=== PATIENT | female | born 1955 | race Two or more races ===

== ENCOUNTER 2020-03-14 15:30 | Emergency (ER) | payer OTHER, SELFPAY ==
--- NOTE | 2020-03-14 | ECG_ITS ---
Test Reason : NAUSEA
--- NOTE | 2020-03-14 | CT_ITS ---
EXAMINATION: CT ABDOMEN AND PELVIS WITHOUT CONTRAST CLINICAL INFORMATION: Epigastric pain. Left lower quadrant pain. COMPARISON: CT scan abdomen pelvis 04/23/2017 TECHNIQUE: Multidetector volumetric imaging was performed from the superior aspect of the liver through the pubic symphysis. Sagittal and coronal reformatted images were obtained on the technologist's workstation. This CT examination was performed using dose optimization techniques as appropriate, variously including the following: *Automated exposure control *Adjustment of mA and/or kV according to patient size (this includes techniques or standardized protocols for targeted exams where dose is matched to indication/reason for exam; i.e. extremities or head) *Use of iterative reconstruction technique DLP: 783 mGy-cm FINDINGS: LUNG BASES: The visualized lung bases are unremarkable. LIVER, GALLBLADDER, AND BILIARY TREE: The liver is normal in size, shape, and attenuation. No focal hepatic lesion or biliary ductal dilatation is present. Status post cholecystectomy PANCREAS: Unremarkable. SPLEEN: Unremarkable. ADRENAL GLANDS: Unremarkable. KIDNEYS AND URETERS: The kidneys are normal in size, shape, and attenuation. No hydronephrosis, hydroureter, or calculi seen. No perinephric stranding. BLADDER: Unremarkable. GASTROINTESTINAL TRACT: No acute abnormality. There are diverticula of the sigmoid and descending colon. There is no diverticulitis. There is no bowel wall thickening /edema. There is no bowel obstruction. There is a moderate volume of stool in the colon. The appendix is normal . The small bowel loops are unremarkable. The stomach is normal. There is no hiatal hernia. ABDOMINAL WALL: No significant hernia is appreciated. LYMPH NODES: Normal. VASCULAR: Scattered vascular wall calcifications of aorta and iliac arteries. There is no aneurysm. PELVIC VISCERA: Unremarkable. OSSEOUS STRUCTURES: Unremarkable. IMPRESSION: No acute abnormality CT scan abdomen and pelvis. There is mild diverticulosis of the colon but no acute changes of the bowel.
[2020-03-14 16:14] VITALS: BP 155/67; PULSE 86; RESP 18; TEMP 36.8; O2SAT 99; BMI 56.9
[2020-03-14 16:57] VITALS: BP 150/68; PULSE 78; RESP 18; TEMP 37.3
--- NOTE | 2020-03-14 17:13 | ED_ITS ---
HPI - Nausea/Vomiting/Diarrhea General Chief complaint: Nausea/Vomiting/Diarrhea <Marquita Serra NP - Last Filed: 03/14/20 22:37> Stated complaint: vomiting,dirrhea <Marquita Serra NP - Last Filed: 03/14/20 22:37> Time Seen by Provider: 03/14/20 17:13 <Marquita Serra NP - Last Filed: 03/14/20 22:37> Source: patient <Marquita Serra NP - Last Filed: 03/14/20 22:37> Mode of arrival: ambulatory <OMID Leary Last Filed: 03/14/20 22:37> Limitations: no limitations <OMID Leary Last Filed: 03/14/20 22:37> History of Present Illness HPI Narrative: Patient presents with 3 days of poor p.o. intake, 2 days of nausea, vomiting, and diarrhea And 1 day of epigastric and right lower quadrant pain. she has a history of diverticulosis, diabetes, hypertension, fibromyalgia and depression. she does report intermittent palpitations but denies chest pain or pressure, shortness of breath, abdominal distention, dysuria, hematuria, hematochezia, melena, fevers and chills. <Marquita Serra NP - Last Filed: 03/14/20 22:37> MD elicited complaint: nausea, vomiting, diarrhea and abdominal pain <OMID Leary Last Filed: 03/14/20 22:37> Onset (ago): day(s) (3) <Marquita Serra NP - Last Filed: 03/14/20 22:37> Description of vomiting: bilious <Marquita Serra NP - Last Filed: 03/14/20 22:37> Description of diarrhea: watery <Marquita Serra NP - Last Filed: 03/14/20 22:37> Associated nausea: Yes <Marquita Serra NP - Last Filed: 03/14/20 22:37> Associated abdominal pain: Yes <OMID Leary Last Filed: 03/14/20 22:37> Location of pain: epigastric, LUQ and LLQ <Marquita Serra NP - Last Filed: 03/14/20 22:37> Radiation: diffuse <Marquita Serra [employer]ODUCTION TECHNICIAN - Last Filed: 03/14/20 22:37> Pain consistency: constant <Marquita Serra NP - Last Filed: 03/14/20 22:37> Severity: moderate <Marquita Serra NP - Last Filed: 03/14/20 22:37> Quality: cramping and aching <Marquita Serra [employer] PRODUCTION TECHNICIAN - Last Filed: 03/14/20 22:37> Exacerbating factors: eating, vomiting and movement <Marquita Serra [employer] PRODUCTION TECHNICIAN - Last Filed: 03/14/20 22:37> Relieving factors: rest <Marquita Serra NP - Last Filed: 03/14/20 22:37> Associated symptoms: denies other symptoms <Marquita Serra NP - Last Filed: 03/14/20 22:37> Treatment prior to arrival: none <Marquita Serra NP - Last Filed: 03/14/20 22:37> Related Data Home medications: Previous Rx's Medication Instructions Recorded ondansetron HCl [Zofran] 4 mg PO Q8H #14 tab 03/14/20 <Marquita Serra NP - Last Filed: 03/14/20 22:37> Allergies/Adverse reactions: Allergies Allergy/AdvReac Type Severity Reaction Status Date / Time amitriptyline [AMITRIPTYLINE] Allergy Unknown ANXIOUS, Verified 03/14/20 16:21 SWELLING aspirin [ASPIRIN] Allergy Unknown DROOLING, Verified 03/14/20 16:21 EXCESSIVE SPITTING <Marquita Serra NP - Last Filed: 03/14/20 22:37> Review of Systems Review of Systems: Yes all other systems are reviewed and are negative <Marquita Serra NP - Last Filed: 03/14/20 22:37> Constitutional: Constitutional: Reports poor appetite <Marquita Serra NP - Last Filed: 03/14/20 22:37> Eyes: Eyes: Reports no additional eye complaints <Marquita Serra NP - Last Filed: 03/14/20 22:37> ENT: Reports system reviewed and no additional complaints, except as documented <Marquita Serra NP - Last Filed: 03/14/20 22:37> Cardiovascular: Cardiovascular: Reports no additional cardiovascular complaints and Reports Epigastric Pain <Marquita Serra [employer]ODUCTION TECHNICIAN - Last Filed: 03/14/20 22:37> Respiratory: Respiratory: Reports no additional respiratory complaints <Marquita Serra [employer] PRODUCTION TECHNICIAN - Last Filed: 03/14/20 22:37> Gastrointestinal: Gastrointestinal: Reports abdominal pain, Reports GI cramping, Reports diarrhea, Reports loose stools, Reports nausea and Reports vomiting <Marquita Serra [employer] PRODUCTION TECHNICIAN - Last Filed: 03/14/20 22:37> Genitourinary: Genitourinary: Reports no additional female genitourinary complaints <Marquita Serra [employer] PRODUCTION TECHNICIAN - Last Filed: 03/14/20 22:37> Musculoskeletal: Musculoskeletal: Reports no additional musculoskeletal complaints <Marquita Serra [employer] PRODUCTION TECHNICIAN - Last Filed: 03/14/20 22:37> Integumentary/Breasts: Skin/Breast: Reports system reviewed and no additional complaints, except as docu <Marquita Serra [employer] PRODUCTION TECHNICIAN - Last Filed: 03/14/20 22:37> Neurologic: Reports system reviewed and no additional complaints, except as documented and Reports Abnormal speech present <Marquita Serra [employer] PRODUCTION TECHNICIAN - Last Filed: 03/14/20 22:37> Psychiatric: Psychiatric: Reports no additional psychiatric complaints <Marquita Serra [employer] PRODUCTION TECHNICIAN - Last Filed: 03/14/20 22:37> Endocrine: Endocrine: Reports no additional endocrine complaints <Marquita Serra [employer] PRODUCTION TECHNICIAN - Last Filed: 03/14/20 22:37> Hematologic/Lymphatic: Hematologic/Lymphatic: Reports no additional hematologic/lymphatic complaints <Marquita Serra [employer] PRODUCTION TECHNICIAN - Last Filed: 03/14/20 22:37> [facility] Past Medical History Attestation statement: The following information was validated with the patient. <Marquita Serra NP - Last Filed: 03/14/20 22:37> Medical History: Medical History (Updated 03/15/20 @ 00:00 by Donta Anaya) Back ache Depression Diabetes Gastritis HTN (hypertension) Osteoarthritis <Marquita Serra [employer]ODUCTION TECHNICIAN - Last Filed: 03/14/20 22:37> Surgical History: Surgical History (Updated 03/14/20 @ 16:19 by Briana Torres) Tubal ligation status <Marquita Serra NP - Last Filed: 03/14/20 22:37> Social History Social History: Social History Alcohol intake: never Smoking Status: Never smoker Use of substances other than those prescribed or required for medical reasons: No Advance Directives: No Advance Directives Information Provided: No <Marquita Serra NP - Last Filed: 03/14/20 22:37> Physical Exam Vital Signs and I&O and Narrative: Vital Signs and I&O: Vital Signs Temp 97.9 F 03/14/20 20:17 Pulse 75 03/14/20 20:17 Resp 16 03/14/20 20:17 BP 160/77 H 03/14/20 20:17 Pulse Ox 98 03/14/20 20:17 Intake & Output 03/14/20 03/14/20 03/15/20 06:59 18:59 06:59 Intake Total 1000 / 1000 Balance 1000 / 1000 Weight 180 kg Intake: Intake, IV Amoun t 1000 / 1000 0.9 % Sodium C hloride 1,000 ml 1000 / 1000 @ 999 mls/hr I VCONT .Q1H1M JOSEMANUEL Rx#:[id number] Body Mass Index 56.9 <Marquita Serra [employer] PRODUCTION TECHNICIAN - Last Filed: 03/14/20 22:37> Vital Signs and I&O: Vital Signs Temp 97.9 F 03/14/20 20:17 Pulse 75 03/14/20 20:17 Resp 16 03/14/20 20:17 BP 160/77 H 03/14/20 20:17 Pulse Ox 98 03/14/20 20:17 Intake & Output 03/14/20 03/14/20 03/15/20 06:59 18:59 06:59 Intake Total 1000 / 1000 Balance 1000 / 1000 Weight 180 kg Intake: Intake, IV Amoun t 1000 / 1000 0.9 % Sodium C hloride 1,000 ml 1000 / 1000 @ 999 mls/hr I VCONT .Q1H1M [facility] Rx#:[id number] Body Mass Index 56.9 <Max Rivera DO - Last Filed: 03/15/20 01:15> Const: General: cooperative, healthy appearing, comfortable, no acute distress, well developed, alert, awake and Physically active <Marquita Serra NP - Last Filed: 03/14/20 22:37> Nutritional Appearance: obese centrally obese <Marquita Serra [employer]ODUCTION TECHNICIAN - Last Filed: 03/14/20 22:37> Orientation/consciousness: patient oriented x3 <Marquita Serra [employer] PRODUCTION TECHNICIAN - Last Filed: 03/14/20 22:37> Limitations: no limitations <Marquita Serra [employer] PRODUCTION TECHNICIAN - Last Filed: 03/14/20 22:37> HENMT: Head: Yes normal to inspection <Marquita Serra [employer] PRODUCTION TECHNICIAN - Last Filed: 03/14/20 22:37> Ears: hearing grossly normal bilaterally <Marquita Serra [employer] PRODUCTION TECHNICIAN - Last Filed: 03/14/20 22:37> General nose exam: Normal external nose present <Marquita Serra [employer] PRODUCTION TECHNICIAN - Last Filed: 03/14/20 22:37> Face and sinus: Yes normal facial exam <Marquita Serra [employer] PRODUCTION TECHNICIAN - Last Filed: 03/14/20 22:37> Mouth: Normal oral and palatal mucosa present <Marquita Serra [employer] PRODUCTION TECHNICIAN - Last Filed: 03/14/20 22:37> Eyes: General: appearance normal, both eyes and all related structures <Marquita Serra [employer] PRODUCTION TECHNICIAN - Last Filed: 03/14/20 22:37> Pupils: Equal, round and reactive pupils present <Marquita Serra [employer] PRODUCTION TECHNICIAN - Last Filed: 03/14/20 22:37> EOM: EOMs intact bilaterally <Marquita Serra [employer] PRODUCTION TECHNICIAN - Last Filed: 03/14/20 22:37> Neck: Neck: Yes normal visual inspection, Yes full ROM, Yes no lymphadenopathy and Yes no meningeal signs <Marquita Serra [employer] PRODUCTION TECHNICIAN - Last Filed: 03/14/20 22:37> Chest: Chest palpation & inspection: normal inspection of the chest <Marquita Serra [employer] PRODUCTION TECHNICIAN - Last Filed: 03/14/20 22:37> Resp: Effort & Inspection: normal respiratory effort and able to speak in complete sentences <Marquita Serra [employer] PRODUCTION TECHNICIAN - Last Filed: 03/14/20 22:37> Auscultation: clear to auscultation bilaterally <Marquita Serra [employer] PRODUCTION TECHNICIAN - Last Filed: 03/14/20 22:37> Cardio: Rate: regular rate <Marquita Serra [employer] PRODUCTION TECHNICIAN - Last Filed: 03/14/20 22:37> Rhythm: regular rhythm <Marquita Serra [employer]EL PRODUCTION TECHNICIAN - Last Filed: 03/14/20 22:37> GI: Inspection: Yes normal to inspection <Marquita Serra [employer] PRODUCTION TECHNICIAN - Last Filed: 03/14/20 22:37> Auscultation: normal bowel sounds <Marquita Serra [employer] PRODUCTION TECHNICIAN - Last Filed: 03/14/20 22:37> : General: Yes no CVA tenderness <Candjed Serra, BI[employer]EL PRODUCTION TECHNICIAN - Last Filed: 03/14/20 22:37> Back/Spine/Pelvis: Back: no CVA tenderness <Candjed Ponce, BI[employer]EL PRODUCTION TECHNICIAN - Last Filed: 03/14/20 22:37> Thoracic/Lumbar Spine: thoracic and lumbar spine normal to inspection <Marquita Serra [employer] PRODUCTION TECHNICIAN - Last Filed: 03/14/20 22:37> Skin: General skin exam: no rashes or lesions noted <Marquita Serra [employer] PRODUCTION TECHNICIAN - Last Filed: 03/14/20 22:37> Neuro: General: patient oriented x3, gait normal ( Ambulates with cane) and no meningeal signs <Marquita Serra [employer] PRODUCTION TECHNICIAN - Last Filed: 03/14/20 22:37> Cranial nerves: Yes CN's II-XII intact bilaterally, Yes Facial sensation intact/muscles of mastication intact, Yes Intact sense of smell present and Yes Equal, round and reactive pupils present <Marquita Serra [employer] PRODUCTION TECHNICIAN - Last Filed: 03/14/20 22:37> Cognition (Neuro): normal cognition <Marquita Serra [employer]EL PRODUCTION TECHNICIAN - Last Filed: 03/14/20 22:37> Speech: Abnormal speech present <Candjed Serra [employer]EL PRODUCTION TECHNICIAN - Last Filed: 03/14/20 22:37> Motor exam (neuro): 5/5 motor strength present throughout <Marquita Serra [employer] PRODUCTION TECHNICIAN - Last Filed: 03/14/20 22:37> Extrem: General: Yes normal to inspection <Marquita Serra [employer]EL PRODUCTION TECHNICIAN - Last Filed : 03/14/20 22:37> Psych: Appearance: grossly normal <Marquita Serra [employer] PRODUCTION TECHNICIAN - Last Filed: 03/14/20 22:37> Mental Status: mental status grossly normal <Marquita Serra NP - Last Filed: 03/14/20 22:37> Speech and movement: Normal speech and movement present <Marquita Serra NP - Last Filed: 03/14/20 22:37> Course Course Hospital Course: 64-year-old female with past medical history of depression, hypertension, diabetes type 2 insulin dependent, fibromyalgia, diverticulosis and polyps with last colonoscopy being 3 years ago presents with nausea, vomiting, diarrhea for several days accompanied with epigastric and left lower quadrant abdominal pain. Patient is tender to palpation to the epigastric and left lower quadrant areas, plan is to rule out for ACS, AAA, acute abdomen. <Marquita Serra NP - Last Filed: 03/14/20 22:37> Reevaluation(s) Reevaluation #1: Chest x-ray is negative for acute findings, CBC is within normal limits. Glucose 161. <Marquita Serra NP - Last Filed: 03/14/20 22:37> Reevaluation #2: CT scan negative, lab values indicate hyperkalemia at 5.5. We will give Kayexalate. <Marquita Serra NP - Last Filed: 03/14/20 22:37> Time: 19:05 <Marquita Serra NP - Last Filed: 03/14/20 22:37> Reevaluation #3: patient is doing well, states to feel much better with fluid resuscitation and antiemetics. Plan of care is to discharge home with follow-up with primary care provider. We will give a prescription for Zofran to help with nausea. Patient does understand that she must continue to take her insulin as directed per her insulin sliding scale. [employer] utilized for all correspondence. [employer] translate utilized for discharge instructions. Patient verbalized understanding of and agrees to plan of care discharge home. <Marquita Serra NP - Last Filed: 03/14/20 22:37> MDM - Nausea/Vomiting/Diarrhea Differential Diagnosis Differential diagnosis: Likely gastroenteritis and dehydration <Marquita Serra NP - Last Filed: 03/14/20 22:37> Medical Records Attestation: I reviewed the patient's medical records. <Marquita Serra NP - Last Filed: 03/14/20 22:37> Lab Data Attestation: I reviewed the patient's lab results. <Marquita Serra NP - Last Filed: 03/14/20 22:37> Result diagrams: : 03/14/20 17:35 03/14/20 17:35 <Marquita Serra NP - Last Filed: 03/14/20 22:37> Labs: Lab Results 03/14/20 03/14/20 03/14/20 Range/Units 17:35 17:35 17:35 WBC 8.5 (4.8-10.8) X10*3/uL RBC 4.42 (4.20-5.50) X10*6/uL Hgb 13.5 (12.0-16.0) g/dl Hct 42.2 (37-47) % MCV 95.5 (80-98) fL MCH 30.5 (27.0-33.0) pg MCHC 32.0 (31.0-35.0) g/dl RDW 11.9 (11.0-16.0) % Plt Count 294 (160-400) X10*3/uL MPV 10.3 (9.4-12.3) fL Immature Gran % (Auto) 0.2 (0.0-0.4) % Neut % (Auto) 62.4 (45-73) % Lymph % (Auto) 26.9 (20-40) % [place] % (Auto) 8.7 (2-11) % Eos % (Auto) 1.4 (0-4) % Baso % (Auto) 0.4 (0-2) % Neut # (Auto) 5.3 (2.0-8.3) X10*3/uL Lymph # (Auto) 2.3 (1.2-4.9) X10*3/uL [place] # (Auto) 0.7 (0.1-1.2) X10*3/uL Eos # (Auto) 0.1 (0.0-0.4) X10*3/uL Baso # (Auto) 0.0 (0.0-0.2) X10*3/uL Abs Immat Gran (auto) 0.02 (0.00-0.03) X10*3/uL Absolute Nucleated RBC 0.000 (0.0-0.012) X10*3/uL Nucleated RBC % (auto) 0.0 (0.0-0.2) /100WBC PT 13.3 H (10.8-13.0) SEC INR 1.1 (0.9-1.1) Sodium 140 (135-145) mmol/L Potassium 5.5 H (3.3-5.1) mmol/l Chloride 105 (96-108) mmol/L Carbon Dioxide 25 (22-29) mmol/L Anion Gap 16 (12-20) BUN 14 (9-16) mg/dL Creatinine 0.78 (0.5-1.4) mg/dL Estim Creat Clear Calc 126.7 Estimated GFR > 60 Random Glucose 161 H (60-115) mg/dL Calcium 8.9 (8.4-10.2) mg/dL Magnesium (1.6-2.6) mg/dL Total Bilirubin 0.2 (0.0-1.0) mg/dL Direct Bilirubin < 0.2 (0.0-0.5) mg/dL AST 33 H (5-31) U/L ALT 26 (0-31) U/L Alkaline Phosphatase 86 (39-117) U/L Troponin I High Sens (<3.5-17.0) ng/L Total Protein 7.6 (6.5-8.0) g/dL Albumin 4.2 (3.5-5.0) g/dL Lipase 55 (8-78) U/L 03/14/20 03/14/20 Range/Units 17:36 17:36 WBC (4.8-10.8) X10*3/uL RBC (4.20-5.50) X10*6/uL Hgb (12.0-16.0) g/dl Hct (37-47) % MCV (80-98) fL MCH (27.0-33.0) pg MCHC (31.0-35.0) g/dl RDW (11.0-16.0) % Plt Count (160-400) X10*3/uL MPV (9.4-12.3) fL Immature Gran % (Auto) (0.0-0.4) % Neut % (Auto) (45-73) % Lymph % (Auto) (20-40) % [place] % (Auto) (2-11) % Eos % (Auto) (0-4) % Baso % (Auto) (0-2) % Neut # (Auto) (2.0-8.3) X10*3/uL Lymph # (Auto) (1.2-4.9) X10*3/uL [place] # (Auto) (0.1-1.2) X10*3/uL Eos # (Auto) (0.0-0.4) X10*3/uL Baso # (Auto) (0.0-0.2) X10*3/uL Abs Immat Gran (auto) (0.00-0.03) X10*3/uL Absolute Nucleated RBC (0.0-0.012) X10*3/uL Nucleated RBC % (auto) (0.0-0.2) /100WBC PT (10.8-13.0) SEC INR (0.9-1.1) Sodium (135-145) mmol/L Potassium (3.3-5.1) mmol/l Chloride (96-108) mmol/L Carbon Dioxide (22-29) mmol/L Anion Gap (12-20) BUN (9-16) mg/dL Creatinine (0.5-1.4) mg/dL Estim Creat Clear Calc Estimated GFR Random Glucose (60-115) mg/dL Calcium (8.4-10.2) mg/dL Magnesium 2.3 (1.6-2.6) mg/dL Total Bilirubin (0.0-1.0) mg/dL Direct Bilirubin (0.0-0.5) mg/dL AST (5-31) U/L ALT (0-31) U/L Alkaline Phosphatase (39-117) U/L Troponin I High Sens < 3.5 (<3.5-17.0) ng/L Total Protein (6.5-8.0) g/dL Albumin (3.5-5.0) g/dL Lipase (8-78) U/L <Marquita Serra NP - Last Filed: 03/14/20 22:37> Lab Results 03/14/20 03/14/20 03/14/20 Range/Units 17:35 17:35 17:35 WBC 8.5 (4.8-10.8) X10*3/uL RBC 4.42 (4.20-5.50) X10*6/uL Hgb 13.5 (12.0-16.0) g/dl Hct 42.2 (37-47) % MCV 95.5 (80-98) fL MCH 30.5 (27.0-33.0) pg MCHC 32.0 (31.0-35.0) g/dl RDW 11.9 (11.0-16.0) % Plt Count 294 (160-400) X10*3/uL MPV 10.3 (9.4-12.3) fL Immature Gran % (Auto) 0.2 (0.0-0.4) % Neut % (Auto) 62.4 (45-73) % Lymph % (Auto) 26.9 (20-40) % [place] % (Auto) 8.7 (2-11) % Eos % (Auto) 1.4 (0-4) % Baso % (Auto) 0.4 (0-2) % Neut # (Auto) 5.3 (2.0-8.3) X10*3/uL Lymph # (Auto) 2.3 (1.2-4.9) X10*3/uL [place] # (Auto) 0.7 (0.1-1.2) X10*3/uL Eos # (Auto) 0.1 (0.0-0.4) X10*3/uL Baso # (Auto) 0.0 (0.0-0.2) X10*3/uL Abs Immat Gran (auto) 0.02 (0.00-0.03) X10*3/uL Absolute Nucleated RBC 0.000 (0.0-0.012) X10*3/uL Nucleated RBC % (auto) 0.0 (0.0-0.2) /100WBC PT 13.3 H (10.8-13.0) SEC INR 1.1 (0.9-1.1) Sodium 140 (135-145) mmol/L Potassium 5.5 H (3.3-5.1) mmol/l Chloride 105 (96-108) mmol/L Carbon Dioxide 25 (22-29) mmol/L Anion Gap 16 (12-20) BUN 14 (9-16) mg/dL Creatinine 0.78 (0.5-1.4) mg/dL Estim Creat Clear Calc 126.7 Estimated GFR > 60 Random Glucose 161 H (60-115) mg/dL Calcium 8.9 (8.4-10.2) mg/dL Magnesium (1.6-2.6) mg/dL Total Bilirubin 0.2 (0.0-1.0) mg/dL Direct Bilirubin < 0.2 (0.0-0.5) mg/dL AST 33 H (5-31) U/L ALT 26 (0-31) U/L Alkaline Phosphatase 86 (39-117) U/L Troponin I High Sens (<3.5-17.0) ng/L Total Protein 7.6 (6.5-8.0) g/dL Albumin 4.2 (3.5-5.0) g/dL Lipase 55 (8-78) U/L 03/14/20 03/14/20 Range/Units 17:36 17:36 WBC (4.8-10.8) X10*3/uL RBC (4.20-5.50) X10*6/uL Hgb (12.0-16.0) g/dl Hct (37-47) % MCV (80-98) fL MCH (27.0-33.0) pg MCHC (31.0-35.0) g/dl RDW (11.0-16.0) % Plt Count (160-400) X10*3/uL MPV (9.4-12.3) fL Immature Gran % (Auto) (0.0-0.4) % Neut % (Auto) (45-73) % Lymph % (Auto) (20-40) % [place] % (Auto) (2-11) % Eos % (Auto) (0-4) % Baso % (Auto) (0-2) % Neut # (Auto) (2.0-8.3) X10*3/uL Lymph # (Auto) (1.2-4.9) X10*3/uL [place] # (Auto) (0.1-1.2) X10*3/uL Eos # (Auto) (0.0-0.4) X10*3/uL Baso # (Auto) (0.0-0.2) X10*3/uL Abs Immat Gran (auto) (0.00-0.03) X10*3/uL Absolute Nucleated RBC (0.0-0.012) X10*3/uL Nucleated RBC % (auto) (0.0-0.2) /100WBC PT (10.8-13.0) SEC INR (0.9-1.1) Sodium (135-145) mmol/L Potassium (3.3-5.1) mmol/l Chloride (96-108) mmol/L Carbon Dioxide (22-29) mmol/L Anion Gap (12-20) BUN (9-16) mg/dL Creatinine (0.5-1.4) mg/dL Estim Creat Clear Calc Estimated GFR Random Glucose (60-115) mg/dL Calcium (8.4-10.2) mg/dL Magnesium 2.3 (1.6-2.6) mg/dL Total Bilirubin (0.0-1.0) mg/dL Direct Bilirubin (0.0-0.5) mg/dL AST (5-31) U/L ALT (0-31) U/L Alkaline Phosphatase (39-117) U/L Troponin I High Sens < 3.5 (<3.5-17.0) ng/L Total Protein (6.5-8.0) g/dL Albumin (3.5-5.0) g/dL Lipase (8-78) U/L <Max Rivera DO - Last Filed: 03/15/20 01:15> Imaging Data CT scan - abdomen: Attestation: I personally reviewed and interpreted this imaging study as follows: <Marquita Serra NP - Last Filed: 03/14/20 22:37> Radiologist's impression: FINDINGS: LUNG BASES: The visualized lung bases are unremarkable. LIVER, GALLBLADDER, AND BILIARY TREE: The liver is normal in size, shape, and attenuation. No focal hepatic lesion or biliary ductal dilatation is present. Status post cholecystectomy PANCREAS: Unremarkable. SPLEEN: Unremarkable. ADRENAL GLANDS: Unremarkable. KIDNEYS AND URETERS: The kidneys are normal in size, shape, and attenuation. No hydronephrosis, hydroureter, or calculi seen. No perinephric stranding. BLADDER: Unremarkable. GASTROINTESTINAL TRACT: No acute abnormality. There are diverticula of the sigmoid and descending colon. There is no diverticulitis. There is no bowel wall thickening /edema. There is no bowel obstruction. There is a moderate volume of stool in the colon. The appendix is normal . The small bowel loops are unremarkable. The stomach is normal. There is no hiatal hernia. ABDOMINAL WALL: No significant hernia is appreciated. LYMPH NODES: Normal. VASCULAR: Scattered vascular wall calcifications of aorta and iliac arteries. There is no aneurysm. PELVIC VISCERA: Unremarkable. OSSEOUS STRUCTURES: Unremarkable. IMPRESSION: No acute abnormality CT scan abdomen and pelvis. There is mild diverticulosis of the colon but no acute changes of the bowel. <Marquita Serra NP - Last Filed: 03/14/20 22:37> Chest x-ray: Attestation: I personally reviewed and interpreted this imaging study as follows: <Marquita Serra NP - Last Filed: 03/14/20 22:37> Radiologist's impression: FINDINGS: No significant abnormality is noted involving the heart, lungs, mediastinum, bony thorax or soft tissues. IMPRESSION: Unremarkable examination. <Marquita Serra NP - Last Filed: 03/14/20 22:37> ECG Data Attestation: I personally reviewed and interpreted this ECG as follows: <Marquita Serra NP - Last Filed: 03/14/20 22:37> ECG interpretation date: 03/14/20 <Marquita Serra NP - Last Filed: 03/14/20 22:37> ECG interpretation time: 18:42 <Marquita Serra NP - Last Filed: 03/14/20 22:37> Prior ECG tracings: available for review <Marquita Serra NP - Last Filed: 03/14/20 22:37> Interpretation: normal sinus rhythm, 65 beats per minute, AR interval 158, QTC 414, QTC 430, no indication of ST elevation or depression. No indication of any ischemia. Normal EKG <Marquita Serra NP - Last Filed: 03/14/20 22:37> Discharge Plan Discharge Clinical Impression: Gastroenteritis, Acute hyperkalemia <OMID Leary Last Filed: 03/14/20 22:37> Patient Disposition: Home, Self-Care <OMID Leary Last Filed: 03/14/20 22:37> Instructions: Dehydration (ED), Gastroenteritis (ED), Hyperkalemia (ED) <Marquita Serra NP - Last Filed: 03/14/20 22:37> Additional Instructions: please follow-up with primary care physician in 3-5 days. Return to the emergency department for any new, concerning, worsening symptoms. <Marquita Serra NP - Last Filed: 03/14/20 22:37> Prescriptions: New ondansetron HCl [Zofran] 4 mg tablet 4 mg PO Q8H Qty: 14 RF: 0 <Marquita Serra NP - Last Filed: 03/14/20 22:37> Interventions: ED Discharge Assessment Last Done: 03/14/20 20:37 <Marquita Serra NP - Last Filed: 03/14/20 22:37> Discharge Date/Time: 03/14/20 20:38 <Marquita Serra NP - Last Filed: 03/14/20 22:37>
--- NOTE | 2020-03-14 17:20 | XR_ITS ---
EXAMINATION: XR CHEST CLINICAL INFORMATION: Epigastric pain COMPARISON: 11/29/2019 TECHNIQUE: Frontal view of the chest was obtained. FINDINGS: No significant abnormality is noted involving the heart, lungs, mediastinum, bony thorax or soft tissues. IMPRESSION: Unremarkable examination.
[2020-03-14 17:52] LABS: MANUAL DIFF FLAG NO
[2020-03-14 17:55] LABS: Basophils Percent Auto 0.4 % (0-2); Eosinophils Absolute Auto 0.1 X10*3/uL (0.0-0.4); Eosinophils Percent Auto 1.4 % (0-4); Hematocrit 42.2 % (37-47); Hemoglobin 13.5 g/dl (12.0-16.0); Imm Gran Abs Auto 0.02 X10*3/uL (0.00-0.03); Imm Gran Pct Auto 0.2 % (0.0-0.4); Lymphocytes Absolute Auto 2.3 X10*3/uL (1.2-4.9); Lymphocytes Percent Auto 26.9 % (20-40); Mean Corpuscular Hemoglobin 30.5 pg (27.0-33.0); Mean Corpuscular Volume 95.5 fL (80-98); Mean Platelet Volume 10.3 fL (9.4-12.3); Monocytes Absolute Auto 0.7 X10*3/uL (0.1-1.2); Monocytes Percent Auto 8.7 % (2-11); Neutrophils Absolute Auto 5.3 X10*3/uL (2.0-8.3); Neutrophils Percent Auto 62.4 % (45-73); Platelet Count 294 X10*3/uL (160-400); Red Blood Count 4.42 X10*6/uL (4.20-5.50); Red Cell Distribution Width 11.9 % (11.0-16.0); White Blood Count 8.5 X10*3/uL (4.8-10.8)
[2020-03-14 17:58] LABS: INTERNATIONAL NORM RATIO 1.1 (0.9-1.1); Prothrombin Time 13.3 SEC (10.8-13.0)
[2020-03-14 18:17] LABS: Magnesium 2.3 mg/dL (1.6-2.6)
[2020-03-14] MEDS: ondansetron HCL 4 MG/2 ML VIAL IVPUSH (18:21)
[2020-03-14] MEDS: 0.9 % Sodium Chloride 1,000 ML 999 ML IVCONT (18:21)
[2020-03-14 18:23] VITALS: BP 126/66; PULSE 66; RESP 16; TEMP 37.1
[2020-03-14 18:28] VITALS: PULSE 65
[2020-03-14 18:52] LABS: Alanine Aminotransferase 26 U/L (0-31); Albumin Level 4.2 g/dL (3.5-5.0); Alkaline Phosphatase 86 U/L (39-117); Anion Gap 16 (12-20); Aspartate Amino Transferase 33 U/L (5-31); Bilirubin Direct < 0.2 mg/dL (0.0-0.5); Bilirubin Total 0.2 mg/dL (0.0-1.0); Blood Urea Nitrogen 14 mg/dL (9-16); Calcium 8.9 mg/dL (8.4-10.2); Carbon Dioxide 25 mmol/L (22-29); Chloride 105 mmol/L (96-108); Creatinine Clr Calc Pharmacy 126.7; Estimated Glomerular Filt Rate > 60; Glucose Random 161 mg/dL (60-115); Lipase 55 U/L (8-78); Potassium 5.5 mmol/l (3.3-5.1); Sodium 140 mmol/L (135-145); Total Protein 7.6 g/dL (6.5-8.0)
[2020-03-14 20:17] VITALS: BP 160/77; PULSE 75; RESP 16; TEMP 36.6; O2SAT 98
[2020-03-14] MEDS: Sodium Polystyrene Sulfon/Sorb 15 GM/60 ML ORAL.SUSP 30 GM PO (20:33)
[2020-03-14 21:36] LABS: Troponin-I High Sensitivity < 3.5 ng/L (<3.5-17.0)
== END 2020-03-14 20:38 | disposition home or self-care (01) ==
PROVIDERS: Nurse Practitioner Family; Emergency Provider Emergency Medicine; PCP Family Medicine
DX: K52.9 Noninfective gastroenteritis and colitis, unspecified (principal); E87.5 Hyperkalemia; E11.9 Type 2 diabetes mellitus without complications; I10 Essential (primary) hypertension; Z79.4 Long term (current) use of insulin
CPT/HCPCS: 36415; 71045; 74176; 80048; 80076; 83690; 83735; 84484; 85025; 85610; 93005; 93010; 96361; 96374; 99284; J2405

== ENCOUNTER 2020-03-19 09:09 | Outpatient (REF) | payer OTHER, SELFPAY ==
--- NOTE | 2020-03-19 | EMG_ITS ---
Right tibial and peroneal motor studies were performed. Right superficial peroneal and sensory study were performed, and limb muscles were tested with a needle. 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 MD HI Sumner/LEENA / [id number]
== END 2020-03-19 09:10 | disposition home or self-care (01) ==
LOC: HO.NEURO 09:09
PROVIDERS: PCP Family Medicine; Visit Provider Family Medicine
DX: M79.604 Pain in right leg (principal); M79.605 Pain in left leg
CPT/HCPCS: 95860; 95885; 95908

== ENCOUNTER → 2020-04-21 11:45 | Outpatient (BNVA) | payer OTHER, SELFPAY | PROVIDERS: PCP Family Medicine; Referring Provider Family Medicine; Visit Provider Nurse Practitioner Gerontology | DX: E11.40 Type 2 diabetes mellitus with diabetic neuropathy, unspecified (principal); Z79.84 Long term (current) use of oral hypoglycemic drugs; I10 Essential (primary) hypertension; E78.5 Hyperlipidemia, unspecified | CPT/HCPCS: 99212 ==

== ENCOUNTER 2020-06-19 02:58 | Emergency (ER) | payer OTHER, SELFPAY ==
[2020-06-19 03:03] VITALS: BP 145/97; BP 182/68; PULSE 95; RESP 18; TEMP 37.5; O2SAT 100; O2SAT 99; BMI 31.8
--- NOTE | 2020-06-19 03:05 | ED.CHESTPAIN ---
HPI - Chest Pain General Chief Complaint: Chest Pain Stated Complaint: Chest pain Time Seen by Provider: 06/19/20 03:05 Source: patient, EMS and interpreter translator Mode of arrival: EMS Limitations: no limitations History of Present Illness HPI narrative: 64 yo female with HTN, DM, HPL was at home sleeping at 1am developed L sided chest pain into her L arm with n/v, the pain is worse with movement of her L arm, she recently fell but did not injure her chest, she denies prior cardiac catheterization MD complaint: chest pain Onset (ago): hour(s) (1am today) Timing of current episode: constant Prior episodes: Yes Onset: during rest Pain location: left chest Pain radiation: left arm Severity: moderate Quality: aching Relieving factors: nothing Exacerbating factors: palpation and movement Context: trauma/injury (states she did fall recently but denies injuring chest pain) Associated symptoms: nausea and vomiting Treatment prior to arrival: aspirin Related Data Home Medications Medication Instructions Recorded Confirmed alcohol swabs 0 pad TOPICAL 04/21/20 04/21/20 aspirin 81 mg tablet,delayed 81 mg PO DAILY 04/21/20 04/21/20 release atorvastatin 80 mg tablet 80 mg PO BEDTIME 04/21/20 04/21/20 blood sugar diagnostic #10 ea 04/21/20 04/21/20 blood-glucose meter #1 ea 04/21/20 04/21/20 calcium carbonate 200 mg calcium 200 mg PO BID 04/21/20 04/21/20 (500 mg) chewable tablet docusate sodium 100 mg capsule 100 mg PO BID PRN 04/21/20 04/21/20 lancets 33 gauge #100 ea 04/21/20 04/21/20 omeprazole 20 mg capsule,delayed 20 mg PO BID 04/21/20 04/21/20 release Previous Rx's Medication Instructions Recorded ondansetron HCl [Zofran] 4 mg PO Q8H #14 tab 03/14/20 dulaglutide 1.5 mg/0.5 mL 1.5 mg SUBCUT QWEEK 28 Days #2 ml 03/22/20 subcutaneous pen injector empagliflozin 10 mg tablet 10 mg PO DAILY 30 Days #30 tab 03/23/20 metformin 850 mg tablet 850 mg PO BID #60 tab 04/21/20 gabapentin 300 mg capsule See Rx Instructions PO TID #120 cap 06/15/20 cyclobenzaprine 10 mg PO TID PRN #14 tab 06/19/20 Allergies Allergy/AdvReac Type Severity Reaction Status Date / Time amitriptyline [AMITRIPTYLINE] Allergy Unknown ANXIOUS, Verified 04/21/20 15:19 SWELLING aspirin [ASPIRIN] Allergy Unknown DROOLING, Verified 04/21/20 15:19 EXCESSIVE SPITTING Review of Systems Review of Systems: Constitutional : No Weight loss, No Fever, No Chills ENT/Mouth : No sore throat, No Rhinorrhea Eyes: No Eye Pain, No Swelling Cardiovascular : pos Chest Pain, pos SOB, no Dyspnea on Exertion, No Orthopnea, No Edema, No Palpitations Respiratory : No Cough, No Sputum Gastrointestinal : pos Nausea, pos Vomiting, No Diarrhea, No abdominal Pain, No Hematochezia, No Melena Genitourinary : No Dysuria, No Urinary Frequency Musculoskeletal : No joint pain, No Myalgias, No Joint Swelling Skin : No Skin Lesions, No rash Neuro : No Weakness, No Numbness, No Dizziness, No Headache Psych : No Anxiety/Panic, No Depression Heme/Lymph: No Bruising, No Lymphadenopathy Endocrine : No Polyuria, No Polydipsia All other systems reviewed and are negative PMFSH Past Medical History Attestation statement: The following information was validated with the patient. Medical History Back ache Depression Diabetes Essential hypertension Fibromyalgia Gastric ulcer Gastritis HTN (hypertension) Hyperlipidemia LDL goal <100 Neuropathy Osteoarthritis Retinopathy Snoring Type 2 diabetes mellitus with diabetic neuropathy, unspecified Type 2 diabetes mellitus with hyperglycemia, without long-term current use of insulin Surgical History Hx of cholecystectomy Hx of tubal ligation Family History Family History (Updated 04/21/20 @ 15:21 by KENDRA Poole) Father FH: prostate cancer Mother Heart disease CVD (cardiovascular disease) Son Diabetes Social History Social History Household Members: Family Alcohol intake: never Smoking Status: Never smoker Use of substances other than those prescribed or required for medical reasons: No Advance Directives: No Physical Exam Vital Signs: Vital Signs: Last Vital Signs Temp 99.5 F 06/19/20 03:03 Pulse 79 01/08/21 04:00 Resp 16 06/19/20 04:00 BP 140/52 H 06/19/20 04:00 Pulse Ox 96 06/19/20 04:00 Body Mass Index 31.8 Appearance: Alert. Oriented X3. No acute distress. Eyes: Pupils equal, round and reactive to light. ENT: Pharynx normal. Neck: Normal inspection. Neck supple. CVS: Normal heart rate and rhythm. Pulses normal. Chest: ttp along L pectoralis muscle, pain with movement of L arm Respiratory: No respiratory distress. Breath sounds normal. Abdomen: Soft and non-tender. Skin: Skin warm and dry. Normal skin color. Normal skin turgor. Extremities: No lower extremity edema. No calf ttp Neuro: Oriented X 3. No motor deficit. No sensory deficit. Course Course Course Narrative: patient with repeat negative troponin nonischemic EKG, feels better, stable for DC at this time MDM - Chest Pain Lab Data Result diagrams: 06/19/20 03:59 06/19/20 04:00 Labs: Lab Results 06/19/20 06/19/20 06/19/20 Range/Units 03:59 03:59 04:00 WBC 8.7 (4.8-10.8) X10*3/uL RBC 4.34 (4.20-5.50) X10*6/uL Hgb 13.5 (12.0-16.0) g/dl Hct 40.9 (37-47) % MCV 94.2 (80-98) fL MCH 31.1 (27.0-33.0) pg MCHC 33.0 (31.0-35.0) g/dl RDW 12.6 (11.0-16.0) % Plt Count 262 (160-400) X10*3/uL MPV 10.6 (9.4-12.3) fL Immature Gran % (Auto) 0.3 (0.0-0.4) % Neut % (Auto) 63.1 (45-73) % Lymph % (Auto) 26.5 (20-40) % [place] % (Auto) 8.4 (2-11) % Eos % (Auto) 1.4 (0-4) % Baso % (Auto) 0.3 (0-2) % Lymph # (Auto) 2.3 (1.2-4.9) X10*3/uL [place] # (Auto) 0.7 (0.1-1.2) X10*3/uL Eos # (Auto) 0.1 (0.0-0.4) X10*3/uL Baso # (Auto) 0.0 (0.0-0.2) X10*3/uL Abs Immat Gran (auto) 0.03 (0.00-0.03) X10*3/uL Absolute Neuts (auto) 5.5 (2.0-8.3) X10*3/uL Absolute Nucleated RBC 0.000 (0.0-0.012) X10*3/uL Nucleated RBC % (auto) 0.0 (0.0-0.2) /100WBC PT 13.1 H (10.8-13.0) SEC INR 1.1 (0.9-1.1) APTT 32.8 (24.1-38.0) SEC D-Dimer < 200 NG/ML Sodium 138 (135-145) mmol/L Potassium 4.2 D (3.3-5.1) mmol/l Chloride 103 (96-108) mmol/L Carbon Dioxide 20 L (22-29) mmol/L Anion Gap 19 (12-20) BUN 15 (9-16) mg/dL Creatinine 0.75 (0.5-1.4) mg/dL Estim Creat Clear Calc 74.6 Estimated GFR > 60 Random Glucose 156 H (60-115) mg/dL Calcium 8.9 (8.4-10.2) mg/dL Magnesium 2.0 (1.6-2.6) mg/dL Total Bilirubin 0.5 (0.0-1.0) mg/dL Direct Bilirubin 0.2 (0.0-0.5) mg/dL AST 21 (5-31) U/L ALT 19 (0-31) U/L Alkaline Phosphatase 86 (39-117) U/L Troponin I High Sens (<3.5-17.0) ng/L Total Protein 7.1 (6.5-8.0) g/dL Albumin 4.1 (3.5-5.0) g/dL Lipase (8-78) U/L 06/19/20 06/19/20 06/19/20 Range/Units 04:00 04:00 05:47 WBC (4.8-10.8) X10*3/uL RBC (4.20-5.50) X10*6/uL Hgb (12.0-16.0) g/dl Hct (37-47) % MCV (80-98) fL MCH (27.0-33.0) pg MCHC (31.0-35.0) g/dl RDW (11.0-16.0) % Plt Count (160-400) X10*3/uL MPV (9.4-12.3) fL Immature Gran % (Auto) (0.0-0.4) % Neut % (Auto) (45-73) % Lymph % (Auto) (20-40) % [place] % (Auto) (2-11) % Eos % (Auto) (0-4) % Baso % (Auto) (0-2) % Lymph # (Auto) (1.2-4.9) X10*3/uL [place] # (Auto) (0.1-1.2) X10*3/uL Eos # (Auto) (0.0-0.4) X10*3/uL Baso # (Auto) (0.0-0.2) X10*3/uL Abs Immat Gran (auto) (0.00-0.03) X10*3/uL Absolute Neuts (auto) (2.0-8.3) X10*3/uL Absolute Nucleated RBC (0.0-0.012) X10*3/uL Nucleated RBC % (auto) (0.0-0.2) /100WBC PT (10.8-13.0) SEC INR (0.9-1.1) APTT (24.1-38.0) SEC D-Dimer NG/ML Sodium (135-145) mmol/L Potassium (3.3-5.1) mmol/l Chloride (96-108) mmol/L Carbon Dioxide (22-29) mmol/L Anion Gap (12-20) BUN (9-16) mg/dL Creatinine (0.5-1.4) mg/dL Estim Creat Clear Calc Estimated GFR Random Glucose (60-115) mg/dL Calcium (8.4-10.2) mg/dL Magnesium (1.6-2.6) mg/dL Total Bilirubin (0.0-1.0) mg/dL Direct Bilirubin (0.0-0.5) mg/dL AST (5-31) U/L ALT (0-31) U/L Alkaline Phosphatase (39-117) U/L Troponin I High Sens < 3.5 < 3.5 (<3.5-17.0) ng/L Total Protein (6.5-8.0) g/dL Albumin (3.5-5.0) g/dL Lipase 44 (8-78) U/L ECG Data ECG #1: Attestation: I personally reviewed and interpreted this ECG as follows: ECG interpretation date: 06/19/20 ECG interpretation time: 03:11 Interpretation: Rate: 87 Rhythm: NSR [place]: left Normal P waves. Normal SAMUEL. Normal QRS complex. ST T wave : normal , no KIRSTIN qTC: normal prior studies: no acute ischemia The study has been interpreted contemporaneously by me. . Discharge Plan Discharge Clinical Impression: Atypical chest pain Patient Disposition: Home, Self-Care Instructions: Chest Pain (ED) Additional Instructions: return to ED for any worsening symptoms or concerns Prescriptions: New cyclobenzaprine 10 mg tablet 10 mg PO TID PRN (Reason: muscle spasm) Qty: 14 RF: 0 No Action Trulicity 1.5 mg/0.5 mL pen injector 1.5 mg subcut QWEEK 28 Days Qty: 2 RF: 3 Jardiance 10 mg tablet 10 mg PO DAILY 30 Days Qty: 30 RF: 3 gabapentin 300 mg capsule See Rx Instructions PO TID Qty: 120 RF: 3 ondansetron HCl [Zofran] 4 mg tablet 4 mg PO Q8H Qty: 14 RF: 0 atorvastatin 80 mg tablet 80 mg PO BEDTIME RF: 0 omeprazole 20 mg capsule,delayed release(DR/EC) 20 mg PO BID RF: 0 alcohol swabs Pads, Medicated 0 pad topical RF: 0 calcium carbonate 200 mg calcium (500 mg) tablet,chewable 200 mg PO BID RF: 0 docusate sodium 100 mg capsule 100 mg PO BID PRNRF: 0 (DME) FreeStyle Lite Strips Strip See Rx Instructions ea Not Applicable TID Qty: 10 RF: 0 (DME) lancets 33 gauge misc See Rx Instructions ea .ROUTE .MEDSUPPLY Qty: 100 RF: 0 (DME) blood-glucose meter Kit See Rx Instructions ea Not Applicable TID Qty: 1 RF: 0 aspirin 81 mg tablet,delayed release (DR/EC) 81 mg PO DAILY RF: 0 metformin 850 mg tablet 850 mg PO BID Qty: 60 RF: 3 Referrals: Physician,Unknown [Primary Care Provider] - 2 days (if not better) Print Language: Uzbek
--- NOTE | 2020-06-19 03:09 | ECG_ITS ---
Test Reason : CHEST PAIN Blood Pressure : / mmHG Vent. Rate : 087 BPM Atrial Rate : 087 BPM P-R Int : 148 ms QRS Dur : 082 ms QT Int : 368 ms P-R-T Axes : 041 -27 032 degrees QTc Int : 442 ms Normal sinus rhythm Normal ECG When compared with ECG of 14-MAR-2020 18:42, No significant change was found Referred By: Pat Vallejo Electronically Signed By:Theo Barlow
--- NOTE | 2020-06-19 03:10 | XR_ITS ---
EXAMINATION: XR CHEST CLINICAL INFORMATION: Chest pain COMPARISON: 03/14/2020 TECHNIQUE: Frontal view of the chest was obtained. FINDINGS: Cardiac leads overlie the chest. The lungs are well expanded. There is no focal consolidation, edema, or effusion. No pneumothorax. The cardiomediastinal silhouette is within normal limits. No acute osseous abnormality. XR/XR chest 1V IMPRESSION: Clear lungs.
[2020-06-19] MEDS: HYDROcodone Bit/Acetam 5/325 TABLET 1 TAB PO (03:30)
[2020-06-19 04:00] VITALS: BP 140/52; PULSE 79; RESP 16; O2SAT 96
[2020-06-19 04:08] LABS: Basophils Percent Auto 0.3 % (0-2); Eosinophils Absolute Auto 0.1 X10*3/uL (0.0-0.4); Eosinophils Percent Auto 1.4 % (0-4); Hematocrit 40.9 % (37-47); Hemoglobin 13.5 g/dl (12.0-16.0); Imm Gran Abs Auto 0.03 X10*3/uL (0.00-0.03); Imm Gran Pct Auto 0.3 % (0.0-0.4); Lymphocytes Absolute Auto 2.3 X10*3/uL (1.2-4.9); Lymphocytes Percent Auto 26.5 % (20-40); MANUAL DIFF FLAG NO; Mean Corpuscular Hemoglobin 31.1 pg (27.0-33.0); Mean Corpuscular Volume 94.2 fL (80-98); Mean Platelet Volume 10.6 fL (9.4-12.3); Monocytes Absolute Auto 0.7 X10*3/uL (0.1-1.2); Monocytes Percent Auto 8.4 % (2-11); Neutrophils Absolute Auto 5.5 X10*3/uL (2.0-8.3); Neutrophils Percent Auto 63.1 % (45-73); Platelet Count 262 X10*3/uL (160-400); Red Blood Count 4.34 X10*6/uL (4.20-5.50); Red Cell Distribution Width 12.6 % (11.0-16.0); White Blood Count 8.7 X10*3/uL (4.8-10.8)
[2020-06-19 04:24] LABS: INTERNATIONAL NORM RATIO 1.1 (0.9-1.1); Prothrombin Time 13.1 SEC (10.8-13.0)
[2020-06-19 04:27] LABS: Partial Thromboplastin Time 32.8 SEC (24.1-38.0)
[2020-06-19 04:32] LABS: D Dimer < 200 NG/ML
[2020-06-19 04:36] LABS: Lipase 44 U/L (8-78)
[2020-06-19 04:40] LABS: Alanine Aminotransferase 19 U/L (0-31); Albumin Level 4.1 g/dL (3.5-5.0); Alkaline Phosphatase 86 U/L (39-117); Anion Gap 19 (12-20); Aspartate Amino Transferase 21 U/L (5-31); Bilirubin Direct 0.2 mg/dL (0.0-0.5); Bilirubin Total 0.5 mg/dL (0.0-1.0); Blood Urea Nitrogen 15 mg/dL (9-16); Calcium 8.9 mg/dL (8.4-10.2); Carbon Dioxide 20 mmol/L (22-29); Chloride 103 mmol/L (96-108); Creatinine Clr Calc Pharmacy 74.6; Estimated Glomerular Filt Rate > 60; Glucose Random 156 mg/dL (60-115); Potassium 4.2 mmol/l (3.3-5.1); Sodium 138 mmol/L (135-145); Total Protein 7.1 g/dL (6.5-8.0)
[2020-06-19 04:42] LABS: Troponin-I High Sensitivity < 3.5 ng/L (<3.5-17.0)
[2020-06-19 06:27] LABS: Troponin-I High Sensitivity < 3.5 ng/L (<3.5-17.0)
[2020-06-19 06:27] LABS: Influenza A PCR NEGATIVE (Negative); Influenza B PCR NEGATIVE (Negative); Resp Syncy Virus RNA Qual PCR NEGATIVE (Negative); SARS COV2 PCR INHOUSE NEGATIVE (Negative)
[2020-06-19 07:32] VITALS: BP 140/67; PULSE 69; RESP 14; O2SAT 100
== END 2020-06-19 10:16 | disposition home or self-care (01) ==
PROVIDERS: Emergency Medicine; Emergency Provider Emergency Medicine
DX: R07.89 Other chest pain (principal); M79.602 Pain in left arm; Z20.828 Contact with and (suspected) exposure to other viral communicable diseases; Z79.899 Other long term (current) drug therapy
CPT/HCPCS: 0241U; 36415; 71045; 80048; 80076; 83690; 83735; 84484; 85025; 85379; 85610; 85730; 93005; 99283; 99284

== ENCOUNTER → 2020-07-22 13:53 | Outpatient (BNVA) | payer OTHER, SELFPAY | PROVIDERS: Visit Provider Nurse Practitioner Gerontology | DX: Z76.89 Persons encountering health services in other specified circumstances (principal) | CPT/HCPCS: Q3014 ==

== ENCOUNTER 2020-08-24 09:06 | Outpatient (REF) | payer OTHER, SELFPAY ==
[2020-08-24 10:09] LABS: Estimated Average Glucose 235 mg/dL; Hemoglobin A1c % 9.8 %
[2020-08-24 10:16] LABS: Cholesterol 184 mg/dL; HDL Cholesterol 59 mg/dL; LDL Cholesterol Calculated 103 mg/dl; Triglycerides 111 mg/dL
[2020-08-24 10:51] LABS: Creatinine Urine 146.19 mg/dL; Microalbum/Creatinine Ratio Ur 10.2 ug/mg cr
[2020-08-26 12:11] LABS: LDL Cholesterol Direct 105 mg/dL (<100)
== END 2020-08-24 09:07 | disposition home or self-care (01) ==
LOC: HO.LAB 09:06
PROVIDERS: PCP Family Medicine; Visit Provider Nurse Practitioner Gerontology
DX: E11.65 Type 2 diabetes mellitus with hyperglycemia (principal)
CPT/HCPCS: 36415; 80061; 82043; 83036; 83721

== ENCOUNTER → 2020-10-22 09:27 | Outpatient (BNVA) | payer OTHER, SELFPAY | PROVIDERS: PCP Family Medicine; Visit Provider Nurse Practitioner Gerontology | CPT/HCPCS: Q3014 ==

== ENCOUNTER 2020-10-30 15:38 | Outpatient (REF) | payer OTHER, SELFPAY ==
--- NOTE | ~2020-10-30 | MM_ITS ---
EXAMINATION: MM SCREENING DIGITAL BREAST TOMOSYNTHESIS, BILATERAL CLINICAL INFORMATION: Screening. Asymptomatic. The lifetime risk of breast cancer based on the Tyrer-Cuzick Model is 6.5%. COMPARISON: Mammography: August 21, 2019 and studies dating back to December 02, 2013 TECHNIQUE: Digital breast tomosynthesis is performed in both the craniocaudal and mediolateral oblique views along with computer-aided detection (CAD). Synthesized 2D images are generated from the tomosynthesis. FINDINGS: The breasts are almost entirely fatty (ACR BI-RADS breast composition Category a). There are no significant masses, abnormal calcifications, or other abnormalities. MM/MM tomosynthesis screening BI IMPRESSION: There are no significant changes from prior study. ASSESSMENT: BI-RADS 1: Negative RECOMMENDATION: Routine annual mammography screening. This patient's information was entered into a reminder system with a target due date for their next mammogram.
== END 2020-10-30 15:39 | disposition home or self-care (01) ==
LOC: HO.MAMMO 15:38
PROVIDERS: Visit Provider Family Medicine
DX: Z12.31 Encounter for screening mammogram for malignant neoplasm of breast (principal)
CPT/HCPCS: 77063; 77067

== ENCOUNTER → 2020-12-25 10:35 | Outpatient (BNVA) | payer OTHER, SELFPAY | PROVIDERS: PCP Family Medicine; Visit Provider Nurse Practitioner Gerontology | DX: E11.40 Type 2 diabetes mellitus with diabetic neuropathy, unspecified (principal); E78.5 Hyperlipidemia, unspecified; E66.09 Other obesity due to excess calories; I10 Essential (primary) hypertension; Z68.33 Body mass index [BMI] 33.0-33.9, adult | CPT/HCPCS: 82947; Q3014 ==

== ENCOUNTER → 2021-02-08 09:26 | Outpatient (BNVA) | payer OTHER, SELFPAY | PROVIDERS: PCP Family Medicine; Visit Provider Internal Medicine | DX: M48.061 Spinal stenosis, lumbar region without neurogenic claudication (principal) | CPT/HCPCS: 99202 ==

== ENCOUNTER 2021-02-18 08:06 | Outpatient (REF) | payer OTHER, SELFPAY ==
--- NOTE | ~2021-02-18 | US_ITS ---
EXAMINATION: US ABDOMEN COMPLETE CLINICAL INFORMATION: Weight loss. Epigastric pain. COMPARISON: CT abdomen and pelvis 03/14/2020. Ultrasound abdomen complete 10/13/2016. Renal ultrasound 05/08/2013. TECHNIQUE: Real-time imaging of the abdominal viscera. Technically limited study secondary to bowel gas and body habitus. FINDINGS: PANCREAS: Normal. ABDOMINAL AORTA: The proximal, mid, and distal segments are normal in caliber. INFERIOR VENA CAVA: Visualized portions are normal. LIVER: The liver is normal in size. The liver contour is normal. There is diffuse increased liver parenchymal echogenicity, consistent with hepatic steatosis. No focal hepatic lesion. There is no intrahepatic biliary duct dilatation seen. GALLBLADDER: Surgically absent. COMMON BILE DUCT: Normal in caliber measuring 0.6 cm in diameter. RIGHT KIDNEY: Normal. No hydronephrosis. No renal calculi or focal parenchymal lesions. The kidney measures 12.2 cm in maximum dimension. LEFT KIDNEY: Simple left upper pole renal cyst measuring up to 1.6 cm. Findings are not clinically significant and no dedicated follow up imaging is recommended. No hydronephrosis or renal calculi. The kidney measures 10.6 cm in maximum dimension. SPLEEN: Normal. The spleen measures 8.8 cm in maximum dimension. FREE FLUID: None. US/US abdomen complete IMPRESSION: Hepatic steatosis. No hepatic parenchymal lesion or biliary ductal dilatation. Status post cholecystectomy. Otherwise unremarkable examination.
== END 2021-02-18 08:07 | disposition home or self-care (01) ==
LOC: HO.US 08:06
PROVIDERS: PCP Family Medicine; Visit Provider Family Medicine
DX: R63.4 Abnormal weight loss (principal); R10.13 Epigastric pain; R11.0 Nausea
CPT/HCPCS: 76700

== ENCOUNTER → 2021-03-09 16:06 | Outpatient (BNVA) | payer OTHER, SELFPAY | PROVIDERS: PCP Family Medicine; Referring Provider Family Medicine; Visit Provider Nurse Practitioner Family | DX: K21.9 Gastro-esophageal reflux disease without esophagitis (principal); K59.04 Chronic idiopathic constipation | CPT/HCPCS: 99202 ==

== ENCOUNTER 2021-04-16 20:51 | Emergency (ER) | payer OTHER, SELFPAY ==
--- NOTE | ~2021-04-16 | CT_ITS ---
EXAMINATION: CT ABDOMEN AND PELVIS WITH CONTRAST CLINICAL INFORMATION: Left lower quadrant pain with tenderness for 3 days. COMPARISON: CT abdomen/pelvis dated from 03/14/2020. TECHNIQUE: Multidetector volumetric images were obtained from the superior aspect of the liver through the pubic symphysis following administration 85 mL of Omnipaque 350 intravenous contrast. Sagittal and coronal reformatted images were obtained on the technologist's workstation. Oral contrast: No This CT examination was performed using dose optimization techniques as appropriate, variously including the following: *Automated exposure control *Adjustment of mA and/or kV according to patient size (this includes techniques or standardized protocols for targeted exams where dose is matched to indication/reason for exam; i.e. extremities or head) *Use of iterative reconstruction technique DLP: 754 mGy-cm FINDINGS: LUNG BASES: Mild subsegmental atelectasis. No focal consolidation or pleural effusion. LIVER, GALLBLADDER, AND BILIARY TREE: The attenuation of the liver parenchyma is decreased when compared to the attenuation of the spleen suggesting hepatic steatosis. Otherwise, the liver is normal in size and shape without focal abnormalities. The patient is status post cholecystectomy with expected mild prominence of the CBD. There is no intrahepatic biliary ductal dilatation. PANCREAS: No focal abnormalities. Main pancreatic duct is nondilated. No peripancreatic free fluid or fat stranding. SPLEEN: Unremarkable. ADRENAL GLANDS: Unremarkable. KIDNEYS AND URETERS: The kidneys are normal in size, shape, and attenuation. Small cyst in the upper pole of the left kidney. No hydronephrosis, hydroureter, or calculi seen. No perinephric stranding. BLADDER: Unremarkable. GASTROINTESTINAL TRACT: Small hiatal hernia. A prominent posterior esophageal lymph node measuring 5 mm on image 8 of series 3 is unchanged. The stomach and the small bowel are nondilated. There is however fecalization within the distal small bowel suggesting slow transit. There is large amount of stool throughout the colon indicating constipation. Normal appendix. No pericolonic inflammatory changes. No bowel obstruction. ABDOMINAL WALL: No significant hernia is appreciated. LYMPH NODES: No lymphadenopathy by size criteria. VASCULAR: Scattered atherosclerotic disease. The abdominal aorta is of normal diameter. PELVIC VISCERA: No adnexal lesions. OSSEOUS STRUCTURES: No acute or aggressive osseous abnormalities. Multilevel spondylosis. CT/CT abdomen pelvis w con IMPRESSION: Prominent amount of stool throughout the colon with fecalization of the distal small bowel suggesting slow transit and constipation. No active inflammatory bowel changes. No bowel obstruction. Small hiatal hernia with a stable prominent posterior esophageal lymph node, likely reactive in the setting of esophagitis or reflux. If indicated, further evaluation with endoscopy could be helpful. Hepatic steatosis.
--- NOTE | ~2021-04-16 | XR_ITS ---
EXAMINATION: XR CHEST CLINICAL INFORMATION: Chest pain. COMPARISON: chest x-ray June 2020 TECHNIQUE: Frontal portable view of the chest was obtained. 10:00 PM FINDINGS: No significant abnormality is noted involving the heart, lungs, mediastinum, bony thorax or soft tissues. XR/XR chest 1V IMPRESSION: Unremarkable examination.
--- NOTE | ~2021-04-16 | CT_ITS ---
EXAMINATION: CT HEAD WITHOUT CONTRAST CLINICAL INFORMATION: Syncope COMPARISON: CT head February 03, 2014 TECHNIQUE: Contiguous axial imaging was performed from the skull base to vertex without intravenous administration of contrast. Coronal and sagittal reformatted images are performed at CT scanner This CT examination was performed using dose optimization techniques as appropriate, variously including the following: *Automated exposure control *Adjustment of mA and/or kV according to patient size (this includes techniques or standardized protocols for targeted exams where dose is matched to indication/reason for exam; i.e. extremities or head) *Use of iterative reconstruction technique DLP: 661 mGy-cm FINDINGS: There is no evidence of acute intracranial hemorrhage or territorial infarction. No abnormal mass effect or midline shift is seen. Bishop to white matter differentiation is well preserved. No extra-axial fluid collections are identified. The ventricles are normal in size. There is no abnormal attenuation within the brain parenchyma. The osseous structures and soft tissues are normal. The mastoid air cells and visualized portions of the paranasal sinuses are well aerated. CT/CT head/brain wo con IMPRESSION: No acute intracranial pathology.
[2021-04-16 21:04] VITALS: BP 140/100; BP 150/67; PULSE 100; PULSE 90; RESP 20; TEMP 36.8; O2SAT 99; BMI 31.5
[2021-04-16 21:13] LABS: Glucose, Whole Blood 281 mg/dL (60-115)
--- NOTE | 2021-04-16 21:15 | ECG_ITS ---
Test Reason : SYNCOPE Blood Pressure : / mmHG Vent. Rate : 082 BPM Atrial Rate : 082 BPM P-R Int : 142 ms QRS Dur : 088 ms QT Int : 406 ms P-R-T Axes : 060 -59 141 degrees QTc Int : 474 ms Normal sinus rhythm RSR' or QR pattern in V1 suggests right ventricular conduction delay Left anterior fascicular block Nonspecific T wave abnormality Lateral leads Abnormal ECG When compared with ECG of 19-JUN-2020 03:01, Nonspecific T wave abnormality now evident in Lateral leads Referred By: Jameel Allred Electronically Signed By:ANDRZEJ CASTILLO MD
--- NOTE | 2021-04-16 21:32 | ED_ITS ---
HPI - General Adult General Chief complaint: Syncope Stated complaint: unresponsive Time Seen by Provider: 04/16/21 21:05 Source: patient Mode of arrival: EMS Limitations: language barrier (Japanese speaking only, wiring mechanic used) History of Present Illness HPI narrative: 65-year-old female who is brought to the emergency department by ambulance for evaluation of a syncopal episode. The patient's son suddenly and was found at home. The son's was yesterday the patient has been under lot of stress secondary to the sudden in the preparations. The patient states that she was sitting in a chair in her living room and then woke up on the floor. She does not recount any details of passing out. She does not report any injury from passing out. She states that over the past 3 days she has been having left lower quadrant abdominal pain. She describes it as an intermittent sharp stabbing pain which is 6/10 at its worst. She states she has had similar pain in the past and she gets it every several weeks however today's pain is worse. She denied any change in her bowel movements; denied diarrhea, dark tarry stools, bloody stools, constipation. She states that last week she was vomiting daily but this resolved, she states she has a history of gastritis and esophagitis and she believes this was the cause of her vomiting. She states she has been eating and drinking well. She denied fever, chills, chest pain, shortness of breath, dyspnea on exertion. Related Data Home Medications Medication Instructions Recorded Confirmed alcohol swabs 0 pad TOPICAL 04/21/20 02/08/21 aspirin 81 mg tablet,delayed 81 mg PO DAILY 04/21/20 02/08/21 release atorvastatin 80 mg tablet 80 mg PO BEDTIME 04/21/20 02/08/21 blood sugar diagnostic #10 ea 04/21/20 02/08/21 blood-glucose meter #1 ea 04/21/20 02/08/21 calcium carbonate 200 mg calcium 200 mg PO BID 04/21/20 02/08/21 (500 mg) chewable tablet docusate sodium 100 mg capsule 100 mg PO BID PRN 04/21/20 02/08/21 lancets 33 gauge #100 ea 04/21/20 02/08/21 acetaminophen 650 mg 650 mg PO tab 12/25/20 02/08/21 tablet,extended release albuterol sulfate 90 mcg/actuation 2 puff PO Q4-6H PRN 12/25/20 02/08/21 aerosol inhaler baclofen 20 mg tablet 20 mg PO TID PRN 12/25/20 02/08/21 cyanocobalamin (vitamin B-12) 1,000 mcg PO QAM 12/25/20 02/08/21 1,000 mcg tablet ergocalciferol (vitamin D2) 1,250 1,250 mcg PO QWEEK 12/25/20 02/08/21 mcg (50,000 unit) capsule fluticasone propionate 110 1 puff PO BID 12/25/20 02/08/21 mcg/actuation HFA aerosol inhaler gabapentin 400 mg capsule 400 mg PO TID 12/25/20 02/08/21 lisinopril 2.5 mg tablet 2.5 mg PO DAILY 12/25/20 02/08/21 loratadine 10 mg tablet 10 mg PO QAM 12/25/20 02/08/21 oxybutynin chloride 5 mg 5 mg PO QAM 12/25/20 02/08/21 tablet,extended release 24 hr polyethylene glycol 3350 17 17 g PO DAILY 12/25/20 02/08/21 gram/dose oral powder sertraline 100 mg tablet 150 mg PO QAM 12/25/20 02/08/21 tramadol 50 mg tablet 50 mg PO BID PRN 12/25/20 02/08/21 Previous Rx's Medication Instructions Recorded dulaglutide 3 mg/0.5 mL 3 mg (0.5 mL) SUBCUT QWEEK 28 Days 12/25/20 subcutaneous pen injector #6 ml (Trulicity) pen needle, diabetic 32 gauge x #100 ea 12/25/20 (BD Ultra-Fine Zaida Pen Needle) empagliflozin 25 mg tablet 25 mg PO QAM #30 tab 01/18/21 (Jardiance) methylcellulose (laxative) 500 mg 500 mg PO DAILY #30 tab 03/09/21 tablet (Citrucel) pantoprazole 40 mg tablet,delayed 40 mg PO BID #60 tab 03/09/21 release sennosides 8.6 mg tablet (Natural 8.6 mg PO BEDTIME #30 tab 03/09/21 Senna Laxative) insulin degludec 200 unit/mL (3 12 unit (0.06 mL) SUBCUT DAILY #9 03/23/21 mL) subcutaneous pen (Tresiba ml FlexTouch U-200 insulin) metformin 850 mg tablet 850 mg PO BID #60 tab 04/12/21 ezetimibe 10 mg tablet 10 mg PO DAILY #90 tab 04/16/21 Allergies Allergy/AdvReac Type Severity Reaction Status Date / Time amitriptyline [AMITRIPTYLINE] Allergy Unknown ANXIOUS, Verified 04/16/21 21:14 SWELLING aspirin [ASPIRIN] Allergy Unknown DROOLING, Verified 04/16/21 21:14 EXCESSIVE SPITTING Penicillins Allergy Swelling Verified 04/16/21 21:14 Review of Systems Review of Systems: Yes all other systems are reviewed and are negative [facility] Past Medical History [facility] Narrative: Social history: The patient denies tobacco, alcohol and drug use. Medical History Back ache Depression Diabetes Essential hypertension Fibromyalgia Gastric ulcer Gastritis HTN (hypertension) Hyperlipidemia LDL goal <100 Neuropathy Obesity due to excess calories Osteoarthritis Osteoporosis Retinopathy Snoring Spinal stenosis of lumbar region Type 2 diabetes mellitus with diabetic neuropathy, unspecified Type 2 diabetes mellitus with hyperglycemia, without long-term current use of insulin Surgical History Hx of cholecystectomy Hx of tubal ligation Family History Family History Father FH: prostate cancer Mother CVD (cardiovascular disease) Heart disease Son Diabetes Social History Social History Household Members: Family Alcohol intake: never Patient Tobacco Use Status: Former Tobacco user Advance Directives: No Advance Directives Information Provided: Yes Physical Exam Vital Signs: Vital Signs: Last Vital Signs Temp 98.3 F 04/16/21 21:04 Pulse 91 04/16/21 22:57 Resp 16 04/16/21 22:57 BP 148/77 H 04/16/21 22:57 Pulse Ox 99 04/16/21 22:57 Body Mass Index 31.5 Const: Other: Very pleasant and cooperative elderly female patient, she does not appear to be in distress, she answers all questions appropriately. HENMT: Head: Yes normal to inspection, Yes normocephalic and Yes atraumatic Ears: external ears normal General nose exam: Normal external nose present Face and sinus: Yes normal facial exam Mouth: Normal oral and palatal mucosa present Throat: Yes posterior oropharynx normal Eyes: General: appearance normal, both eyes and all related structures Pupils: Equal, round and reactive pupils present Neck: Neck: Yes normal visual inspection, Yes no lymphadenopathy, Yes trachea midline and Yes supple Chest: Chest palpation & inspection: normal inspection of the chest and normal palpation of entire chest wall Resp: Effort & Inspection: normal respiratory effort and able to speak in complete sentences Auscultation: clear to auscultation bilaterally Cardio: Rate: regular rate Rhythm: regular rhythm Heart sounds: S1 normal heart sound present, S2 normal heart sound present and no murmurs GI: Inspection: Yes normal to inspection Palpation (GI): Soft to palpation, Tenderness to palpation present (GI) in the LLQ (Moderate) and no guarding A uscultation: normal bowel sounds : General: Yes no CVA tenderness Back/Spine/Pelvis: Back: no CVA tenderness Skin: General skin exam: no rashes or lesions noted Neuro: Cranial nerves: Yes CN's II-XII intact bilaterally and Yes Equal, round and reactive pupils present Cognition (Neuro): normal cognition Motor exam (neuro): 5/5 motor strength present throughout Extrem: General: Yes normal to inspection Psych: Appearance: grossly normal Speech and movement: Normal speech and movement present Affect: normal affect Attitude: cooperative Thought process: Normal thought process present Thought content: Normal thought content present Course Course Course Narrative: 65-year-old female who presents emergency department for evaluation of syncopal episode that occurred at home. Patient states that she was sitting in a with the room chair and then woke up on the floor, she has no memory of what happened prior to passing out. The patient has been under increased stress secondary to the recent her son and secondary to the preparations and the which was yesterday. The patient has been experiencing left lower quadrant abdominal pain x3 days and she states she has had similar pain in the past and she gets it every 2-3 weeks. Last week she states that she was vomiting daily but this resolved and she believes this was secondary to gastritis/esophagitis. At the time of evaluation her only complaint was her left lower quadrant pain. Vital signs revealed an elevated blood pressure of 150/67 otherwise were normal. Examination did reveal left lower quadrant tenderness. I ordered a workup to include CBC, CMP, troponin, lipase, urinalysis, EKG, CT scan of the head, CT scan of the abdomen pelvis with IV contrast. Patient's pain was treated with Toradol 15 mg IV and she was given normal saline IV x1 L. 0053: The patient's CT scan of the head revealed no acute abnormality, CT scan of the abdomen pelvis was normal as well. Chest x-ray was unremarkable. The patient's laboratory evaluation revealed an elevated high sensitivity troponin at 136, repeat 3 hour high sensitive troponin was lower at 130 suggested the patient has not had acute myocardial injury. Initial lactate was elevated at 2.2, which was treated with normal saline x1 L and after 3 hours repeat lactate was 1.1. Comprehensive metabolic panel revealed an elevated glucose of 292. Alcohol levels below detectable limits. My impression is the patient's syncopal episode was most likely vasovagal related to the stress that she is under. At this time the patient is feeling significantly better with no complaints. The patient will be discharged home in the care of her daughter. The patient was given verbal and printed instructions advised to return to emergency department if her symptoms get worse or she develops any new symptoms that are concerning to her. Medical Decision Making Lab Data Result diagrams: 04/16/21 21:36 04/16/21 21:36 Labs: Lab Results 04/16/21 04/16/21 04/16/21 Range/Units 21:05 21:36 21:36 WBC 6.9 (4.8-10.8) X10*3/uL RBC 4.11 L (4.20-5.50) X10*6/uL Hgb 12.7 (12.0-16.0) g/dl Hct 39.3 (37.0-47.0) % MCV 95.6 (80.0-98.0) fL MCH 30.9 (27.0-33.0) pg MCHC 32.3 (31.0-35.0) g/dl RDW 12.5 (11.0-16.0) % Plt Count 282 (160-400) X10*3/uL MPV 10.2 (9.4-12.3) fL Immature Gran % (Auto) 0.1 (0.0-0.4) % Neut % (Auto) 49.2 (45-73) % Lymph % (Auto) 37.5 (20-40) % Gibson % (Auto) 9.7 (2-11) % Eos % (Auto) 2.9 (0-4) % Baso % (Auto) 0.6 (0-2) % Lymph # (Auto) 2.6 (1.2-4.9) X10*3/uL Gibson # (Auto) 0.7 (0.1-1.2) X10*3/uL Eos # (Auto) 0.2 (0.0-0.4) X10*3/uL Baso # (Auto) 0.0 (0.0-0.2) X10*3/uL Abs Immat Gran (auto) 0.01 (0.00-0.03) X10*3/uL Absolute Neuts (auto) 3.4 (2.0-8.3) x10*3/uL Absolute Nucleated RBC 0.000 (0.0-0.012) X10*3/uL Nucleated RBC % (auto) 0.0 (0.0-0.2) /100WBC Sodium 140 (135-145) mmol/L Potassium 4.4 (3.3-5.1) mmol/L Chloride 105 (96-108) mmol/L Carbon Dioxide 24 (22-29) mmol/L Anion Gap 15 (12-20) BUN 14 (9-16) mg/dL Creatinine 1.21 (0.5-1.4) mg/dL Estim Creat Clear Calc 45.4 Estimated GFR 44 POC Glucose 281 H (60-115) mg/dL Random Glucose 292 H (60-115) mg/dL Lactic Acid (0.5-2.0) mmol/L Lactic Acid Fup @ 2Hr (0.5-2.0) mmol/L Calcium 9.0 (8.4-10.2) mg/dL Total Bilirubin 0.2 (0.0-1.0) mg/dL AST 25 (5-31) U/L ALT 19 (0-31) U/L Alkaline Phosphatase 120 H D (39-117) U/L Troponin I High Sens (<3.5-17.0) ng/L Total Protein 7.3 (6.5-8.0) g/dL Albumin 4.3 (3.5-5.0) g/dL Lipase 84 H (8-78) U/L Urine Color Urine Appearance Urine pH (5.0-8.0) Ur Specific [place] (1.005-1.025) Urine Protein (NEG-TRACE) MG/DL Urine Glucose (UA) (NEG) MG/DL Urine Ketones (NEG) MG/DL Urine Blood (NEG) Urine Nitrite (NEG) Ur Leukocyte Esterase (NEG) Urine RBC (0) /HPF Urine WBC (0-4) /HPF Ur Squamous Epith Cells /LPF Urine Bacteria /LPF Ethyl Alcohol mg/dL 04/16/21 04/16/21 04/16/21 Range/Units 21:36 21:36 21:36 WBC (4.8-10.8) X10*3/uL RBC (4.20-5.50) X10*6/uL Hgb (12.0-16.0) g/dl Hct (37.0-47.0) % MCV (80.0-98.0) fL MCH (27.0-33.0) pg MCHC (31.0-35.0) g/dl RDW (11.0-16.0) % Plt Count (160-400) X10*3/uL MPV (9.4-12.3) fL Immature Gran % (Auto) (0.0-0.4) % Neut % (Auto) (45-73) % Lymph % (Auto) (20-40) % Gibson % (Auto) (2-11) % Eos % (Auto) (0-4) % Baso % (Auto) (0-2) % Lymph # (Auto) (1.2-4.9) X10*3/uL Gibson # (Auto) (0.1-1.2) X10*3/uL Eos # (Auto) (0.0-0.4) X10*3/uL Baso # (Auto) (0.0-0.2) X10*3/uL Abs Immat Gran (auto) (0.00-0.03) X10*3/uL Absolute Neuts (auto) (2.0-8.3) x10*3/uL Absolute Nucleated RBC (0.0-0.012) X10*3/uL Nucleated RBC % (auto) (0.0-0.2) /100WBC Sodium (135-145) mmol/L Potassium (3.3-5.1) mmol/L Chloride (96-108) mmol/L Carbon Dioxide (22-29) mmol/L Anion Gap (12-20) BUN (9-16) mg/dL Creatinine (0.5-1.4) mg/dL Estim Creat Clear Calc Estimated GFR POC Glucose (60-115) mg/dL Random Glucose (60-115) mg/dL Lactic Acid 2.2 H* (0.5-2.0) mmol/L Lactic Acid Fup @ 2Hr (0.5-2.0) mmol/L Calcium (8.4-10.2) mg/dL Total Bilirubin (0.0-1.0) mg/dL AST (5-31) U/L ALT (0-31) U/L Alkaline Phosphatase (39-117) U/L Troponin I High Sens 136.9 H* (<3.5-17.0) ng/L Total Protein (6.5-8.0) g/dL Albumin (3.5-5.0) g/dL Lipase (8-78) U/L Urine Color Urine Appearance Urine pH (5.0-8.0) Ur Specific [place] (1.005-1.025) Urine Protein (NEG-TRACE) MG/DL Urine Glucose (UA) (NEG) MG/DL Urine Ketones (NEG) MG/DL Urine Blood (NEG) Urine Nitrite (NEG) Ur Leukocyte Esterase (NEG) Urine RBC (0) /HPF Urine WBC (0-4) /HPF Ur Squamous Epith Cells /LPF Urine Bacteria /LPF Ethyl Alcohol < 10 mg/dL 04/16/21 04/16/21 04/16/21 Range/Units 23:13 23:59 23:59 WBC (4.8-10.8) X10*3/uL RBC (4.20-5.50) X10*6/uL Hgb (12.0-16.0) g/dl Hct (37.0-47.0) % MCV (80.0-98.0) fL MCH (27.0-33.0) pg MCHC (31.0-35.0) g/dl RDW (11.0-16.0) % Plt Count (160-400) X10*3/uL MPV (9.4-12.3) fL Immature Gran % (Auto) (0.0-0.4) % Neut % (Auto) (45-73) % Lymph % (Auto) (20-40) % Gibson % (Auto) (2-11) % Eos % (Auto) (0-4) % Baso % (Auto) (0-2) % Lymph # (Auto) (1.2-4.9) X10*3/uL Gibson # (Auto) (0.1-1.2) X10*3/uL Eos # (Auto) (0.0-0.4) X10*3/uL Baso # (Auto) (0.0-0.2) X10*3/uL Abs Immat Gran (auto) (0.00-0.03) X10*3/uL Absolute Neuts (auto) (2.0-8.3) x10*3/uL Absolute Nucleated RBC (0.0-0.012) X10*3/uL Nucleated RBC % (auto) (0.0-0.2) /100WBC Sodium (135-145) mmol/L Potassium (3.3-5.1) mmol/L Chloride (96-108) mmol/L Carbon Dioxide (22-29) mmol/L Anion Gap (12-20) BUN (9-16) mg/dL Creatinine (0.5-1.4) mg/dL Estim Creat Clear Calc Estimated GFR POC Glucose (60-115) mg/dL Random Glucose (60-115) mg/dL Lactic Acid (0.5-2.0) mmol/L Lactic Acid Fup @ 2Hr 1.7 (0.5-2.0) mmol/L Calcium (8.4-10.2) mg/dL Total Bilirubin (0.0-1.0) mg/dL AST (5-31) U/L ALT (0-31) U/L Alkaline Phosphatase (39-117) U/L Troponin I High Sens 130.3 H* (<3.5-17.0) ng/L Total Protein (6.5-8.0) g/dL Albumin (3.5-5.0) g/dL Lipase (8-78) U/L Urine Color YELLOW Urine Appearance CLEAR Urine pH 6.0 (5.0-8.0) Ur Specific [place] 1.015 (1.005-1.025) Urine Protein NEG (NEG-TRACE) MG/DL Urine Glucose (UA) >=1000 H (NEG) MG/DL Urine Ketones NEG (NEG) MG/DL Urine Blood TRACE (NEG) Urine Nitrite NEG (NEG) Ur Leukocyte Esterase NEG (NEG) Urine RBC 1-4 (0) /HPF Urine WBC 1-4 (0-4) /HPF Ur Squamous Epith Cells 1+ /LPF Urine Bacteria 2+ /LPF Ethyl Alcohol mg/dL ECG Data Attestation: I personally reviewed and interpreted this ECG as follows: Interpretation: Normal sinus rhythm the rate of 82, normal VA interval, QRS duration and QTC interval, inverted T-wave in lead 1 and aVL, no ST segment elevation, no ST segment depression, no PACs or PVCs. Discharge Plan Discharge Clinical Impression: Syncope Qualifiers: Syncope type: vasovagal syncope Qualified Code(s): R55 - Syncope and collapse Abdominal pain Qualifiers: Abdominal location: left lower quadrant Qualified Code(s): R10.32 - Left lower quadrant pain Patient Disposition: Home, Self-Care Instructions: Syncope (ED), Abdominal Pain (ED) Additional Instructions: Your laboratory evaluation was unremarkable as discussed. Your CT scan of your head and abdomen were unremarkable as well. Chest x-ray was normal. At this time, I believe that you passed out secondary to the stress that your under. You should go home and rest, make sure that you you eat and drink fluid throughout the day tomorrow. Follow-up with your doctor in 2 days. Please return to the emergency department if your symptoms get worse or if you develop any symptoms that are concerning to you. Prescriptions: No Action Jardiance 25 mg tablet 25 mg PO QAM Qty: 30 RF: 3 Tresiba FlexTouch U-200 200 unit/mL (3 mL) insulin pen 12 unit subcut DAILY Qty: 9 RF: 0 metformin 850 mg tablet 850 mg PO BID Qty: 60 RF: 4 ezetimibe 10 mg tablet 10 mg PO DAILY Qty: 90 RF: 1 atorvastatin 80 mg tablet 80 mg PO BEDTIME RF: 0 alcohol swabs Pads, Medicated 0 pad topical RF: 0 calcium carbonate 200 mg calcium (500 mg) tablet,chewable 200 mg PO BID RF: 0 docusate sodium 100 mg capsule 100 mg PO BID PRNRF: 0 (DME) FreeStyle Lite Strips Strip See Rx Instructions ea Not Applicable TID Qty: 10 RF: 0 (DME) lancets 33 gauge misc See Rx Instructions ea .ROUTE .MEDSUPPLY Qty: 100 RF: 0 (DME) blood-glucose meter Kit See Rx Instructions ea Not Applicable TID Qty: 1 RF: 0 aspirin 81 mg tablet,delayed release (DR/EC) 81 mg PO DAILY RF: 0 gabapentin 400 mg capsule 400 mg PO TID RF: 0 oxybutynin chloride 5 mg tablet extended release 24hr 5 mg PO QAM RF: 0 baclofen 20 mg tablet 20 mg PO TID PRN (Reason: muscle spasm) RF: 0 ergocalciferol (vitamin D2) 1,250 mcg (50,000 unit) capsule 1,250 mcg PO QWEEK RF: 0 polyethylene glycol 3350 17 gram/dose powder 17 g PO DAILY RF: 0 loratadine 10 mg tablet 10 mg PO QAM RF: 0 lisinopril 2.5 mg tablet 2.5 mg PO DAILY RF: 0 cyanocobalamin (vitamin B-12) 1,000 mcg tablet 1,000 mcg PO QAM RF: 0 sertraline 100 mg tablet 150 mg PO QAM RF: 0 albuterol sulfate 90 mcg/actuation HFA aerosol inhaler 2 puff PO Q4-6H PRNRF: 0 acetaminophen 650 mg tablet extended release 650 mg PO RF: 0 Flovent HFA 110 mcg/actuation HFA aerosol inhaler 1 puff PO BID RF: 0 tramadol 50 mg tablet 50 mg PO BID PRNRF: 0 (DME) pen needle, diabetic [BD Ultra-Fine Zaida Pen Needle] 32 gauge x 5/32 needle See Rx Instructions .ROUTE .MEDSUPPLY Qty: 100 RF: 3 Trulicity 3 mg/0.5 mL pen injector 3 mg subcut QWEEK 28 Days Qty: 6 RF: 3 pantoprazole 40 mg tablet,delayed release (DR/EC) 40 mg PO BID Qty: 60 RF: 4 sennosides [Natural Senna Laxative] 8.6 mg tablet 8.6 mg PO BEDTIME Qty: 30 RF: 2 Citrucel 500 mg tablet 500 mg PO DAILY Qty: 30 RF: 2 Print Language: Japanese
[2021-04-16 21:42] LABS: MANUAL DIFF FLAG NO
[2021-04-16] MEDS: 0.9 % Sodium Chloride 1,000 ML 999 ML IV (21:42)
--- NOTE | 2021-04-16 21:42 | PC.NURSE ---
IV established, labs obtained. IVF infusing per MAR. information technology assistant at bedside for EKG. Family contact, Trudy [phone] to be contacted regarding updates and plan of care.
[2021-04-16] MEDS: Ketorolac Tromethamine 15 MG/ML VIAL IVPUSH (21:43)
[2021-04-16 21:46] LABS: Basophils Percent Auto 0.6 % (0-2); Eosinophils Absolute Auto 0.2 X10*3/uL (0.0-0.4); Eosinophils Percent Auto 2.9 % (0-4); Hematocrit 39.3 % (37.0-47.0); Hemoglobin 12.7 g/dl (12.0-16.0); Imm Gran Abs Auto 0.01 X10*3/uL (0.00-0.03); Imm Gran Pct Auto 0.1 % (0.0-0.4); Lymphocytes Absolute Auto 2.6 X10*3/uL (1.2-4.9); Lymphocytes Percent Auto 37.5 % (20-40); Mean Corpuscular HGB Conc 32.3 g/dl (31.0-35.0); Mean Corpuscular Hemoglobin 30.9 pg (27.0-33.0); Mean Corpuscular Volume 95.6 fL (80.0-98.0); Mean Platelet Volume 10.2 fL (9.4-12.3); Monocytes Absolute Auto 0.7 X10*3/uL (0.1-1.2); Monocytes Percent Auto 9.7 % (2-11); Neutrophils Absolute Auto 3.4 x10*3/uL (2.0-8.3); Neutrophils Percent Auto 49.2 % (45-73); Platelet Count 282 X10*3/uL (160-400); Red Blood Count 4.11 X10*6/uL (4.20-5.50); Red Cell Distribution Width 12.5 % (11.0-16.0); White Blood Count 6.9 X10*3/uL (4.8-10.8)
[2021-04-16 22:00] LABS: Ethanol < 10 mg/dL
--- NOTE | 2021-04-16 22:00 | PC.NURSE ---
CXR at bedside.
[2021-04-16 22:44] LABS: Alanine Aminotransferase 19 U/L (0-31); Albumin Level 4.3 g/dL (3.5-5.0); Alkaline Phosphatase 120 U/L (39-117); Anion Gap 15 (12-20); Aspartate Amino Transferase 25 U/L (5-31); Bilirubin Total 0.2 mg/dL (0.0-1.0); Blood Urea Nitrogen 14 mg/dL (9-16); Carbon Dioxide 24 mmol/L (22-29); Chloride 105 mmol/L (96-108); Creatinine Clr Calc Pharmacy 45.4; Estimated Glomerular Filt Rate 44; Glucose Random 292 mg/dL (60-115); Lipase 84 U/L (8-78); Potassium 4.4 mmol/L (3.3-5.1); Sodium 140 mmol/L (135-145); Total Protein 7.3 g/dL (6.5-8.0)
[2021-04-16 22:46] LABS: Lactic Acid 2.2 mmol/L (0.5-2.0); Troponin-I High Sensitivity 136.9 ng/L (<3.5-17.0)
[2021-04-16 22:57] VITALS: BP 148/77; PULSE 91; RESP 16; O2SAT 99
[2021-04-16 23:20] LABS: Appearance Urine CLEAR; Color Urine YELLOW; Glucose Urine UA >=1000 MG/DL (NEG); Leukocyte Esterase Urine NEG (NEG); Nitrite Urine NEG (NEG); Specific Gravity - Urine 1.015 (1.005-1.025); UACC Culture Trigger NO; Urine Blood TRACE (NEG); Urine Ketones NEG (NEG); Urine Protein NEG (NEG-TRACE)
--- NOTE | 2021-04-16 23:26 | PC.NURSE ---
PT transferred to CT scan.
[2021-04-16 23:29] LABS: Bacteria Urine 2+ /LPF; Squamous Epithelial Cell Urine 1+ /LPF
[2021-04-16] MEDS: iohexoL 350 MG/ML 100 ML INFUS..BTL 85 ML IV (23:36)
[2021-04-16 23:40] LABS: Reflex Lactate? Lactic Acid Added
--- NOTE | 2021-04-17 00:02 | PC.NURSE ---
Repeat labs obtained and sent.
[2021-04-17 00:17] LABS: ~Lactic Acid-LAB USE ONLY 1.7 mmol/L (0.5-2.0)
[2021-04-17 00:35] LABS: Troponin-I High Sensitivity 130.3 ng/L (<3.5-17.0)
--- NOTE | 2021-04-17 00:49 | PC.NURSE ---
MD at bedside discussing results and plan of care.
[2021-04-17 00:51] VITALS: BP 125/57; PULSE 75; RESP 18; O2SAT 97
== END 2021-04-17 01:20 | disposition home or self-care (01) ==
PROVIDERS: Emergency Provider Emergency Medicine Emergency Medical Services; PCP Family Medicine
DX: R55 Syncope and collapse (principal); R10.32 Left lower quadrant pain; Z72.89 Other problems related to lifestyle; Z63.4 Disappearance and death of family member; E11.9 Type 2 diabetes mellitus without complications; I10 Essential (primary) hypertension; E78.5 Hyperlipidemia, unspecified; E66.09 Other obesity due to excess calories; Z79.4 Long term (current) use of insulin; Z79.02 Long term (current) use of antithrombotics/antiplatelets; Z79.82 Long term (current) use of aspirin; Z79.899 Other long term (current) drug therapy
CPT/HCPCS: 36415; 70450; 71045; 74177; 80053; 81001; 82077; 82947; 83605; 83690; 84484; 85025; 93005; 96361; 96374; 99285; J1885; Q9967

== ENCOUNTER 2021-04-20 13:45 | Outpatient (REF) | payer OTHER, SELFPAY ==
[2021-04-20 16:09] LABS: TSH reflex Free T4 0.83 uIU/mL (0.32-4.0)
[2021-05-03 11:56] LABS: Vitamin D 25-OH, D2 17 ng/mL; Vitamin D 25-OH, D3 <4 ng/mL; Vitamin D 25-OH, Total 17 ng/mL (30-100)
== END 2021-04-20 13:46 | disposition home or self-care (01) ==
LOC: HO.LAB 13:45
PROVIDERS: PCP Family Medicine; Referring Provider Family Medicine; Visit Provider Nurse Practitioner Family
DX: K21.9 Gastro-esophageal reflux disease without esophagitis (principal); R14.0 Abdominal distension (gaseous); K59.01 Slow transit constipation; E55.9 Vitamin D deficiency, unspecified
CPT/HCPCS: 36415; 82306; 84443; 99212

== ENCOUNTER 2021-04-22 09:16 | Outpatient (REF) | payer OTHER, SELFPAY | END 2021-04-22 09:17 | disposition home or self-care (01) | LOC: HO.LNP 09:16 | PROVIDERS: Visit Provider Nurse Practitioner Family | DX: K21.9 Gastro-esophageal reflux disease without esophagitis (principal) | CPT/HCPCS: 87338 ==

== ENCOUNTER → 2021-05-03 10:31 | Outpatient (BNVA) | payer OTHER, SELFPAY | PROVIDERS: PCP Family Medicine; Visit Provider Nurse Practitioner Gerontology | DX: E11.40 Type 2 diabetes mellitus with diabetic neuropathy, unspecified (principal); E78.5 Hyperlipidemia, unspecified; E66.09 Other obesity due to excess calories; I10 Essential (primary) hypertension; Z68.33 Body mass index [BMI] 33.0-33.9, adult | CPT/HCPCS: 82947; 83036; 99212 ==

== ENCOUNTER → 2021-06-21 10:35 | Outpatient (BNVA) | payer OTHER, SELFPAY | PROVIDERS: PCP Family Medicine; Referring Provider Family Medicine; Visit Provider Nurse Practitioner Family | DX: K21.9 Gastro-esophageal reflux disease without esophagitis (principal); K59.04 Chronic idiopathic constipation | CPT/HCPCS: 99212 ==

== ENCOUNTER 2021-07-22 08:22 | Outpatient (REF) | payer OTHER, SELFPAY ==
[2021-07-22 09:43] LABS: Alanine Aminotransferase 16 U/L (0-31); Albumin Level 4.4 g/dL (3.5-5.0); Alkaline Phosphatase 82 U/L (39-117); Anion Gap 11 (12-20); Aspartate Amino Transferase 17 U/L (5-31); Bilirubin Total 0.4 mg/dL (0.0-1.0); Blood Urea Nitrogen 15 mg/dL (9-16); Calcium 9.9 mg/dL (8.4-10.2); Carbon Dioxide 30 mmol/L (22-29); Chloride 104 mmol/L (96-108); Cholesterol 170 mg/dL; Estimated Glomerular Filt Rate > 60; Glucose Fasting 142 mg/dL (60-99); HDL Cholesterol 56 mg/dL; LDL Cholesterol Calculated 99 mg/dl; Potassium 5.2 mmol/L (3.3-5.1); Sodium 140 mmol/L (135-145); Total Protein 7.5 g/dL (6.5-8.0); Triglycerides 77 mg/dL
[2021-07-22 10:04] LABS: Vitamin D 25-OH Total 17.5 ng/mL (>30)
[2021-07-22 10:13] LABS: Vitamin B12 395 pg/mL (200-900)
[2021-07-22 11:27] LABS: Creatinine Urine 64.82 mg/dL; Microalbum/Creatinine Ratio Ur 9.2 ug/mg cr
== END 2021-07-22 08:23 | disposition home or self-care (01) ==
LOC: HO.LAB 08:22
PROVIDERS: PCP Family Medicine; Visit Provider Nurse Practitioner Gerontology
DX: E11.65 Type 2 diabetes mellitus with hyperglycemia (principal); E55.9 Vitamin D deficiency, unspecified
CPT/HCPCS: 36415; 80053; 80061; 82043; 82306; 82607

== ENCOUNTER 2021-07-29 08:03 | Outpatient (REF) | payer OTHER, SELFPAY ==
--- NOTE | ~2021-07-29 | CT_ITS ---
EXAMINATION: CT CHEST, ABDOMEN AND PELVIS WITH CONTRAST CLINICAL INFORMATION: Abnormal weight loss. COMPARISON: CT abdomen and pelvis 04/16/2021. TECHNIQUE: Multidetector volumetric imaging was performed from the thoracic inlet through the pubic symphysis following administration of 85 mL of Omnipaque-350. Sagittal and coronal reformatted images were obtained on the technologist's workstation. This CT examination was performed using dose optimization techniques as appropriate, variously including the following: *Automated exposure control *Adjustment of mA and/or kV according to patient size (this includes techniques or standardized protocols for targeted exams where dose is matched to indication/reason for exam; i.e. extremities or head) *Use of iterative reconstruction technique DLP: 900 mGy-cm FINDINGS: CHEST: Lungs: The lungs are clear without focal opacity or nodule. Mediastinum: The mediastinum is normal. The central vascular structures are unremarkable. No hilar or mediastinal lymphadenopathy. Pericardium/Pleura: No significant effusion. No pleural mass or thickening. Chest Wall/Axilla: Unremarkable. ABDOMEN/PELVIS: Peritoneal Space: No significant free air or free fluid identified. Liver, Gallbladder, Biliary Tree: The liver is normal in size and shape but demonstrates decreased attenuation suggesting hepatic steatosis. No focal hepatic lesion or biliary ductal dilatation is present. Status post cholecystectomy. Pancreas: Unremarkable. Spleen: Unremarkable. Adrenal Glands: Unremarkable. Kidneys and Ureters: The kidneys are normal in size, shape, and attenuation. A Bosniak class I benign 1.2 cm cyst arises from the upper pole of the left kidney. No other renal masses are seen. No hydronephrosis, hydroureter, or calculi seen. No perinephric stranding. Bladder: Unremarkable. Gastrointestinal Tract: The small and large bowel are unremarkable aside from diverticular changes without diverticulitis. The appendix is unremarkable. Abdominal Wall: No significant hernia is appreciated. Lymph Nodes: No retroperitoneal lymphadenopathy. Vascular: Mild calcific plaque present in the aorta without aneurysm. The celiac SMA and HAO are all widely patent. The IVC appears unremarkable. Pelvic Viscera: An anteverted uterus is present. An abnormal adnexal mass is not seen. Osseus Structures: Minimal degenerative changes are noted in the spine. No bony destructive lesions are seen. CT/CT abdomen pelvis w con IMPRESSION: An occult etiology for the patient's weight loss has not been found. Incidental note made of hepatic steatosis, cholecystectomy, benign left renal cyst which needs no further follow-up or imaging, colonic diverticulosis without diverticulitis and other findings described above.
[2021-07-29 09:42] LABS: Anion Gap 14 (12-20); Blood Urea Nitrogen 17 mg/dL (9-16); Calcium 9.8 mg/dL (8.4-10.2); Carbon Dioxide 29 mmol/L (22-29); Chloride 103 mmol/L (96-108); Estimated Glomerular Filt Rate > 60; Glucose Random 138 mg/dL (60-115); Potassium 4.8 mmol/L (3.3-5.1); Sodium 141 mmol/L (135-145)
[2021-07-29] MEDS: iohexoL 350 MG/ML 100 ML INFUS..BTL 85 ML IV (11:35)
[2021-07-29] MEDS: Barium Sulfate Oral (Mocha) 450 ML ORAL.SUSP 900 ML PO (11:46)
== END 2021-07-29 08:04 | disposition home or self-care (01) ==
LOC: HO.CT 08:03
PROVIDERS: Absent Provider Nurse Practitioner Gerontology; PCP Family Medicine; Visit Provider Family Medicine
DX: E11.65 Type 2 diabetes mellitus with hyperglycemia (principal); R63.4 Abnormal weight loss
CPT/HCPCS: 36415; 71260; 74177; 80048; Q9967

== ENCOUNTER → 2021-08-18 11:33 | Outpatient (BNVA) | payer OTHER, SELFPAY | PROVIDERS: PCP Family Medicine; Visit Provider Nurse Practitioner Gerontology | DX: E11.40 Type 2 diabetes mellitus with diabetic neuropathy, unspecified (principal); E11.22 Type 2 diabetes mellitus with diabetic chronic kidney disease; I12.9 Hypertensive chronic kidney disease with stage 1 through stage 4 chronic kidney disease, or unspecified chronic kidney disease; N18.30 Chronic kidney disease, stage 3 unspecified; E78.5 Hyperlipidemia, unspecified; E66.09 Other obesity due to excess calories; Z68.33 Body mass index [BMI] 33.0-33.9, adult; Z79.4 Long term (current) use of insulin | CPT/HCPCS: 82947; 83036; Q3014 ==

== ENCOUNTER 2021-09-21 09:56 | Outpatient (REF) | payer OTHER, SELFPAY ==
[2021-09-26 13:40] LABS: Vitamin D 25-OH, D2 15 ng/mL; Vitamin D 25-OH, D3 6 ng/mL; Vitamin D 25-OH, Total 21 ng/mL (30-100)
== END 2021-09-21 09:57 | disposition home or self-care (01) ==
LOC: HO.LAB 09:56
PROVIDERS: PCP Family Medicine; Referring Provider Family Medicine; Visit Provider Nurse Practitioner Family
DX: E55.9 Vitamin D deficiency, unspecified (principal); K21.9 Gastro-esophageal reflux disease without esophagitis; K59.00 Constipation, unspecified
CPT/HCPCS: 36415; 82306; Q3014

== ENCOUNTER → 2021-09-28 08:05 | Outpatient (REF) | payer OTHER, SELFPAY ==
--- NOTE | ~2021-09-28 | NM_ITS ---
EXAMINATION: RADIONUCLIDE SOLID FOOD GASTRIC EMPTYING 4-HOUR STUDY CLINICAL INFORMATION: Epigastric pain, nausea, abnormal weight loss. COMPARISON: No previous gastric emptying study is available for comparison. TECHNIQUE: A standard meal consisting of 4 oz of Egg Beaters brand equivalent tagged with 970 microcuries Tc-99m Sulfur Colloid, 8 oz water and 2 slices of toast with jelly was administered orally to the patient. Images were obtained using a dual head gamma camera in the anterior and posterior projections over of the stomach immediately post ingestion and at hourly intervals up to 4 hours post ingestion. The anterior and posterior counts at each time interval were averaged using the geometric mean and expressed as percentage of the immediate post ingestion counts. FINDINGS: There is good visualization of activity in the stomach immediately post ingestion. As a study progresses some small bowel activity is visualized which progressively increases, but at the end of the study there is marked abnormal retention of activity in the stomach. Retention in the stomach at each time interval was: 1 hour 79% (normal 37%-90%) 2 hours 70% (normal 30%-60%) 3 hours 58% 4 hours 53% (normal 0%-10%) NM/NM gastric emptying study IMPRESSION: Abnormal study. There is marked abnormal retention of solid food in the stomach at 4 hours.
== END ==
LOC: HO.NUCMED 08:05
PROVIDERS: PCP Family Medicine; Visit Provider Family Medicine
DX: E11.3293 Type 2 diabetes mellitus with mild nonproliferative diabetic retinopathy without macular edema, bilateral (principal); R63.4 Abnormal weight loss
CPT/HCPCS: 78264; A9541

== ENCOUNTER 2021-10-29 23:53 | Emergency (ER) | payer OTHER, SELFPAY ==
--- NOTE | ~2021-10-29 | XR_ITS ---
EXAMINATION: XR CHEST CLINICAL INFORMATION: Chest tightness COMPARISON: Numerous priors, most recently 04/16/[address] 07/29/2021 TECHNIQUE: Frontal view of the chest was obtained. FINDINGS: The lungs are well expanded. There is no focal consolidation, edema, or effusion. No pneumothorax. The cardiomediastinal silhouette is within normal limits. No acute osseous abnormality. Area of sclerosis in the proximal left humerus could represent bone infarct or an chondroma, unchanged. XR/XR chest 1V IMPRESSION: No acute pulmonary finding.
--- NOTE | 2021-10-29 23:58 | ECG_ITS ---
Test Reason : BODY PAIN Blood Pressure : / mmHG Vent. Rate : 092 BPM Atrial Rate : 092 BPM P-R Int : 140 ms QRS Dur : 076 ms QT Int : 346 ms P-R-T Axes : 074 -11 027 degrees QTc Int : 427 ms Normal sinus rhythm Possible Inferior infarct (cited on or before 30-OCT-2021) Abnormal ECG When compared with ECG of 16-APR-2021 21:50, QRS axis Shifted right Nonspecific T wave abnormality no longer evident in Lateral leads Referred By: Generic ED Physician Electronically Signed By:SOREN QUEEN
[2021-10-30 00:09] VITALS: BP 184/84; PULSE 92; RESP 20; TEMP 36.6; O2SAT 98; BMI 32.4
[2021-10-30 00:23] LABS: Basophils Percent Auto 0.4 % (0-2); Eosinophils Absolute Auto 0.2 X10*3/uL (0.0-0.4); Eosinophils Percent Auto 1.6 % (0-4); Hematocrit 40.6 % (37.0-47.0); Hemoglobin 13.5 g/dl (12.0-16.0); Imm Gran Abs Auto 0.03 X10*3/uL (0.00-0.03); Imm Gran Pct Auto 0.3 % (0.0-0.4); Lymphocytes Absolute Auto 2.8 X10*3/uL (1.2-4.9); Lymphocytes Percent Auto 25.9 % (20-40); MANUAL DIFF FLAG NO; Mean Corpuscular HGB Conc 33.3 g/dl (31.0-35.0); Mean Corpuscular Hemoglobin 31.1 pg (27.0-33.0); Mean Corpuscular Volume 93.5 fL (80.0-98.0); Neutrophils Absolute Auto 6.8 x10*3/uL (2.0-8.3); Neutrophils Percent Auto 62.8 % (45-73); Platelet Count 281 X10*3/uL (160-400); Red Blood Count 4.34 X10*6/uL (4.20-5.50); Red Cell Distribution Width 11.8 % (11.0-16.0); White Blood Count 10.9 X10*3/uL (4.8-10.8)
[2021-10-30 00:37] LABS: Anion Gap 16 (12-20); Blood Urea Nitrogen 9 mg/dL (9-16); Calcium 9.9 mg/dL (8.4-10.2); Carbon Dioxide 24 mmol/L (22-29); Chloride 101 mmol/L (96-108); Creatinine Clr Calc Pharmacy 75.2; Estimated Glomerular Filt Rate > 60; Glucose Random 211 mg/dL (60-115); Potassium 4.6 mmol/L (3.3-5.1); Sodium 136 mmol/L (135-145)
[2021-10-30 00:43] LABS: COVID-19 Test Negative (Negative); IDNOW Serial# 16C4AD1C; Influenza A Negative (Negative); Influenza B2 Negative (Negative)
--- NOTE | 2021-10-30 00:43 | ED_ITS ---
HPI - General Adult General Chief complaint: General Medical Stated complaint: SOB, body pains, High BP, tight chest pain Time Seen by Provider: 10/30/21 00:31 Source: patient and family Mode of arrival: ambulatory Limitations: no limitations History of Present Illness HPI narrative: Patient comes emergency room complaining of diffuse body aches. Patient states that her whole body has been hurting for 1 week. Patient denies shortness of breath. Patient states that her back hurts, both upper and lower extremities bilaterally. Patient denies fever chills, no URI or UTI symptoms. Patient has been taking tramadol but is not working. Related Data Home Medications Medication Instructions Recorded Confirmed alcohol swabs 0 pad TOPICAL 04/21/20 05/03/21 aspirin 81 mg tablet,delayed 81 mg PO DAILY 04/21/20 05/03/21 release atorvastatin 80 mg tablet 80 mg PO BEDTIME 04/21/20 08/18/21 calcium carbonate 200 mg calcium 200 mg PO BID 04/21/20 05/03/21 (500 mg) chewable tablet docusate sodium 100 mg capsule 100 mg PO BID PRN 04/21/20 05/03/21 lancets 33 gauge #100 ea 04/21/20 05/03/21 acetaminophen 650 mg 650 mg PO tab 12/25/20 05/03/21 tablet,extended release albuterol sulfate 90 mcg/actuation 2 puff PO Q4-6H PRN 12/25/20 05/03/21 aerosol inhaler baclofen 20 mg tablet 20 mg PO TID PRN 12/25/20 05/03/21 cyanocobalamin (vitamin B-12) 1,000 mcg PO QAM 12/25/20 08/18/21 1,000 mcg tablet fluticasone propionate 110 1 puff PO BID 12/25/20 05/03/21 mcg/actuation HFA aerosol inhaler gabapentin 400 mg capsule 400 mg PO TID 12/25/20 08/18/21 lisinopril 2.5 mg tablet 2.5 mg PO DAILY 12/25/20 08/18/21 loratadine 10 mg tablet 10 mg PO QAM 12/25/20 05/03/21 oxybutynin chloride 5 mg 5 mg PO QAM 12/25/20 05/03/21 tablet,extended release 24 hr sertraline 100 mg tablet 150 mg PO QAM 12/25/20 05/03/21 tramadol 50 mg tablet 50 mg PO BID PRN 12/25/20 05/03/21 blood sugar diagnostic (FreeStyle 05/03/21 Lite Strips) blood-glucose meter (FreeStyle 05/03/21 Lite Meter) Previous Rx's Medication Instructions Recorded dulaglutide 4.5 mg/0.5 mL 4.5 mg (0.5 mL) SUBCUT QWEEK #2 ml 05/03/21 subcutaneous pen injector (Trulicity) methylcellulose (laxative) 500 mg 500 mg PO DAILY #90 tab 06/21/21 tablet (Citrucel) sennosides 8.6 mg tablet (Natural 17.2 mg PO BEDTIME #90 tab 06/30/21 Senna Laxative) insulin degludec 200 unit/mL (3 14 unit (0.07 mL) SUBCUT DAILY #3 08/18/21 mL) subcutaneous pen (Tresiba ml FlexTouch U-200 insulin) metformin 850 mg tablet 850 mg PO BID #180 tab 08/30/21 omeprazole 40 mg capsule,delayed 40 mg PO DAILY #90 cap 09/21/21 release sucralfate 1 gram tablet 1 g PO QIDACHS #90 tab 09/21/21 empagliflozin 25 mg tablet 25 mg PO QAM #30 tab 09/29/21 (Jardiance) ezetimibe 10 mg tablet 10 mg PO DAILY #90 tab 09/30/21 pen needle, diabetic 32 gauge x #100 ea 10/28/21 5/32 (BD Ultra-Fine Zaida Pen Needle) oxycodone 5 mg tablet 5 mg PO BID PRN #6 tab 10/30/21 Allergies Allergy/AdvReac Type Severity Reaction Status Date / Time amitriptyline [AMITRIPTYLINE] Allergy Unknown ANXIOUS, Verified 10/30/21 00:06 SWELLING aspirin [ASPIRIN] Allergy Unknown DROOLING, Verified 10/30/21 00:06 EXCESSIVE SPITTING Penicillins Allergy Swelling Verified 10/30/21 00:06 Review of Systems Review of Systems: Constitutional : No Weight loss, No Fever, No Chills, No Night Sweats, No Fatigue, No Malaise ENT/Mouth : No Hearing loss, No Ear Pain, No Nasal Congestion, No Sinus Pain, No Hoarseness, No sore throat, No Rhinorrhea, No Swallowing Difficulty Eyes: No Eye Pain, No Swelling, No Redness, No Foreign Body, No Discharge, No Vision Changes Cardiovascular : No Chest Pain, No SOB, No Dyspnea on Exertion, No Orthopnea, No Edema, No Palpitations Respiratory : No Cough, No Sputum, No Wheezing, No Smoke Exposure, No Dyspnea Gastrointestinal : No Nausea, No Vomiting, No Diarrhea, No Constipation, No abdominal Pain, No Hematochezia, No Melena Genitourinary : no irregular bleeding, No Dysuria, No Urinary Frequency, No Hematuria, No Urinary Incontinence, No Urgency, No Flank Pain, No Urinary Flow Changes, No Hesitancy Musculoskeletal : Complaining of diffuse body pain, muscle pain, joint pain Skin : No Skin Lesions, No rash Neuro : No Weakness, No Numbness, No Paresthesias, No Loss of Consciousness, No Dizziness, No Headache Psych : No Anxiety/Panic, No Depression, No SI/HI/AH/VH, No Social Issues, Heme/Lymph: No Bruising, No Bleeding,No Lymphadenopathy Endocrine : No Polyuria, No Polydipsia, No Temperature Intolerance PMFSH Past Medical History Medical History Back ache Depression Diabetes Essential hypertension Fibromyalgia Gastric ulcer Gastritis HTN (hypertension) Hyperlipidemia LDL goal <100 Neuropathy Obesity due to excess calories Osteoarthritis Osteoporosis Retinopathy Snoring Spinal stenosis of lumbar region Type 2 diabetes mellitus with diabetic neuropathy, unspecified Type 2 diabetes mellitus with hyperglycemia, without long-term current use of insulin Surgical History History of esophagogastroduodenoscopy (EGD) Hx of cholecystectomy Hx of colonoscopy Hx of tubal ligation Family History Family History Father FH: prostate cancer Mother CVD (cardiovascular disease) Heart disease Son Diabetes Social History Social History Household Members: Family Alcohol intake: never Patient Tobacco Use Status: Former Tobacco user Advance Directives: No Advance Directives Information Provided: Yes Physical Exam ED Vital Signs: Vital Signs - 24 hr 10/30/21 00:09 Temperature 97.8 F Pulse Rate 92 Respiratory Rate 20 Blood Pressure 184/84 H Pulse Oximetry 98 BMI result Body Mass Index 32.4 Const Other: Appearance: Alert. Oriented X3. No acute distress. Eyes: Pupils equal, round and reactive to light. ENT: Pharynx normal. Neck: Normal inspection. Neck supple. No lymph nodes noted. No crepitus CVS: Normal heart rate and rhythm. Pulses normal. Normal S1 and S2 Respiratory: No respiratory distress. Breath sounds normal. No Wheezing. No rales Abdomen: Soft and nontender. No rigidity. No distention. Skin: Skin warm and dry. Normal skin color. Normal skin turgor. Extremities: No lower extremity edema. No Lacerations. No Rash. Patient has diffuse pain to palpation. Anywhere I touch the patient with minimal pressure, patient stated that she had a lot of pain Neuro: Oriented X 3. No motor deficit. No sensory deficit. Moving all ex tremities. No slurred speech. CN 2 through 12 grossly intact Psych: calm, cooperative, normal affect Course Course Course Narrative: Patient does not use tramadol daily, opiate withdrawal not suspected. Patient given 1 dose of p.o. oxycodone. Patient does have history of fibromyalgia. Patient states that her primary care physician evaluated her a few days ago, it was recommended that she start physical therapy. all Of patient's labs pending I discussed the labs imaging with the patient, no acute findings. Patient given 1 dose of p.o. oxycodone. We will give her a small prescription for the next 2 days. Patient is to follow up with the primary care physician and the pain clinic , patient has previously seen Dr. Noble Medical Decision Making Lab Data Result diagrams: 10/30/21 00:16 10/30/21 00:16 Labs: Lab Results 10/30/21 10/30/21 10/30/21 Range/Units 00:16 00:16 00:16 WBC 10.9 H (4.8-10.8) X10*3/uL RBC 4.34 (4.20-5.50) X10*6/uL Hgb 13.5 (12.0-16.0) g/dl Hct 40.6 (37.0-47.0) % MCV 93.5 (80.0-98.0) fL MCH 31.1 (27.0-33.0) pg MCHC 33.3 (31.0-35.0) g/dl RDW 11.8 (11.0-16.0) % Plt Count 281 (160-400) X10*3/uL MPV 10.0 (9.4-12.3) fL Immature Gran % (Auto) 0.3 (0.0-0.4) % Neut % (Auto) 62.8 (45-73) % Lymph % (Auto) 25.9 (20-40) % [place] % (Auto) 9.0 (2-11) % Eos % (Auto) 1.6 (0-4) % Baso % (Auto) 0.4 (0-2) % Lymph # (Auto) 2.8 (1.2-4.9) X10*3/uL [place] # (Auto) 1.0 (0.1-1.2) X10*3/uL Eos # (Auto) 0.2 (0.0-0.4) X10*3/uL Baso # (Auto) 0.0 (0.0-0.2) X10*3/uL Abs Immat Gran (auto) 0.03 (0.00-0.03) X10*3/uL Absolute Neuts (auto) 6.8 (2.0-8.3) x10*3/uL Absolute Nucleated RBC 0.000 (0.0-0.012) X10*3/uL Nucleated RBC % (auto) 0.0 (0.0-0.2) /100WBC Sodium 136 (135-145) mmol/L Potassium 4.6 (3.3-5.1) mmol/L Chloride 101 (96-108) mmol/L Carbon Dioxide 24 (22-29) mmol/L Anion Gap 16 (12-20) BUN 9 (9-16) mg/dL Creatinine 0.73 (0.5-1.4) mg/dL Estim Creat Clear Calc 75.2 Estimated GFR > 60 Random Glucose 211 H (60-115) mg/dL Calcium 9.9 (8.4-10.2) mg/dL Troponin I High Sens < 3.5 (<3.5-17.0) ng/L COVID-19 (FRANK) (Negative) COVID-19 Clin Com Influenza Type A (CHRISTO) (Negative) Influenza Type B (CHRISTO) (Negative) Influenza A & B Note 10/30/21 10/30/21 Range/Units 00:16 00:16 WBC (4.8-10.8) X10*3/uL RBC (4.20-5.50) X10*6/uL Hgb (12.0-16.0) g/dl Hct (37.0-47.0) % MCV (80.0-98.0) fL MCH (27.0-33.0) pg MCHC (31.0-35.0) g/dl RDW (11.0-16.0) % Plt Count (160-400) X10*3/uL MPV (9.4-12.3) fL Immature Gran % (Auto) (0.0-0.4) % Neut % (Auto) (45-73) % Lymph % (Auto) (20-40) % [place] % (Auto) (2-11) % Eos % (Auto) (0-4) % Baso % (Auto) (0-2) % Lymph # (Auto) (1.2-4.9) X10*3/uL [place] # (Auto) (0.1-1.2) X10*3/uL Eos # (Auto) (0.0-0.4) X10*3/uL Baso # (Auto) (0.0-0.2) X10*3/uL Abs Immat Gran (auto) (0.00-0.03) X10*3/uL Absolute Neuts (auto) (2.0-8.3) x10*3/uL Absolute Nucleated RBC (0.0-0.012) X10*3/uL Nucleated RBC % (auto) (0.0-0.2) /100WBC Sodium (135-145) mmol/L Potassium (3.3-5.1) mmol/L Chloride (96-108) mmol/L Carbon Dioxide (22-29) mmol/L Anion Gap (12-20) BUN (9-16) mg/dL Creatinine (0.5-1.4) mg/dL Estim Creat Clear Calc Estimated GFR Random Glucose (60-115) mg/dL Calcium (8.4-10.2) mg/dL Troponin I High Sens (<3.5-17.0) ng/L COVID-19 (FRANK) Negative (Negative) COVID-19 Clin Com See Note Influenza Type A (CHRISTO) Negative (Negative) Influenza Type B (CHRISTO) Negative (Negative) Influenza A & B Note See Note Discharge Plan Discharge Clinical Impression: Diffuse pain Patient Disposition: Home, Self-Care Instructions: Trigger Point Pain (ED), Musculoskeletal Pain (ED) Additional Instructions: Please follow-up with your primary care physician tomorrow. If you have any worsening or new symptoms, please return to the emergency room or call 911 Prescriptions: New oxycodone 5 mg tablet 5 mg PO BID PRN (Reason: pain) Qty: 6 0RF No Action sennosides [Natural Senna Laxative] 8.6 mg tablet 17.2 mg PO BEDTIME Qty: 90 3RF metformin 850 mg tablet 850 mg PO BID Qty: 180 1RF Jardiance 25 mg tablet 25 mg PO QAM Qty: 30 4RF ezetimibe 10 mg tablet 10 mg PO DAILY Qty: 90 1RF (DME) pen needle, diabetic [BD Ultra-Fine Zaida Pen Needle] 32 gauge x /32 ne edle See Rx Instructions .ROUTE .MEDSUPPLY Qty: 100 3RF Rx Instructions: As directed once daily atorvastatin 80 mg tablet 80 mg PO BEDTIME 0RF alcohol swabs Pads, Medicated 0 pad topical 0RF calcium carbonate 200 mg calcium (500 mg) tablet,chewable 200 mg PO BID 0RF docusate sodium 100 mg capsule 100 mg PO BID PRN0RF (DME) lancets 33 gauge misc See Rx Instructions ea .ROUTE .MEDSUPPLY Qty: 100 0RF Rx Instructions: As directed aspirin 81 mg tablet,delayed release (DR/EC) 81 mg PO DAILY 0RF gabapentin 400 mg capsule 400 mg PO TID 0RF oxybutynin chloride 5 mg tablet extended release 24hr 5 mg PO QAM 0RF baclofen 20 mg tablet 20 mg PO TID PRN (Reason: muscle spasm) 0RF loratadine 10 mg tablet 10 mg PO QAM 0RF lisinopril 2.5 mg tablet 2.5 mg PO DAILY 0RF cyanocobalamin (vitamin B-12) 1,000 mcg tablet 1,000 mcg PO QAM 0RF sertraline 100 mg tablet 150 mg PO QAM 0RF albuterol sulfate 90 mcg/actuation HFA aerosol inhaler 2 puff PO Q4-6H PRN0RF acetaminophen 650 mg tablet extended release 650 mg PO 0RF Flovent HFA 110 mcg/actuation HFA aerosol inhaler 1 puff PO BID 0RF tramadol 50 mg tablet 50 mg PO BID PRN0RF (DME) FreeStyle Lite Strips Strip See Rx Instructions .ROUTE 0RF Rx Instructions: As directed three times a day (DME) blood-glucose meter [FreeStyle Lite Meter] Kit See Rx Instructions .ROUTE 0RF Rx Instructions: As directed three times a day Trulicity 4.5 mg/0.5 mL pen injector 4.5 mg subcut QWEEK Qty: 2 6RF Citrucel 500 mg tablet 500 mg PO DAILY Qty: 90 2RF Rx Instructions: take it with full glass of water Tresiba FlexTouch U-200 200 unit/mL (3 mL) insulin pen 14 unit subcut DAILY Qty: 3 3RF omeprazole 40 mg capsule,delayed release(DR/EC) 40 mg PO DAILY Qty: 90 3RF sucralfate 1 gram tablet 1 g PO QIDACHS Qty: 90 1RF
[2021-10-30 00:44] LABS: Troponin-I High Sensitivity < 3.5 ng/L (<3.5-17.0)
[2021-10-30] MEDS: oxyCODONE HCl Immed Release 5 MG TABLET PO (00:51)
[2021-10-30 01:17] VITALS: BP 154/71; PULSE 87; RESP 14; O2SAT 97
== END 2021-10-30 01:18 | disposition home or self-care (01) ==
PROVIDERS: Emergency Provider Emergency Medicine
DX: M79.10 Myalgia, unspecified site (principal); E11.9 Type 2 diabetes mellitus without complications; I10 Essential (primary) hypertension; E78.5 Hyperlipidemia, unspecified; Z20.822 Contact with and (suspected) exposure to COVID-19; Z79.02 Long term (current) use of antithrombotics/antiplatelets; Z79.82 Long term (current) use of aspirin; Z79.899 Other long term (current) drug therapy
CPT/HCPCS: 36415; 71045; 80048; 84484; 85025; 87502; 87635; 93005; 99283; 99284

== ENCOUNTER 2021-11-24 08:31 | Outpatient (REF) | payer OTHER, SELFPAY ==
--- NOTE | ~2021-11-24 | CT_ITS ---
EXAMINATION: CT HEAD WITHOUT CONTRAST CLINICAL INFORMATION: Left arm pain and weakness COMPARISON: Previous head CT most recent April 2021 TECHNIQUE: Contiguous axial imaging was performed from the skull base to vertex without intravenous administration of contrast. This CT examination was performed using dose optimization techniques as appropriate, variously including the following: *Automated exposure control *Adjustment of mA and/or kV according to patient size (this includes techniques or standardized protocols for targeted exams where dose is matched to indication/reason for exam; i.e. extremities or head) *Use of iterative reconstruction technique DLP: 704 mGy-cm FINDINGS: There is no evidence of acute intracranial hemorrhage or territorial infarction. No abnormal mass effect or midline shift is seen. Bishop to white matter differentiation is well preserved. No extra-axial fluid collections are identified. The ventricles are normal in size. There is no abnormal attenuation within the brain parenchyma. The osseous structures and soft tissues are normal. The mastoid air cells and visualized portions of the paranasal sinuses are well aerated. CT/CT head/brain wo con IMPRESSION: Unremarkable exam.
== END 2021-11-24 08:32 | disposition home or self-care (01) ==
LOC: HO.CT 08:31
PROVIDERS: Visit Provider Internal Medicine
DX: M25.552 Pain in left hip (principal); M79.602 Pain in left arm; R53.1 Weakness
CPT/HCPCS: 70450

== ENCOUNTER 2021-11-26 15:06 | Outpatient (REF) | payer OTHER, SELFPAY ==
--- NOTE | ~2021-11-26 | MR_ITS ---
EXAMINATION: MR LUMBAR SPINE WITHOUT CONTRAST CLINICAL INFORMATION: Low back pain. Worsening bilateral lower extremity weakness. COMPARISON: Lumbar spine radiographs 10/13/2016. TECHNIQUE: MRI of the lumbar spine was obtained using routine sequences without contrast. FINDINGS: Alignment is normal. Vertebral heights are preserved. There are type I degenerative endplate changes at L1-L2. Type II degenerative endplate changes at L2-L3. There is slight loss of intervertebral disc height and T2 signal intensity at multiple levels related to disc degeneration. The tip of the conus medullaris is located at T12. No mass effect on the conus. Visualized distal cord signal intensity is normal. At L1-L2 there is a slightly bulging disc. No canal stenosis. No mass effect on the traversing or foraminal nerve roots. At L2-L3 there is a slightly bulging disc. No canal stenosis. No mass effect on the traversing or foraminal nerve roots. At L3-L4 there is a slightly bulging disc. Bilateral facet degenerative change. No canal stenosis. No mass effect on the traversing or foraminal nerve roots. At L4-L5 there is a shallow central protrusion superimposed upon a bulging disc. No canal stenosis. There is subtle abutment and possible compression of the left traversing L5 nerve roots. No foraminal nerve root compression. At L5-S1 there is a slightly bulging disc. No canal stenosis. No mass effect on the traversing or foraminal nerve roots. Limited visualization of the retroperitoneal anatomy reveals no abnormal L5. Psoas and paraspinal muscle groups are symmetric. MR/MR lumbar spine wo con IMPRESSION: There is a bulging disc at L4-L5 that causes subtle abutment and possible compression of the left traversing L5 nerve roots. Otherwise no substantial mass effect on the traversing or foraminal nerve roots elsewhere within the lumbar spine. No canal stenosis.
== END 2021-11-26 15:07 | disposition home or self-care (01) ==
LOC: HO.MRI 15:06
PROVIDERS: Visit Provider Nurse Practitioner Primary Care
DX: M54.41 Lumbago with sciatica, right side (principal); R29.898 Other symptoms and signs involving the musculoskeletal system
CPT/HCPCS: 72148

== ENCOUNTER 2022-02-28 13:03 | Outpatient (REF) | payer OTHER, SELFPAY ==
--- NOTE | ~2022-02-28 | US_ITS ---
EXAMINATION: US EXTRACRANIAL CAROTID DUPLEX, BILATERAL CLINICAL INFORMATION: Personal history of other disease of the circulatory system. Diabetes. Hypertension. COMPARISON: None TECHNIQUE: Real-time ultrasound and Doppler techniques (integrating B-mode 2-D vascular images, Doppler spectral analysis and color-flow Doppler imaging) were utilized to interrogate the extracranial carotid arteries, the vertebral arteries and proximal subclavian arteries bilaterally. The degree of stenosis is determined by criteria similar to NASCET. FINDINGS: Right Side: 1. There is no atherosclerotic plaque seen in the bifurcation/proximal ICA region. 2. The common carotid artery PSV proximally is 116 cm/s and distally 83 cm/s. 3. The proximal internal carotid artery velocities are 70 cm/s systolic and 18 cm/s diastolic. 4. The proximal external carotid artery PSV is 78 cm/s. 5. The vertebral artery shows antegrade flow. 6. The subclavian artery waveforms are normal. Left Side: 1. There is no atherosclerotic plaque seen in the bifurcation/proximal ICA region. 2. The common carotid artery PSV proximally is 114 cm/s and distally 86 cm/s. 3. The proximal internal carotid artery velocities are 92 cm/s systolic and 16 cm/s diastolic. 4. The proximal external carotid artery PSV is 71 cm/s. 5. The vertebral artery shows antegrade flow. 6. The subclavian artery waveforms are normal. US/US carotid duplex BI IMPRESSION: 1. RIGHT: Normal right internal carotid artery without atherosclerotic plaque or hemodynamically significant stenosis. 2. LEFT: Normal left internal carotid artery without atherosclerotic plaque or hemodynamically significant stenosis.
== END 2022-02-28 13:04 | disposition home or self-care (01) ==
LOC: HO.US 13:03
PROVIDERS: Visit Provider Family Medicine
DX: Z86.79 Personal history of other diseases of the circulatory system (principal)
CPT/HCPCS: 93880

== ENCOUNTER 2022-03-22 09:39 | Emergency (ER) | payer OTHER, SELFPAY ==
--- NOTE | ~2022-03-22 | CT_ITS ---
EXAMINATION: CT ABDOMEN AND PELVIS WITHOUT CONTRAST CLINICAL INFORMATION: Diffuse abdominal pain, worse left flank. COMPARISON: CT scans dating between July 29, 2021 and March 30, 2009. TECHNIQUE: Multidetector volumetric imaging was performed from the superior aspect of the liver through the pubic symphysis. Sagittal and coronal reformatted images were obtained on the technologist's workstation. This CT examination was performed using dose optimization techniques as appropriate, variously including the following: *Automated exposure control *Adjustment of mA and/or kV according to patient size (this includes techniques or standardized protocols for targeted exams where dose is matched to indication/reason for exam; i.e. extremities or head) *Use of iterative reconstruction technique DLP: 682 mGy-cm FINDINGS: LUNG BASES: The lung bases appear clear, with no evidence of inflammation or nodules. LIVER, GALLBLADDER, AND BILIARY TREE: Suspect mild fatty infiltration. Liver appears unremarkable in size and shape. No focal hepatic lesion or biliary ductal dilatation is appreciated. Status post cholecystectomy. PANCREAS: Unremarkable SPLEEN: Unremarkable ADRENAL GLANDS: Unremarkable KIDNEYS AND URETERS: No significant radiographic change in approximately 1.3 cm benign left upper pole simple renal cyst for which no further dedicated imaging is indicated. The kidneys otherwise appear unremarkable in size, shape, and attenuation. No hydronephrosis, hydroureter, or calculi seen. BLADDER: Unremarkable GASTROINTESTINAL TRACT: Question small hiatus hernia, unchanged. Few, scattered colonic diverticula without evidence of diverticulitis. Normal-appearing distal ileum. No evidence of appendicitis. ABDOMINAL WALL: No significant hernia is appreciated. LYMPH NODES: No evidence of adenopathy by size criteria. VASCULAR: Unremarkable PELVIC VISCERA: Unremarkable OSSEOUS STRUCTURES: Unremarkable CT/CT abdomen pelvis wo IV con IMPRESSION: No acute finding.
[2022-03-22 09:49] VITALS: BP 137/83; PULSE 102; RESP 20; TEMP 36.8; O2SAT 95; BMI 30.9
[2022-03-22 14:24] LABS: Hematocrit 44.6 % (37.0-47.0); Hemoglobin 14.8 g/dl (12.0-16.0); Mean Corpuscular HGB Conc 33.2 g/dl (31.0-35.0); Mean Corpuscular Hemoglobin 30.2 pg (27.0-33.0); Platelet Count 480 X10*3/uL (160-400); Red Cell Distribution Width 11.8 % (11.0-16.0); White Blood Count 12.1 X10*3/uL (4.8-10.8)
[2022-03-22 14:42] LABS: Troponin-I High Sensitivity < 3.5 ng/L (<3.5-17.0)
[2022-03-22 14:44] LABS: Alanine Aminotransferase 30 U/L (0-31); Albumin Level 4.5 g/dL (3.5-5.0); Alkaline Phosphatase 88 U/L (39-117); Aspartate Amino Transferase 27 U/L (5-31); Bilirubin Direct 0.3 mg/dL (0.0-0.5); Bilirubin Total 0.4 mg/dL (0.0-1.0); Blood Urea Nitrogen 18 mg/dL (9-16); Creatinine Clr Calc Pharmacy 63.9; Estimated Glomerular Filt Rate > 60; Glucose Random 103 mg/dL (60-115); Lipase 65 U/L (8-78); Total Protein 7.9 g/dL (6.5-8.0)
[2022-03-22 14:56] LABS: Anion Gap 23 (12-20); Carbon Dioxide 25 mmol/L (22-29); Chloride 98 mmol/L (96-108); Sodium 141 mmol/L (135-145)
--- NOTE | 2022-03-22 15:02 | ECG_ITS ---
Test Reason : SEPSIS Blood Pressure : / mmHG Vent. Rate : 089 BPM Atrial Rate : 089 BPM P-R Int : 146 ms QRS Dur : 080 ms QT Int : 378 ms P-R-T Axes : 043 -27 045 degrees QTc Int : 459 ms Normal sinus rhythm RSR' or QR pattern in V1 suggests right ventricular conduction delay Left anterior fascicular block Abnormal ECG When compared with ECG of 30-OCT-2021 00:05, Left anterior fascicular block is new Referred By: Jany Kaiser Electronically Signed By:ANDRZEJ CASTILLO MD
--- NOTE | 2022-03-22 15:06 | ED.NAVMDI ---
HPI - Nausea/Vomiting/Diarrhea General Chief complaint: Nausea/Vomiting/Diarrhea Stated complaint: vomiting/abd pain/fatigue Time Seen by Provider: 03/22/22 14:39 Source: patient and EMS Mode of arrival: EMS Limitations: no limitations History of Present Illness HPI Narrative: Patient comes to the emergency room complaining vomiting since this morning and diffuse abdominal pain but worse in the left flank. Patient states that she has not had any diarrhea, no fever chills. Patient complained of hematuria approximately 2 weeks ago and then self-resolved. Patient denies dysuria or hematuria at this time. Related Data Home Medications Medication Instructions Recorded Confirmed alcohol swabs 0 pad topical 04/21/20 05/03/21 aspirin 81 mg tablet,delayed 81 mg PO DAILY 04/21/20 05/03/21 release atorvastatin 80 mg tablet 80 mg PO BEDTIME 04/21/20 08/18/21 calcium carbonate 200 mg calcium 200 mg PO BID 04/21/20 05/03/21 (500 mg) chewable tablet docusate sodium 100 mg capsule 100 mg PO BID PRN 04/21/20 05/03/21 lancets 33 gauge #100 ea 04/21/20 05/03/21 acetaminophen 650 mg 650 mg PO 12/25/20 05/03/21 tablet,extended release albuterol sulfate 90 mcg/actuation 2 puff PO Q4-6H PRN 12/25/20 05/03/21 aerosol inhaler baclofen 20 mg tablet 20 mg PO TID PRN muscle spasm 12/25/20 05/03/21 cyanocobalamin (vitamin B-12) 1,000 mcg PO QAM 12/25/20 08/18/21 1,000 mcg tablet fluticasone propionate 110 1 puff PO BID 12/25/20 05/03/21 mcg/actuation HFA aerosol inhaler gabapentin 400 mg capsule 400 mg PO TID 12/25/20 08/18/21 lisinopril 2.5 mg tablet 2.5 mg PO DAILY 12/25/20 08/18/21 loratadine 10 mg tablet 10 mg PO QAM 12/25/20 05/03/21 oxybutynin chloride 5 mg 5 mg PO QAM 12/25/20 05/03/21 tablet,extended release 24 hr sertraline 100 mg tablet 150 mg PO QAM 12/25/20 05/03/21 tramadol 50 mg tablet 50 mg PO BID PRN 12/25/20 05/03/21 blood sugar diagnostic (FreeStyle 05/03/21 Lite Strips) blood-glucose meter (FreeStyle 05/03/21 Lite Meter kit) Previous Rx's Medication Instructions Recorded methylcellulose (laxative) 500 mg 500 mg PO DAILY #90 tabs 06/21/21 tablet (Citrucel) insulin degludec 200 unit/mL (3 14 unit (0.07 mL) subcut DAILY #3 08/18/21 mL) subcutaneous pen (Tresiba mL FlexTouch U-200 insulin) omeprazole 40 mg capsule,delayed 40 mg PO DAILY #90 caps 09/21/21 release pen needle, diabetic 32 gauge x #100 ea 10/28/21 (BD Ultra-Fine Zaida Pen Needle) oxycodone 5 mg tablet 5 mg PO BID PRN pain #6 tabs 10/30/21 dulaglutide 4.5 mg/0.5 mL 4.5 mg (0.5 mL) subcut QWEEK #2 mL 11/16/21 subcutaneous pen injector (Trulicity) sucralfate 1 gram tablet 1 g PO QIDACHS #90 tabs 01/07/22 empagliflozin 25 mg tablet 25 mg PO QAM #30 tabs 02/10/22 (Jardiance) metformin 850 mg tablet 850 mg PO BID #180 tabs 02/10/22 sennosides 8.6 mg tablet (senna) 17.2 mg PO BEDTIME #60 tabs 02/15/22 ezetimibe 10 mg tablet 10 mg PO DAILY #90 tabs 03/14/22 ondansetron HCl 4 mg tablet 4 mg PO Q6H PRN nausea and 03/22/22 vomiting #14 tabs Allergies Allergy/AdvReac Type Severity Reaction Status Date / Time amitriptyline [AMITRIPTYLINE] Allergy Unknown ANXIOUS, Verified 10/30/21 00:06 SWELLING aspirin [ASPIRIN] Allergy Unknown DROOLING, Verified 10/30/21 00:06 EXCESSIVE SPITTING Penicillins Allergy Swelling Verified 10/30/21 00:06 Review of Systems Review of Systems: Constitutional : No Weight loss, No Fever, No Chills, No Night Sweats, No Fatigue, No Malaise ENT/Mouth : No Hearing loss, No Ear Pain, No Nasal Congestion, No Sinus Pain, No Hoarseness, No sore throat, No Rhinorrhea, No Swallowing Difficulty Eyes: No Eye Pain, No Swelling, No Redness, No Foreign Body, No Discharge, No Vision Changes Cardiovascular : No Chest Pain, No SOB, No Dyspnea on Exertion, No Orthopnea, No Edema, No Palpitations Respiratory : No Cough, No Sputum, No Wheezing, No Smoke Exposure, No Dyspnea Gastrointestinal : Complaining of nausea and vomiting, No Diarrhea, No Constipation, complaining of diffuse abdominal pain, No Hematochezia, No Melena Genitourinary : no irregular bleeding, No Dysuria, No Urinary Frequency, complaining of hematuria 2 weeks ago, no longer present. No Urinary Incontinence, No Urgency, No Flank Pain, No Urinary Flow Changes, No Hesitancy Musculoskeletal : No joint pain, No Myalgias, No Joint Swelling Skin : No Skin Lesions, No rash Neuro : No Weakness, No Numbness, No Paresthesias, No Loss of Consciousness, No Dizziness, No Headache Psych : No Anxiety/Panic, No Depression, No SI/HI/AH/VH, No Social Issues, Heme/Lymph: No Bruising, No Bleeding,No Lymphadenopathy Endocrine : No Polyuria, No Polydipsia, No Temperature Intolerance PMFSH Past Medical History Medical History Back ache Depression Diabetes Essential hypertension Fibromyalgia Gastric ulcer Gastritis HTN (hypertension) Hyperlipidemia LDL goal <100 Neuropathy Obesity due to excess calories Osteoarthritis Osteoporosis Retinopathy Snoring Spinal stenosis of lumbar region Type 2 diabetes mellitus with diabetic neuropathy, unspecified Type 2 diabetes mellitus with hyperglycemia, without long-term current use of insulin Surgical History History of esophagogastroduodenoscopy (EGD) Hx of cholecystectomy Hx of colonoscopy Hx of tubal ligation Family History Family History Father FH: prostate cancer Mother CVD (cardiovascular disease) Heart disease Son Diabetes Social History Social History Household Members: Family Alcohol intake: never Patient Tobacco Use Status: Former Tobacco user Advance Directives: No Advance Directives Information Provided: Yes Physical Exam Vital Signs: Vital Signs: Last Vital Signs Temp 98.3 F 03/22/22 09:49 Pulse 102 H 03/22/22 09:49 Resp 20 03/22/22 09:49 BP 137/83 03/22/22 09:49 Pulse Ox 95 03/22/22 09:49 O2 Del Method 03/22/22 09:49 BMI result Body Mass Index 30.9 Const: Other: Appearance: Alert. Oriented X3. No acute distress. Eyes: Pupils equal, round and reactive to light. ENT: Pharynx normal. Neck: Normal inspection. Neck supple. No lymph nodes noted. No crepitus CVS: Normal heart rate and rhythm. Pulses normal. Normal S1 and S2 Respiratory: No respiratory distress. Breath sounds normal. No Wheezing. No rales Abdomen: Soft, no rigidity, no distention, no rebound or guarding. Pain to palpation in the left upper and lower quadrant and left flank. Skin: Skin warm and dry. Normal skin color. Normal skin turgor. Extremities: No lower extremity edema. No Lacerations. No Rash Neuro: Oriented X 3. No motor deficit. No sensory deficit. Moving all extremities. No slurred speech. CN 2 through 12 grossly intact Psych: calm, cooperative, normal affect Course Course Course Narrative: Of patient's labs and imaging are pending. At this time, patient seems comfortable, only express pain on deep palpation in her abdomen Overall patient is feeling better, patient has not had any episodes of vomiting or diarrhea, patient's abdomen feels nondistended, patient is nontender at this time. Patient's potassium is slightly elevated, 5.6. No EKG changes, patient was given p.o. Lokelma. MDM - Nausea/Vomiting/Diarrhea Lab Data Result diagrams: 03/22/22 15:25 03/22/22 15:25 Labs: Lab Results 03/22/22 03/22/22 03/22/22 Range/Units 14:12 14:12 14:12 WBC 12.1 H (4.8-10.8) X10*3/uL RBC 4.90 (4.20-5.50) X10*6/uL Hgb 14.8 (12.0-16.0) g/dl Hct 44.6 (37.0-47.0) % MCV 91.0 (80.0-98.0) fL MCH 30.2 (27.0-33.0) pg MCHC 33.2 (31.0-35.0) g/dl RDW 11.8 (11.0-16.0) % Plt Count 480 H D (160-400) X10*3/uL MPV 9.0 L (9.4-12.3) fL Immature Gran % (Auto) (0.0-0.4) % Neut % (Auto) (45-73) % Lymph % (Auto) (20-40) % [place] % (Auto) (2-11) % Eos % (Auto) (0-4) % Baso % (Auto) (0-2) % Lymph # (Auto) (1.2-4.9) X10*3/uL [place] # (Auto) (0.1-1.2) X10*3/uL Eos # (Auto) (0.0-0.4) X10*3/uL Baso # (Auto) (0.0-0.2) X10*3/uL Abs Immat Gran (auto) (0.00-0.03) X10*3/uL Absolute Neuts (auto) (2.0-8.3) x10*3/uL Absolute Nucleated RBC 0.000 (0.0-0.012) X10*3/uL Nucleated RBC % (auto) 0.0 (0.0-0.2) /100WBC Sodium 141 (135-145) mmol/L Potassium 5.0 (3.3-5.1) mmol/L Chloride 98 (96-108) mmol/L Carbon Dioxide 25 (22-29) mmol/L Anion Gap 23 H (12-20) BUN 18 H D (9-16) mg/dL Creatinine 0.84 (0.5-1.4) mg/dL Estim Creat Clear Calc 63.9 Estimated GFR > 60 Random Glucose 103 (60-115) mg/dL Lactic Acid (0.5-2.0) mmol/L Calcium 10.0 (8.4-10.2) mg/dL Total Bilirubin 0.4 (0.0-1.0) mg/dL Direct Bilirubin 0.3 (0.0-0.5) mg/dL AST 27 D (5-31) U/L ALT 30 (0-31) U/L Alkaline Phosphatase 88 (39-117) U/L Troponin I High Sens < 3.5 (<3.5-17.0) ng/L Total Protein 7.9 (6.5-8.0) g/dL Albumin 4.5 (3.5-5.0) g/dL Lipase 65 (8-78) U/L Urine Color Urine Appearance Urine pH (5.0-9.0) Ur Specific [place] (1.005-1.025) Urine Protein (Neg-Trace) mg/dL Urine Glucose (UA) (Negative) mg/dL Urine Ketones (Negative) mg/dL Urine Blood (Negative) Urine Nitrite (Negative) Ur Leukocyte Esterase (Negative) Urine RBC (0-2) /HPF Urine WBC (0-5) /HPF Ur Squamous Epith Cells (0-2) /HPF Urine Bacteria (None Seen) Hyaline Casts (0-2) /LPF COVID-19 (FRANK) (Negative) COVID-19 Clin Com 03/22/22 03/22/22 03/22/22 Range/Units 15:25 15:25 15:25 WBC 12.0 H (4.8-10.8) X10*3/uL RBC 4.77 (4.20-5.50) X10*6/uL Hgb 14.6 (12.0-16.0) g/dl Hct 43.2 (37.0-47.0) % MCV 90.6 (80.0-98.0) fL MCH 30.6 (27.0-33.0) pg MCHC 33.8 (31.0-35.0) g/dl RDW 11.9 (11.0-16.0) % Plt Count 493 H (160-400) X10*3/uL MPV 9.0 L (9.4-12.3) fL Immature Gran % (Auto) 0.6 H (0.0-0.4) % Neut % (Auto) 73.3 H (45-73) % Lymph % (Auto) 19.0 L (20-40) % [place] % (Auto) 6.1 (2-11) % Eos % (Auto) 0.4 (0-4) % Baso % (Auto) 0.6 (0-2) % Lymph # (Auto) 2.3 (1.2-4.9) X10*3/uL [place] # (Auto) 0.7 (0.1-1.2) X10*3/uL Eos # (Auto) 0.1 (0.0-0.4) X10*3/uL Baso # (Auto) 0.1 (0.0-0.2) X10*3/uL Abs Immat Gran (auto) 0.07 H (0.00-0.03) X10*3/uL Absolute Neuts (auto) 8.8 H (2.0-8.3) x10*3/uL Absolute Nucleated RBC 0.000 (0.0-0.012) X10*3/uL Nucleated RBC % (auto) 0.0 (0.0-0.2) /100WBC Sodium 140 (135-145) mmol/L Potassium 5.6 H (3.3-5.1) mmol/L Chloride 98 (96-108) mmol/L Carbon Dioxide 27 (22-29) mmol/L Anion Gap 21 H (12-20) BUN 19 H (9-16) mg/dL Creatinine 0.86 (0.5-1.4) mg/dL Estim Creat Clear Calc 62.4 Estimated GFR > 60 Random Glucose 98 (60-115) mg/dL Lactic Acid 1.1 (0.5-2.0) mmol/L Calcium 9.8 (8.4-10.2) mg/dL Total Bilirubin 0.4 (0.0-1.0) mg/dL Direct Bilirubin 0.2 (0.0-0.5) mg/dL AST 27 (5-31) U/L ALT 29 (0-31) U/L Alkaline Phosphatase 86 (39-117) U/L Troponin I High Sens (<3.5-17.0) ng/L Total Protein 7.7 (6.5-8.0) g/dL Albumin 4.5 (3.5-5.0) g/dL Lipase 61 (8-78) U/L Urine Color Urine Appearance Urine pH (5.0-9.0) Ur Specific [place] (1.005-1.025) Urine Protein (Neg-Trace) mg/dL Urine Glucose (UA) (Negative) mg/dL Urine Ketones (Negative) mg/dL Urine Blood (Negative) Urine Nitrite (Negative) Ur Leukocyte Esterase (Negative) Urine RBC (0-2) /HPF Urine WBC (0-5) /HPF Ur Squamous Epith Cells (0-2) /HPF Urine Bacteria (None Seen) Hyaline Casts (0-2) /LPF COVID-19 (FRANK) (Negative) COVID-19 Clin Com 03/22/22 03/22/22 Range/Units 15:25 17:44 WBC (4.8-10.8) X10*3/uL RBC (4.20-5.50) X10*6/uL Hgb (12.0-16.0) g/dl Hct (37.0-47.0) % MCV (80.0-98.0) fL MCH (27.0-33.0) pg MCHC (31.0-35.0) g/dl RDW (11.0-16.0) % Plt Count (160-400) X10*3/uL MPV (9.4-12.3) fL Immature Gran % (Auto) (0.0-0.4) % Neut % (Auto) (45-73) % Lymph % (Auto) (20-40) % [place] % (Auto) (2-11) % Eos % (Auto) (0-4) % Baso % (Auto) (0-2) % Lymph # (Auto) (1.2-4.9) X10*3/uL [place] # (Auto) (0.1-1.2) X10*3/uL Eos # (Auto) (0.0-0.4) X10*3/uL Baso # (Auto) (0.0-0.2) X10*3/uL Abs Immat Gran (auto) (0.00-0.03) X10*3/uL Absolute Neuts (auto) (2.0-8.3) x10*3/uL Absolute Nucleated RBC (0.0-0.012) X10*3/uL Nucleated RBC % (auto) (0.0-0.2) /100WBC Sodium (135-145) mmol/L Potassium (3.3-5.1) mmol/L Chloride (96-108) mmol/L Carbon Dioxide (22-29) mmol/L Anion Gap (12-20) BUN (9-16) mg/dL Creatinine (0.5-1.4) mg/dL Estim Creat Clear Calc Estimated GFR Random Glucose (60-115) mg/dL Lactic Acid (0.5-2.0) mmol/L Calcium (8.4-10.2) mg/dL Total Bilirubin (0.0-1.0) mg/dL Direct Bilirubin (0.0-0.5) mg/dL AST (5-31) U/L ALT (0-31) U/L Alkaline Phosphatase (39-117) U/L Troponin I High Sens (<3.5-17.0) ng/L Total Protein (6.5-8.0) g/dL Albumin (3.5-5.0) g/dL Lipase (8-78) U/L Urine Color Yellow Urine Appearance Clear Urine pH 5.5 (5.0-9.0) Ur Specific [place] >= 1.030 H (1.005-1.025) Urine Protein Negative (Neg-Trace) mg/dL Urine Glucose (UA) >=1000 H (Negative) mg/dL Urine Ketones >=160 (Negative) mg/dL Urine Blood Negative (Negative) Urine Nitrite Negative (Negative) Ur Leukocyte Esterase Negative (Negative) Urine RBC 0-2 (0-2) /HPF Urine WBC 0-5 (0-5) /HPF Ur Squamous Epith Cells 0-2 (0-2) /HPF Urine Bacteria None Seen (None Seen) Hyaline Casts 0-2 (0-2) /LPF COVID-19 (FRANK) Negative (Negative) COVID-19 Clin Com See Note Discharge Plan Discharge Clinical Impression: Nausea & vomiting, Abdominal pain, Acute hyperkalemia Patient Disposition: Home, Self-Care Instructions: Acute Nausea and Vomiting (ED), Abdominal Pain (ED) Additional Instructions: Your potassium was slightly elevated. Your given medication here in the emergency room. Please follow-up with her primary care physician for follow-up labs. Please eat frequent smaller meals while your regain your appetite back. Please follow-up with your primary care physician tomorrow. If you have any worsening or new symptoms, please return to the emergency room or call 911 Prescriptions: New ondansetron HCl 4 mg tablet 4 mg PO Q6H PRN (Reason: nausea and vomiting) Qty: 14 0RF No Action (DME) pen needle, diabetic [BD Ultra-Fine Zaida Pen Needle] 32 gauge x 5/32 needle See Rx Instructions .ROUTE .MEDSUPPLY Qty: 100 3RF Rx Instructions: As directed once daily Trulicity 4.5 mg/0.5 mL pen injector 4.5 mg subcut QWEEK Qty: 2 6RF sucralfate 1 gram tablet 1 g PO QIDACHS Qty: 90 1RF Jardiance 25 mg tablet 25 mg PO QAM Qty: 30 4RF metformin 850 mg tablet 850 mg PO BID Qty: 180 1RF sennosides [senna] 8.6 mg tablet 17.2 mg PO BEDTIME Qty: 60 2RF ezetimibe 10 mg tablet 10 mg PO DAILY Qty: 90 1RF oxycodone 5 mg tablet 5 mg PO BID PRN (Reason: pain) Qty: 6 0RF atorvastatin 80 mg tablet 80 mg PO BEDTIME alcohol swabs Pads, Medicated 0 pad topical calcium carbonate 200 mg calcium (500 mg) tablet,chewable 200 mg PO BID docusate sodium 100 mg capsule 100 mg PO BID PRN (DME) lancets 33 gauge misc See Rx Instructions .ROUTE .MEDSUPPLY Qty: 100 Rx Instructions: As directed aspirin 81 mg tablet,delayed release (DR/EC) 81 mg PO DAILY gabapentin 400 mg capsule 400 mg PO TID oxybutynin chloride 5 mg tablet extended release 24hr 5 mg PO QAM baclofen 20 mg tablet 20 mg PO TID PRN (Reason: muscle spasm) loratadine 10 mg tablet 10 mg PO QAM lisinopril 2.5 mg tablet 2.5 mg PO DAILY cyanocobalamin (vitamin B-12) 1,000 mcg tablet 1,000 mcg PO QAM sertraline 100 mg tablet 150 mg PO QAM albuterol sulfate 90 mcg/actuation HFA aerosol inhaler 2 puff PO Q4-6H PRN acetaminophen 650 mg tablet extended release 650 mg PO Flovent HFA 110 mcg/actuation HFA aerosol inhaler 1 puff PO BID tramadol 50 mg tablet 50 mg PO BID PRN (DME) FreeStyle Lite Strips Strip See Rx Instructions .ROUTE Rx Instructions: As directed three times a day (DME) blood-glucose meter [FreeStyle Lite Meter] Kit See Rx Instructions .ROUTE Rx Instructions: As directed three times a day Citrucel 500 mg tablet 500 mg PO DAILY Qty: 90 2RF Rx Instructions: take it with full glass of water Tresiba FlexTouch U-200 200 unit/mL (3 mL) insulin pen 14 unit subcut DAILY Qty: 3 3RF omeprazole 40 mg capsule,delayed release(DR/EC) 40 mg PO DAILY Qty: 90 3RF
[2022-03-22 15:33] LABS: MANUAL DIFF FLAG NO
[2022-03-22 15:34] LABS: Basophils Absolute Auto 0.1 X10*3/uL (0.0-0.2); Basophils Percent Auto 0.6 % (0-2); Eosinophils Absolute Auto 0.1 X10*3/uL (0.0-0.4); Eosinophils Percent Auto 0.4 % (0-4); Hematocrit 43.2 % (37.0-47.0); Hemoglobin 14.6 g/dl (12.0-16.0); Imm Gran Abs Auto 0.07 X10*3/uL (0.00-0.03); Imm Gran Pct Auto 0.6 % (0.0-0.4); Lymphocytes Absolute Auto 2.3 X10*3/uL (1.2-4.9); Mean Corpuscular HGB Conc 33.8 g/dl (31.0-35.0); Mean Corpuscular Hemoglobin 30.6 pg (27.0-33.0); Mean Corpuscular Volume 90.6 fL (80.0-98.0); Monocytes Absolute Auto 0.7 X10*3/uL (0.1-1.2); Monocytes Percent Auto 6.1 % (2-11); Neutrophils Absolute Auto 8.8 x10*3/uL (2.0-8.3); Neutrophils Percent Auto 73.3 % (45-73); Platelet Count 493 X10*3/uL (160-400); Red Blood Count 4.77 X10*6/uL (4.20-5.50); Red Cell Distribution Width 11.9 % (11.0-16.0)
[2022-03-22 15:47] LABS: Lactic Acid 1.1 mmol/L (0.5-2.0)
[2022-03-22 15:54] LABS: Alanine Aminotransferase 29 U/L (0-31); Albumin Level 4.5 g/dL (3.5-5.0); Alkaline Phosphatase 86 U/L (39-117); Anion Gap 21 (12-20); Aspartate Amino Transferase 27 U/L (5-31); Bilirubin Direct 0.2 mg/dL (0.0-0.5); Bilirubin Total 0.4 mg/dL (0.0-1.0); Blood Urea Nitrogen 19 mg/dL (9-16); COVID-19 Test Negative (Negative); Calcium 9.8 mg/dL (8.4-10.2); Carbon Dioxide 27 mmol/L (22-29); Chloride 98 mmol/L (96-108); Creatinine Clr Calc Pharmacy 62.4; Estimated Glomerular Filt Rate > 60; Glucose Random 98 mg/dL (60-115); IDNOW Serial# 16C4AD1C; Lipase 61 U/L (8-78); Potassium 5.6 mmol/L (3.3-5.1); Sodium 140 mmol/L (135-145); Total Protein 7.7 g/dL (6.5-8.0)
[2022-03-22] MEDS: 0.9 % Sodium Chloride 1,000 ML 999 ML IVCONT (15:54)
[2022-03-22 17:56] LABS: Appearance Urine Clear; Color Urine Yellow; Glucose Urine UA >=1000 mg/dL (Negative); Leukocyte Esterase Urine Negative (Negative); Nitrite Urine Negative (Negative); PH 5.5 (5.0-9.0); Specific Gravity - Urine >= 1.030 (1.005-1.025); UMIC TRIGGER UACC YES; Urine Blood Negative (Negative); Urine Ketones >=160 mg/dL (Negative); Urine Protein Negative (Neg-Trace)
[2022-03-22 18:37] LABS: Bacteria Urine None Seen (None Seen); Hyaline Casts Urine 0-2 /LPF (0-2); RBC Urine 0-2 /HPF (0-2); Squamous Epithelial Cell Urine 0-2 /HPF (0-2); WBC Urine 0-5 /HPF (0-5)
[2022-03-22] MEDS: Sodium Zirconium Cyclosilicate 10 GM POWD.PACK PO (19:37)
[2022-03-22] MEDS: Ondansetron ODT 4 MG TAB.RAPDIS TRANSLINGU (19:38)
== END 2022-03-22 20:04 | disposition home or self-care (01) ==
PROVIDERS: Emergency Provider Emergency Medicine; PCP Family Medicine
DX: R11.2 Nausea with vomiting, unspecified (principal); R10.9 Unspecified abdominal pain; E87.5 Hyperkalemia; Z20.822 Contact with and (suspected) exposure to COVID-19; Z79.899 Other long term (current) drug therapy
CPT/HCPCS: 36415; 74176; 80048; 80076; 81001; 83605; 83690; 84484; 85025; 85027; 87040; 87635; 93005; 96360; 99284

== ENCOUNTER → 2022-03-25 08:58 | Outpatient (BNVA) | payer OTHER, SELFPAY | PROVIDERS: PCP Family Medicine; Visit Provider Nurse Practitioner Family | DX: K21.9 Gastro-esophageal reflux disease without esophagitis (principal); R10.13 Epigastric pain; K59.00 Constipation, unspecified; K58.9 Irritable bowel syndrome, unspecified | CPT/HCPCS: 99212 ==

== ENCOUNTER 2022-03-31 12:00 | Outpatient (REF) | payer OTHER, SELFPAY ==
--- NOTE | ~2022-03-31 | MM_ITS ---
EXAMINATION: MM DIAGNOSTIC DIGITAL BREAST TOMOSYNTHESIS, BILATERAL US BREAST TARGETED LIMITED, RIGHT CLINICAL INFORMATION: Patient feels right breast lump. The lifetime risk of breast cancer based on the Tyrer-Cuzick Model is 5.2%. COMPARISON: Mammography: 10/30/2020 and studies dating back to 05/19/2015. TECHNIQUE: Digital breast tomosynthesis is performed in both the craniocaudal and mediolateral oblique views along with computer-aided detection (CAD). Synthesized 2D images are generated from the tomosynthesis. FINDINGS: The breasts are almost entirely fatty (ACR BI-RADS breast composition Category a). There are no significant masses, abnormal calcifications, or other abnormalities. Targeted right breast ultrasound did not demonstrate any abnormal cystic or solid mass. No region of abnormal distal sound shadowing. No edematous change within the parenchyma. Results are discussed with the patient at time of visit. MM/MM tomosynthesis diagnostic BI IMPRESSION: There are no significant changes from prior study. No mammographic or ultrasound abnormality appreciated in region of patient's complaint. ASSESSMENT: BI-RADS 1: Negative RECOMMENDATION: Routine annual mammography screening due in 12 months. Clinical followup for palpable abnormality. This patient's information was entered into a reminder system with a target due date for their next mammogram.
== END 2022-03-31 12:01 | disposition home or self-care (01) ==
LOC: HO.MAMMO 12:00
PROVIDERS: PCP Family Medicine; Visit Provider Family Medicine
DX: N63.10 Unspecified lump in the right breast, unspecified quadrant (principal)
CPT/HCPCS: 76642; 77062; 77066

== ENCOUNTER → 2022-05-09 09:45 | Outpatient (BNVA) | payer OTHER, SELFPAY | PROVIDERS: PCP Family Medicine; Visit Provider Nurse Practitioner Family | DX: Z12.11 Encounter for screening for malignant neoplasm of colon (principal); R10.13 Epigastric pain; K21.9 Gastro-esophageal reflux disease without esophagitis; K58.1 Irritable bowel syndrome with constipation | CPT/HCPCS: 99212 ==

== ENCOUNTER 2022-05-23 12:29 | Outpatient (REF) | payer OTHER, SELFPAY ==
[2022-05-30 12:58] LABS: Pancreatic Elastase-1 424 mcg/g
== END 2022-05-23 12:30 | disposition home or self-care (01) ==
LOC: HO.LNP 12:29
PROVIDERS: Visit Provider Nurse Practitioner Family
DX: R10.9 Unspecified abdominal pain (principal)
CPT/HCPCS: 82656

== ENCOUNTER 2022-09-08 09:53 | Outpatient (REF) | payer OTHER, SELFPAY ==
--- NOTE | ~2022-09-08 | MM_ITS ---
EXAMINATION: BONE DENSITOMETRY CLINICAL INDICATION: Osteopenia. COMPARISON: Previous BD dated 12/02/2013 and baseline BD dated 08/05/2010. TECHNIQUE: Using a [employer] DXA System (software version: 13.1) manufactured by [employer], dual-energy x-ray absorptiometry was performed of the lumbar spine and left hip. The images are of good technical quality. Summary results are attached. FINDINGS: AP SPINE L1-L4: Current: BMD 0.982 g/cm2, Z-score -0.6, T-score -1.6, osteopenia, 10.1% decrease from previous, 6.7% decrease from baseline (<5% change is not significant). Prior: BMD 1.092 g/cm2. Baseline: BMD 1.052 g/cm2. LEFT FEMUR, NECK: Current: BMD 0.746 g/cm2, Z-score -0.8, T-score -2.1, osteopenia. Prior: BMD 0.796 g/cm2. Baseline: BMD 0.801 g/cm2. LEFT FEMUR, TOTAL: Current: BMD 0.815 g/cm2, Z-score -0.5, T-score -1.5, osteopenia, 6.4% decrease from previous, 6.9% decrease from baseline (<5% change is not significant). Prior: BMD 0.871 g/cm2. Baseline: BMD 0.875 g/cm2. IDENTIFIED RISK FACTORS: Parental hip fracture. Secondary osteoporosis (type 1 diabetes). Menopause. HISTORY OF FRACTURE: None listed. MEDICATIONS: Calcium supplement or multivitamin. Vitamin D. MM/XR DEXA axial skeleton IMPRESSION: 1. DIAGNOSIS: Osteopenia based on the lowest T-score value of -2.1 in the femoral neck applying World Health Organization criteria. 2. 10-YEAR FRACTURE RISK PREDICTION, FRAX: Major osteoporotic fracture (clinical spine, forearm, hip or shoulder) 11.0%. Hip fracture 2.3%. 3. Treatment Recommendations: NOF guidelines recommend consideration for treatment in postmenopausal women and men age 50 and older presenting with the following: -A hip or vertebral (clinical or morphometric) fracture. -T-score less than or equal to -2.5 at the femoral neck or spine after appropriate evaluation to exclude secondary causes. -Low bone mass at the hip or spine and a 10-year fracture probability by FRAX of greater than or equal to 3% for hip fracture or greater than or equal to 20% for major osteoporotic fracture based on the [place] adapted WHO algorithm. 4. Other Recommendations: All treatment decisions require clinical judgment and consideration of individual patient factors, including patient preferences, comorbidities, previous drug use, risk factors not captured in the FRAX model (e.g. frailty, falls, vitamin D deficiency, increased bone turnover, interval significant decline in bone density) and possible under or overestimation of fracture risk by FRAX. Additional medical evaluation for secondary cause of low bone mineral density may be appropriate. FUTURE SCAN RECOMMENDATION: People with diagnosed cases of osteoporosis or at high risk for fracture should have regular bone mineral density tests. For patients eligible for Medicare, routine testing is allowed once every 2 years. The testing frequency can be increased to one year for patients who have rapidly progressing disease, those who are receiving or discontinuing medical therapy to restore bone mass, or have additional risk factors.
== END 2022-09-08 09:54 | disposition home or self-care (01) ==
LOC: HO.MAMMO 09:53
PROVIDERS: PCP Family Medicine; Visit Provider Family Medicine
DX: Z13.820 Encounter for screening for osteoporosis (principal); Z78.0 Asymptomatic menopausal state; M85.80 Other specified disorders of bone density and structure, unspecified site
CPT/HCPCS: 77080

== ENCOUNTER 2022-09-11 21:47 | Emergency (ER) | payer OTHER, SELFPAY ==
--- NOTE | 2022-09-11 21:50 | ECG_ITS ---
Test Reason : CHEST PAIN Blood Pressure : / mmHG Vent. Rate : 083 BPM Atrial Rate : 083 BPM P-R Int : 142 ms QRS Dur : 080 ms QT Int : 356 ms P-R-T Axes : 058 -21 042 degrees QTc Int : 418 ms Normal sinus rhythm Normal ECG When compared with ECG of 22-MAR-2022 16:47, No significant change was found Referred By: Generic ED Physician Electronically Signed By:Theo Barlow
[2022-09-11 22:10] LABS: Basophils Percent Auto 0.5 % (0-2); Eosinophils Absolute Auto 0.3 X10*3/uL (0.0-0.4); Eosinophils Percent Auto 3.9 % (0-4); Hematocrit 38.8 % (37.0-47.0); Hemoglobin 12.5 g/dl (12.0-16.0); Imm Gran Abs Auto 0.01 X10*3/uL (0.00-0.03); Imm Gran Pct Auto 0.1 % (0.0-0.4); Lymphocytes Absolute Auto 3.3 X10*3/uL (1.2-4.9); Lymphocytes Percent Auto 41.8 % (20-40); MANUAL DIFF FLAG NO; Mean Corpuscular HGB Conc 32.2 g/dl (31.0-35.0); Mean Corpuscular Hemoglobin 30.7 pg (27.0-33.0); Mean Corpuscular Volume 95.3 fL (80.0-98.0); Mean Platelet Volume 10.1 fL (9.4-12.3); Monocytes Absolute Auto 0.7 X10*3/uL (0.1-1.2); Neutrophils Absolute Auto 3.6 x10*3/uL (2.0-8.3); Neutrophils Percent Auto 44.7 % (45-73); Platelet Count 245 X10*3/uL (160-400); Red Blood Count 4.07 X10*6/uL (4.20-5.50)
[2022-09-11 22:22] VITALS: BP 162/69; PULSE 71; RESP 18; TEMP 36.6; O2SAT 98; BMI 30.1
[2022-09-11 22:27] LABS: Anion Gap 13 (12-20); Blood Urea Nitrogen 14 mg/dL (9-16); Calcium 9.6 mg/dL (8.4-10.2); Carbon Dioxide 28 mmol/L (22-29); Chloride 105 mmol/L (96-108); Creatinine Clr Calc Pharmacy 73.5; Estimated Glomerular Filt Rate > 60; Glucose Random 202 mg/dL (60-115); Potassium 5.4 mmol/L (3.3-5.1); Sodium 141 mmol/L (135-145)
[2022-09-11 22:37] LABS: Troponin-I High Sensitivity < 3.5 ng/L (<3.5-17.0)
[2022-09-11 22:47] LABS: Lipase 87 U/L (8-78)
[2022-09-12 00:24] VITALS: BP 163/72; PULSE 116; RESP 18; TEMP 36.7; O2SAT 100
--- NOTE | 2022-09-12 00:51 | ED_ITS ---
HPI - Chest Pain General Chief Complaint: Abdominal Pain Stated Complaint: chest pain, high blood pressure Time Seen by Provider: 09/12/22 00:36 Source: patient Mode of arrival: ambulatory Limitations: language barrier History of Present Illness HPI narrative: Patient history of diabetes no history of hypertension, HLD, CKD 3, fibromyalgia, type 2 diabetes with no known coronary artery disease comes here for elevated blood pressure of 187 at home with sharp chest pain on the left side and radiated to the left lasting for few minutes no shortness of breath no diaphoresis no nausea no vomiting repeat blood pressure in the ER was 158/60 with pulse rate of 71. Patient also complained of epigastric pain and dizziness Related Data Home Medications Medication Instructions Recorded Confirmed alcohol swabs 0 pad topical 04/21/20 05/03/21 aspirin 81 mg tablet,delayed 81 mg PO DAILY 04/21/20 08/15/22 release atorvastatin 80 mg tablet 80 mg PO BEDTIME 04/21/20 08/15/22 calcium carbonate 200 mg calcium 200 mg PO BID 04/21/20 08/15/22 (500 mg) chewable tablet docusate sodium 100 mg capsule 100 mg PO BID PRN Constipation 04/21/20 08/15/22 lancets 33 gauge #100 ea 04/21/20 05/03/21 acetaminophen 650 mg 650 mg PO Q4H PRN Pain 12/25/20 08/15/22 tablet,extended release albuterol sulfate 90 mcg/actuation 2 puff PO Q4-6H PRN Shortness Of 12/25/20 08/15/22 aerosol inhaler Breath baclofen 20 mg tablet 20 mg PO TID PRN muscle spasm 12/25/20 08/15/22 cyanocobalamin (vitamin B-12) 1,000 mcg PO QAM 12/25/20 08/15/22 1,000 mcg tablet fluticasone propionate 110 1 puff PO BID 12/25/20 08/15/22 mcg/actuation HFA aerosol inhaler gabapentin 400 mg capsule 400 mg PO TID 12/25/20 08/15/22 lisinopril 2.5 mg tablet 2.5 mg PO DAILY 12/25/20 08/15/22 loratadine 10 mg tablet 10 mg PO QAM 12/25/20 08/15/22 oxybutynin chloride 5 mg 5 mg PO QAM 12/25/20 08/15/22 tablet,extended release 24 hr sertraline 100 mg tablet 150 mg PO QAM 12/25/20 08/15/22 tramadol 50 mg tablet 50 mg PO BID PRN Pain 12/25/20 08/15/22 blood sugar diagnostic (FreeStyle 05/03/21 Lite Strips) blood-glucose meter (FreeStyle 05/03/21 Lite Meter kit) diclofenac sodium 1 % topical gel 2 g topical BID PRN pain 05/09/22 08/15/22 ergocalciferol (vitamin D2) 1,250 1,250 mcg PO QWEEK 05/09/22 08/15/22 mcg (50,000 unit) capsule (Vitamin D2) fluticasone propionate 50 2 spray intranasal DAILY 05/09/22 08/15/22 mcg/actuation nasal spray,suspension trazodone 50 mg tablet 50 mg PO BEDTIME 05/09/22 08/15/22 Previous Rx's Medication Instructions Recorded insulin degludec 200 unit/mL (3 14 unit (0.07 mL) subcut DAILY #3 08/18/21 mL) subcutaneous pen (Tresiba mL FlexTouch U-200 insulin) pen needle, diabetic 32 gauge x #100 ea 10/28/21 (BD Ultra-Fine Zaida Pen Needle) oxycodone 5 mg tablet 5 mg PO BID PRN pain #6 tabs 10/30/21 dulaglutide 4.5 mg/0.5 mL 4.5 mg (0.5 mL) subcut QWEEK #2 mL 11/16/21 subcutaneous pen injector (Trulicity) empagliflozin 25 mg tablet 25 mg PO QAM #30 tabs 02/10/22 (Jardiance) metformin 850 mg tablet 850 mg PO BID #180 tabs 02/10/22 ezetimibe 10 mg tablet 10 mg PO DAILY #90 tabs 03/14/22 methylcellulose (laxative) 500 mg 500 mg PO DAILY #90 tabs 03/25/22 tablet (Citrucel) ondansetron HCl 4 mg tablet 4 mg PO Q6H PRN nausea and 03/25/22 vomiting #14 tabs pantoprazole 40 mg tablet,delayed 40 mg PO DAILY #90 tabs 03/25/22 release sennosides 8.6 mg tablet (senna) 17.2 mg PO BEDTIME #60 tabs 03/25/22 bisacodyl 5 mg tablet,delayed 10 mg PO ONCE 1 day #2 tabs 05/09/22 release (Dulcolax (bisacodyl)) metoclopramide HCl 5 mg tablet 5 mg PO QIDACHS #120 tabs 05/09/22 (Reglan) polyethylene glycol 3350 17 238 g PO ONCE #238 grams 05/09/22 gram/dose oral powder (Miralax) sucralfate 1 gram tablet 1 g PO BEDTIME #90 tabs 05/09/22 Allergies Allergy/AdvReac Type Severity Reaction Status Date / Time amitriptyline [AMITRIPTYLINE] Allergy Unknown ANXIOUS, Verified 09/11/22 22:26 SWELLING aspirin [ASPIRIN] Allergy Unknown DROOLING, Verified 09/11/22 22:26 EXCESSIVE SPITTING Penicillins Allergy Swelling Verified 09/11/22 22:26 Review of Systems Review of Systems: Yes all other systems are reviewed and are negative PMFSH Past Medical History Medical History Back ache Depression Diabetes Essential hypertension Fibromyalgia Gastric ulcer Gastritis Gastroparesis HTN (hypertension) Hyperlipidemia LDL goal <100 Neuropathy Obesity due to excess calories Osteoarthritis Osteoporosis Retinopathy Snoring Spinal stenosis of lumbar region Type 2 diabetes mellitus with diabetic neuropathy, unspecified Type 2 diabetes mellitus with hyperglycemia, without long-term current use of in sulin Surgical History History of esophagogastroduodenoscopy (EGD) Hx of cholecystectomy Hx of colonoscopy Hx of tubal ligation Family History Family History Father FH: prostate cancer Mother CVD (cardiovascular disease) Heart disease Son Diabetes Social History Social History Household Members: Family Alcohol intake: never Patient Tobacco Use Status: Former Tobacco user Advance Directives: No Advance Directives Information Provided: No Physical Exam Vital Signs: Vital Signs: Last Vital Signs Temp 97.9 F 09/12/22 02:52 Pulse 67 09/12/22 02:52 Resp 12 09/12/22 02:52 BP 121/58 L 09/12/22 02:52 Pulse Ox 99 09/12/22 02:52 O2 Del Method Room Air 09/12/22 02:52 BMI result Body Mass Index 30.1 Appearance: Alert. Oriented X3. No acute distress. Eyes: No pallor or icterus ENT: Pharynx normal. Oral Mucosa moist Neck: Normal inspection. Neck supple. CVS: Normal heart rate and rhythm. Pulses normal. Respiratory: No respiratory distress. Equal air entry bilateral, no wheezing/r ales/rhonchi Abdomen: Soft and nontender. Bowel sounds are present, no mass palpable, no CVA tenderness Skin: Skin warm and dry. Normal skin color. Normal skin turgor. Extremities: No lower extremity edema. No calf tenderness Neuro: Oriented X 3. No motor deficit. No sensory deficit.No cerebellar signs , cranial nerves II-XII intact Medications Administered Discontinued Medications Generic Name Dose Route Start Last Admin Trade Name Freq PRN Reason Stop Dose Admin Oxycodone HCl 5 mg 09/12/22 00:58 09/12/22 01:26 Oxycodone Hcl Immed Release 5 Mg Tablet PO 09/12/22 00:59 5 mg ONCE ONE Administration Medical Decision Making Medical Decision Making [facility] Narrative: Patient has stable labs stable blood pressure discharge patient home advised take tramadol for pain and follow with PCP patient atypical chest pain 2 sets of cardiac enzymes negative Lab Data [facility] Lab Attestation statement: I reviewed the patient's lab results. 09/11/22 22:03 09/11/22 22:03 Labs: Lab Results 09/11/22 09/11/22 09/11/22 Range/Units 22:03 22:03 22:03 WBC 8.0 (4.8-10.8) X10*3/uL RBC 4.07 L (4.20-5.50) X10*6/uL Hgb 12.5 (12.0-16.0) g/dl Hct 38.8 (37.0-47.0) % MCV 95.3 (80.0-98.0) fL MCH 30.7 (27.0-33.0) pg MCHC 32.2 (31.0-35.0) g/dl RDW 12.0 (11.0-16.0) % Plt Count 245 D (160-400) X10*3/uL MPV 10.1 (9.4-12.3) fL Immature Gran % (Auto) 0.1 (0.0-0.4) % Neut % (Auto) 44.7 L (45-73) % Lymph % (Auto) 41.8 H (20-40) % [place] % (Auto) 9.0 (2-11) % Eos % (Auto) 3.9 (0-4) % Baso % (Auto) 0.5 (0-2) % Lymph # (Auto) 3.3 (1.2-4.9) X10*3/uL [place] # (Auto) 0.7 (0.1-1.2) X10*3/uL Eos # (Auto) 0.3 (0.0-0.4) X10*3/uL Baso # (Auto) 0.0 (0.0-0.2) X10*3/uL Abs Immat Gran (auto) 0.01 (0.00-0.03) X10*3/uL Absolute Neuts (auto) 3.6 (2.0-8.3) x10*3/uL Absolute Nucleated RBC 0.000 (0.0-0.012) X10*3/uL Nucleated RBC % (auto) 0.0 (0.0-0.2) /100WBC Sodium 141 (135-145) mmol/L Potassium 5.4 H (3.3-5.1) mmol/L Chloride 105 (96-108) mmol/L Carbon Dioxide 28 (22-29) mmol/L Anion Gap 13 (12-20) BUN 14 (9-16) mg/dL Creatinine 0.71 (0.5-1.4) mg/dL Estim Creat Clear Calc 73.5 Estimated GFR > 60 Random Glucose 202 H (60-115) mg/dL Calcium 9.6 (8.4-10.2) mg/dL Troponin I High Sens < 3.5 (<3.5-17.0) ng/L Lipase 87 H (8-78) U/L 09/12/22 Range/Units 01:21 WBC (4.8-10.8) X10*3/uL RBC (4.20-5.50) X10*6/uL Hgb (12.0-16.0) g/dl Hct (37.0-47.0) % MCV (80.0-98.0) fL MCH (27.0-33.0) pg MCHC (31.0-35.0) g/dl RDW (11.0-16.0) % Plt Count (160-400) X10*3/uL MPV (9.4-12.3) fL Immature Gran % (Auto) (0.0-0.4) % Neut % (Auto) (45-73) % Lymph % (Auto) (20-40) % [place] % (Auto) (2-11) % Eos % (Auto) (0-4) % Baso % (Auto) (0-2) % Lymph # (Auto) (1.2-4.9) X10*3/uL [place] # (Auto) (0.1-1.2) X10*3/uL Eos # (Auto) (0.0-0.4) X10*3/uL Baso # (Auto) (0.0-0.2) X10*3/uL Abs Immat Gran (auto) (0.00-0.03) X10*3/uL Absolute Neuts (auto) (2.0-8.3) x10*3/uL Absolute Nucleated RBC (0.0-0.012) X10*3/uL Nucleated RBC % (auto) (0.0-0.2) /100WBC Sodium (135-145) mmol/L Potassium (3.3-5.1) mmol/L Chloride (96-108) mmol/L Carbon Dioxide (22-29) mmol/L Anion Gap (12-20) BUN (9-16) mg/dL Creatinine (0.5-1.4) mg/dL Estim Creat Clear Calc Estimated GFR Random Glucose (60-115) mg/dL Calcium (8.4-10.2) mg/dL Troponin I High Sens 3.7 (<3.5-17.0) ng/L Lipase (8-78) U/L Independent Interpretation I performed an independent interpretation of an: EKG Interpretation: Normal sinus rhythm heart rate 83 beats per minute normal intervals normal axis no acute ST T wave changes impression normal EKG Discharge Plan Discharge Clinical Impression: Essential hypertension, Chest pain Patient Disposition: Home, Self-Care Instructions: Chest Pain (ED), Hypertension (ED) Additional Instructions: Take Tylenol for pain as needed Continue to take your lisinopril for blood pressure Follow-up with PCP for further management Avoid bananas/citrus fluid as your potassium is slightly elevated Conrad Tylenol para el dolor seg?n sea necesario Contin?e tomando quinteros lisinopril para la presi?n arterial Seguimiento con PCP para manejo posterior Evite los pl?tanos/l?quidos c?tricos ya que quinteros potasio est? ligeramente elevado Prescriptions: No Action (DME) pen needle, diabetic [BD Ultra-Fine Zaida Pen Needle] 32 gauge x needle See Rx Instructions .ROUTE .MEDSUPPLY Qty: 100 3RF Rx Instructions: As directed once daily Trulicity 4.5 mg/0.5 mL pen injector 4.5 mg subcut QWEEK Qty: 2 6RF Jardiance 25 mg tablet 25 mg PO QAM Qty: 30 4RF metformin 850 mg tablet 850 mg PO BID Qty: 180 1RF ezetimibe 10 mg tablet 10 mg PO DAILY Qty: 90 1RF Citrucel 500 mg tablet 500 mg PO DAILY Qty: 90 2RF Rx Instructions: take it with full glass of water oxycodone 5 mg tablet 5 mg PO BID PRN (Reason: pain) Qty: 6 0RF atorvastatin 80 mg tablet 80 mg PO BEDTIME alcohol swabs Pads, Medicated 0 pad topical calcium carbonate 200 mg calcium (500 mg) tablet,chewable 200 mg PO BID docusate sodium 100 mg capsule 100 mg PO BID PRN (Reason: Constipation) (DME) lancets 33 gauge misc See Rx Instructions .ROUTE .MEDSUPPLY Qty: 100 Rx Instructions: As directed aspirin 81 mg tablet,delayed release (DR/EC) 81 mg PO DAILY gabapentin 400 mg capsule 400 mg PO TID oxybutynin chloride 5 mg tablet extended release 24hr 5 mg PO QAM baclofen 20 mg tablet 20 mg PO TID PRN (Reason: muscle spasm) loratadine 10 mg tablet 10 mg PO QAM lisinopril 2.5 mg tablet 2.5 mg PO DAILY cyanocobalamin (vitamin B-12) 1,000 mcg tablet 1,000 mcg PO QAM sertraline 100 mg tablet 150 mg PO QAM albuterol sulfate 90 mcg/actuation HFA aerosol inhaler 2 puff PO Q4-6H PRN (Reason: Shortness Of Breath) acetaminophen 650 mg tablet extended release 650 mg PO Q4H PRN (Reason: Pain) Flovent HFA 110 mcg/actuation HFA aerosol inhaler 1 puff PO BID tramadol 50 mg tablet 50 mg PO BID PRN (Reason: Pain) (DME) FreeStyle Lite Strips Strip See Rx Instructions .ROUTE Rx Instructions: As directed three times a day (DME) blood-glucose meter [FreeStyle Lite Meter] Kit See Rx Instructions .ROUTE Rx Instructions: As directed three times a day pantoprazole 40 mg tablet,delayed release (DR/EC) 40 mg PO DAILY Qty: 90 2RF Rx Instructions: take one tablet half an hour before breakfast ondansetron HCl 4 mg tablet 4 mg PO Q6H PRN (Reason: nausea and vomiting) Qty: 14 0RF sennosides [senna] 8.6 mg tablet 17.2 mg PO BEDTIME Qty: 60 2RF Tresiba FlexTouch U-200 200 unit/mL (3 mL) insulin pen 14 unit subcut DAILY Qty: 3 3RF diclofenac sodium 1 % gel 2 g topical BID PRN (Reason: pain) fluticasone propionate 50 mcg/actuation spray,suspension 2 spray intranasal DAILY trazodone 50 mg tablet 50 mg PO BEDTIME ergocalciferol (vitamin D2) [Vitamin D2] 1,250 mcg (50,000 unit) capsule 1,250 mcg PO QWEEK metoclopramide HCl [Reglan] 5 mg tablet 5 mg PO QIDACHS Qty: 120 0RF Rx Instructions: rajiv un comprimido 30 minutos antes de las comidas bisacodyl [Dulcolax (bisacodyl)] 5 mg tablet,delayed release (DR/EC) 10 mg PO ONCE 1 Days Qty: 2 0RF Rx Instructions: take 2 tabs at noon the day before your colonoscopy polyethylene glycol 3350 [Miralax] 17 gram/dose powder 238 g PO ONCE Qty: 238 0RF Rx Instructions: As directed by gastroenterology department at [facility] sucralfate 1 gram tablet 1 g PO BEDTIME Qty: 90 1RF Interventions: ED Discharge Assessment Last Done: 09/12/22 03:01 Discharge Date/Time: 09/12/22 03:02 Print Language: Occitan
[2022-09-12] MEDS: oxyCODONE HCl Immed Release 5 MG TABLET PO (01:26)
[2022-09-12 01:48] LABS: Troponin-I High Sensitivity 3.7 ng/L (<3.5-17.0)
[2022-09-12 02:52] VITALS: BP 121/58; PULSE 67; RESP 12; TEMP 36.6; O2SAT 99
--- NOTE | 2022-09-12 03:00 | PC.NURSE ---
Pt aox3 resting at the bedside in no apparent distress. Discharge instructions reviewed with pt. Pt verbalizes understanding.
== END 2022-09-12 03:02 | disposition home or self-care (01) ==
PROVIDERS: Emergency Provider Internal Medicine; PCP Family Medicine
DX: R07.89 Other chest pain (principal); I10 Essential (primary) hypertension; E11.9 Type 2 diabetes mellitus without complications; R42 Dizziness and giddiness; Z79.899 Other long term (current) drug therapy
CPT/HCPCS: 36415; 80048; 83690; 84484; 85025; 93005; 99284

== ENCOUNTER 2023-03-29 00:36 | Emergency (ER) | payer OTHER, SELFPAY ==
--- NOTE | 2023-03-29 | ECG_ITS ---
Test Reason : CHEST PAIN Blood Pressure : / mmHG Vent. Rate : 064 BPM Atrial Rate : 064 BPM P-R Int : 136 ms QRS Dur : 080 ms QT Int : 410 ms P-R-T Axes : 050 -21 034 degrees QTc Int : 422 ms Normal sinus rhythm Normal ECG When compared with ECG of 11-SEP-2022 21:54, No significant change was found Referred By: Generic ED Physician Electronically Signed By:ANDRZEJ CASTILLO MD
--- NOTE | ~2023-03-29 | XR_ITS ---
EXAMINATION: XR CHEST CLINICAL INFORMATION: Pain COMPARISON: 10/30/2021 TECHNIQUE: Frontal view of the chest was obtained. FINDINGS: Lung volumes are symmetric. No focal consolidation is seen. No evidence of pneumothorax, pleural effusion, or pulmonary edema. The cardiomediastinal contour is unremarkable. Heterogeneous calcification in the proximal left humerus is suggestive of an enchondroma versus old bone infarct. XR/XR chest 1V IMPRESSION: No acute cardiopulmonary findings.
[2023-03-29 00:38] VITALS: BP 180/62; PULSE 61; RESP 18; TEMP 36.4; O2SAT 99; BMI 33.1
[2023-03-29 01:08] LABS: MANUAL DIFF FLAG NO
[2023-03-29 01:09] LABS: Basophils Percent Auto 0.4 % (0-2); Eosinophils Absolute Auto 0.2 X10*3/uL (0.0-0.4); Eosinophils Percent Auto 2.7 % (0-4); Hematocrit 38.9 % (37.0-47.0); Hemoglobin 13.1 g/dl (12.0-16.0); Imm Gran Abs Auto 0.02 X10*3/uL (0.00-0.03); Imm Gran Pct Auto 0.3 % (0.0-0.4); Lymphocytes Absolute Auto 3.4 X10*3/uL (1.2-4.9); Lymphocytes Percent Auto 43.4 % (20-40); Mean Corpuscular HGB Conc 33.7 g/dl (31.0-35.0); Mean Corpuscular Volume 92.2 fL (80.0-98.0); Mean Platelet Volume 10.4 fL (9.4-12.3); Monocytes Absolute Auto 0.6 X10*3/uL (0.1-1.2); Monocytes Percent Auto 8.2 % (2-11); Neutrophils Absolute Auto 3.5 x10*3/uL (2.0-8.3); Platelet Count 264 X10*3/uL (160-400); Red Blood Count 4.22 X10*6/uL (4.20-5.50); Red Cell Distribution Width 11.8 % (11.0-16.0); White Blood Count 7.8 X10*3/uL (4.8-10.8)
[2023-03-29 01:32] LABS: Troponin-I High Sensitivity < 2.7 ng/L (<3.5-17.0)
[2023-03-29 01:34] LABS: Alanine Aminotransferase 17 U/L (0-31); Albumin Level 4.1 g/dL (3.5-5.0); Alkaline Phosphatase 127 U/L (39-117); Anion Gap 15 (12-20); Aspartate Amino Transferase 15 U/L (5-31); Bilirubin Total 0.3 mg/dL (0.0-1.0); Blood Urea Nitrogen 17 mg/dL (9-16); Calcium 9.6 mg/dL (8.4-10.2); Carbon Dioxide 27 mmol/L (22-29); Chloride 99 mmol/L (96-108); Creatinine Clr Calc Pharmacy 58.2; Estimated Glomerular Filt Rate 59; Glucose Random 381 mg/dL (60-115); Lipase 56 U/L (8-78); Potassium 5.1 mmol/L (3.3-5.1); Sodium 136 mmol/L (135-145); Total Protein 7.5 g/dL (6.5-8.0)
--- NOTE | 2023-03-29 03:19 | ED.CHESTPAIN ---
HPI - Chest Pain General Chief Complaint: Chest Pain Stated Complaint: Chest Pain, nausea Time Seen by Provider: 03/29/23 02:47 Source: patient, family and head and neck surgeon Mode of arrival: ambulatory Limitations: no limitations History of Present Illness HPI narrative: 67 yo female with PMH of HTN, HLD, DM here with c/o waking up with L sided chest pain that raidated from upper L chest to epigastric area that was aching and she had dyspnea and nausea this lasted 15 minutes. Just traveled from [place] 2 weeks ago. No cough or fevers. MD complaint: chest pain Onset (ago): hour(s) (12am) Timing of current episode: now resolved Prior episodes: No Onset: during rest Pain location: left chest Pain radiation: abdomen and other Severity: moderate Quality: dull Relieving factors: nothing Exacerbating factors: nothing Context: recent travel Associated symptoms: nausea and dyspnea Treatment prior to arrival: none Related Data Home Medications Medication Instructions Recorded Confirmed alcohol swabs 0 pad topical 04/21/20 05/03/21 aspirin 81 mg tablet,delayed 81 mg PO DAILY 04/21/20 08/15/22 release atorvastatin 80 mg tablet 80 mg PO BEDTIME 04/21/20 08/15/22 calcium carbonate 200 mg calcium 200 mg PO BID 04/21/20 08/15/22 (500 mg) chewable tablet docusate sodium 100 mg capsule 100 mg PO BID PRN Constipation 04/21/20 08/15/22 lancets 33 gauge #100 ea 04/21/20 05/03/21 acetaminophen 650 mg 650 mg PO Q4H PRN Pain 12/25/20 08/15/22 tablet,extended release albuterol sulfate 90 mcg/actuation 2 puff PO Q4-6H PRN Shortness Of 12/25/20 08/15/22 aerosol inhaler Breath baclofen 20 mg tablet 20 mg PO TID PRN muscle spasm 12/25/20 08/15/22 cyanocobalamin (vitamin B-12) 1,000 mcg PO QAM 12/25/20 08/15/22 1,000 mcg tablet fluticasone propionate 110 1 puff PO BID 12/25/20 08/15/22 mcg/actuation HFA aerosol inhaler gabapentin 400 mg capsule 400 mg PO TID 12/25/20 08/15/22 lisinopril 2.5 mg tablet 2.5 mg PO DAILY 12/25/20 08/15/22 loratadine 10 mg tablet 10 mg PO QAM 12/25/20 08/15/22 oxybutynin chloride 5 mg 5 mg PO QAM 12/25/20 08/15/22 tablet,extended release 24 hr sertraline 100 mg tablet 150 mg PO QAM 12/25/20 08/15/22 tramadol 50 mg tablet 50 mg PO BID PRN Pain 12/25/20 08/15/22 blood sugar diagnostic (FreeStyle 05/03/21 Lite Strips) blood-glucose meter (FreeStyle 05/03/21 Lite Meter kit) diclofenac sodium 1 % topical gel 2 g topical BID PRN pain 05/09/22 08/15/22 ergocalciferol (vitamin D2) 1,250 1,250 mcg PO QWEEK 05/09/22 08/15/22 mcg (50,000 unit) capsule (Vitamin D2) fluticasone propionate 50 2 spray intranasal DAILY 05/09/22 08/15/22 mcg/actuation nasal spray,suspension trazodone 50 mg tablet 50 mg PO BEDTIME 05/09/22 08/15/22 Previous Rx's Medication Instructions Recorded insulin degludec 200 unit/mL (3 14 unit (0.07 mL) subcut DAILY #3 08/18/21 mL) subcutaneous pen (Tresiba mL FlexTouch U-200 insulin) pen needle, diabetic 32 gauge x #100 ea 10/28/21 (BD Ultra-Fine Zaida Pen Needle) oxycodone 5 mg tablet 5 mg PO BID PRN pain #6 tabs 10/30/21 dulaglutide 4.5 mg/0.5 mL 4.5 mg (0.5 mL) subcut QWEEK #2 mL 11/16/21 subcutaneous pen injector (Trulicity) empagliflozin 25 mg tablet 25 mg PO QAM #30 tabs 02/10/22 (Jardiance) metformin 850 mg tablet 850 mg PO BID #180 tabs 02/10/22 ezetimibe 10 mg tablet 10 mg PO DAILY #90 tabs 03/14/22 ondansetron HCl 4 mg tablet 4 mg PO Q6H PRN nausea and 03/25/22 vomiting #14 tabs metoclopramide HCl 5 mg tablet 5 mg PO QIDACHS #120 tabs 05/09/22 (Reglan) polyethylene glycol 3350 17 238 g PO ONCE #238 grams 05/09/22 gram/dose oral powder (Miralax) bisacodyl 5 mg tablet,delayed 10 mg (2 x 5 mg) PO ONCE 1 day #2 10/28/22 release (Dulcolax (bisacodyl)) tabs methylcellulose (laxative) 500 mg 500 mg PO DAILY #90 tabs 01/04/23 tablet (Citrucel) pantoprazole 40 mg tablet,delayed 40 mg PO DAILY #90 tabs 01/04/23 release sucralfate 1 gram tablet 1 g PO BEDTIME #90 tabs 01/04/23 sennosides 8.6 mg tablet (senna) 17.2 mg (2 x 8.6 mg) PO BEDTIME 03/24/23 #60 tabs Allergies Allergy/AdvReac Type Severity Reaction Status Date / Time amitriptyline [AMITRIPTYLINE] Allergy Unknown ANXIOUS, Verified 09/11/22 22:26 SWELLING aspirin [ASPIRIN] Allergy Unknown DROOLING, Verified 09/11/22 22:26 EXCESSIVE SPITTING Penicillins Allergy Swelling Verified 09/11/22 22:26 Review of Systems Review of Systems: Constitutional : No Weight loss, No Fever, No Chills ENT/Mouth : No sore throat, No Rhinorrhea Eyes: No Eye Pain, No Swelling Cardiovascular : pos Chest Pain, pos SOB, no Dyspnea on Exertion, No Orthopnea, No Edema, No Palpitations Respiratory : No Cough, No Sputum Gastrointestinal : pos Nausea, No Vomiting, No Diarrhea, No abdominal Pain, No Hematochezia, No Melena Genitourinary : No Dysuria, No Urinary Frequency Musculoskeletal : No joint pain, No Myalgias, No Joint Swelling Skin : No Skin Lesions, No rash Neuro : No Weakness, No Numbness, No Dizziness, No Headache Psych : No Anxiety/Panic, No Depression Heme/Lymph: No Bruising, No Lymphadenopathy Endocrine : No Polyuria, No Polydipsia All other systems reviewed and are negative [facility] Past Medical History Attestation statement: The following information was validated with the patient. Source: old records reviewed Medical History Back ache Depression Diabetes Essential hypertension Fibromyalgia Gastric ulcer Gastritis Gastroparesis HTN (hypertension) Hyperlipidemia LDL goal <100 Neuropathy Obesity due to excess calories Osteoarthritis Osteoporosis Retinopathy Snoring Spinal stenosis of lumbar region Type 2 diabetes mellitus with diabetic neuropathy, unspecified Type 2 diabetes mellitus with hyperglycemia, without long-term current use of insulin Surgical History History of esophagogastroduodenoscopy (EGD) Hx of colonoscopy Hx of cholecystectomy Hx of tubal ligation Family History Family History Father FH: prostate cancer Mother CVD (cardiovascular disease) Heart disease Son Diabetes Social History Social History Household Members: Family Alcohol intake: never Patient Tobacco Use Status: Former Tobacco user Advance Directives: No Advance Directives Information Provided: No Physical Exam Vital Signs: Vital Signs: Last Vital Signs Temp 98.1 F 03/29/23 03:56 Pulse 60 03/29/23 03:56 Resp 21 H 03/29/23 03:56 BP 150/53 H 03/29/23 03:56 Pulse Ox 97 03/29/23 03:56 O2 Del Method Room Air 03/29/23 03:56 BMI result Body Mass Index 33.1 Appearance: Alert. Oriented X3. No acute distress. Eyes: Pupils equal, round and reactive to light. ENT: Pharynx normal. Neck: Normal inspection. Neck supple. CVS: Normal heart rate and rhythm. Pulses normal. Respiratory: No respiratory distress. Breath sounds normal. Abdomen: Soft and nontender. Skin: Skin warm and dry. Normal skin color. Normal skin turgor. Extremities: No lower extremity edema. No calf ttp Neuro: Oriented X 3. No motor deficit. No sensory deficit. Medical Decision Making Medical Decision Making MDM Narrative: 67 yo female with PMH of HTN, HLD, DM here with 15 min of L upper chest pain to epigastric area with dyspnea and nausea while at rest at this time no pain will need basic labs, troponin x 2, ddimer given travel, her abdomen is benign - distal pulses intact doubt dissection. She is not toxic at this time and has no pain and symptoms have resolved. Differential Diagnosis Differential Diagnoses: The differential diagnosis associated with the presentation includes VTE, atypical ACS, gas Admission/Observation Consideration of admission/observation: Escalation of care including admission/observation considered ddimer, trop flat x 2, nonischemic EKG, symptoms resolved stable for DC - atypical story Lab Data MDM Lab Attestation statement: I reviewed the patient's lab results. 03/29/23 01:01 03/29/23 01:01 Labs: Lab Results 03/29/23 03/29/23 03/29/23 Range/Units 01:01 03:51 05:05 WBC 7.8 (4.8-10.8) X10*3/uL RBC 4.22 (4.20-5.50) X10*6/uL Hgb 13.1 (12.0-16.0) g/dl Hct 38.9 (37.0-47.0) % MCV 92.2 (80.0-98.0) fL MCH 31.0 (27.0-33.0) pg MCHC 33.7 (31.0-35.0) g/dl RDW 11.8 (11.0-16.0) % Plt Count 264 (160-400) X10*3/uL MPV 10.4 (9.4-12.3) fL Immature Gran % (Auto) 0.3 (0.0-0.4) % Neut % (Auto) 45.0 (45-73) % Lymph % (Auto) 43.4 H (20-40) % [place] % (Auto) 8.2 (2-11) % Eos % (Auto) 2.7 (0-4) % Baso % (Auto) 0.4 (0-2) % Lymph # (Auto) 3.4 (1.2-4.9) X10*3/uL [place] # (Auto) 0.6 (0.1-1.2) X10*3/uL Eos # (Auto) 0.2 (0.0-0.4) X10*3/uL Baso # (Auto) 0.0 (0.0-0.2) X10*3/uL Abs Immat Gran (auto) 0.02 (0.00-0.03) X10*3/uL Absolute Neuts (auto) 3.5 (2.0-8.3) x10*3/uL Absolute Nucleated RBC 0.000 (0.0-0.012) X10*3/uL Nucleated RBC % (auto) 0.0 (0.0-0.2) /100WBC D-Dimer High Sensitivty < 150 NG/ML Sodium 136 (135-145) mmol/L Potassium 5.1 (3.3-5.1) mmol/L Chloride 99 (96-108) mmol/L Carbon Dioxide 27 (22-29) mmol/L Anion Gap 15 (12-20) BUN 17 H (9-16) mg/dL Creatinine 0.94 (0.5-1.4) mg/dL Estim Creat Clear Calc 58.2 Estimated GFR 59 Random Glucose 381 H* (60-115) mg/dL Calcium 9.6 (8.4-10.2) mg/dL Total Bilirubin 0.3 (0.0-1.0) mg/dL AST 15 (5-31) U/L ALT 17 (0-31) U/L Alkaline Phosphatase 127 H (39-117) U/L Troponin I High Sens < 2.7 < 2.7 (<3.5-17.0) ng/L Total Protein 7.5 (6.5-8.0) g/dL Albumin 4.1 (3.5-5.0) g/dL Lipase 56 (8-78) U/L Independent Interpretation I performed an independent interpretation of an: EKG and Plain X-Ray (normal ) Interpretation: Rate: 64 Rhythm: NSR [place]: left Normal P waves. Normal SAMUEL. Normal QRS complex. ST T wave : normal no KIRSTIN qTC: normal prior studies: no acute ischemia The study has been interpreted contemporaneously by me. . Radiology Impression Discussion of test interpretation with radiology: I have reviewed the radiologist's reading. Independent Historian Clinical information obtained from an independent historian. History obtained from or confirmed by: Other External Record Review External record reviewed: Inpatient record Discharge Plan Discharge Clinical Impression: Chest pain Qualifiers: Chest pain type: unspecified Qualified Code(s): R07.9 - Chest pain, unspecified Patient Disposition: Home, Self-Care Instructions: Chest Pain (ED) Additional Instructions: return for worsening pain, faintning, difficulty breathing or any other concerns. electrocardiogram, chest xray, blood tests for heart and blood clot test were negative Regrese si el richard empeora, se desmaya, tiene dificultad para respirar o cualquier otro problema. El electrocardiograma, la radiograf?a de t?rax, los an?lisis de lizet para el coraz?n y la prueba de co?gulo de lizet fueron negativos. Prescriptions: No Action (DME) pen needle, diabetic [BD Ultra-Fine Zaida Pen Needle] 32 gauge x 5/32 needle See Rx Instructions .ROUTE .MEDSUPPLY Qty: 100 3RF Rx Instructions: As directed once daily Trulicity 4.5 mg/0.5 mL pen injector 4.5 mg subcut QWEEK Qty: 2 6RF Jardiance 25 mg tablet 25 mg PO QAM Qty: 30 4RF metformin 850 mg tablet 850 mg PO BID Qty: 180 1RF ezetimibe 10 mg tablet 10 mg PO DAILY Qty: 90 1RF bisacodyl [Dulcolax (bisacodyl)] 5 mg tablet,delayed release (DR/EC) 10 mg PO ONCE 1 Days Qty: 2 0RF Rx Instructions: take 2 tabs at noon the day before your colonoscopy pantoprazole 40 mg tablet,delayed release (DR/EC) 40 mg PO DAILY Qty: 90 2RF Rx Instructions: take one tablet half an hour before breakfast sucralfate 1 gram tablet 1 g PO BEDTIME Qty: 90 3RF Citrucel 500 mg tablet 500 mg PO DAILY Qty: 90 2RF Rx Instructions: take it with full glass of water sennosides [senna] 8.6 mg tablet 17.2 mg PO BEDTIME Qty: 60 2RF oxycodone 5 mg tablet 5 mg PO BID PRN (Reason: pain) Qty: 6 0RF atorvastatin 80 mg tablet 80 mg PO BEDTIME alcohol swabs Pads, Medicated 0 pad topical calcium carbonate 200 mg calcium (500 mg) tablet,chewable 200 mg PO BID docusate sodium 100 mg capsule 100 mg PO BID PRN (Reason: Constipation) (DME) lancets 33 gauge misc See Rx Instructions .ROUTE .MEDSUPPLY Qty: 100 Rx Instructions: As directed aspirin 81 mg tablet,delayed release (DR/EC) 81 mg PO DAILY gabapentin 400 mg capsule 400 mg PO TID oxybutynin chloride 5 mg tablet extended release 24hr 5 mg PO QAM baclofen 20 mg tablet 20 mg PO TID PRN (Reason: muscle spasm) loratadine 10 mg tablet 10 mg PO QAM lisinopril 2.5 mg tablet 2.5 mg PO DAILY cyanocobalamin (vitamin B-12) 1,000 mcg tablet 1,000 mcg PO QAM sertraline 100 mg tablet 150 mg PO QAM albuterol sulfate 90 mcg/actuation HFA aerosol inhaler 2 puff PO Q4-6H PRN (Reason: Shortness Of Breath) acetaminophen 650 mg tablet extended release 650 mg PO Q4H PRN (Reason: Pain) Flovent HFA 110 mcg/actuation HFA aerosol inhaler 1 puff PO BID tramadol 50 mg tablet 50 mg PO BID PRN (Reason: Pain) (DME) FreeStyle Lite Strips Strip See Rx Instructions .ROUTE Rx Instructions: As directed three times a day (DME) blood-glucose meter [FreeStyle Lite Meter] Kit See Rx Instructions .ROUTE Rx Instructions: As directed three times a day ondansetron HCl 4 mg tablet 4 mg PO Q6H PRN (Reason: nausea and vomiting) Qty: 14 0RF Tresiba FlexTouch U-200 200 unit/mL (3 mL) insulin pen 14 unit subcut DAILY Qty: 3 3RF diclofenac sodium 1 % gel 2 g topical BID PRN (Reason: pain) fluticasone propionate 50 mcg/actuation spray,suspension 2 spray intranasal DAILY trazodone 50 mg tablet 50 mg PO BEDTIME ergocalciferol (vitamin D2) [Vitamin D2] 1,250 mcg (50,000 unit) capsule 1,250 mcg PO QWEEK metoclopramide HCl [Reglan] 5 mg tablet 5 mg PO QIDACHS Qty: 120 0RF Rx Instructions: rajiv un comprimido 30 minutos antes de las comidas polyethylene glycol 3350 [Miralax] 17 gram/dose powder 238 g PO ONCE Qty: 238 0RF Rx Instructions: As directed by gastroenterology department at [facility] Print Language: Montenegrin
[2023-03-29 03:56] VITALS: BP 150/53; PULSE 60; RESP 21; TEMP 36.7; O2SAT 97
[2023-03-29 04:09] LABS: D Dimer High Sensitivity < 150 NG/ML
[2023-03-29 05:29] LABS: Troponin-I High Sensitivity < 2.7 ng/L (<3.5-17.0)
[2023-03-29 06:01] VITALS: BP 142/57; PULSE 59; RESP 13; TEMP 36.7; O2SAT 99
--- NOTE | 2023-03-29 06:03 | PC.NURSE ---
pt utilized wheelchair at discharge. iv removed at discharge. crack off person utilized at discharge. pt calm and cooperative. pt provided with discharge packet. pt verbalized understanding of discharge plan
== END 2023-03-29 06:05 | disposition home or self-care (01) ==
PROVIDERS: Emergency Provider Emergency Medicine; PCP Family Medicine
DX: R07.89 Other chest pain (principal); R11.2 Nausea with vomiting, unspecified; R06.02 Shortness of breath; Z79.899 Other long term (current) drug therapy; Z87.891 Personal history of nicotine dependence
CPT/HCPCS: 36415; 71045; 80053; 83690; 84484; 85025; 85379; 93005; 99283; 99285

== ENCOUNTER 2023-05-12 13:16 | Outpatient (REF) | payer OTHER, SELFPAY ==
[2023-05-12 16:10] LABS: MANUAL DIFF FLAG NO
[2023-05-12 16:15] LABS: Basophils Absolute Auto 0.1 X10*3/uL (0.0-0.2); Basophils Percent Auto 0.6 % (0-2); Eosinophils Absolute Auto 0.1 X10*3/uL (0.0-0.4); Eosinophils Percent Auto 1.2 % (0-4); Hematocrit 42.3 % (37.0-47.0); Hemoglobin 13.6 g/dl (12.0-16.0); Imm Gran Abs Auto 0.02 X10*3/uL (0.00-0.03); Imm Gran Pct Auto 0.2 % (0.0-0.4); Lymphocytes Absolute Auto 2.7 X10*3/uL (1.2-4.9); Lymphocytes Percent Auto 32.5 % (20-40); Mean Corpuscular HGB Conc 32.2 g/dl (31.0-35.0); Mean Corpuscular Hemoglobin 30.4 pg (27.0-33.0); Mean Corpuscular Volume 94.4 fL (80.0-98.0); Mean Platelet Volume 11.1 fL (9.4-12.3); Monocytes Absolute Auto 0.7 X10*3/uL (0.1-1.2); Monocytes Percent Auto 8.1 % (2-11); Neutrophils Absolute Auto 4.7 x10*3/uL (2.0-8.3); Neutrophils Percent Auto 57.4 % (45-73); Platelet Count 315 X10*3/uL (160-400); Red Blood Count 4.48 X10*6/uL (4.20-5.50); Red Cell Distribution Width 12.2 % (11.0-16.0); White Blood Count 8.3 X10*3/uL (4.8-10.8)
[2023-05-12 16:31] LABS: Estimated Average Glucose 220 mg/dL; Hemoglobin A1c % 9.3 % (<6.0)
[2023-05-12 16:34] LABS: Alanine Aminotransferase 15 U/L (0-31); Albumin Level 4.7 g/dL (3.5-5.0); Alkaline Phosphatase 97 U/L (39-117); Anion Gap 13 (12-20); Aspartate Amino Transferase 22 U/L (5-31); Bilirubin Direct 0.2 mg/dL (0.0-0.5); Bilirubin Total 0.3 mg/dL (0.0-1.0); Blood Urea Nitrogen 16 mg/dL (9-16); Calcium 10.2 mg/dL (8.4-10.2); Carbon Dioxide 29 mmol/L (22-29); Chloride 103 mmol/L (96-108); Estimated Glomerular Filt Rate > 60; Glucose Random 159 mg/dL (60-115); Potassium 4.6 mmol/L (3.3-5.1); Sodium 140 mmol/L (135-145); Total Protein 8.5 g/dL (6.5-8.0)
[2023-05-12 16:50] LABS: Free T4 (Free Thyroxine) 1.08 ng/dL (0.71-1.85); Vitamin D 25-OH Total 17.6 ng/mL (>30)
== END 2023-05-12 13:17 | disposition home or self-care (01) ==
LOC: HO.HHCL 13:16
PROVIDERS: Visit Provider Family Medicine
DX: E11.3293 Type 2 diabetes mellitus with mild nonproliferative diabetic retinopathy without macular edema, bilateral (principal); Z79.4 Long term (current) use of insulin; M85.80 Other specified disorders of bone density and structure, unspecified site; E53.8 Deficiency of other specified B group vitamins; M79.7 Fibromyalgia; M15.9 Polyosteoarthritis, unspecified
CPT/HCPCS: 36415; 80048; 80076; 82306; 83036; 84439; 84443; 85025

== ENCOUNTER 2023-07-27 12:31 | Outpatient (REF) | payer OTHER, SELFPAY | END 2023-07-27 12:32 | disposition home or self-care (01) | LOC: HO.MAMMO 12:31 | PROVIDERS: PCP Family Medicine; Visit Provider Family Medicine | DX: Z12.31 Encounter for screening mammogram for malignant neoplasm of breast (principal) | CPT/HCPCS: 77063; 77067 ==

== ENCOUNTER → 2023-07-27 12:45 | Outpatient (BNV) | payer OTHER, SELFPAY | PROVIDERS: PCP Family Medicine; Visit Provider Radiology Diagnostic Radiology | DX: Z12.31 Encounter for screening mammogram for malignant neoplasm of breast (principal) | CPT/HCPCS: 77063; 77067 ==

== ENCOUNTER 2023-09-29 08:13 | Outpatient (AMB) | payer OTHER, SELFPAY ==
--- NOTE | 2023-09-29 08:20 | MHC.OFFVIS ---
Vital Signs 09/29/23 08:26 Height 5 ft 3 in Weight 165 lb BMI 29.2 BP 147/63 H Blood Pressure Location Lt brachial Position Sitting Pulse 82 Intake Visit Reasons: Pre colonoscopy/EGD Intake Note: Patient follow up for Colonoscopy/EGD screening Patient cc: Abdominal pain/bloating, swallowing problems on and off, acid reflex with some burning sensation and between diarrhea and constipation. Analog Ic Design Engineer Required: No Analog Ic Design Engineer Name: [facility] Interpeter Accompanied by: Self / Same As Patient Allergies amitriptyline [AMITRIPTYLINE] Allergy (Unknown, Verified 09/29/23 08:19) ANXIOUS, SWELLING aspirin [ASPIRIN] Allergy (Unknown, Verified 09/29/23 08:19) DROOLING, EXCESSIVE SPITTING Penicillins Allergy (Verified 09/29/23 08:19) Swelling HPI HPI Pre colonoscopy/EGD: Details: LAST VISIT: 05/09/2024 Postprandial epigastric pain Postprandial epigastric discomfort. Will start patient on Reglan low-dose. Discussed with her and her daughter to call for tremors. Patient was told to stop the medication if that occurs. GERD (gastroesophageal reflux disease) Continue avoiding dietary triggers late night snacking. Staying upright for minimum 3 hours after meals discussed with patient. Continue current PPI dose. Continue sucralfate at bedtime. Patient will be sent for upper endoscopy to rule out esophagitis, gastritis, duodenitis, gastric or peptic ulcers. IBS (irritable bowel syndrome) Postprandial abdominal bloating. Most likely this is related to patient is gastroparesis. Symptoms not relieved even when her bowel movements got better. As mentioned above metoclopramide started Screen for colon cancer Patient will be sent for colonoscopy. Denies any issues with anesthesia in the past. No history of sleep apnea. Patient is on low-dose aspirin, however aspirin is listed as her allergy. Patient denies any history of infectious diseases in the past or present. Patient states that she is feeling well and does not have any respiratory or cardiac symptoms. Patient denies melena, hematochezia, unintentional weight loss or ribbon like stools. Patient denies any dyspepsia, dysphagia or odynophagia. Discussed with patient and and her daughter the importance of good bowel prep and clear liquid diet day before the procedure. Went over the instructions with them. Both patient and her daughter verbalized understanding of instructions and are agreeable to plan of care. They were given the opportunity to ask questions and all questions answered. I will see patient in 2 months to re-evaluate effectiveness of Reglan. Patient was instructed to also eat smaller meals and more often. Plan Medications New metoclopramide HCl (Reglan) rajiv un comprimido 30 minutos antes de las comidas 5 mg PO QIDACHS 120 tabs 0RF K31.84 bisacodyl (Dulcolax (bisacodyl)) take 2 tabs at noon the day before your colonoscopy 10 mg (2 x 5 mg) PO ONCE 1 day 2 tabs 0RF Z12.11 polyethylene glycol 3350 (Miralax) As directed by gastroenterology department at [facility] 238 grams PO ONCE 238 grams 0RF Z12.11 Changed From sucralfate 1 g PO QIDACHS 90 tabs 1RF K21.9 To sucralfate 1 g PO BEDTIME 90 tabs 1RF K21.9 TODAY'S VISIT Patient is here today to discuss going for colonoscopy. Patient was last seen in April of 2022, was supposed to go for colonoscopy and never scheduled one. Patient is accompanied by her daughter. Patient reports occasional dyspepsia with dysphagia without odynophagia. Patient reports that she is taking pantoprazole daily. Denies eating late at night. Patient is not taking Reglan anymore. Denies postprandial abdominal pain or fullness. Occasional cramping in the lower abdomen. Patient denies any melena, hematochezia, unintentional weight loss or ribbon like stools. Patient had colonoscopy in January of 2017 showed 2 hyperplastic polyps and 1 tubular adenoma. Patient denies any issues with anesthesia in the past. No history of sleep apnea. Taking low-dose aspirin [facility] Medical History Back ache Depression Diabetes Essential hypertension Fibromyalgia Gastric ulcer Gastritis Gastroparesis HTN (hypertension) Hyperlipidemia LDL goal <100 Neuropathy Obesity due to excess calories Osteoarthritis Osteoporosis Retinopathy Snoring Spinal stenosis of lumbar region Type 2 diabetes mellitus with diabetic neuropathy, unspecified Type 2 diabetes mellitus with hyperglycemia, without long-term current use of insulin Surgical History History of esophagogastroduodenoscopy (EGD) Hx of colonoscopy Hx of cholecystectomy Hx of tubal ligation Family History Father FH: prostate cancer Mother CVD (cardiovascular disease) Heart disease Son Diabetes Social History Household Members: Family Alcohol intake: never Patient Tobacco Use Status: Former Tobacco user Review of Systems Const Denies weight gain and Denies weight loss ENT Reports no additional complaints, Reports dysphagia and Denies odynophagia Card Reports no additional complaints Resp Reports no additional complaints GI Denies abdominal pain, Denies belching, Denies melena, Reports bloating, Reports constipation, Reports dysphagia, Denies excessive flatus, Reports dyspepsia, Reports heartburn, Denies diarrhea, Reports loose stools, Denies nausea, Denies odynophagia and Denies vomiting Reports no additional complaints Musc Reports no additional complaints Neuro Reports no additional complaints Psych Reports no additional complaints Endo Reports no additional complaints Physical Exam Vital Signs: Last Vital Signs Pulse 82 09/29/23 08:26 BP 147/63 H 09/29/23 08:26 BMI result Body Mass Index 29.2 Const General: healthy appearing, no acute distress and well developed Nutritional Appearance: well nourished Orientation/consciousness: patient oriented x3 Resp Effort & Inspection: normal respiratory effort, able to speak in complete sentences, no tracheal deviation and symmetric chest movement Auscultation: clear to auscultation bilaterally Cardio Rate: regular rate GI Inspection: Yes normal to inspection and No distended Palpation (GI): Soft to palpation, not firm, nontender and No hepatosplenomegaly present Auscultation: normal bowel sounds General: Yes no CVA tenderness Back/Spine/Pelvis Back: no CVA tenderness Skin General skin exam: elasticity normal, turgor normal and dry skin Neuro General: patient oriented x3 Psych Appearance: grossly normal Mental Status: mental status grossly normal Assessment & Plan Assessment & Plan (1) Postprandial epigastric pain: Code(s): R10.13 - Epigastric pain (2) GERD (gastroesophageal reflux disease): Code(s): K21.9 - Gastro-esophageal reflux disease without esophagitis Qualifiers: Esophagitis presence: esophagitis presence not specified Qualified Code(s): K21.9 - Gastro-esophageal reflux disease without esophagitis (3) IBS (irritable bowel syndrome): Code(s): K58.9 - Irritable bowel syndrome without diarrhea Qualifiers: Irritable bowel syndrome type: with both diarrhea and constipation Qualified Code(s): K58.2 - Mixed irritable bowel syndrome (4) Screen for colon cancer: Code(s): Z12.11 - Encounter for screening for malignant neoplasm of colon (5) Dysphagia: Code(s): R13.10 - Dysphagia, unspecified Qualifiers: Dysphagia type: pharyngoesophageal phase Qualified Code(s): R13.14 - Dysphagia, pharyngoesophageal phase Plan Patient can continue taking pantoprazole daily. Will be sent for upper endoscopy to rule out gastritis, esophagitis, Garcias's, duodenitis, Schatzki ring, achalasia, eosinophilic esophagitis. Patient will be sent for colonoscopy, last colonoscopy in 2017 with 1 tubular adenoma. Patient denies any melena, hematochezia, unintentional weight loss or ribbon like stools. What to expect before during and after procedure discussed with patient and her daughter. Discussed the importance of good bowel prep as well as clear liquid diet day before procedure. Patient is on Trulicity will need to hold that before going for seizure. On low dose aspirin. Both patient and her daughter are agreeable to plan of care and verbalizes understanding of instructions. They were given the opportunity to ask questions and all questions answered. Thank you for allowing me to participate in her care Medications: New bisacodyl (Dulcolax (bisacodyl)) take 4 tabs at noon the day before your colonoscopy 20 mg (4 x 5 mg) PO ONCE 1 day 4 tabs 0RF Z12.11 - Encounter for screening for malignant neoplasm of colon Refilled polyethylene glycol 3350 (Miralax) As directed by gastroenterology department at [facility] 238 grams PO ONCE 238 grams 0RF Z12.11 - Encounter for screening for malignant neoplasm of colon Discontinued metoclopramide HCl (Reglan) rajiv un comprimido 30 minutos antes de las comidas Discontinued Reason: Patient no longer taking 5 mg PO QIDACHS 120 tabs 0RF K31.84 - Gastroparesis bisacodyl (Dulcolax (bisacodyl)) take 2 tabs at noon the day before your colonoscopy Discontinued Reason: Doctor's Order 10 mg (2 x 5 mg) PO ONCE 1 day 2 tabs 0RF Z12.11 - Encounter for screening for malignant neoplasm of colon
[2023-09-29 08:26] VITALS: BP 147/63; PULSE 82; BMI 29.2
== END 2023-09-29 09:49 | disposition home or self-care (01) ==
PROVIDERS: PCP Family Medicine; Visit Provider Nurse Practitioner Family
DX: R10.13 Epigastric pain (principal); K21.9 Gastro-esophageal reflux disease without esophagitis; K58.2 Mixed irritable bowel syndrome; Z12.11 Encounter for screening for malignant neoplasm of colon; R13.14 Dysphagia, pharyngoesophageal phase
CPT/HCPCS: 99214

== ENCOUNTER → 2023-09-29 08:13 | Outpatient (BNVA) | payer OTHER, SELFPAY | PROVIDERS: PCP Family Medicine; Visit Provider Nurse Practitioner Family | DX: Z12.11 Encounter for screening for malignant neoplasm of colon (principal); K21.9 Gastro-esophageal reflux disease without esophagitis; K58.9 Irritable bowel syndrome, unspecified; K58.2 Mixed irritable bowel syndrome; R13.10 Dysphagia, unspecified; R10.13 Epigastric pain | CPT/HCPCS: 99212 ==

== ENCOUNTER 2023-10-13 08:49 | Outpatient (REF) | payer OTHER, SELFPAY ==
[2023-10-13 12:30] LABS: Creatinine Urine 120.87 mg/dL; Microalbum/Creatinine Ratio Ur 8.2 ug/mg cr (<30)
[2023-10-13 12:41] LABS: Vitamin B12 229 pg/mL (200-900)
== END 2023-10-13 08:50 | disposition home or self-care (01) ==
LOC: HO.HHCL 08:49
PROVIDERS: Visit Provider Family Medicine
DX: E11.69 Type 2 diabetes mellitus with other specified complication (principal)
CPT/HCPCS: 36415; 82043; 82570; 82607

== ENCOUNTER 2023-12-18 01:10 | Emergency (ER) | payer OTHER, SELFPAY ==
--- NOTE | 2023-12-18 01:12 | ECG_ITS ---
Test Reason : CP Blood Pressure : / mmHG Vent. Rate : 067 BPM Atrial Rate : 067 BPM P-R Int : 142 ms QRS Dur : 076 ms QT Int : 390 ms P-R-T Axes : 055 -12 038 degrees QTc Int : 412 ms Normal sinus rhythm Normal ECG When compared with ECG of 29-MAR-2023 00:49, No significant change was found Referred By: Acacia Sunshine Electronically Signed By:Theo Barlow
[2023-12-18 01:23] VITALS: BP 190/70; PULSE 69; RESP 18; TEMP 36.8; O2SAT 98; BMI 27.5
--- NOTE | 2023-12-18 01:29 | ED.GENADULT ---
HPI - General Adult General Chief complaint: Chest Pain Stated complaint: chest pain Time Seen by Provider: 12/18/23 01:29 History of Present Illness ED Provider: Donald AGUILAR narrative: The patient is a 68-year-old woman who comes to the emergency room for evaluation of chest discomfort and dizziness that she experienced in bed tonight. Her daughter drove her to the emergency room for evaluation. Apparently the patient has a stepson who lives in [place] has been missing for the last week. This has been very upsetting to the family and the patient. The patient has been sleeping poorly for the last few nights because of concern about the stepson. No fever, sweats, chills. No cough or sputum. She has had some nausea but no vomiting. No shortness a breath. Related Data Home Medications ?Medication ?Instructions ?Recorded ?Confirmed alcohol swabs 0 pad topical 04/21/20 05/03/21 aspirin 81 mg tablet,delayed 81 mg PO DAILY 04/21/20 08/15/22 release atorvastatin 80 mg tablet 80 mg PO BEDTIME 04/21/20 08/15/22 calcium carbonate 200 mg PO BID 04/21/20 08/15/22 docusate sodium 100 mg capsule 100 mg PO BID PRN Constipation 04/21/20 08/15/22 lancets 33 gauge #100 ea 04/21/20 05/03/21 acetaminophen 650 mg 650 mg PO Q4H PRN Pain 12/25/20 08/15/22 tablet,extended release albuterol sulfate 90 mcg/actuation 2 puff PO Q4-6H PRN Shortness Of 12/25/20 08/15/22 aerosol inhaler Breath baclofen 20 mg tablet 20 mg PO TID PRN muscle spasm 12/25/20 08/15/22 cyanocobalamin (vitamin B-12) 1,000 mcg PO QAM 12/25/20 08/15/22 1,000 mcg tablet fluticasone propionate 110 1 puff PO BID 12/25/20 08/15/22 mcg/actuation HFA aerosol inhaler gabapentin 400 mg capsule 400 mg PO TID 12/25/20 08/15/22 lisinopril 2.5 mg tablet 2.5 mg PO DAILY 12/25/20 08/15/22 loratadine 10 mg tablet 10 mg PO QAM 12/25/20 08/15/22 oxybutynin chloride 5 mg 5 mg PO QAM 12/25/20 08/15/22 tablet,extended release 24 hr sertraline 100 mg tablet 150 mg PO QAM 12/25/20 08/15/22 tramadol 50 mg tablet 50 mg PO BID PRN Pain 12/25/20 08/15/22 blood sugar diagnostic (FreeStyle 05/03/21 Lite Strips) blood-glucose meter (FreeStyle 05/03/21 Lite Meter kit) diclofenac sodium 1 % topical gel 2 g topical BID PRN pain 05/09/22 08/15/22 ergocalciferol (vitamin D2) 1,250 1,250 mcg PO QWEEK 05/09/22 08/15/22 mcg (50,000 unit) capsule (Vitamin D2) fluticasone propionate 50 2 spray intranasal DAILY 05/09/22 08/15/22 mcg/actuation nasal spray,suspension trazodone 50 mg tablet 50 mg PO BEDTIME 05/09/22 08/15/22 Previous Rx's ?Medication ?Instructions ?Recorded insulin degludec 200 unit/mL (3 14 unit (0.07 mL) subcut DAILY #3 08/18/21 mL) subcutaneous pen (Tresiba mL FlexTouch U-200 insulin) pen needle, diabetic 32 gauge x #100 ea 10/28/21 (BD Ultra-Fine Zaida Pen Needle) oxycodone 5 mg tablet 5 mg PO BID PRN pain #6 tabs 10/30/21 dulaglutide 4.5 mg/0.5 mL 4.5 mg (0.5 mL) subcut QWEEK #2 mL 11/16/21 subcutaneous pen injector (Trulicity) empagliflozin 25 mg tablet 25 mg PO QAM #30 tabs 02/10/22 (Jardiance) metformin 850 mg tablet 850 mg PO BID #180 tabs 02/10/22 ezetimibe 10 mg tablet 10 mg PO DAILY #90 tabs 03/14/22 ondansetron HCl 4 mg tablet 4 mg PO Q6H PRN nausea and 03/25/22 vomiting #14 tabs methylcellulose (laxative) 500 mg 500 mg PO DAILY #90 tabs 01/04/23 tablet (Citrucel) sucralfate 1 gram tablet 1 g PO BEDTIME #90 tabs 01/04/23 pantoprazole 40 mg tablet,delayed 40 mg PO DAILY #90 tabs 09/19/23 release bisacodyl 5 mg tablet,delayed 20 mg (4 x 5 mg) PO ONCE 1 day #4 09/29/23 release (Dulcolax (bisacodyl)) tabs polyethylene glycol 3350 17 238 g PO ONCE #238 grams 09/29/23 gram/dose oral powder (Miralax) sennosides 8.6 mg tablet (senna) 17.2 mg (2 x 8.6 mg) PO BEDTIME 30 12/04/23 days #60 tabs Allergies Allergy/AdvReac Type Severity Reaction Status Date / Time amitriptyline [AMITRIPTYLINE] Allergy Unknown ANXIOUS, Verified 12/18/23 01:29 SWELLING aspirin [ASPIRIN] Allergy Unknown DROOLING, Verified 12/18/23 01:29 EXCESSIVE SPITTING Penicillins Allergy Swelling Verified 12/18/23 01:29 Review of Systems Review of Systems: Yes all other systems are reviewed and are negative [facility] Past Medical History Medical History Back ache Depression Diabetes Essential hypertension Fibromyalgia Gastric ulcer Gastritis Gastroparesis HTN (hypertension) Hyperlipidemia LDL goal <100 Neuropathy Obesity due to excess calories Osteoarthritis Osteoporosis Retinopathy Snoring Spinal stenosis of lumbar region Type 2 diabetes mellitus with diabetic neuropathy, unspecified Type 2 diabetes mellitus with hyperglycemia, without long-term current use of insulin Surgical History History of esophagogastroduodenoscopy (EGD) Hx of colonoscopy Hx of cholecystectomy Hx of tubal ligation Family History Family History Father FH: prostate cancer Mother CVD (cardiovascular disease) Heart disease Son Diabetes Social History Social History Household Members: Family Alcohol intake: never Patient Tobacco Use Status: Former Tobacco user Smoked in Last 30 Days: No Use of substances other than those prescribed or required for medical reasons: No Advance Directives: No Advance Directives Information Provided: No Do you have a plan to hurt others: No Plan Physical Exam ED Vital Signs: Vital Signs - 24 hr 12/18/23 01:23 12/18/23 02:12 12/18/23 03:37 Temperature 98.2 F 98.0 F Pulse Rate 69 77 65 Respiratory Rate 18 17 18 Blood Pressure 190/70 H 160/65 H 151/60 H Pulse Oximetry 98 98 98 Oxygen Delivery Method Room Air Room Air Room Air 12/18/23 03:38 Temperature 98.0 F Pulse Rate 65 Respiratory Rate 18 Blood Pressure 151/60 H Pulse Oximetry 98 Oxygen Delivery Method Room Air BMI result Body Mass Index 27.5 Const Other: The patient is a somewhat chronically ill-appearing older woman with a quiet demeanor. She does not seem in acute distress. HENMT Other: Face is symmetrical. Mucous membranes moist. Eyes Other: Pupils are round equal, conjunctivae are clear, extraocular movements intact, no nystagmus. Neck Neck: Yes no JVD Resp Effort & Inspection: normal respiratory effort Auscultation: clear to auscultation bilaterally Cardio Rate: regular rate Rhythm: regular rhythm Heart sounds: S1 normal heart sound present and S2 normal heart sound present GI Other: Abdomen is soft and nontender Skin Other: Skin is dry and unremarkable Neuro Other: The patient is awake and alert. She seems appropriately oriented. There are intact, pupils are normal, face is symmetrical, speech is clear, she moves her extremities symmetrically. No obvious focal deficits. Extrem Other: No peripheral edema. No calf swelling or tenderness. Medications Administered Discontinued Medications Generic Name Dose Route Start Last Admin Trade Name Freq PRN Reason Stop Dose Admin Meclizine HCl 25 mg 12/18/23 02:22 12/18/23 02:28 Meclizine Hcl 25 Mg Tablet PO 12/18/23 02:23 25 mg ONCE ONE Administration Medical Decision Making Medical Decision Making [facility] Narrative: The patient is a 68-year-old female who comes to the emergency room complaining of chest pain and dizziness. Her complaints are in the context of significant family stress. Apparently a relative of hers in [place] has been missing for a week. The patient has been sleeping poorly for the past several days. She has a normal EKG. Her clinical exam has been benign. Her troponin is undetectable. Her symptoms resolved spontaneously. There was no associated shortness of breath. I do not have a very high suspicion for either an acute coronary syndrome or a stroke. I think she may be discharged to follow up with the regular doctor. I suspect that her symptoms are a manifestation of stress. Lab Data 12/18/23 02:47 12/18/23 02:47 Labs: Lab Results 12/18/23 Range/Units 02:47 WBC 7.1 (4.8-10.8) X10*3/uL RBC 3.80 L (4.20-5.50) X10*6/uL Hgb 12.0 (12.0-16.0) g/dl Hct 35.5 L (37.0-47.0) % MCV 93.4 (80.0-98.0) fL MCH 31.6 (27.0-33.0) pg MCHC 33.8 (31.0-35.0) g/dl RDW 12.1 (11.0-16.0) % Plt Count 255 (160-400) X10*3/uL MPV 10.1 (9.4-12.3) fL Immature Gran % (Auto) 0.3 (0.0-0.4) % Neut % (Auto) 56.1 (45-73) % Lymph % (Auto) 27.9 (20-40) % [place] % (Auto) 12.4 H (2-11) % Eos % (Auto) 2.7 (0-4) % Baso % (Auto) 0.6 (0-2) % Lymph # (Auto) 2.0 (1.2-4.9) X10*3/uL [place] # (Auto) 0.9 (0.1-1.2) X10*3/uL Eos # (Auto) 0.2 (0.0-0.4) X10*3/uL Baso # (Auto) 0.0 (0.0-0.2) X10*3/uL Abs Immat Gran (auto) 0.02 (0.00-0.03) X10*3/uL Absolute Neuts (auto) 4.0 (2.0-8.3) x10*3/uL Absolute Nucleated RBC 0.000 (0.0-0.012) X10*3/uL Nucleated RBC % (auto) 0.0 (0.0-0.2) /100WBC Sodium 137 (135-145) mmol/L Potassium 4.3 (3.3-5.1) mmol/L Chloride 103 (96-108) mmol/L Carbon Dioxide 26 (22-29) mmol/L Anion Gap 12 (12-20) BUN 20 H (9-16) mg/dL Creatinine 0.94 (0.5-1.4) mg/dL Estim Creat Clear Calc 52.4 Estimated GFR 59 Random Glucose 376 H* (60-115) mg/dL Calcium 9.6 (8.4-10.2) mg/dL Total Bilirubin 0.2 (0.0-1.0) mg/dL Direct Bilirubin < 0.2 (0.0-0.5) mg/dL AST 14 (5-31) U/L ALT 16 (0-31) U/L Alkaline Phosphatase 134 H (39-117) U/L Troponin I High Sens < 2.7 (<3.5-17.0) ng/L C-Reactive Protein 0.42 (< or = 0.50) mg/dL B-Natriuretic Peptide 22 (<100) pg/mL Total Protein 7.3 (6.5-8.0) g/dL Albumin 4.1 (3.5-5.0) g/dL Independent Interpretation I performed an independent interpretation of an: EKG Interpretation: EKG at 01:13 shows normal sinus rhythm at 67 beats per minute. It is a normal EKG. Discharge Plan Discharge Clinical Impression: Chest pain, Dizziness Patient Disposition: Home, Self-Care Additional Instructions: Please continue your regular medications. Please plan on following up soon with your regular doctor. If you feel significantly worse please return to the emergency room for further evaluation.. Prescriptions: No Action (DME) pen needle, diabetic [BD Ultra-Fine Zaida Pen Needle] 32 gauge x 5/32 needle See Rx Instructions .ROUTE .MEDSUPPLY Qty: 100 3RF Rx Instructions: As directed once daily Trulicity 4.5 mg/0.5 mL pen injector 4.5 mg subcut QWEEK Qty: 2 6RF Jardiance 25 mg tablet 25 mg PO QAM Qty: 30 4RF metformin 850 mg tablet 850 mg PO BID Qty: 180 1RF ezetimibe 10 mg tablet 10 mg PO DAILY Qty: 90 1RF sucralfate 1 gram tablet 1 g PO BEDTIME Qty: 90 3RF Citrucel 500 mg tablet 500 mg PO DAILY Qty: 90 2RF Rx Instructions: take it with full glass of water pantoprazole 40 mg tablet,delayed release (DR/EC) 40 mg PO DAILY Qty: 90 2RF Rx Instructions: take one tablet half an hour before breakfast sennosides [senna] 8.6 mg tablet 17.2 mg PO BEDTIME 30 Days Qty: 60 2RF oxycodone 5 mg tablet 5 mg PO BID PRN (Reason: pain) Qty: 6 0RF atorvastatin 80 mg tablet 80 mg PO BEDTIME alcohol swabs Pads, Medicated 0 pad topical calcium carbonate 200 mg calcium (500 mg) tablet,chewable 200 mg PO BID docusate sodium 100 mg capsule 100 mg PO BID PRN (Reason: Constipation) (DME) lancets 33 gauge misc See Rx Instructions .ROUTE .MEDSUPPLY Qty: 100 Rx Instructions: As directed aspirin 81 mg tablet,delayed release (DR/EC) 81 mg PO DAILY gabapentin 400 mg capsule 400 mg PO TID oxybutynin chloride 5 mg tablet extended release 24hr 5 mg PO QAM baclofen 20 mg tablet 20 mg PO TID PRN (Reason: muscle spasm) loratadine 10 mg tablet 10 mg PO QAM lisinopril 2.5 mg tablet 2.5 mg PO DAILY cyanocobalamin (vitamin B-12) 1,000 mcg tablet 1,000 mcg PO QAM sertraline 100 mg tablet 150 mg PO QAM albuterol sulfate 90 mcg/actuation HFA aerosol inhaler 2 puff PO Q4-6H PRN (Reason: Shortness Of Breath) acetaminophen 650 mg tablet extended release 650 mg PO Q4H PRN (Reason: Pain) Flovent HFA 110 mcg/actuation HFA aerosol inhaler 1 puff PO BID tramadol 50 mg tablet 50 mg PO BID PRN (Reason: Pain) (DME) FreeStyle Lite Strips Strip See Rx Instructions .ROUTE Rx Instructions: As directed three times a day (DME) blood-glucose meter [FreeStyle Lite Meter] Kit See Rx Instructions .ROUTE Rx Instructions: As directed three times a day ondansetron HCl 4 mg tablet 4 mg PO Q6H PRN (Reason: nausea and vomiting) Qty: 14 0RF Tresiba FlexTouch U-200 200 unit/mL (3 mL) insulin pen 14 unit subcut DAILY Qty: 3 3RF diclofenac sodium 1 % gel 2 g topical BID PRN (Reason: pain) fluticasone propionate 50 mcg/actuation spray,suspension 2 spray intranasal DAILY trazodone 50 mg tablet 50 mg PO BEDTIME ergocalciferol (vitamin D2) [Vitamin D2] 1,250 mcg (50,000 unit) capsule 1,250 mcg PO QWEEK polyethylene glycol 3350 [Miralax] 17 gram/dose powder 238 g PO ONCE Qty: 238 0RF Rx Instructions: As directed by gastroenterology department at [facility] bisacodyl [Dulcolax (bisacodyl)] 5 mg tablet,delayed release (DR/EC) 20 mg PO ONCE 1 Days Qty: 4 0RF Rx Instructions: take 4 tabs at noon the day before your colonoscopy Referrals: Glenna Jett DO [Primary Care Provider] - (Episode of chest pain and dizziness, family stressors) Interventions: ED Discharge Assessment Last Done: 12/18/23 03:38 Discharge Date/Time: 12/18/23 03:39 Print Language: Japanese
[2023-12-18 02:12] VITALS: BP 160/65; PULSE 77; RESP 17; O2SAT 98
[2023-12-18] MEDS: Meclizine HCl 25 MG TABLET PO (02:28)
--- NOTE | 2023-12-18 02:33 | PC.NURSE ---
pt ambulating well with walker to bathroom with daughter
[2023-12-18 02:52] LABS: MANUAL DIFF FLAG NO
[2023-12-18 02:53] LABS: Basophils Percent Auto 0.6 % (0-2); Eosinophils Absolute Auto 0.2 X10*3/uL (0.0-0.4); Eosinophils Percent Auto 2.7 % (0-4); Hematocrit 35.5 % (37.0-47.0); Imm Gran Abs Auto 0.02 X10*3/uL (0.00-0.03); Imm Gran Pct Auto 0.3 % (0.0-0.4); Lymphocytes Percent Auto 27.9 % (20-40); Mean Corpuscular HGB Conc 33.8 g/dl (31.0-35.0); Mean Corpuscular Hemoglobin 31.6 pg (27.0-33.0); Mean Corpuscular Volume 93.4 fL (80.0-98.0); Mean Platelet Volume 10.1 fL (9.4-12.3); Monocytes Absolute Auto 0.9 X10*3/uL (0.1-1.2); Monocytes Percent Auto 12.4 % (2-11); Neutrophils Percent Auto 56.1 % (45-73); Platelet Count 255 X10*3/uL (160-400); Red Cell Distribution Width 12.1 % (11.0-16.0); White Blood Count 7.1 X10*3/uL (4.8-10.8)
[2023-12-18 03:11] LABS: Alanine Aminotransferase 16 U/L (0-31); Albumin Level 4.1 g/dL (3.5-5.0); Alkaline Phosphatase 134 U/L (39-117); Anion Gap 12 (12-20); Aspartate Amino Transferase 14 U/L (5-31); B Type Natriuretic Peptide 22 pg/mL (<100); Bilirubin Direct < 0.2 mg/dL (0.0-0.5); Bilirubin Total 0.2 mg/dL (0.0-1.0); Blood Urea Nitrogen 20 mg/dL (9-16); C Reactive Protein 0.42 mg/dL (< or = 0.50); Calcium 9.6 mg/dL (8.4-10.2); Carbon Dioxide 26 mmol/L (22-29); Chloride 103 mmol/L (96-108); Creatinine Clr Calc Pharmacy 52.4; Estimated Glomerular Filt Rate 59; Glucose Random 376 mg/dL (60-115); Potassium 4.3 mmol/L (3.3-5.1); Sodium 137 mmol/L (135-145); Total Protein 7.3 g/dL (6.5-8.0)
[2023-12-18 03:15] LABS: Troponin-I High Sensitivity < 2.7 ng/L (<3.5-17.0)
[2023-12-18 03:37] VITALS: BP 151/60; PULSE 65; RESP 18; TEMP 36.7; O2SAT 98
[2023-12-18 03:38] VITALS: BP 151/60; PULSE 65; RESP 18; TEMP 36.7; O2SAT 98
== END 2023-12-18 03:39 | disposition home or self-care (01) ==
PROVIDERS: Emergency Provider Emergency Medicine; PCP Family Medicine
DX: R07.89 Other chest pain (principal); R42 Dizziness and giddiness; R06.02 Shortness of breath; Z79.899 Other long term (current) drug therapy; Z87.891 Personal history of nicotine dependence
CPT/HCPCS: 36415; 80048; 80076; 83880; 84484; 85025; 86140; 93005; 99283; 99285

== ENCOUNTER → 2023-12-18 01:12 | Outpatient (BNV) | payer OTHER, SELFPAY | PROVIDERS: Emergency Provider Emergency Medicine; PCP Family Medicine; Visit Provider Internal Medicine Cardiovascular Disease | DX: R07.9 Chest pain, unspecified (principal) | CPT/HCPCS: 93010 ==

== ENCOUNTER 2023-12-23 14:21 | Emergency (ER) | payer OTHER, SELFPAY ==
--- NOTE | ~2023-12-23 | CT_ITS ---
EXAMINATION: CT ABDOMEN AND PELVIS WITH CONTRAST CLINICAL INFORMATION: Epigastric/left upper quadrant pain, nausea/vomiting COMPARISON: CT abdomen pelvis 03/22/2022 and previous. TECHNIQUE: Multidetector volumetric images were obtained from the superior aspect of the liver through the pubic symphysis following administration 85 mL of Omnipaque 350 intravenous contrast. Sagittal and coronal reformatted images were obtained on the technologist's workstation. Oral contrast: No This CT examination was performed using dose optimization techniques as appropriate, variously including the following: *Automated exposure control *Adjustment of mA and/or kV according to patient size (this includes techniques or standardized protocols for targeted exams where dose is matched to indication/reason for exam; i.e. extremities or head) *Use of iterative reconstruction technique DLP: 778 mGy-cm FINDINGS: Motion artifact moderately limits assessment of the upper and mid abdomen LUNG BASES: Coronary artery calcifications present. Visualized lung bases otherwise unremarkable. LIVER AND BILIARY TREE: Mildly prominent central intrahepatic bile ducts without overt dilation. Otherwise unremarkable. GALLBLADDER: Status post cholecystectomy. PANCREAS: Unremarkable. SPLEEN: Unremarkable. ADRENAL GLANDS: Unremarkable. KIDNEYS AND URETERS: Scattered left renal simple cysts and follow. GASTROINTESTINAL TRACT: Small esophageal hiatal hernia. Moderate sigmoid predominant colonic diverticulosis without evidence of acute diverticulitis. Normal appendix VASCULAR: Mild to moderate aortoiliac calcific atherosclerosis. LYMPH NODES: No lymphadenopathy. PERITONEUM: No ascites. BLADDER: Urinary bladder partially decompressed, otherwise unremarkable. PELVIC VISCERA: Unremarkable. ABDOMINAL AND PELVIC WALL: Unremarkable. OSSEOUS STRUCTURES: Unremarkable. CT/CT abdomen pelvis w IV con IMPRESSION: Motion artifact moderately limits assessment of the upper and mid abdomen. 1. Within these limitations, no acute abnormality of the abdomen or pelvis, or findings to explain epigastric abdominal pain. 2. Small esophageal hiatal hernia. 3. Moderate sigmoid predominant colonic diverticulosis without evidence of acute diverticulitis.
[2023-12-23 14:24] VITALS: BP 150/100; PULSE 105; O2SAT 96
[2023-12-23 14:26] VITALS: BMI 26.6
[2023-12-23 14:47] VITALS: BP 154/82; PULSE 92; RESP 18; TEMP 37; O2SAT 97
--- NOTE | 2023-12-23 14:48 | MHC.EDTECH ---
pt vital sgns checked, pt resting quietly with family member, call grimaldo within reach.
--- NOTE | 2023-12-23 15:19 | ECG_ITS ---
Test Reason : abdominal pain Blood Pressure : / mmHG Vent. Rate : 091 BPM Atrial Rate : 091 BPM P-R Int : 162 ms QRS Dur : 074 ms QT Int : 356 ms P-R-T Axes : 058 -31 032 degrees QTc Int : 437 ms Sinus rhythm with Premature supraventricular complexes Left axis deviation Possible Inferior infarct , age undetermined Abnormal ECG When compared with ECG of 18-DEC-2023 01:13, Premature supraventricular complexes are now Present Referred By: Summer Jennings Electronically Signed By:Theo Barlow
--- NOTE | 2023-12-23 17:17 | ED.ABDPAIN ---
HPI - Abdominal Pain General Chief Complaint: Abdominal Pain Stated Complaint: UPPER ABD PAIN PER EMS Time Seen by Provider: 12/23/23 16:00 Source: patient, EMS, RN notes reviewed and old records reviewed Mode of arrival: EMS History of Present Illness ED Provider: Genevieve Ceballos PA-C HPI narrative: 68-year-old female with a past medical history of gastroparesis, gastric ulcer, fibromyalgia, diabetes, depression, HTN, presenting to the ED via EMS complaining of epigastric/LUQ abdominal pain, nausea, and vomiting since this morning. Reports decreased p.o. intake. Denies hematemesis, diarrhea, constipation, dysuria/hematuria, chest pain/shortness of breath. Of note patient was evaluated in our ED last week for chest pain, workup unremarkable at that time. Related Data Home Medications ?Medication ?Instructions ?Recorded ?Confirmed alcohol swabs 0 pad topical 04/21/20 05/03/21 aspirin 81 mg tablet,delayed 81 mg PO DAILY 04/21/20 08/15/22 release atorvastatin 80 mg tablet 80 mg PO BEDTIME 04/21/20 08/15/22 calcium carbonate 200 mg PO BID 04/21/20 08/15/22 docusate sodium 100 mg capsule 100 mg PO BID PRN Constipation 04/21/20 08/15/22 lancets 33 gauge #100 ea 04/21/20 05/03/21 acetaminophen 650 mg 650 mg PO Q4H PRN Pain 12/25/20 08/15/22 tablet,extended release albuterol sulfate 90 mcg/actuation 2 puff PO Q4-6H PRN Shortness Of 12/25/20 08/15/22 aerosol inhaler Breath baclofen 20 mg tablet 20 mg PO TID PRN muscle spasm 12/25/20 08/15/22 cyanocobalamin (vitamin B-12) 1,000 mcg PO QAM 12/25/20 08/15/22 1,000 mcg tablet fluticasone propionate 110 1 puff PO BID 12/25/20 08/15/22 mcg/actuation HFA aerosol inhaler gabapentin 400 mg capsule 400 mg PO TID 12/25/20 08/15/22 lisinopril 2.5 mg tablet 2.5 mg PO DAILY 12/25/20 08/15/22 loratadine 10 mg tablet 10 mg PO QAM 12/25/20 08/15/22 oxybutynin chloride 5 mg 5 mg PO QAM 12/25/20 08/15/22 tablet,extended release 24 hr sertraline 100 mg tablet 150 mg PO QAM 12/25/20 08/15/22 tramadol 50 mg tablet 50 mg PO BID PRN Pain 12/25/20 08/15/22 blood sugar diagnostic (FreeStyle 05/03/21 Lite Strips) blood-glucose meter (FreeStyle 05/03/21 Lite Meter kit) diclofenac sodium 1 % topical gel 2 g topical BID PRN pain 05/09/22 08/15/22 ergocalciferol (vitamin D2) 1,250 1,250 mcg PO QWEEK 05/09/22 08/15/22 mcg (50,000 unit) capsule (Vitamin D2) fluticasone propionate 50 2 spray intranasal DAILY 05/09/22 08/15/22 mcg/actuation nasal spray,suspension trazodone 50 mg tablet 50 mg PO BEDTIME 05/09/22 08/15/22 Previous Rx's ?Medication ?Instructions ?Recorded insulin degludec 200 unit/mL (3 14 unit (0.07 mL) subcut DAILY #3 08/18/21 mL) subcutaneous pen (Tresiba mL FlexTouch U-200 insulin) pen needle, diabetic 32 gauge x #100 ea 10/28/21 (BD Ultra-Fine Zaida Pen Needle) oxycodone 5 mg tablet 5 mg PO BID PRN pain #6 tabs 10/30/21 dulaglutide 4.5 mg/0.5 mL 4.5 mg (0.5 mL) subcut QWEEK #2 mL 11/16/21 subcutaneous pen injector (Trulicity) empagliflozin 25 mg tablet 25 mg PO QAM #30 tabs 02/10/22 (Jardiance) metformin 850 mg tablet 850 mg PO BID #180 tabs 02/10/22 ezetimibe 10 mg tablet 10 mg PO DAILY #90 tabs 03/14/22 ondansetron HCl 4 mg tablet 4 mg PO Q6H PRN nausea and 03/25/22 vomiting #14 tabs methylcellulose (laxative) 500 mg 500 mg PO DAILY #90 tabs 01/04/23 tablet (Citrucel) sucralfate 1 gram tablet 1 g PO BEDTIME #90 tabs 01/04/23 pantoprazole 40 mg tablet,delayed 40 mg PO DAILY #90 tabs 09/19/23 release bisacodyl 5 mg tablet,delayed 20 mg (4 x 5 mg) PO ONCE 1 day #4 09/29/23 release (Dulcolax (bisacodyl)) tabs polyethylene glycol 3350 17 238 g PO ONCE #238 grams 09/29/23 gram/dose oral powder (Miralax) sennosides 8.6 mg tablet (senna) 17.2 mg (2 x 8.6 mg) PO BEDTIME 30 12/04/23 days #60 tabs aluminum-mag hydroxide-simethicone 5 ml PO 5XD PRN dyspepsia #30 mL 12/23/23 200 mg-200 mg-20 mg/5 mL oral susp (Maalox Advanced) Allergies Allergy/AdvReac Type Severity Reaction Status Date / Time amitriptyline [AMITRIPTYLINE] Allergy Unknown ANXIOUS, Verified 12/23/23 14:28 SWELLING aspirin [ASPIRIN] Allergy Unknown DROOLING, Verified 12/23/23 14:28 EXCESSIVE SPITTING Penicillins Allergy Swelling Verified 12/23/23 14:28 Review of Systems Review of Systems Constitutional: No Fever, No Chills ENT/Mouth: No Ear Pain, No Nasal Congestion, No sore throat, No Rhinorrhea Cardiovascular: No Chest Pain, No SOB Respiratory: No Cough, No Sputum, No Wheezing Gastrointestinal: +Nausea, + Vomiting, No Diarrhea, No Constipation, +Abdominal pain Genitourinary: No Dysuria, No Urinary Frequency, No Hematuria, No Urinary Incontinence/retention, No Flank Pain Musculoskeletal: No joint pain, No Myalgias, No Joint Swelling Skin: No Skin Lesions, No rash Neuro: No Weakness Yes all other systems are reviewed and are negative Constitutional: Reports as per [facility] Past Medical History Attestation statement: The following information was validated with the patient. Source: old records reviewed Medical History Gastroparesis Spinal stenosis of lumbar region Obesity due to excess calories Osteoporosis Retinopathy Gastric ulcer Snoring Neuropathy Fibromyalgia Type 2 diabetes mellitus with hyperglycemia, without long-term current use of insulin Essential hypertension Hyperlipidemia LDL goal <100 Type 2 diabetes mellitus with diabetic neuropathy, unspecified Osteoarthritis Depression Diabetes Back ache Gastritis HTN (hypertension) Surgical History History of esophagogastroduodenoscopy (EGD) Hx of colonoscopy Hx of cholecystectomy Hx of tubal ligation Family History Family History Father FH: prostate cancer Mother CVD (cardiovascular disease) Heart disease Son Diabetes Social History Social History Household Members: Family Alcohol intake: former Patient Tobacco Use Status: Former Tobacco user Smoked in Last 30 Days: No Use of substances other than those prescribed or required for medical reasons: No Advance Directives: No Advance Directives Information Provided: No Physical Exam ED Vital Signs: Vital Signs - 24 hr 12/23/23 14:47 12/23/23 17:56 12/23/23 19:33 Temperature 98.6 F 98.1 F 97.6 F Pulse Rate 92 95 83 Respiratory Rate 18 18 16 Blood Pressure 154/82 H 179/96 H 141/72 H Pulse Oximetry 97 98 95 Oxygen Delivery Method Room Air Room Air Room Air 12/23/23 21:02 Temperature 97.6 F Pulse Rate 83 Respiratory Rate 16 Blood Pressure 141/72 H Pulse Oximetry 95 Oxygen Delivery Method Room Air BMI result Body Mass Index 26.6 Const General: cooperative, healthy appearing and no acute distress Orientation/consciousness: patient oriented x3 Limitations: no limitations HENMT Head: Yes normal to inspection and Yes atraumatic Ears: hearing grossly normal bilaterally General nose exam: Normal external nose present Face and sinus: Yes normal facial exam Eyes General: appearance normal, both eyes and all related structures EOM: EOMs intact bilaterally Neck Neck: Yes normal visual inspection and Yes no meningeal signs Resp Effort & Inspection: normal respiratory effort and no respiratory distress Auscultation: clear to auscultation bilaterally Cardio Rate: regular rate Heart sounds: S1 normal heart sound present and S2 normal heart sound present GI Inspection: Yes normal to inspection Palpation (GI): Soft to palpation, Tenderness to palpation present (GI) in the epigastrum and in the LUQ; with no rebound tenderness, no guarding and not rigid General: Yes no CVA tenderness Back/Spine/Pelvis Back: no CVA tenderness Skin Rashes: no rashes Wounds: no wounds Neuro General: patient oriented x3, tone normal and no meningeal signs Cranial nerves: Yes CN's II-XII intact bilaterally Gait exam (Neuro): Normal gait present Extrem General: Yes normal to inspection Course Course Course Narrative: -no leukocytosis. Labs otherwise reassuring. UA negative. CT abdomen pelvis w IV con IMPRESSION: Motion artifact moderately limits assessment of the upper and mid abdomen. 1. Within these limitations, no acute abnormality of the abdomen or pelvis, or findings to explain epigastric abdominal pain. 2. Small esophageal hiatal hernia. 3. Moderate sigmoid predominant colonic diverticulosis without evidence of acute diverticulitis. > 1954--on re-evaluation patient reports symptomatic improvement, is tolerating p.o. without difficulty or pain. Feel safe/comfortable for discharge home at this time. Follows with GI, [facility], recommended close follow-up Results discussed with patient including worrisome signs and symptoms and strict return precautions, and when to return to the emergency department. They verbalized understanding and feel safe for discharge at this time. Medical Decision Making Medical Decision Making [facility] Narrative: 68-year-old female with a past medical history of gastroparesis, gastric ulcer, fibromyalgia, diabetes, depression, HTN, presenting to the ED via EMS complaining of epigastric/LUQ abdominal pain, nausea, and vomiting since this morning. On exam vital signs stable, NAD, nontoxic appearing, abdomen soft with epigastric/RUQ tenderness, no rebound or guarding, no CVAT. Concern for PUD vs gastritis vs pancreatitis vs atypical ACS. Cholecystitis/cholelithiasis on differential however lower. Unlikely appendicitis/diverticulitis. Rule out metabolic abnormalities. Low suspicion for severe sepsis at this time. Plan: EKG, labs, UA, CT AP, IVF, pain control Please refer to course for remaining clinical decision making, interpretation of labs/imaging results, and discussions with consultants and/or family members. Differential Diagnosis Differential Diagnoses: The differential diagnosis associated with the presentation includes As above Admission/Observation Consideration of admission/observation: Escalation of care including admission/observation considered Lab Data [facility] Lab Attestation statement: I reviewed the patient's lab results. 12/23/23 17:23 12/23/23 17:24 Labs: Lab Results 12/23/23 12/23/23 12/23/23 Range/Units 17:09 17:23 17:24 WBC 8.5 (4.8-10.8) X10*3/uL RBC 4.29 (4.20-5.50) X10*6/uL Hgb 13.3 (12.0-16.0) g/dl Hct 39.9 (37.0-47.0) % MCV 93.0 (80.0-98.0) fL MCH 31.0 (27.0-33.0) pg MCHC 33.3 (31.0-35.0) g/dl RDW 11.9 (11.0-16.0) % Plt Count 322 D (160-400) X10*3/uL MPV 9.9 (9.4-12.3) fL Immature Gran % (Auto) 0.2 (0.0-0.4) % Neut % (Auto) 64.8 (45-73) % Lymph % (Auto) 26.2 (20-40) % [place] % (Auto) 7.2 (2-11) % Eos % (Auto) 1.2 (0-4) % Baso % (Auto) 0.4 (0-2) % Lymph # (Auto) 2.2 (1.2-4.9) X10*3/uL [place] # (Auto) 0.6 (0.1-1.2) X10*3/uL Eos # (Auto) 0.1 (0.0-0.4) X10*3/uL Baso # (Auto) 0.0 (0.0-0.2) X10*3/uL Abs Immat Gran (auto) 0.02 (0.00-0.03) X10*3/uL Absolute Neuts (auto) 5.5 (2.0-8.3) x10*3/uL Absolute Nucleated RBC 0.000 (0.0-0.012) X10*3/uL Nucleated RBC % (auto) 0.0 (0.0-0.2) /100WBC Sodium 141 (135-145) mmol/L Potassium 4.4 (3.3-5.1) mmol/L Chloride 104 (96-108) mmol/L Carbon Dioxide 28 (22-29) mmol/L Anion Gap 13 (12-20) BUN 13 (9-16) mg/dL Creatinine 0.82 (0.5-1.4) mg/dL Estim Creat Clear Calc 63.7 Estimated GFR > 60 Random Glucose 127 H (60-115) mg/dL Calcium 9.6 (8.4-10.2) mg/dL Magnesium 2.0 (1.6-2.6) mg/dL Total Bilirubin 0.4 (0.0-1.0) mg/dL AST 19 (5-31) U/L ALT 16 (0-31) U/L Alkaline Phosphatase 93 (39-117) U/L Troponin I High Sens 3.4 (<3.5-17.0) ng/L Total Protein 7.8 (6.5-8.0) g/dL Albumin 4.2 (3.5-5.0) g/dL Lipase 27 (8-78) U/L Urine Color Yellow Urine Appearance Clear Urine pH 7.5 (5.0-9.0) Ur Specific [place] <= 1.005 (1.005-1.025) Urine Protein Negative (Neg-Trace) mg/dL Urine Glucose (UA) Negative (Negative) mg/dL Urine Ketones Trace (Negative) mg/dL Urine Blood Negative (Negative) Urine Nitrite Negative (Negative) Ur Leukocyte Esterase Negative (Negative) Influenza Type A (PCR) NEGATIVE (Negative) Influenza Type B (PCR) NEGATIVE (Negative) RSV RNA Qual (PCR) NEGATIVE (Negative) SARS-CoV-2 RNA (RT-PCR) NEGATIVE (Negative) Independent Interpretation I performed an independent interpretation of an: EKG and CT Scan Radiology Impression Discussion of test interpretation with radiology: I have reviewed the radiologist's reading. Independent Historian Clinical information obtained from an independent historian. History obtained from or confirmed by: Other ([facility]) External Record Review External record reviewed: Inpatient record, Office record, Outpatient record, Prior outpatient labs, Prior outpatient radiology, Primary care record and Outside ED record Tests considered The following testing was considered but not selected: As above Prescription Management I considered prescription management with: Pain Medication Chronic Conditions Patient?s care impacted by: Hypertension Medications Administered Discontinued Medications Generic Name Dose Route Start Last Admin Trade Name Freq PRN Reason Stop Dose Admin Al Hydroxide/Mg Hydroxide 30 ml 12/23/23 17:24 12/23/23 17:50 Magnesium Hydrox/Alum Hydrox 30 Ml Oral.Susp PO 12/23/23 17:25 30 ml ONCE ONE Administration Famotidine 20 mg 12/23/23 17:24 12/23/23 17:50 Famotidine/Pf 20 Mg/2 Ml Vial IVPUSH 12/23/23 17:25 20 mg ONCE ONE Administration Sodium Chloride 1,000 mls @ 999 mls/hr 12/23/23 17:15 12/23/23 17:52 Ns IV 12/23/23 18:15 999 mls/hr .Q1H1M JOSEMANUEL Administration Iohexol 85 ml 12/23/23 18:06 12/23/23 18:07 Iohexol 350 Mg/Ml 100 Ml Infus..Btl IV 12/23/23 18:07 85 ml ONCE ONE Administration Morphine Sulfate 2 mg 12/23/23 17:07 12/23/23 17:46 Morphine Sulfate 2 Mg/Ml Cartridge IVPUSH 12/23/23 17:08 2 mg ONCE ONE Administration Protocol Ondansetron HCl 4 mg 12/23/23 17:08 12/23/23 17:44 Ondansetron Hcl 4 Mg/2 Ml Vial IVPUSH 12/23/23 17:09 4 mg ONCE ONE Administration Discharge Plan Discharge Clinical Impression: Abdominal pain Patient Disposition: Home, Self-Care Instructions: Abdominal Pain (ED) Additional Instructions: Your blood work and CT scan were reassuring. You need to follow-up with your heel emery buffer Continue home prescribed medications In addition Maalox will help reduce the acid in her stomach Participant diet, avoid alcohol, spicy foods, sweets, caffeine and chocolate If symptoms persist or worsen her pain is unbearable, you are unable to eat or drink return to the ED Prescriptions: New alum-mag hydroxide-simeth [Maalox Advanced] 200-200-20 mg/5 mL suspension 5 ml PO 5XD PRN (Reason: dyspepsia) Qty: 30 0RF Rx Instructions: administer between meals and at bedtime No Action (DME) pen needle, diabetic [BD Ultra-Fine Zaida Pen Needle] 32 gauge x 5/32 needle See Rx Instructions .ROUTE .MEDSUPPLY Qty: 100 3RF Rx Instructions: As directed once daily Trulicity 4.5 mg/0.5 mL pen injector 4.5 mg subcut QWEEK Qty: 2 6RF Jardiance 25 mg tablet 25 mg PO QAM Qty: 30 4RF metformin 850 mg tablet 850 mg PO BID Qty: 180 1RF ezetimibe 10 mg tablet 10 mg PO DAILY Qty: 90 1RF sucralfate 1 gram tablet 1 g PO BEDTIME Qty: 90 3RF Citrucel 500 mg tablet 500 mg PO DAILY Qty: 90 2RF Rx Instructions: take it with full glass of water pantoprazole 40 mg tablet,delayed release (DR/EC) 40 mg PO DAILY Qty: 90 2RF Rx Instructions: take one tablet half an hour before breakfast sennosides [senna] 8.6 mg tablet 17.2 mg PO BEDTIME 30 Days Qty: 60 2RF oxycodone 5 mg tablet 5 mg PO BID PRN (Reason: pain) Qty: 6 0RF atorvastatin 80 mg tablet 80 mg PO BEDTIME alcohol swabs Pads, Medicated 0 pad topical calcium carbonate 200 mg calcium (500 mg) tablet,chewable 200 mg PO BID docusate sodium 100 mg capsule 100 mg PO BID PRN (Reason: Constipation) (DME) lancets 33 gauge misc See Rx Instructions .ROUTE .MEDSUPPLY Qty: 100 Rx Instructions: As directed aspirin 81 mg tablet,delayed release (DR/EC) 81 mg PO DAILY gabapentin 400 mg capsule 400 mg PO TID oxybutynin chloride 5 mg tablet extended release 24hr 5 mg PO QAM baclofen 20 mg tablet 20 mg PO TID PRN (Reason: muscle spasm) loratadine 10 mg tablet 10 mg PO QAM lisinopril 2.5 mg tablet 2.5 mg PO DAILY cyanocobalamin (vitamin B-12) 1,000 mcg tablet 1,000 mcg PO QAM sertraline 100 mg tablet 150 mg PO QAM albuterol sulfate 90 mcg/actuation HFA aerosol inhaler 2 puff PO Q4-6H PRN (Reason: Shortness Of Breath) acetaminophen 650 mg tablet extended release 650 mg PO Q4H PRN (Reason: Pain) Flovent HFA 110 mcg/actuation HFA aerosol inhaler 1 puff PO BID tramadol 50 mg tablet 50 mg PO BID PRN (Reason: Pain) (DME) FreeStyle Lite Strips Strip See Rx Instructions .ROUTE Rx Instructions: As directed three times a day (DME) blood-glucose meter [FreeStyle Lite Meter] Kit See Rx Instructions .ROUTE Rx Instructions: As directed three times a day ondansetron HCl 4 mg tablet 4 mg PO Q6H PRN (Reason: nausea and vomiting) Qty: 14 0RF Tresiba FlexTouch U-200 200 unit/mL (3 mL) insulin pen 14 unit subcut DAILY Qty: 3 3RF diclofenac sodium 1 % gel 2 g topical BID PRN (Reason: pain) fluticasone propionate 50 mcg/actuation spray,suspension 2 spray intranasal DAILY trazodone 50 mg tablet 50 mg PO BEDTIME ergocalciferol (vitamin D2) [Vitamin D2] 1,250 mcg (50,000 unit) capsule 1,250 mcg PO QWEEK polyethylene glycol 3350 [Miralax] 17 gram/dose powder 238 g PO ONCE Qty: 238 0RF Rx Instructions: As directed by gastroenterology department at [facility] bisacodyl [Dulcolax (bisacodyl)] 5 mg tablet,delayed release (DR/EC) 20 mg PO ONCE 1 Days Qty: 4 0RF Rx Instructions: take 4 tabs at noon the day before your colonoscopy Referrals: [facility] [place] [facility] [Provider Group] - 5 days Interventions: ED Discharge Assessment Last Done: 12/23/23 21:02 Discharge Date/Time: 12/23/23 20:25 Print Language: Thai
[2023-12-23 17:33] LABS: MANUAL DIFF FLAG NO
[2023-12-23 17:36] LABS: Basophils Percent Auto 0.4 % (0-2); Eosinophils Absolute Auto 0.1 X10*3/uL (0.0-0.4); Eosinophils Percent Auto 1.2 % (0-4); Hematocrit 39.9 % (37.0-47.0); Hemoglobin 13.3 g/dl (12.0-16.0); Imm Gran Abs Auto 0.02 X10*3/uL (0.00-0.03); Imm Gran Pct Auto 0.2 % (0.0-0.4); Lymphocytes Absolute Auto 2.2 X10*3/uL (1.2-4.9); Lymphocytes Percent Auto 26.2 % (20-40); Mean Corpuscular HGB Conc 33.3 g/dl (31.0-35.0); Mean Platelet Volume 9.9 fL (9.4-12.3); Monocytes Absolute Auto 0.6 X10*3/uL (0.1-1.2); Monocytes Percent Auto 7.2 % (2-11); Neutrophils Absolute Auto 5.5 x10*3/uL (2.0-8.3); Neutrophils Percent Auto 64.8 % (45-73); Platelet Count 322 X10*3/uL (160-400); Red Blood Count 4.29 X10*6/uL (4.20-5.50); Red Cell Distribution Width 11.9 % (11.0-16.0); White Blood Count 8.5 X10*3/uL (4.8-10.8)
[2023-12-23] MEDS: ondansetron HCL 4 MG/2 ML VIAL IVPUSH (17:44)
[2023-12-23] MEDS: Morphine Sulfate 2 MG/ML CARTRIDGE IVPUSH (17:46)
[2023-12-23] MEDS: Magnesium Hydrox/Alum Hydrox 30 ML ORAL.SUSP PO (17:50)
[2023-12-23] MEDS: Famotidine/PF 20 MG/2 ML VIAL IVPUSH (17:50)
[2023-12-23 17:52] LABS: Alanine Aminotransferase 16 U/L (0-31); Albumin Level 4.2 g/dL (3.5-5.0); Alkaline Phosphatase 93 U/L (39-117); Anion Gap 13 (12-20); Aspartate Amino Transferase 19 U/L (5-31); Bilirubin Total 0.4 mg/dL (0.0-1.0); Blood Urea Nitrogen 13 mg/dL (9-16); Calcium 9.6 mg/dL (8.4-10.2); Carbon Dioxide 28 mmol/L (22-29); Chloride 104 mmol/L (96-108); Creatinine Clr Calc Pharmacy 63.7; Estimated Glomerular Filt Rate > 60; Glucose Random 127 mg/dL (60-115); Lipase 27 U/L (8-78); Potassium 4.4 mmol/L (3.3-5.1); Sodium 141 mmol/L (135-145); Total Protein 7.8 g/dL (6.5-8.0)
[2023-12-23] MEDS: 0.9 % Sodium Chloride 1,000 ML 999 ML IV (17:52)
[2023-12-23 17:53] LABS: Appearance Urine Clear; Color Urine Yellow; Glucose Urine UA Negative (Negative); Leukocyte Esterase Urine Negative (Negative); Nitrite Urine Negative (Negative); PH 7.5 (5.0-9.0); Specific Gravity - Urine <= 1.005 (1.005-1.025); Urine Blood Negative (Negative); Urine Ketones Trace mg/dL (Negative); Urine Protein Negative (Neg-Trace)
[2023-12-23 17:56] VITALS: BP 179/96; PULSE 95; RESP 18; TEMP 36.7; O2SAT 98
[2023-12-23 18:01] LABS: Troponin-I High Sensitivity 3.4 ng/L (<3.5-17.0)
[2023-12-23] MEDS: iohexoL 350 MG/ML 100 ML INFUS..BTL 85 ML IV (18:07)
[2023-12-23 18:13] LABS: Influenza A PCR NEGATIVE (Negative); Influenza B PCR NEGATIVE (Negative); Resp Syncy Virus RNA Qual PCR NEGATIVE (Negative); SARS COV2 PCR INHOUSE NEGATIVE (Negative)
[2023-12-23 19:33] VITALS: BP 141/72; PULSE 83; RESP 16; TEMP 36.4; O2SAT 95
[2023-12-23 21:02] VITALS: BP 141/72; PULSE 83; RESP 16; TEMP 36.4; O2SAT 95
== END 2023-12-23 20:25 | disposition home or self-care (01) ==
PROVIDERS: Nurse Practitioner Family; Physician Assistant; Emergency Provider Internal Medicine
DX: R10.13 Epigastric pain (principal); R10.12 Left upper quadrant pain; R11.2 Nausea with vomiting, unspecified; Z03.818 Encounter for observation for suspected exposure to other biological agents ruled out; E11.9 Type 2 diabetes mellitus without complications; I10 Essential (primary) hypertension; E78.5 Hyperlipidemia, unspecified; Z87.891 Personal history of nicotine dependence; Z79.4 Long term (current) use of insulin; Z79.82 Long term (current) use of aspirin; Z79.02 Long term (current) use of antithrombotics/antiplatelets; Z79.899 Other long term (current) drug therapy; Z79.85 Long-term (current) use of injectable non-insulin antidiabetic drugs; Z79.84 Long term (current) use of oral hypoglycemic drugs
CPT/HCPCS: 0241U; 36415; 74177; 80053; 81003; 83690; 83735; 84484; 85025; 93005; 96374; 96375; 99284; 99285; J2270; J2405; Q9967

== ENCOUNTER → 2023-12-23 15:19 | Outpatient (BNV) | payer OTHER, SELFPAY | PROVIDERS: Emergency Provider Internal Medicine; Visit Provider Internal Medicine Cardiovascular Disease | DX: R94.31 Abnormal electrocardiogram [ECG] [EKG] (principal) | CPT/HCPCS: 93010 ==

== ENCOUNTER → 2024-01-23 08:52 | Day surgery (SDC) | payer OTHER, SELFPAY ==
--- NOTE | 2024-01-22 11:58 | HO.ANESPROP2 ---
HPI - Anesthesia Eval Consult details Narrative: 68yo F for Upper Endoscopy and Colonoscopy Anesthesia Pre-Procedure Meds Is the patient on any of the following meds?: GLP1/DPP4 and SGLT2 Inhib PMFSH Active Problems Active Problems: All Active Problems Spinal stenosis of lumbar region (Acute) Obesity due to excess calories (Acute) Type 2 diabetes mellitus with hyperglycemia, without long-term current use of insulin (Acute) Type 2 diabetes mellitus with diabetic neuropathy, unspecified (Acute) Essential hypertension (Acute) Hyperlipidemia LDL goal <100 (Acute) Past Medical History Medical History Gastroparesis Spinal stenosis of lumbar region Obesity due to excess calories Osteoporosis Retinopathy Gastric ulcer Snoring Neuropathy Fibromyalgia Type 2 diabetes mellitus with hyperglycemia, without long-term current use of insulin Essential hypertension Hyperlipidemia LDL goal <100 Type 2 diabetes mellitus with diabetic neuropathy, unspecified Osteoarthritis Depression Diabetes Back ache Gastritis HTN (hypertension) Family History Family History Father FH: prostate cancer Mother CVD (cardiovascular disease) Heart disease Son Diabetes Surgical History Surgical History History of esophagogastroduodenoscopy (EGD) Hx of colonoscopy Hx of cholecystectomy Hx of tubal ligation Social History Social History Household Members: Family Alcohol intake: former Patient Tobacco Use Status: Former Tobacco user Meds Allergies Allergy/AdvReac Type Severity Reaction Status Date / Time amitriptyline [AMITRIPTYLINE] Allergy Unknown ANXIOUS, Verified 12/23/23 14:28 SWELLING aspirin [ASPIRIN] Allergy Unknown DROOLING, Verified 12/23/23 14:28 EXCESSIVE SPITTING Penicillins Allergy Swelling Verified 12/23/23 14:28 Home Medications ?Medication ?Instructions ?Recorded ?Confirmed ?Last Taken ?Type alcohol swabs 0 pad topical 04/21/20 05/03/21 Unknown History aspirin 81 mg tablet,delayed 81 mg PO DAILY 04/21/20 08/15/22 Unknown History release atorvastatin 80 mg tablet 80 mg PO BEDTIME 04/21/20 08/15/22 Unknown History calcium carbonate 200 mg PO BID 04/21/20 08/15/22 Unknown History docusate sodium 100 mg capsule 100 mg PO BID PRN Constipation 04/21/20 08/15/22 Unknown History lancets 33 gauge #100 ea 04/21/20 05/03/21 Unknown History acetaminophen 650 mg 650 mg PO Q4H PRN Pain 12/25/20 08/15/22 Unknown History tablet,extended release albuterol sulfate 90 mcg/actuation 2 puff PO Q4-6H PRN Shortness Of 12/25/20 08/15/22 Unknown History aerosol inhaler Breath baclofen 20 mg tablet 20 mg PO TID PRN muscle spasm 12/25/20 08/15/22 Unknown History cyanocobalamin (vitamin B-12) 1,000 mcg PO QAM 12/25/20 08/15/22 Unknown History 1,000 mcg tablet fluticasone propionate 110 1 puff PO BID 12/25/20 08/15/22 Unknown History mcg/actuation HFA aerosol inhaler gabapentin 400 mg capsule 400 mg PO TID 12/25/20 08/15/22 Unknown History lisinopril 2.5 mg tablet 2.5 mg PO DAILY 12/25/20 08/15/22 Unknown History loratadine 10 mg tablet 10 mg PO QAM 12/25/20 08/15/22 Unknown History oxybutynin chloride 5 mg 5 mg PO QAM 12/25/20 08/15/22 Unknown History tablet,extended release 24 hr sertraline 100 mg tablet 150 mg PO QAM 12/25/20 08/15/22 Unknown History tramadol 50 mg tablet 50 mg PO BID PRN Pain 12/25/20 08/15/22 Unknown History blood sugar diagnostic (FreeStyle 05/03/21 Unknown History Lite Strips) blood-glucose meter (FreeStyle 05/03/21 Unknown History Lite Meter kit) diclofenac sodium 1 % topical gel 2 g topical BID PRN pain 05/09/22 08/15/22 Unknown History ergocalciferol (vitamin D2) 1,250 1,250 mcg PO QWEEK 05/09/22 08/15/22 Unknown History mcg (50,000 unit) capsule (Vitamin D2) fluticasone propionate 50 2 spray intranasal DAILY 05/09/22 08/15/22 Unknown History mcg/actuation nasal spray,suspension trazodone 50 mg tablet 50 mg PO BEDTIME 05/09/22 08/15/22 Unknown History Exam Pertinent Lab Results Pertinent Lab Results: Laboratory Tests 12/23/23 12/23/23 17:23 17:24 WBC 8.5 Hgb 13.3 Hct 39.9 Plt Count 322 D Sodium 141 Potassium 4.4 Chloride 104 Carbon Dioxide 28 BUN 13 Creatinine 0.82 Narrative Narrative: EKG 12/2023 Vent. Rate : 091 BPM Atrial Rate : 091 BPM P-R Int : 162 ms QRS Dur : 074 ms QT Int : 356 ms P-R-T Axes : 058 -31 032 degrees QTc Int : 437 ms Sinus rhythm with Premature supraventricular complexes Left axis deviation Possible Inferior infarct , age undetermined Abnormal ECG When compared with ECG of 18-DEC-2023 01:13, Premature supraventricular complexes are now Present Assessment and Plan Assessment Anesthesia Assessment: Chart Reviewed
[2024-01-23 09:22] VITALS: BMI 31.7
[2024-01-23 09:24] VITALS: TEMP 36.7
--- NOTE | 2024-01-23 09:30 | PC.NURSE ---
daughter called back and stated a family member gave the patient her meds and jardiance was given yesterday but has been off of trulicity for a week. last dose was january 13.
--- NOTE | 2024-01-23 09:42 | PC.NURSE ---
spoke to md cruz and patient has to be cancelled due to taking her jardiance. patient aware of plan of care with claim taker.
--- NOTE | 2024-01-23 09:49 | PC.NURSE ---
patients daughter aware of plan of care and a note was given that trulicity is to be one week and the jardiance is three days.
== END ==
LOC: HO.SSS 08:53
PROVIDERS: Visit Provider Internal Medicine
DX: Z12.11 Encounter for screening for malignant neoplasm of colon (principal); Z53.8 Procedure and treatment not carried out for other reasons; K58.2 Mixed irritable bowel syndrome; K21.9 Gastro-esophageal reflux disease without esophagitis

== ENCOUNTER 2024-08-01 12:20 | Outpatient (REF) | payer OTHER, SELFPAY ==
--- OUTSIDE RECORDS SUMMARY | 2024-08-01 13:20 | XMS_ITS | Encounter Summary ---
Author Organization [employer] [facility] Address [address] [facility] 7t [place] [address] Care Team Providers Care Shower Attendant Name Role Phone Glenna Jett DO Primary Care Provider [phone] Poly Diaz PharmD Unavailable [phone] Reason for Visit * Reason Comments Med Refill Encounter Details Date Type Department Care Team ([facility] st Contact Info) Description 06/29/2024 Refill [facility] MEDICINE [address] [place] [address] Glenna Jett DO [address] [place] [address] Insomnia, unspecified type Social History Tobacco Use Types Packs/Day Years Used Date Smoking Tobacco: Former Cigarettes Smokeless Tobacco: Never Depression Answer Date Recorded Patient Health Questionnaire-9 Score 6 02/06/2024 Patient Health Questionnaire-9 Score 6 02/06/2024 Last PHQ-9: Questionnaire Data Not on file 0 02/06/2024 Housing Stability Answer Date Recorded What is your housing situation today? I have mayra chan 09/22/[address] you li ve. Do you have problems with any of the following? None of the above 09/22/2023 Food Insecurity Answer Date Recorded Within the past 12 months, y ou worried that your food would run out before you got money to buy more: Never True 09/22/2023 Within the past 12 months,th e food you bought just didn't last and you didn't have enough money to get more: Never True 05/2024 Transportation Answer Date Recorded In the past 12 months, has l ack of transportation kept you from medical appts, meetings, work or from getting things needed for daily living? No 09/22/2023 Utilities Answer Date Recorded In the past 12 months, has t he electric, gas, oil or water company threatened to shut off services in your home? No 09/22/2023 Depression Answer Date Recorded Patient Health Questionnaire-2 Score 2 02/06/2024 Comments Unknown Sex and Gender Information Value Date Recorded Sex Assigned at Female 04/11/2022 10:16 AM EDT Legal Sex Female 10:16 AM EDT Gender Identity Female 04/11/2022 10:16 AM EDT Sexual Orientation Straight 04/11/2022 10 :16 AM EDT documented as of this encounter Plan of Treatment Upcoming Encounters Date Type Department Care Team (Late st Contact Info) Description 08/08/2024 1:00 PM EST Telemedicine [facility] MEDICINE [address] [place] [phone] Padmaja Anderson RN 08/20/2024 3:30 PM EDT Medication Management [address] [address] Puia, Poly, PharmD [address] [place] [phone] documented as of this encounter Goals Goal Patient Goal Type Associated Problems Recent Progress Patient-Stated? Author Record your blood sugar as directed Result Component No Puia, Poly, PharmD Hemoglobin A1c < 7.5 Result Component 8(07/10/2024 3:32 PM EST) No Puia, Poly, PharmD documented as of this encounter Visit Diagnoses Diagnosis Insomnia, unspecified type documented in this encounter Additional Health Concerns Assessment Noted Time PHQ-9 Depression Total Score: 6 02/06/20 24 1:46 PM EDT documented as of this encounter Care Teams Shower Attendant Relationship Specialty Start Date End Date Glenna Jett DO [address] [place] [address] PCP - General Family Medicine 05/24/12 Puia, Poly, PharmD [address] [place] [phone] Pharmacist Internal Medicine 07/04/23 documented as of this encounter
--- OUTSIDE RECORDS SUMMARY | 2024-08-01 13:20 | XMS_ITS | Encounter Summary ---
Author Organization [employer] Address [address] [facility] 7t [place] [address] Care Team Providers Care Ends Down Checker Name Role Phone Glenna Jett DO Primary Care Provider [phone] Poly Diaz PharmD Unavailable [phone] Encounter Details Date Type Department Care Team ([facility] st Contact Info) Description 04/17/2024 Telephone [facility] MEDICINE [address] [place] [address] Glenna Jett DO [address] [place] [address] Social History Tobacco Use Types Packs/Day Years [...] AM EDT documented as of this encounter Miscellaneous Notes * Telephone Encounter - Oly Ro - 04/17/2024 3:33 PM EST Tc from documented in this encounter Plan of Treatment Upcoming Encounters Date Type Department Care Team (Late st Contact Info) Description 08/08/2024 1:00 PM EST Telemedicine [facility] MEDICINE [address] [place] [address] Padmaja Anderson RN 08/20/2024 3:30 PM EDT Medication Management [facility] MEDICINE [address] [place] [phone] Puia, Poly, PharmD [address] [place] [phone] documented as of this encounter Goals Goal Patient Goal Type Associated Problems Recent Progress Patient-Stated? Author Record your blood sugar as directed Result Component No Puia, Poly, PharmD Hemoglobin A1c < 7.5 Result Component 8(07/10/2024 3:32 PM EST) No Puia, Poly, PharmD documented as of this encounter Visit Diagnoses Not on filedocumented in this encounter Additional Health Concerns Assessment Noted Time PHQ-9 Depression Total Score: 6 02/06/20 24 1:46 PM EDT documented as of this encounter Care Teams Ends Down Checker Relationship Specialty Start Date End Date Glenna Jett DO [address] [place] [phone] PCP - General Family Medicine 05/24/12 Poly Diaz, Mati [address] [place] [phone] Pharmacist Internal Medicine 07/04/23 documented as of this encounter
--- OUTSIDE RECORDS SUMMARY | 2024-08-01 13:20 | XMS_ITS | Encounter Summary ---
Author Organization [employer] [facility] Address [address] [facility] 7t [place] [address] Care Team Providers Care Bellman Driver Name Role Phone Glenna Jett DO Primary Care Provider [phone] Poly Diaz PharmD Unavailable [phone] Reason for Visit * Reason Onset Date Comments Appointment Request 07/25/2024 Encounter Details Date Type Department Care Team ([facility] st Contact Info) Description 07/25/2024 Telephone [facility] MEDICINE [address] [place] [address] Glenna Jett DO [address] [place] [address] Appointment Request Social History Tobacco Use Types Packs/Day Years [...] encounter Miscellaneous Notes * Telephone Encounter - Padmaja Anderson RN - 07/25/2024 11:44 AM EST 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 TC via [id number], Tele DIRECTOR OF FUNDRAISING RV rescheduled for 08/08/24 @ 1pm. * Telephone Encounter - Jen Fuchs - 07/25/2024 10:21 AM EST Tc from [facility] requesting reschedule 04/26/24 tele proposal lead writer appt. [phone] kyrgyz documented in this encounter Plan of Treatment Upcoming Encounters Date Type Department Care Team (Late st Contact Info) Description 08/08/2024 1:00 PM EST Telemedicine [facility] MEDICINE [address] [place] [address] Padmaja Anderson RN 08/20/2024 3:30 PM EDT Medication Management [facility] MEDICINE [address] [place], [place] [phone] Poly Diaz, PharmD [address] [place] [address] documented as of this encounter Goals Goal Patient Goal Type Associated Problems Recent Progress Patient-Stated? Author Record your blood sugar as directed Result Component No Poly Diaz PharmD Hemoglobin A1c < 7.5 Result Component 8(07/10/2024 3:32 PM EST) No Poly Diaz PharmD documented as of this encounter Visit Diagnoses Not on filedocumented in this encounter Additional Health Concerns Assessment Noted Time PHQ-9 Depression Total Score: 6 02/06/20 24 1:46 PM EDT documented as of this encounter Care Teams Bellman Driver Relationship Specialty Start Date End Date Glenna Jett DO [address] [place] [address] PCP - General Family Medicine 05/24/12 Poly Diaz PharmD [address] [place] [address] Pharmacist Internal Medicine 07/04/23 documented as of this encounter
--- OUTSIDE RECORDS SUMMARY | 2024-08-01 13:20 | XMS_ITS | Encounter Summary ---
Author Organization [employer] Address [address] [facility] 7t [place] [address] Care Team Providers Care Telecommunications Analyst Name Role Phone Maliha Glenna DYSON Primary Care Provider [phone] Poly Diaz PharmD Unavailable [phone] Reason for Visit * Reason Comments Med Refill Encounter Details Date Type Department Care Team ([facility] st Contact Info) Description 03/27/2023 Refill [facility] MEDICINE 230 [place] [address] Jolene Gonzalez MD [address] [place] [address] Social History Tobacco Use Types Packs/Day Years Used Date Smoking Tobacco: Former Cigarettes Housing Stability Answer Date Recorded What is your housing situation today? I have mayra chan 03/27/[address] you li ve. Do you have problems with any of the following? None of the above 03/27/2023 Food Insecurity Answer Date Recorded Within the past 12 months, y ou worried that your food would run out before you got money to buy more: Never True 03/27/2023 Within the past 12 months,th e food you bought just didn't last and you didn't have enough money to get more: Never True Transportation Answer Date Recorded In the past 12 months, has l ack of transportation kept you from medical appts, meetings, work or from getting things needed for daily living? No 03/27/2023 Utilities Answer Date Recorded In the past 12 months, has t he electric, gas, oil or water company threatened to shut off services in your home? No 03/27/2023 Depression Answer Date Recorded Patient Health Questionnaire-2 Score 0 08/30/2022 Comments Unknown Sex and Gender Information Value Date Recorded Sex Assigned at Female 04/11/2022 10:16 AM EDT Legal Sex Female 10:16 AM EDT Gender Identity Female 04/11/2022 10:16 AM EDT Sexual Orientation Straight 04/11/2022 10 :16 AM EDT documented as of this encounter Plan of Treatment Upcoming Encounters Date Type Department Care Team (Late st Contact Info) Description 08/08/2024 1:00 PM EST Telemedicine [facility] MEDICINE [address] [place] [phone] Padmaja Anderson RN 08/20/2024 3:30 PM EDT Medication Management [address] [address] Poly Diaz PharmD [address] [place] [phone] documented as of this encounter Visit Diagnoses Not on filedocumented in this encounter Care Teams Telecommunications Analyst Relationship Specialty Start Date End Date Glenna Jett DO [address] [place] [address] [phone] PCP - General Family Medicine 05/24/12 Poly Diaz PharmD [address] [place] [address] [phone] Pharmacist Internal Medicine 07/04/23 documented as of this encounter
--- OUTSIDE RECORDS SUMMARY | 2024-08-01 13:20 | XMS_ITS | Encounter Summary ---
Author Organization [employer] [facility] Address [address] [facility] 7t [place] [address] Care Team Providers Care Whizzer Hand Name Role Phone Glenna Jett DO Primary Care Provider [phone] Poly Diaz PharmD Unavailable [phone] Reason for Visit * Reason Comments Med Refill Encounter Details Date Type Department Care Team ([facility] st Contact Info) Description 07/28/2024 Refill [facility] MEDICINE [address] [place] [address] Glenna Jett DO [address] [place] [address] Social History Tobacco Use Types Packs/Day Years [...] Description 08/08/2024 1:00 PM EST Telemedicine [facility] MEDICINE [address] [place] [phone] Padmaja Anderson RN 08/20/2024 3:30 PM EDT Medication Management [address] [address] Puia, Poly, PharmD [address] [place] [phone] documented as of this encounter Goals Goal [...] documented as of this encounter Care Teams Whizzer Hand Relationship Specialty Start Date End Date Glenna Jett DO [address] [place] [address] PCP - General Family Medicine 05/24/12 Puia, Poly, PharmD [address] [place] [phone] Pharmacist Internal Medicine 07/04/23 documented as of this encounter
--- OUTSIDE RECORDS SUMMARY | 2024-08-01 13:20 | XMS_ITS | Encounter Summary ---
Author Organization [employer] Address [address] [facility] 7t [place] [address] Care Team Providers Care Induction Heating Equipment Setter Name Role Phone Glenna Jett DO Primary Care Provider [phone] Poly Diaz PharmD Unavailable [phone] Encounter Details Date Type Department Care Team ([facility] st Contact Info) Description 07/06/2023 Abstract [facility] MEDICINE [address] [place] [address] Glenna Jett DO [address] [place] [address] Social History Tobacco Use Types Packs/Day Years [...] Info) Description 08/08/2024 1:00 PM EST Telemedicine [address] [phone] Padmaja Anderson RN 08/20/2024 3:30 PM EDT Medication Management [address] [address] PuPoly wasserman, PharmD [address] [place] [phone] documented as of this encounter Goals Goal Patient Goal Type Associated Problems Recent Progress Patient-Stated? Author Record your blood sugar as directed Result Component No Puia, Poly, PharmD Hemoglobin A1c < 7.5 Result Component 8(07/10/2024 3:32 PM EST) No Puia Poly, PharmD documented as of this encounter Visit Diagnoses Not on filedocumented in this encounter Care Teams Induction Heating Equipment Setter Relationship Specialty Start Date End Date Glenna Jett DO [address] [place] [address] [phone] PCP - General Family Medicine 05/24/12 Puia, Poly, PharmD [address] [place] [address] [phone] Pharmacist Internal Medicine 07/04/23 documented as of this encounter
--- OUTSIDE RECORDS SUMMARY | 2024-08-01 13:20 | XMS_ITS | Encounter Summary ---
Author Organization [employer] [facility] Address [address] [facility] 7t [place] [address] Care Team Providers Care Tapper Bit Name Role Phone Glenna Jett DO Primary Care Provider [phone] Poly Diaz PharmD Unavailable [phone] Encounter Details Date Type Department Care Team (Late Contact Info) Description 08/18/2022 Orders Only [facility] [address] [place] [address] Glenna Rosales LPN Social History Tobacco Use Types Packs/Day Years Used Date Smoking Tobacco: Never Assessed Comments Unknown Sex and Gender Information Value Date Recorded Sex Assigned at Female 04/11/2022 10:16 AM EDT Legal Sex Female 10:16 AM EDT Gender Identity Female 04/11/2022 10:16 AM EDT Sexual Orientation Straight 04/11/2022 10 :16 AM EDT documented as of this encounter Plan of Treatment Upcoming Encounters Date Type Department Care Team (Late Contact Info) Description 08/08/2024 1:00 PM EST Telemedicine [facility] MEDICINE [address] [place] [address] [phone] Padmaja Anderson, RN 08/20/2024 3:30 PM EDT Medication Management [facility] MEDICINE [address] [place] [address] [phone] Poly Diaz, PharmD [address] [place] [address] documented as of this encounter Visit Diagnoses Not on filedocumented in this encounter Care Teams Tapper Bit Relationship Specialty Start Date End Date Glenna Jett DO 230 [place] [address] PCP - General Family Medicine 05/24/12 Poly Diaz PharmD [address] [place] [address] Pharmacist Internal Medicine 07/04/23 documented as of this encounter
--- OUTSIDE RECORDS SUMMARY | 2024-08-01 13:20 | XMS_ITS | Encounter Summary ---
Author Organization [employer] [facility] Address [address] [facility] 7t [place] [address] Care Team Providers Care Supervisor Riveting Name Role Phone Glenna Jett DO Primary Care Provider [phone] Poly Diaz PharmD Unavailable [phone] Encounter Details Date Type Department Care Team (Latest Contact Info) Description 07/10/2024 Travel Social History Tobacco Use Types Packs/Day Years [...] Info) Description 08/08/2024 1:00 PM EST Telemedicine [facility] MEDICINE [address] [place] [phone] Padmaja Anderson RN 08/20/2024 3:30 PM EDT Medication Management [address] [address] PuiaPoly, PharmD [address] [place] [phone] documented as of this encounter Goals Goal [...] documented as of this encounter Care Teams Supervisor Riveting Relationship Specialty Start Date End Date Glenna Jett DO [address] [place] [phone] PCP - General Family Medicine 05/24/12 Puia, Poly, PharmD [address] [place] [address] [phone] Pharmacist Internal Medicine 07/04/23 documented as of this encounter
--- OUTSIDE RECORDS SUMMARY | 2024-08-01 13:20 | XMS_ITS | Clinical Summary ---
Author Organization [facility] Address [address] [place] [address] Care Team Providers Care Car Escort Name Role Phone Glenna Jett DO Primary Care Provider [phone] PuPoly wasserman PharmD Unavailable [phone] Allergies Active Allergy Reactions Criticality Noted Date Comments Penicillins Nausea Only,Unknown 05/24/2010 Medications Ventolin HFA 108 (90 Base) MCG/ACT inhaler INHALE 2 PUFFS EVERY 4 HOURS DIRECTED 023 Active pantoprazole (ProtoNix) 40 MG EC tablet TAKE 1 TABLET BY MOUTH EVERY MORNING 30-60 MINUTES BEFORE BREAKFAST 023 Active Blood Glucose Monitoring Suppl (FreeStyle Lite) w/Device kitIndications:Typ e 2 diabetes mellitus with mild nonproliferative retinopathy of both eyes, with long-term current use of insulin, macular edema presence unspecified ([facility]) 1 kit 3 times daily. 1 kit 024 Active insulin pen needle (Pentips) 32G x 4 mm miscIndications:Ty pe 2 diabetes mellitus with other specified complication, unspecified whether termite control representative insulin use (CMS/HCC) Use 1 daily for insulin injection 100 each 3 024 Active insulin degludec (Tresiba FlexTouch) 200 UNIT/ML injectionIndicatio ns:Type 2 diabetes mellitus with other specified complication, unspecified whether termite control representative insulin use (CMS/HCC) INJECT 14 UNITS SUBCUTANEOUSLY ONCE DAILY 9 mL 5 024 Active glucose blood (FREESTYLE LITE) test stripIndications:T ype 2 diabetes mellitus with other specified complication, unspecified whether chcf insulin use ([facility]) TEST BLOOD SUGAR THREE TIMES DAILY 100 strip 11 Active TRUEplus Lancets 33G miscIndications:Ty pe 2 diabetes mellitus with other specified complication, unspecified whether chcf insulin use ([facility]) Use to test blood sugar 3 times daily as directed 100 each 11 Active loratadine (Claritin) 10 MG tablet TAKE 1 TABLET BY MOUTH EVERY MORNING 90 tablet 3 Active Mometasone Furoate (Asmanex HFA) 100 MCG/ACT aerosol Inhale 1 puff 2 times daily. 13 g 11 Active naloxone (Narcan) 4 mg/0.1 mL nasal sprayIndications:C hronic bilateral low back pain with left-sided sciatica Administer 1 spray (4 mg) into affected nostril(s) if needed for opioid reversal. May repeat every 2-3 minutes if needed, alternating nostrils, until medical assistance becomes available. 2 each 3 024 02/18 Active empagliflozin-metF ORMIN (Synjardy) 12.5-1000 MG Take 1 tablet by mouth with breakfast and with evening meal. 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 ROTATE INJECTION SITES. 3 mL 3 024 Active traZODone (Desyrel) 50 MG tabletIndications: Insomnia, unspecified type TAKE 1 TABLET BY MOUTH AT BEDTIME 30 tablet 5 025 Active gabapentin (Neurontin) 400 MG capsule TAKE 1 CAPSULE BY MOUTH THREE TIMES DAILY IN THE MORNING, EVENING, AND BEDTIME 90 capsule 025 Active Aspirin Low Dose 81 MG EC tabletIndications: Other hyperlipidemia TAKE 1 TABLET BY MOUTH EVERYDAY AT NOON 90 tablet 1 025 Active cholecalciferol VITAMIN D (Vitamin D-3) 50 MCG (1999 UT) tablet Take 1 tablet by mouth in the morning. 024 Active ezetimibe (Zetia) 10 MG tabletIndications: Type 2 diabetes mellitus with other specified complication, unspecified whether chcf insulin use ([facility]),Other hyperlipidemia Take 1 tablet (10 mg) by mouth at bedtime. 90 tablet 3 025 07/10 Active atorvastatin (Lipitor) 80 MG tabletIndications: Type 2 diabetes mellitus with other specified complication, unspecified whether termite control representative insulin use ([facility]),Other hyperlipidemia Take 1 tablet (80 mg) by mouth at bedtime. 90 tablet 3 025 Active lisinopril 2.5 MG tabletIndications: Type 2 diabetes mellitus with other specified complication, unspecified whether chcf insulin use ([facility]),[facility] l hypertension Take 1 tablet (2.5 mg) by mouth Once per day. 90 tablet 3 025 Active oxybutynin XL (Ditropan-XL) 5 MG 24 hr tablet TAKE 1 TABLET BY MOUTH EVERY MORNING 30 tablet 5 025 Active baclofen (Lioresal) 20 MG tablet baclofen 20 mg tablet TAKE 1 TABLET BY MOUTH THREE TIMES DAILY NEEDED FOR MUSCLE SPASMS / FOR PAIN 022 07/09 Discontinued( Med list cleanup (will not trigger notification to Pharmacy)) SM Fiber Laxative 500 MG tablet TAKE 1 TABLET BY MOUTH EVERY MORNING GLASS OF WATER 023 07/10 Discontinued( Med list cleanup (will not trigger notification to Pharmacy)) senna (Senokot) 8.6 MG tablet TAKE 2 TABLETS BY MOUTH EVERY DAY AT BEDTIME FOR CONSTIPATION 023 07/10 Discontinued( Med list cleanup (will not trigger notification to Pharmacy)) sucralfate (Carafate) 1 g tablet Take 1 g by mouth at bedtime. 023 07/09 Discontinued( Med list cleanup (will not trigger notification to Pharmacy)) Bisacodyl EC 5 MG EC tablet TAKE 2 TABLETS BY MOUTH AT NOON ON DAY BEFORE DE LA COLONOSCOPY 023 07/09 Discontinued( Med list cleanup (will not trigger notification to Pharmacy)) acetaminophen (Tylenol 8 Hour) 650 MG ER tablet TAKE 1 TABLET BY MOUTH EVERY 8 HOURS NEEDED FOR PAIN OR FEVER 022 07/10 Discontinued( Med list cleanup (will not trigger notification to Pharmacy)) calcium carbonate (Os-Dilip) 1250 (500 Ca) MG chewable tablet CHEW 1 TABLET BY MOUTH TWICE DAILY 07/10 Discontinued( Med list cleanup (will not trigger notification to Pharmacy)) atorvastatin (Lipitor) 80 MG tabletIndications: Type 2 diabetes mellitus with other specified complication, unspecified whether termite control representative insulin use ([facility]) Take 1 tablet (80 mg) by mouth at bedtime. 90 tablet 3 024 07/10 Discontinued( Reorder (will not trigger notification to Pharmacy)) ezetimibe (Zetia) 10 MG tabletIndications: Type 2 diabetes mellitus with other specified complication, unspecified whether termite control representative insulin use ([facility]) Take 1 tablet (10 mg) by mouth at bedtime. 90 tablet 3 024 07/10 Discontinued( Reorder (will not trigger notification to Pharmacy)) lisinopril 2.5 MG tabletIndications: Type 2 diabetes mellitus with other specified complication, unspecified whether termite control representative insulin use ([facility]) Take 1 tablet (2.5 mg) by mouth in the morning. 90 tablet 3 024 07/10 Discontinued( Reorder (will not trigger notification to Pharmacy)) Aspirin Low Dose 81 MG EC tabletIndications: Other hyperlipidemia TAKE 1 TABLET BY MOUTH EVERYDAY AT NOON 90 tablet 1 024 07/08 Discontinued oxybutynin XL (Ditropan-XL) 5 MG 24 hr tablet TAKE 1 TABLET BY MOUTH EVERY MORNING 30 tablet 5 024 07/30 Discontinued Antacid/Antigas 400-400-40 MG/10ML oral suspension TAKE 5 MLS POR V A ORAL 5X A DAY NEEDED FOR DYSPEPSIA ADMINISTER BETWEEN MEALS AND AT BEDTIME 024 07/10 Discontinued( Med list cleanup (will not trigger notification to Pharmacy)) Dulaglutide (Trulicity) 4.5 MG/0.5ML solution auto-injector INJECT ONE PEN (= 4.5MG) SUBCUTANEOUSLY ONCE A WEEK DIRECTED 07/10 Discontinued( Med list cleanup (will not trigger notification to Pharmacy)) fluticasone (Flovent) 44 MCG/ACT inhaler Inhale 2 puffs in the morning and at bedtime. Rinse mouth with water after use to reduce aftertaste and incidence of candidiasis. Do not swallow. 10.6 g 11 024 07/10 Discontinued( Therapy completed) gabapentin (Neurontin) 400 MG capsule TAKE 1 CAPSULE BY MOUTH THREE TIMES DAILY IN THE MORNING, EVENING, AND BEDTIME 90 capsule 025 07/08 Discontinued traMADol (Ultram) 50 MG tabletIndications: Chronic bilateral low back pain with left-sided sciatica Take 1 tablet (50 mg) by mouth every 8 (eight) hours if needed for severe pain for up to 7 days. 21 tablet 025 07/05 Active Problems Problem Noted Date Diagnosed Date Irritable bowel syndrome 10/03/2023 Fatty liver 10/03/2023 Assessment & Plan (10/03/2023 2:59 PM EDT): -abd US with echogenic liver, no focal lesion or ductal dilitation FEB 2021 -LFTs and AFPs nml SEP 2022, repeat next visit -Hep A/B immune Healthcare maintenance 10/03/2023 Assessment & Plan (10/03/2023 3:03 PM EDT): -s/p flu vaccine AUG 2022 -she declines COVID vaccine -encouraged RSV vaccine -s/p Tdap Jan 2014 -s/p pneumovax AUG 2022 -s/p prevnar JAN 2021 -s/p zoster vaccine MAY 2015 -s/p shingrix #1 -Hep A/B immune -mammo BIRADS 13 JUL 2023 -DEXA with osteopenia AUG 2022 -pap wnl/HPV neg MAR 2017 -colonoscopy with tubular adenomas and hyperplastic polyps JAN 2017, repeat scheduled JAN 2024 -STI/HIV screen negative OCTOBER 2017 History of actinic keratosis 10/25/2022 Assessment & Plan (10/03/2023 3:00 PM EDT): s/p cryotherapy OCTOBER 2022 -f/u w/ derm as scheduled, due JUN 2024 Assessment & Plan (10/25/2022 11:56 AM EDT): S/p cryotherapy with appropriate response. No evidence of super infection. Advised to seek medical attention for increased pain swelling, redness, fever or other concern. [employer]IMMING [employer] and pt agree with the plan. Gastroparesis 08/30/2022 Diabetic peripheral neuropathy 08/30/2022 Assessment & Plan (10/03/2023 3:03 PM EDT): -EMG/NCS with moderate chronic axonal sensory motor peripheral neuropathy MAR 2020 -cont gabapentin TID -she is intolerant of amitriptyline Diabetic retinopathy 08/30/2022 Chronic low back pain 08/30/2022 Assessment & Plan (10/03/2023 3:01 PM EDT): With intermittent flaring -MRI L-spine w/ bulging disc at L4-L5 w/ possible compression of left L5 nerve root NOV 2021 -L-spine XR w/ mild DDD OCTOBER 2016 -EMG/NCS w/ moderate chronic axonal sensory motor peripheral neuropathy MAR 2020 -cont baclofen to help with mm spasm -encouraged standing doses of tylenol -cont tramadol for severe pain control -cont lidocaine as needed -she continues to declines eval w/ PT, PM, or ortho at this time -advised contact [facility] if sx worsen Urinary incontinence 08/30/2022 Assessment & Plan (10/03/2023 3:00 PM EDT): -cont ditropan daily Chronic kidney disease 08/19/2015 Hyperlipidemia 08/19/2015 Assessment & Plan (10/03/2023 2:58 PM EDT): Slight bump in LDL SEP 2022 -cont lipitor and zetia as prescribed -check lipids as not completed with fasting labs Chronic constipation 05/19/2015 Chronic pain syndrome 05/19/2015 Vitamin B12 deficiency 05/19/2015 Essential hypertension 05/19/2015 Assessment & Plan (10/03/2023 2:58 PM EDT): BP controlled -cont lisinopril daily -Cr/GFR nml MAY 2023 and urine microalbumin wnl SEP 2022 -there is EKG in chart -optho as above Fibromyalgia 05/19/2015 Assessment & Plan (10/03/2023 3:03 PM EDT): With chronic pain -cont gabapentin TID -encouraged tylenol and baclofen prn -encouraged trial of acupuncture Chronic gastroesophageal reflux disease 05/19/20 15 Generalized osteoarthritis 05/19/2015 Mild cognitive disorder 05/19/2015 Mild persistent asthma 05/19/2015 Assessment & Plan (10/03/2023 3:03 PM EDT): Sx controlled -change flovent to asmanex BID -cont albuterol as needed Osteopenia 05/19/2015 Major depression, recurrent, chronic 05/19/2015 Assessment & Plan (10/03/2023 3:03 PM EDT): -she denies any current SI/HI -she has the number for crisis and contracts for safety -cont zoloft daily -cont trazodone nightly -f/u with therapist as scheduled Type 2 diabetes mellitus 05/19/2015 Assessment & Plan (10/03/2023 2:57 PM EDT): A1c significantly improved -cont dietary changes -cont trulicity weekly -cont tresiba, jardiance, and metformin as rx'd -cont regular BS monitoring -f/u with [facility] pharmacist as scheduled -cont aspirin, statin and lisinopril daily -s/p optho eval JUN 2023 at [facility] -f/u w/ retinal specialist as scheduled -foot exam next visit* Resolved Problems Problem Noted Date Diagnosed Date Resolved Date Hip pain 08/30/2022 08/30/2022 Left hemiparesis 08/30/2022 08/30/2022 Pain in left arm 08/30/2022 08/30/2022 Encounters Date Type Department Care Team Description 07/28/2024 Refill [facility] MEDICINE [address] [place] [address] Glenna Jett DO 07/25/2024 Telephone [facility] MEDICINE [address] [place] [address] Glenna Jett DO Appointment Request 07/10/2024 Travel 07/07/2024 Refill [facility] [address] [place] [address] Glenna Jett DO Other hyperlipidemia 07/06/2024 Refill [facility] [address] [place] [address] Roberto Torres MD 06/29/2024 Refill [facility] MEDICINE [address] [place] [address] Glenna Jett DO Insomnia, unspecified type 06/26/2024 Refill [facility] MEDICINE [address] [place] [address] Glenna Jett DO Chronic bilateral low back pain with left-sided sciatica 06/21/2024 11:00 AM EST Office Visit [facility] [address] [place] [address] Lilian Joiner MD Seborrheic keratoses (Primary Dx) 06/21/2024 Travel 06/13/2024 Refill [facility] [address] [place] [address] Glenna Jett DO 06/06/2024 Refill [facility] [address] [place] [address] Glenna Jett DO 06/03/2024 Refill [facility] [address] [place] [address] Glenna Jett DO 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, with long-term current use of insulin, macular edema presence unspecified ([facility]) 05/27/2024 Refill [facility] [address] [place] [address] Maliha Glenna, DO 05/13/2024 Refill [facility] [address] [place] [address] Maliha Glenna, DO 05/06/2024 Travel from Last 3 Months Immunizations Name Administration Dates Next Due Hep B, adult 02/06/2012,04/05/2011,02/24/2011 Influenza injectable quadriv alent IIV4 with preservative 03/15/2018,04/27/2016 Influenza injectable quadriv alent preservative free 08/30/2022,07/23/2021,04/07/2017,05/19 Influenza, High Dose Seasona l, Preservative Free 03/06/2024 Influenza, IIV3, injectable 03/14/2014, 1 Influenza, Split (incl. handy fied surface antigen) 02/06/2012 Pneumococcal Conjugate PCV 13 01/13/2021 Pneumococcal Polysaccharide PPSV23 08/30/2022, RSV Bivalent 07/10/2024 TD (adult), 2 Lf tetanus tox oid, preservative free, adsorbed 01/01/2009 Tdap 01/30/2014 Zoster, Recombinant 10/18/2021 Zoster, live 05/19/2015 Family History Medical History Relation Name Comments Diabetes Brother HIV Brother Hypertension Brother Prostate cancer Brother Alzheimer's disease Mother Coronary artery disease Mother Hypertension Mother Kidney disease Mother Asthma Mother's Sister Diabetes Sister Hypertension Sister Relation Name Status Comments Brother Mother Mother's Sister Sister Social History Tobacco Use Types Packs/Day Years Used Date Smoking Tobacco: Former Cigarettes Smokeless Tobacco: Never Tobacco Cessation:Counseling Given: Not Answered Depression Answer Date Recorded Patient Health Questionnaire-9 [...] the past 12 months, has t he [employer], gas, oil or water company threatened to shut off services in your home? No 09/22/2023 Depression Answer Date Recorded Patient Health Questionnaire-2 Score 2 02/06/2024 Comments Unknown Sex and Gender Information Value Date Recorded Sex Assigned at Female 04/11/2022 10:16 AM EDT Legal Sex Female 10:16 AM EDT Gender Identity Female 04/11/2022 10:16 AM EDT Sexual Orientation Straight 04/11/2022 10 :16 AM EDT Last Filed Vital Signs Vital Sign Reading Time Taken Comments Blood Pressure 130/70 06/21/2024 11:12 AM EST Pulse 72 06/21/2024 11:12 AM EST Temperature 36.6 ??C (97.8 ??F) 06/21/2024 1 1:12 AM EST Respiratory Rate 18 06/21/2024 11:1 2 AM EST Oxygen Saturation 98% 06/21/2024 11: 12 AM EST Inhaled Oxygen Concentration - - Weight 75.7 kg (166 lb 12.8 oz) 025 11:12 AM EST Height 160 cm (5' 3 ) 02/06/2024 11:56 AM EDT Body Mass Index 29.55 02/06/2024 11:56 AM EDT Plan of Treatment Upcoming Encounters Date Type Department Care Team (Late st Contact Info) Description 08/08/2024 1:00 PM EST Telemedicine [facility] MEDICINE [address] [place] [id number] Padmaja Anderson, RN 08/20/2024 3:30 PM EDT Medication Management [facility] MEDICINE [address] [place] [id number] Poly Diaz PharmD [address] [place] [address] Health Maintenance Due Date Last Done Comments CT Colonography 1955 FIT DNA/Cologuard 1955 FIT 1955 FOBT 1955 Sigmoidoscopy 1955 Diabetes: Foot Exam 08/27/1963 Alcohol/Substance Use Screening 1965 Hepatitis C Screening 08/27/1971 Hepatitis A Vaccines (1 of 2 - Risk 2-dose series) 1972 Dental X-Ray: Bitewings 11/11/2009 11/10/2008 Dental Prophylaxis 07/02/2011 12/29/2010 Zoster Vaccines (3 of 3) 12/13/2021 10/18/2021, 01/2015 Colonoscopy 02/06/2022 02/06/2017 Colorectal Cancer Screening 02/06/2022 Lipid Panel 09/01/2023 08/31/2022, 09/2020, 08/24/2020, Additional history exists DTaP/Tdap/Td Vaccines (2 - Td or Tdap) 01/31/2024 01/30/2014, 01/01/2009 COVID-19 Vaccine ( season) 2024 06/15/2021, 09/04/2020, 08/07/2020 SDOH Screening 09/21/2024 09/22/2023 Dental Oral Exam 09/27/2024 03/28/2024, , 02/10/2016, Additional history exists Diabetes: Hemoglobin A1C 10/08/2024 025, 02/06/2024, 10/03/2023, Additional history exists Diabetes: Urine Protein Screening 10/12/2024 10/13/2023, 08/31/2022, 07/22/2021, Additional history exists Eye Exam 01/08/2025 01/09/2024, 12/12, 01/09/2024, Additional history exists Depression Screening 02/05/2025 02/06/2024, 02/06/20 24 Tobacco Screening 06/21/2025 06/21/2024 Mammogram 07/27/2025 07/27/2023, 03/13, 03/31/2022, Additional history exists Dental X-Ray: Full Mouth 03/29/2027 024, 05/23/2014, 11/10/2008 Hepatitis B Vaccines Completed 02/06/2012, 04/05/2011, 02/24/2011 Pneumococcal Vaccine: 50+ Years Completed 08/30/2022, 01/13/2021, 01/01/2009 Influenza Vaccine Completed 03/06/2024, , 07/23/2021, Additional history exists RSV Patients and Patients Aged 60 years or older Completed 07/10/2024 HIB Vaccines Aged Out No longer eligi ble based on patient's age to complete this topic HPV Vaccines Aged Out No longer eligi ble based on patient's age to complete this topic IPV Vaccines Aged Out No longer eligi ble based on patient's age to complete this topic Meningococcal Vaccine Aged Out No katiana joshua eligible based on patient's age to complete this topic RSV under 20 months Aged Out No longe r eligible based on patient's age to complete this topic Rotavirus Vaccines Aged Out No longer eligible based on patient's age to complete this topic Goals Goal Patient Goal Type Associated Problems Recent Progress Patient-Stated? 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, with long-term current use of insulin, macular edema presence unspecified ([facility]) PANORAMIC RADIOGRAPHIC IMAGE Routine 03/28/2024 2:30 PM EDT PERIODIC ORAL EVALUATION - ESTABLISHED PATIENT Routine 03/28/2024 2:30 PM EDT ALBUMIN, RANDOM URINE W/CREATININE Routine 10/13/2023 8:56 AM EDT BI MAMMOGRAM SCREENING TOMOSYNTHESIS BILATERAL Routine 07/27/2023 12:51 PM EST LIPID PANEL, STANDARD Routine 08/31/2022 8:32 AM EDT 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, without long-term current use of insulin, macular edema presence unspecified ([facility]) HM COLONOSCOPY Routine 02/06/2017 11:20 AM EDT PROPHYLAXIS - ADULT Routine 12/29/2010 1 2:00 AM EDT INTRAORAL - COMPLETE SERIES OF RADIOGRAPHIC IMAGES Routine 11/10/2008 12:00 AM EDT from Last 3 Months or Most Recently Relevant to Health Maintenance Results * (ABNORMAL) POCT HGB A1C (07/10/2024 3:32 PM EST) Hemoglobin A1C 8.0(A) 4.0 - 6.0 % QC Media Lot # [id number] Blood 07/10/2024 3:32 PM EST Glenna Jtet DO POINT OF CARE TEST ENTER/KULDEEP T ORDERABLES Final Result * Albumin, Random Urine W/Creatinine (10/13/2023 8:56 AM EDT) Creatinine, Urine 120.87 mg/dL [facility] Microalbumin Urine 10.0 mg/L [facility] Microalbum Creatinine Ratio Ur 8.2 <30 ug/mg cr [facility] Comment:Albumin/Creatinine R atio Reference Ranges: Normal: < 30 ug/mg creatinine Microalbuminuria: 30 - 300 ug/mg creatinineClinical Albuminuria: > 300 ug/mg creatinine 10/13/2023 8:56 AM EDT 10/13/2023 11:21 AM EDT us Glenna Jett DO LAB URINE ORDERABLES Final R esult [facility] [address] [place] [phone] * BI Mammogram Screening Tomosynthesis Bilateral (07/27/2023 12:51 PM EST) Anatomical Region Laterality Modality Breast Bilateral Mammography 07/27/2023 12:5 1 PM EST Narrative 08/20/2023 8:14 AM EDT ? [place] [facility] ? [address] ?[place] [address] ? Mammography Report ? Signed ? Patient: Cormier Pearson,Violetta ?MR#: ?? [id number] ? : 1955 ?Acct:[id number] ? Age/Sex: 67 / F ?ADM Date: 07/27/23 ? Loc: HO.MAMMO ? Attending Dr: Glenna Jett DO ? Ordering Physician: Glenna Jett DO ?Results: 1N ?? egative ? Date of Service: 07/27/23 ?Follow Up: 1 Year From Orig ?? inal Mammogram ? Procedure(s): MM tomosynthesis screening BI ?? Accession Number(s): [id number] ? cc: Glenna Jett DO ? EXAMINATION: ?? MM SCREENING DIGITAL BREAST TOMOSYNTHESIS, BILATERAL ? CLINICAL INFORMATION: ? Screening. Asymptomatic. ? COMPARISON: ?? Mammography: This study is compared with prior exams dating back to ?? 2018. ? TECHNIQUE: ?? Digital breast tomosynthesis is performed in both the craniocaudal and ?? mediolateral oblique views along with computer-aided detection (CAD). ?? Synthesized 2D images are generated from the tomosynthesis. ? FINDINGS: ?? The breasts are almost entirely fatty (ACR BI-RADS breast composition ?? Category a). ? There are no significant masses, abnormal calcifications, or other ?? abnormalities. ? MM/MM tomosynthesis screening BI ?? IMPRESSION: ?? No mammographic evidence of malignancy. ? ASSESSMENT: ? BI-RADS BI-RADS 1 - Negative ? RECOMMENDATION: ?? Routine annual mammography screening. ? 1 year F/U ? This examination should not preclude the clinical evaluation of a ?? suspicious palpable abnormality. ? This patient's information was entered into a reminder system with a ?? target due date for their next mammogram. ? Dictated By: ?Vesna Redmond MD ? Signed By: ?<Electronically signed by Vesna Redmond MD in OV> ? 08/20/23809 ? DD/ 1251 ? TD/TT: ? Case Mgr: ? Procedure Note Jesus, Sangeeta - 08/20/2023 [facility] [address] [place] [address] Mammography Report Signed Patient: Violetta Camarillo#: [id number] : 4Acct:[id number] Age/Sex: 67 / FADM Date: 07/27/23 Loc: HO.MAMMO Attending Dr: Glenna Jett DO Ordering Physician: Glenna Jettults: 1N egative Date of Service: 07/27/23Follow Up: 1 Year From Orig inal Mammogram Procedure(s): MM tomosynthesis screening BI Accession Number(s): [id number] cc: Glenna Jett DO EXAMINATION: MM SCREENING DIGITAL BREAST TOMOSYNTHESIS, BILATERAL CLINICAL INFORMATION: Screening. Asymptomatic. COMPARISON: Mammography: This study is compared with prior exams dating back to 2019. TECHNIQUE: Digital breast tomosynthesis is performed in both the craniocaudal and mediolateral oblique views along with computer-aided detection (CAD). Synthesized 2D images are generated from the tomosynthesis. FINDINGS: The breasts are almost entirely fatty (ACR BI-RADS breast composition Category a). There are no significant masses, abnormal calcifications, or other abnormalities. MM/MM tomosynthesis screening BI IMPRESSION: No mammographic evidence of malignancy. ASSESSMENT: BI-RADS BI-RADS 1 - Negative RECOMMENDATION: Routine annual mammography screening. 1 year F/U This examination should not preclude the clinical evaluation of a suspicious palpable abnormality. This patient's information was entered into a reminder system with a target due date for their next mammogram. Dictated By: Vesna Redmond MD Signed By: <Electronically signed by Vesna Redmond MD in [place]> 08/20/23 0810 DD/ 1251 TD/TT: Case Mgr: us Glenna Jett DO IMG BI PROCEDURES Edited Res ult - Final * Lipid Panel, Standard (08/31/2022 8:32 AM EDT) Cholesterol, Total 165 <200 mg/dL [facility] HDL Cholesterol 62 > OR = 50 mg/dL [facility] Triglycerides 135 <150 mg/dL [facility] LDL Cholesterol 80 mg/dL (calc) [facility] Comment: Reference range: <100 Desirable range <100 mg/dL for primary prevention; ?? <70 mg/dL for patients with CHD or diabetic patients with > or = 2 CHD risk factors. LDL-C is now calculated using the Bandar-Deon calculation, which is a validated novel method providing better accuracy than the Friedewald equation in the estimation of LDL-C. Bandar KOROMA et al. COLBY. 2013;310(19): 7784-8496 (http://education.[employer].Brightleaf/faq/XND761) Chol/HDLC Ratio 2.7 <5.0 (calc) [facility] Non-HDL Cholesterol 103 <130 mg/dL (calc) [facility] Comment: For patients with diabetes plus 1 major ASCVD risk factor, treating to a non-HDL-C goal of <100 mg/dL (LDL-C of <70 mg/dL) is considered a therapeutic option. Blood Venous blood specimen / Unknown 08/31/2022 8:32 AM EDT 08/31/2022 8:32 AM EDT Narrative [facility] - 09/03/2022 7:08 PM EDT FASTING:YES FASTING: YES Glenna Jett DO LAB BLOOD ORDERABLES Final R esult [facility] [address], [place] [address] [facility] [address] [place] [address] * Hm Colonoscopy (02/06/2017 11:20 AM EDT) Historical Provider MD HEALTH MAINTENANCE Final Result from Last 3 Months or Most Recently Relevant to Health Maintenance Insurance - [facility] - [facility] Advance Directives Documents on File Type Date Recorded 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
--- OUTSIDE RECORDS SUMMARY | 2024-08-01 13:20 | XMS_ITS | Data Portability ---
Author Organization [place] - [employer] Address [address] [place] [address] Care Team Providers Care Data Recovery Planner Name Role Phone [facility] Referring Provider HIM CCA OTHER Assessment Encounter Date Assessment Date Assessment LastModified by Organization Details LastModified Time 08/04/2022 08/04/2022 Called to lauri sharma 66 y/o f w DMII, HTN who c/o URI sxs. Pt reports onset of sore throat and left eye pain x 1 day. Also notes associated right ear pain, denies change in hearing or any other associated symptoms. VSS Eye: left, slight erythema and purulent drainage Ear: right, tragus/auricle tender to attach, significant erythema in canal w/o narrowing Pharynx: erythematous w/o exudate Rapid COVID - Rapid strep- Allergy: PCN Clinical presentation c/w viral URI c/b conjunctivitis and otitis externa. Plan to treat accordingly. Discussed the contagious nature of conjunctivitis and measures to decrease spread. Alarm signs reviewed, advised to call 911 if onset. Care team, please f/u w member in 2-3 days. [email or web address] Not available 08/04/2022 14:11:20 04/14/2023 04/14/2023 I provided real -time medical direction via phone for this encounter, and was available for additional phone based assistance as needed. I have reviewed and agree with the Assessment and Plan as documented by the Senior Vice President And Chief Information Officer. Patient given the opportunity to ask questions. as per above, patient with flank pain and and has CVA tenderness. CVA tenderness is worse on the right. Has never had a UTI per family. She has low-grade temp but feels unwell. She has urinary symptoms but UA is negative. She is nontoxic on exam and has no hypertension. Please see pictures of UA. Will send for urine culture and treat empirically for pyelonephritis. May benefit from another visit from us and close PCP follow-up. We discussed the diagnostic uncertainty of home visits and the risk associated with this. In this case, the patient and I felt this to be an acceptable and reasonable amount of risk given the benefit of avoiding an ED visit. We discussed the need to seek care urgently/emergentl y in the setting of any new or worsening serious symptoms, particularly fever chills lightheadedness altered mental status [email or web address] Not available 04/14/2023 20:51:55 12/23/2023 12/23/2023 I have reviewed and agree with the assessment and plan as documented by the biblical languages professor. I provided real time medical direction for this encounter and was immediately available to provide additional phone based assistance as needed. History as noted by biblical languages professor. Pt with history of DM2 and gastritis. She reports the onset of epigastric pain with nausea and NB vomiting last evening. She describes the abdominal pain as a band with some radiation into her back. She reports at least 6 episodes of vomiting. No diarrhea, fevers or chills. Of note, pt reports that she has been diagnosed with gastritis in the past and has been prescribed carafate for this which she has not yet started taking. She reports that her current symptoms feel similar to gastritis but much worse . She denies any prior history of abdominal surgery. On exam, pt appears uncomfortable. Vitals normal. Abdomen soft with moderate epigastric tenderness, pt grimacing during exam. Impression: Pt with nausea and multiple episodes of NB vomiting with epigastric pain since last evening. Vitals are normal but pt noted to have moderate tenderness with palpation of epigastrium. Pt's symptoms may be d/t exacerbation of her gastritis but given her degree of pain and tenderness, I feel that she needs urgent abdominal imaging in the ED to r/o biliary colic or other pathology, as well as treatment of her symptoms. Pt and family agree to ambulance transport to [facility] ED for evaluation. I call an expect to the [place] [facility] library sales consultant as well. Just prior to transport, the pt reported to the medic that she had forgotten, but did have a cholecystectomy in the past. [email or web address] Not available 12/23/2023 14:54:08 Plan of Treatment Reminders Order Date Submit Date Provider Last Modified By Organization Details Last Modified Time Details Appointments None recorded. Lab culture, urine 2022 023 [place] [facility], [address] [place], [id number], 3 06:44:22 urinalysis, dipstick 2022 023 [facility], [address] [place] [address], [id number], 3 20:58:27 rapid SARS CoV 2 Ag, QL IA, respiratory specimen 2022 023 [facility], [address] [place] [address], [id number], 3 11:57:43 rapid strep group A, throat 2022 023 [facility], [address] [place] [address], [id number], 3 11:57:17 Referral None recorded. Procedures None recorded. Surgeries None recorded. Imaging None recorded. Medication Orders levofloxaci n 500 mg tablet 2022 023 [id number], [address] [place], [address], 3 20:51:49 albuterol sulfate HFA 90 mcg/actuati on aerosol inhaler 2022 023 [facility], [address] [place] [address], [id number], 3 15:21:37 ciprofloxac in 0.3 % eye drops 2022 023 [facility], [address] [place] [address], [id number], 3 14:21:11 Cipro HC 0.2 %-1 % ear drops,suspe nsion 2022 023 [facility], [address] [place] [address], [id number], 14:21:11 Patient TargetsNo targets recorded. Patient InstructionsNo instructions recorded. Reason for Referral None Reported. Results Created Date Observation Date Name Description Value Unit Range Abnormal Flag Note LastModifiedBy Organization Detail LastModifiedTime 04/14/2004/14/2023 URINE CULTU RE specimen description URINE Not Available [facility] [address] [place], [id number], 04/16/2023 06:44:21 04/14/2004/14/2023 URINE CULTU RE special requests NONE Not Available [facility] [address], [address], 04/16/2023 06:44:21 04/14/2004/16/2023 URINE CULTU RE culture NO GROWTH Not Available [facility] [address] [place], [address], 04/16/2023 06:44:21 04/14/2004/16/2023 URINE CULTU RE report status FINAL 2022 Not Available [facility] [address] [place], [id number], 04/16/2023 06:44:21 Result Notes None recorded. Medical Equipment None Reported. Allergies Allergen ID Allergen Name Allergen Category Reaction Reaction Severity Criticality Documentation Date Start Date Code Code System Note Provider Name and Address Organization Details Recorded Time 7617 Product containin g penicilli n (product) medicatio n Not available Not available Not available 04/09/2024 85888 8001 SNOMED Not Available [facility] - production 03:38:40 Medications Name Sig Start Date Stop Date Status Note LastModified by Organization Details LastModified Time medbox status USE DIRECTED active Not Available Not Available No t Available atorvastatin 80 mg tablet TAKE 1 TABLET BY MOUTH AT BEDTIME active Not Available Not Available No t Available trazodone 50 mg tablet TAKE 1 TABLET BY MOUTH AT BEDTIME active Not Available Not Available No t Available senna 8.6 mg tablet TAKE 2 TABLETS BY MOUTH EVERY DAY AT BEDTIME active Not Available Not Available No t Available sucralfate 1 gram tablet TAKE 1 TABLET BY MOUTH AT BEDTIME active Not Available Not Available No t Available ondansetron HCl 4 mg tablet TOME GAY TABLETA TODOS LOS D CUANDO SEA NECESARIO PARA LAS N USEAS Y EL V MAXIME active Not Available Not Available No t Available gabapentin 400 mg capsule TAKE 1 CAPSULE BY MOUTH THREE TIMES DAILY IN THE MORNING, EVENING, AND BEDTIME active Not Available Not Available Not Available sertraline 100 mg tablet TAKE 1 AND 1/2 TABLETS BY MOUTH IN THE MORNING active Not Available Not Available Not Available metformin 850 mg tablet TAKE 1 TABLET BY MOUTH TWICE DAILY IN THE MORNING AND IN THE EVENING WITH FOOD active Not Available Not Available No t Available cyanocobalam in (vit B-12) 1,000 mcg tablet TAKE 1 TABLET BY MOUTH EVERY MORNING active Not Available Not Available No t Available omeprazole 40 mg capsule,isela yed release TAKE 1 CAPSULE BY MOUTH EVERY MORNING active Not Available Not Available No t Available aspirin 81 mg tablet,delay ed release TAKE 1 TABLET BY MOUTH EVERYDAY AT NOON active Not Available Not Available No t Available tramadol 50 mg tablet TAKE 1 TABLET BY MOUTH EVERY 8 HOURS NEEDED FOR SEVERE PAIN active Not Available Not Available Not Available acetaminophe n ER 650 mg tablet,exten ded release TAKE 1 TABLET BY MOUTH EVERY 8 HOURS NEEDED FOR PAIN OR FEVER active Not Available Not Available No t Available baclofen 20 mg tablet TAKE 1 TABLET BY MOUTH THREE TIMES DAILY NEEDED FOR MUSCLE SPASMS / FOR PAIN active Not Available Not Available No t Available metocloprami de 5 mg tablet TAKE 1 TABLET BY MOUTH FOUR TIMES DAILY 30 MINUTES BEFORE MEALS AND AT BEDTIME active Not Available Not Available N ot Available ciprofloxaci n 0.3 % eye drops INSTILL 1 DROP IN THE LEFT EYE EVERY 2 HOURS WHILE AWAKEFOR 2 DAYS, THEN EVERY 4 HOURS WHILE AWAKE FOR 5 DAYS active Not Available Not Available No t Available pantoprazole 40 mg tablet,delay ed release TAKE 1 TABLET BY MOUTH EVERY MORNING (1/2 HOUR BEFORE BREAKFAST) active Not Available Not Available N ot Available docusate sodium 100 mg capsule TAKE 1 CAPSULE BY MOUTH TWICE DAILY NEEDED active Not Available Not Available No t Available oxybutynin chloride ER 5 mg tablet,exten ded release 24 hr TAKE 1 TABLET BY MOUTH EVERY MORNING active Not Available Not Available No t Available bisacodyl 5 mg tablet,delay ed release TAKE 2 TABLETS BY MOUTH AT NOON ON DAY BEFORE DE LA COLONOSCOPY active Not Available Not Available Not Available Cipro HC 0.2 %-1 % ear drops,suspen pankaj INSERT 3 DROPS IN THE RIGHT EAR EVERY TWELVE HOURS FOR 7 DAYS active Not Available Not Available No t Available levofloxacin 500 mg tablet TOME GAY TABLETA POR V A ORAL EVERY 24 HOURS POR 10 D active Not Available Not Available No t Available Vitamin D2 1,250 mcg (50,000 unit) capsule TAKE 1 CAPSULE BY MOUTH ONCE WEEKLY ON Monday active Not Available Not Available No t Available fluticasone propionate 50 mcg/actuatio n nasal spray,suspen pankaj USE 2 SPRAYS IN EACH NOSTRIL ONCE DAILY active Not Available Not Available N ot Available lisinopril 2.5 mg tablet TAKE 1 TABLET BY MOUTH EVERYDAY AT NOON active Not Available Not Available No t Available loratadine 10 mg tablet TAKE 1 TABLET BY MOUTH EVERY MORNING active Not Available Not Available No t Available Ventolin HFA 90 mcg/actuatio n aerosol inhaler INHALE 2 PUFFS EVERY 4 HOURS DIRECTED active Not Available Not Available No t Available oxycodone 5 mg tablet TOME GAY TABLETA DOS VECES AL D A CUANDO SEA NECESARIO PARA EL DOLOR active Not Available Not Available No t Available ezetimibe 10 mg tablet TAKE 1 TABLET BY MOUTH EVERY EVENING active Not Available Not Available No t Available Alcohol Prep Pads USE THREE TIMES DAILY DIRECTED active Not Available Not Available Not Available Antacid 200 mg (as calcium carbonate 500 mg) chewable tablet CHEW 1 TABLET BY MOUTH TWICE DAILY active Not Available Not Available No t Available Flovent HFA 110 mcg/actuatio n aerosol inhaler INHALE 1 PUFF BY MOUTH TWICE DAILY RINSE MOUTH AFTER USING. active Not Available Not Available No t Available FreeStyle Lite Strips TEST BLOOD SUGAR THREE TIMES DAILY active Not Available Not Available Not Available FreeStyle [place] Lite kit TEST BLOOD SUGAR THREE TIMES DAILY active Not Available Not Available Not Available diclofenac 1 % topical gel APPLY 2 GRAMS TOPICALLY AFFECTED AREA(S) TWICE DAILY NEEDED FOR PAIN active Not Available Not Available No t Available Fiber Laxative (methylcellu lose) 500 mg tablet TAKE 1 TABLET BY MOUTH EVERY MORNING GLASS OF WATER active Not Available Not Available No t Available cholecalcife rol (vitamin D3) 50 mcg (2,000 unit) tablet TAKE 1 TABLET BY MOUTH EVERY MORNING active Not Available Not Available No t Available Gavilax 17 gram/dose oral powder MIX AND DRINK DIRECTED PER GASTROENTER OLOGY FOR PROCEDURE active Not Available Not Available No t Available Easy Touch Twist Lancets 33 gauge TEST BLOOD SUGAR THREE TIMES DAILY active Not Available Not Available Not Available Jardiance 25 mg tablet TAKE 1 TABLET BY MOUTH EVERY MORNING active Not Available Not Available No t Available Pentips Pen Needle 32 gauge x 5/32 USE DIRECTED ONCE DAILY active Not Available Not Available N ot Available Tresiba FlexTouch U-200 insulin 200 unit/mL (3 mL) subcutaneous pen INJECT 14 UNITS SUBCUTANEOU SLY ONCE DAILY active Not Available Not Available No t Available Trulicity 3 mg/0.5 mL subcutaneous pen injector INJECT ONE PEN (= 3 MG) SUBCUTANEOU SLY ONCE A WEEK DIRECTED active Not Available Not Available No t Available Trulicity 4.5 mg/0.5 mL subcutaneous pen injector INJECT ONE PEN (= 4.5MG) SUBCUTANEOU SLY ONCE A WEEK DIRECTED active Not Available Not Available No t Available Vitals Date Recorded Body temperature Oxygen saturation Oxygen saturation in Arterial blood by Pulse oximetry Heart rate Body height Body weight Respiratory rate Systolic blood pressure Diastolic blood pressure Provider Name and Address Organization Details Last Updated DateTime 3 99.1 [degF] 97 % 97 % 67 /min 160.02 cm 56360.5 6 g 16 /min 155 mm[Hg] 81 mm[Hg] Not Available [facility] [employer] 3 20:09:43 Date Recorded Body temperature Body weight Respiratory rate Heart rate Body height Oxygen saturation Oxygen saturation in Arterial blood by Pulse oximetry Systolic blood pressure Diastolic blood pressure Provider Name and Address Organization Details Last Updated DateTime 4 100.6 [degF] 86371.5 6 g 16 /min 98 /min 160.02 cm 98 % 98 % 124 mm[Hg] 72 mm[Hg] Not Available [facility] [employer] 4 12:15:09 Date Recorded Body height Heart rate Respiratory rate Oxygen saturation Oxygen saturation in Arterial blood by Pulse oximetry Body temperature Systolic blood pressure Diastolic blood pressure Provider Name and Address Organization Details Last Updated DateTime 4 160.02 cm 90 /min 16 /min 96 % 96 % 98.4 [degF] 130 mm[Hg] 80 mm[Hg] Deon Pabon MD [address] [place] [address],[address], [place], [address] [place] - [facility] 4 13:33:27 Date Recorded Heart rate Oxygen saturation Oxygen saturation in Arterial blood by Pulse oximetry Respiratory rate Body temperature Systolic blood pressure Diastolic blood pressure Provider Name and Address Organization Details Last Updated DateTime 4 90 /min 98 % 98 % 16 /min 98.4 [degF] 130 mm[Hg] 80 mm[Hg] Not Available [employer] [facility] [employer] 4 14:31:14 Date Recorded Oxygen saturation Oxygen saturation in Arterial blood by Pulse oximetry Heart rate Body temperature Respiratory rate Oxygen saturation Oxygen saturation in Arterial blood by Pulse oximetry Body temperature Respiratory rate Heart rate Systolic blood pressure Diastolic blood pressure Systolic blood pressure Diastolic blood pressure Provider Name and Address Organization Details Last Updated DateTime 3 97 % 97 % 74 /min 97.3 [degF] 14 /min 97 % 97 % 97.3 [degF] 14 /min 74 /min 127 mm[Hg] 61 mm[Hg] 127 mm[Hg] 61 mm[Hg] Not Available [facility] 3 14:00:01 Date Recorded Oxygen saturation Oxygen saturation in Arterial blood by Pulse oximetry Respiratory rate Heart rate Respiratory rate Oxygen saturation Oxygen saturation in Arterial blood by Pulse oximetry Heart rate Systolic blood pressure Diastolic blood pressure Systolic blood pressure Diastolic blood pressure Provider Name and Address Organization Details Last Updated DateTime 3 98 % 98 % 16 /min 92 /min 16 /min 98 % 98 % 92 /min 146 mm[Hg] 76 mm[Hg] 146 mm[Hg] 76 mm[Hg] Not Available [facility] 3 15:44:23 Social History None recorded. Functional Status None recorded. Mental Status None recorded. Family History Nothing Reported. Medical History No medical history recorded. Gynecological HistoryNo gynecological history recorded. Obstetrics History GPAL:G 0 P 0 0 0 0 Past Encounters Encounter ID Performer Location Encounter Start Date Encounter Closed Date Diagnosis/Indication Diagnosis SNOMED-CT Code Diagnosis ICD10 Code Diagnosis Note [id number] Jose Elias Patel MD [facility] - [facility] [facility] [address] [place] [phone] 03/14/2022 13:29:19 03/17/2022 10:31:54 Fever [id number] R50.9 [id number] Carol Wood MD [facility] [address] [place] [phone] 08/04/2022 13:33:21 08/08/2022 09:30:54 Viral upper respiratory tract infection 921499496 J06.9 Acute conjunctivitis 537 13948 H10.31 Acute otitis externa 302 40111 H60.511 [id number] Laura Foy MD [facility] [address] [place] [id number] 08/16/2022 15:04:32 08/18/2022 10:23:06 Cough 87499210 R05.9 expectorat ed clear sputum, with associated nasal congestion and mild episodic vertigo, improving without interventi on. NBNB emesis a couple days ago, none since and tolerating PO fluids. States she doesn't have asthma, but has been treated for asthma in the past . Lungs clear to auscutatio n.- duoneb x1 now- prescribed PRN albuterol- discussed warning s/s to call back or present to the ED [id number] Ewa Stovall MD [facility] [address] [place] [id number] 04/14/2023 20:09:39 04/18/2023 10:03:43 Acute pyelonephritis 67310927 N10 Urinary symptoms 8362806 08 R39.9 [id number] Jordan Green MD [facility] [address] [place] [id number] 06/21/2023 12:15:06 06/22/2023 09:57:30 Hyperglycemia due to type 2 diabetes mellitus [id number] 14622 E11.65 This 67-year-ol d female with type 2 diabetes recently has had high glucose readings. Yesterday she had mild nausea, vomiting and diarrhea. She is feeling better today and her glucose has dropped to 160. Her COVID-19 and flu screens were negative. I recommende d that she push oral fluids and continue her usual treatments . She will follow-up with her PCP. The patient agreed with this plan. [id number] Deon Pabon MD [facility] [address] [place] [id number] 12/23/2023 13:20:24 12/24/2023 22:15:17 Epigastric pain 24093506 R10.13 Nausea and vomiting 1692 1999 R11.2 Health Concerns Section Related Observation LastModified by Organization Detai ls LastModified Time None Recorded Concern Status LastModified by Organization Details LastModified Time None Recorded Advance Directives Directive None Recorded Payers Encounter Date Sequence Insurance Name Policy Number Policy Page Covered Member ID Page Member ID Guarantor Name 08/04/2022 1 [email or web address] - DOS PRIOR TO 2022 - DUAL ELIGIBLE (MEDICARE REPLACEMENT/ADV ANTAGE - HMO) Violetta Cormier [id number] Violetta Cormier 08/16/2022 1 [facility] [employer] - DOS PRIOR TO 2022 - DUAL ELIGIBLE (MEDICARE REPLACEMENT/ADV ANTAGE - HMO) Violetta Cormier [id number] Violetta Cormier 04/14/2023 1 [email or web address] - DOS ON OR AFTER 2022 - DUAL ELIGIBLE - HALF-WAY OPTIONS AND ONE CARE (MEDICARE REPLACEMENT/ADV ANTAGE - HMO) Violetta Cormier [id number] Violetta Cormier 06/21/2023 1 [email or web address] - DOS ON OR AFTER 2022 - DUAL ELIGIBLE - HALF-WAY OPTIONS AND ONE CARE (MEDICARE REPLACEMENT/ADV ANTAGE - HMO) Violetta Cormier [id number] Violetta Cormier 12/23/2023 1 [email or web address] - DOS ON OR AFTER 2022 - DUAL ELIGIBLE - HALF-WAY OPTIONS AND ONE CARE (MEDICARE REPLACEMENT/ADV ANTAGE - HMO) Violetta Cormier [id number] Violetta Cormier Notes Date Note Type Note Provider Name and Address Organization Details Recorded Time 08/04/2022 text/html HPI: Patient with known CKD. Patient started with sore throat and painful left eye yesterday. yellow drainage noted and redness of sclera. Able to take fluids. No earache. No fever. ...................... ...................... ...................... ...................... ...................... ...................... ......... CRC Nursing Assessment: Comments: CRC RN did not require any additional information to process this visit. ...................... ...................... ...................... ...................... ...................... ...................... ......... Senior Vice President And Chief Information Officer Note From Rodo Manzano: Pt presents awake and alert c/o left eye pain with yellow drainage, right ear pain and sore throat since yesterday morning. Pt denies any changes in hearing, cough, cp, sob, abd pain or f/n/v/d. POC covid and strep negative. No redness in throat. Red sclera. Redness w/o narrowing of ear cannal; intact eardrum; pain when pressing on tragus. Pt/family advised to warp picker antibiotic(s) MIGUEL; educated on warning signs that would indicate the ED and proper handwashing techniques to avoid spread; and advised to f/u with PCP next week. Senior Vice President And Chief Information Officer Allergies: Penicillin ...................... ...................... ...................... ...................... ...................... ...................... ......... Disposition: Fulfilled Carol Wood MD [address] [facility],[address], [place], [phone], LADONNA GTZ 08/04/2022 15:23:46 08/16/2022 text/html HPI: Call to Violetta Pearson, spoke with daughter Sharon Fuchs who is on HIPPA. Reports pt having cough and nasal congestion. Sx onset since yesterday. Pt had Covid-19 test kit performed yesterday and negative. Reports mild subjective fever. Denies any nausea vomiting. Had one episode of mild diarrhea. No blood in stool. Advised of disposition, declined [facility] for assessment of cough. Agrees to [facility] referral. ...................... ...................... ...................... ...................... ...................... ...................... ......... CRC Nursing Assessment: Comments: CRC RN DID NOT NEED FURTHER INFO > LONNIEER ...................... ...................... ...................... ...................... ...................... ...................... ......... Senior Vice President And Chief Information Officer Note From Otto Portillo: Dispatched to the above for the 66 y/o female cough, scottish speaking only - interrupter services contacted - the pt is A&0 ? ? 4 , skin pink / warm/ dry, strong regular radial pulses, talking in full non labored sentences, cc cough / productive white phlegm for 2 days, increased dizziness when standing and shortness of breath, pt reported rib pain from coughing, lung sounds diminished clear bi - lateral, (- ) chest pain , ( - ) weakness , (- ) nausea / vomiting, pt reported low grade fever, vitals above , rapid flu / covid (- ) , [facility] contacted and ordered duo neb (administered), and discussed supportive care. Pt reported improvement in breathing (- ) adverse reaction to medications Senior Vice President And Chief Information Officer Allergies: Penicillin ...................... ...................... ...................... ...................... ...................... ...................... ......... Disposition: Chanel Foy MD [address] [place] [address],[address], [place], [phone], [facility] 08/16/2022 21:52:45 04/14/2023 text/html HPI: CKD, smoker, GERD Patient with several days of dark urine and pain with urination. NO fever pain in lower back and foul urine. ...................... ...................... ...................... ...................... ...................... ...................... ......... CRC Nursing Assessment: Comments: CRC RN did not require any additional information to process this visit. ...................... ...................... ...................... ...................... ...................... ...................... ......... Senior Vice President And Chief Information Officer Note From Rodo Manzano: Pt reports two days of dysuria, bilateral flank pain and dark, cloudy urine. Pt denies hx of UTI? s . Pt denies hematuria, CP, SOB, DORADO, f/n/v/d. Pt is alert, NAD. VSS. Temp 99.1. Neuro exam and gait normal. Lungs CTA. Benign ABD exam. Right sided CVA tenderness. No ISRAEL. UA: trace BASIL, - NIT, - BLO. UC to [facility]. [facility] contacted and pt treated with levofloxacin 500 mg PO. Pt instructed to stay well hydrated, f/u with PCP next week and to seek emergent medical care for new or worsening sx, which are reviewed with her. ...................... ...................... ...................... ...................... ...................... ...................... ......... Disposition: Fulfilled Ewa Stovall MD [address] [facility],[address], [place], [address], [employer] 04/14/2023 20:52:20 06/21/2023 text/html CRC Nurse Triage Notes (Jodi Calixto): Reason For Request: Pt daughter reporting vomiting alongside high sugar readings (diabetic) going on 2 days. yesterday sugar started at 400 and lowered to 270 and then lowered to baseline todays sugar reading 170 Chief Complaints: Nausea/Vomiting, Diabetes Related PMH: Hypertension, Diabetes, COPD/Asthma Allergies: Penicillin Comments: Member had hyperglycemia yesterday with BGL at 400. Blood glucose readings lowered today. Started with vomiting yesterday. Approx 4 episodes of vomiting and a few episodes of diarrhea. Reports dizziness when actively vomiting. No recent changes to medication regimen. Diabetic regimen is Trulicity, meformin and insulin (unknown type). Jordan Green MD [address] [place] [address],[address] [facility], [place], [address], [employer] 06/21/2023 12:19:33 12/23/2023 text/html This was a super vised home visit with biblical languages professor Hanh Carl. CRC Nurse Triage Notes (Jayden Pate): Reason For Request: Patient Vomiting. Chief Complaints: Gastrointestinal Concerns (other) PMH: Hypertension, Diabetes, COPD/Asthma Allergies: Penicillin Comments: Mbr & mbr's daughter Cambodian speaking primarily, oxygen equipment technician# [id number] used for triage assessment. Leaflet Or Newspaper Deliverer verified the member's name//address and phone number. Mbr's daughter reporting mbr has been vomiting since last night, reports 6 episodes of vomiting last night. Mbr denies abdominal pain or diarrhea. Education provided on the response time and the member was advised to monitor reported s/s and seek emergency treatment if needed -Padma Pate RN ...................... ...................... ...................... ...................... ...................... ...................... ......... Senior Vice President And Chief Information Officer Note From Hanh Carl: Community Senior Vice President And Chief Information Officer Edward Siddhartha SC6 dispatched to a yellow for a 68 yof C/O vomiting and abd pain X12 hrs. Upon arrival, the pt was lying on the couch, awake and alert, in no apparent distress but obviously not feeling well. She reported a hx of gastritis, and was being treated by her GI Physician w/ sucralafate; she reported that she had not started the rx yet. She stated that she had the acute abd pain that she had in the past w/ episodes of gastritis, but that she was vomiting more. She denied nausea at that time, but stated she was unable to keep water down. She reported she had her gallbladder taken out years prior, denied any hx pancreatitis, and reported normal blood sugars. She stated the pain was epigastric, slightly to her LUQ, and radiated into her back on her left side. She denied any fevers, diarrhea, or anything black or red in her vomit. She denied ESPINOZA, dizziness, near syncope, sore throat, cough, CP, SOB, or urinary S/S. Tender on palpation to epigastric area, no abnormalities felt. [facility] consulted; pt was instructed to seek further testing and tx in the ED. She agreed, and 911 was called. [facility] arrived and transported the pt to [place] ED./ ...................... ...................... ...................... ...................... ...................... ...................... ......... Disposition: Fulfilled Deon Pabon MD [address] [facility],[address], [place], [address], [employer] 12/23/2023 14:54:30 OBGyn Episode No OBEpisode recorded.
--- OUTSIDE RECORDS SUMMARY | 2024-08-01 13:20 | XMS_ITS | Encounter Summary ---
Author Organization [facility] Address [address] 7t [place] [address] Care Team Providers Care Digester Cook Name Role Phone Glenna Jett DO Primary Care Provider [phone] Poly Diaz PharmD Unavailable [phone] Encounter Details Date Type Department Care Team ([facility] Contact Info) Description 09/06/2022 Orders Only [facility] MED & PEDS [address] [place], [place] [phone] Glenna Rosales LPN Social History Tobacco Use Types Packs/Day Years Used Date Smoking Tobacco: Never Assessed Depression Answer Date Recorded Patient Health Questionnaire-2 Score 0 08/30/2022 Comments Unknown Sex and Gender Information Value Date Recorded Sex Assigned at Female 04/11/2022 10:16 AM EDT Legal Sex Female 10:16 AM EDT Gender Identity Female 04/11/2022 10:16 AM EDT Sexual Orientation Straight 04/11/2022 10 :16 AM EDT COVID-19 Exposure Response Date Recorded In the last 10 days, have yo u been in contact with someone who was confirmed or suspected to have Coronavirus/COVID-19? No / Unsure 08/30/2022 10:35 AM EDT documented as of this encounter Plan of Treatment Upcoming Encounters Date Type Department Care Team ([facility] Contact Info) Description 08/08/2024 1:00 PM EST Telemedicine [facility] MEDICINE [address] [place] [address] [phone] Padmaja Anderson RN 08/20/2024 3:30 PM EDT Medication Management [address] [phone] Poly Diaz PharmD [address] [place] [address] documented as of this encounter Visit Diagnoses Not on filedocumented in this encounter Care Teams Digester Cook Relationship Specialty Start Date End Date Glenna Jett DO [address] [place] [phone] PCP - General Family Medicine 05/24/12 Poly Diaz, Mati [address] [place] [phone] Pharmacist Internal Medicine 07/04/23 documented as of this encounter
--- OUTSIDE RECORDS SUMMARY | 2024-08-01 13:20 | XMS_ITS | Encounter Summary ---
Author Organization [employer] Address [address] [facility] 7t [place] [address] Care Team Providers Care Bat Lathe Operator Name Role Phone Maliha Glenna DYSON Primary Care Provider [phone] Poly Diaz PharmD Unavailable [phone] Reason for Visit * Reason Comments Med Refill Encounter Details Date Type Department Care Team ([facility] st Contact Info) Description 07/06/2024 Refill [facility] MEDICINE [address] [place] [address] Roberto Torres MD [address] [place] [address] Social History Tobacco Use Types Packs/Day Years [...] Info) Description 08/08/2024 1:00 PM EST Telemedicine [facility] MED[facility]INE [address] [place] [phone] Padmaja Anderson RN 08/20/2024 3:30 PM EDT Medication Management [address] [address] Puia, Poly, PharmD [address] [place] [address] documented as of this encounter Goals Goal [...] documented as of this encounter Care Teams Bat Lathe Operator Relationship Specialty Start Date End Date Glenna Jett DO [address] [place] [phone] PCP - General Family Medicine 05/24/12 Puia, Poly, PharmD [address] [place] [address] [phone] Pharmacist Internal Medicine 07/04/23 documented as of this encounter
--- OUTSIDE RECORDS SUMMARY | 2024-08-01 13:20 | XMS_ITS | Encounter Summary ---
Author Organization [email or web address] [facility] Address [address] [facility] 7t [place] [address] Care Team Providers Care Sql Server Dba Developer Name Role Phone Glenna Jett DO Primary Care Provider [phone] Poly Diaz PharmD Unavailable [phone] Reason for Visit * Reason Comments Med Refill Encounter Details Date Type Department Care Team ([facility] st Contact Info) Description 06/06/2024 Refill [facility] MEDICINE [address] [place] [address] Glenna Jett DO [address] [place] [address] Social History Tobacco Use Types Packs/Day Years [...] Info) Description 08/08/2024 1:00 PM EST Telemedicine [facility] MEDICINE [address] [place] [phone] Padmaja Anderson RN 08/20/2024 3:30 PM EDT Medication Management [address] [address] Puia, Poly, PharmD [address] [place] [phone] documented as of this encounter Goals Goal [...] documented as of this encounter Care Teams Sql Server Dba Developer Relationship Specialty Start Date End Date Glenna Jett DO [address] [place] [phone] PCP - General Family Medicine 05/24/12 Puia, Poly, PharmD [address] [place] [phone] Pharmacist Internal Medicine 07/04/23 documented as of this encounter
--- OUTSIDE RECORDS SUMMARY | 2024-08-01 13:20 | XMS_ITS | Encounter Summary ---
Author Organization [email or web address] Address [address] [facility] 7t [place] [address] Care Team Providers Care Linotype Mechanic Name Role Phone Glenna Jett DO Primary Care Provider [phone] Poly Diaz PharmD Unavailable [phone] Reason for Visit * Reason Comments Med Refill Encounter Details Date Type Department Care Team ([facility] st Contact Info) Description 07/07/2024 Refill [facility] MEDICINE [address] [place] [address] Glenna Jett DO [address] [place] [address] Other hyperlipidemia Social History Tobacco Use Types Packs/Day Years [...] Info) Description 08/08/2024 1:00 PM EST Telemedicine [address] [phone] Padmaja Anderson RN 08/20/2024 3:30 PM EDT Medication Management [address] [address] Puia, Poly, PharmD [address] [place] [address] documented as of this encounter Goals Goal Patient Goal Type Associated Problems Recent Progress Patient-Stated? Author Record your blood sugar as directed Result Component No Puia, Poly, PharmD Hemoglobin A1c < 7.5 Result Component 8(07/10/2024 3:32 PM EST) No Puia, Poly, PharmD documented as of this encounter Visit Diagnoses Diagnosis Other hyperlipidemia documented in this encounter Additional Health Concerns Assessment Noted Time PHQ-9 Depression Total Score: 6 02/06/20 24 1:46 PM EDT documented as of this encounter Care Teams Linotype Mechanic Relationship Specialty Start Date End Date Glenna Jett DO [address] [place] [address] PCP - General Family Medicine 05/24/12 Puia, Poly, PharmD [address] [place] [phone] Pharmacist Internal Medicine 07/04/23 documented as of this encounter
--- OUTSIDE RECORDS SUMMARY | 2024-08-01 13:20 | XMS_ITS | Encounter Summary ---
Author Organization [employer] Address [address] [facility] [address] 7t [place] [address] Care Team Providers Care Ice Guard Tester Name Role Phone Glenna Jett DO Primary Care Provider [phone] Poly Diaz PharmD Unavailable [phone] Encounter Details Date Type Department Care Team (Late st Contact Info) Description 09/21/2023 Orders Only [facility] MEDICINE [address] [place] [address] Provider, MD Marylin Social History Tobacco Use Types Packs/Day Years Used Date Smoking Tobacco: Former Cigarettes Housing Stability Answer Date Recorded What is your housing situation today? I have mayra dustin 09/22/[address] you li [...] Info) Description 08/08/2024 1:00 PM EST Telemedicine [facility] MED[facility]INE [address] [place] [address] [phone] Padmaja Anderson RN 08/20/2024 3:30 PM EDT Medication Management [facility] MED[facility] [address] [place] [address] Poly Diaz PharmD [address] [place] [phone] documented as of this encounter Goals Goal Patient Goal Type Associated Problems Recent Progress Patient-Stated? Author Record your blood sugar as directed Result Component No AayushiaPoly, PharmD Hemoglobin A1c < 7.5 Result Component 8(07/10/2024 3:32 PM EST) No AayushiaFranckPoly, PharmD documented as of this encounter Procedures Procedure Name Priority Date/Time Associated Diagnosis Comments COLONOSCOPY Routine 02/06/2017 11:20 AM EDT documented in this encounter Results * Hm Colonoscopy (02/06/2017 11:20 AM EDT) us Historical Provider HEALTH MAINTENANCE Final Result documented in this encounter Visit Diagnoses Not on filedocumented in this encounter Care Teams Ice Guard Tester Relationship Specialty Start Date End Date Glenna Jett DO [address] [place] [phone] PCP - General Family Medicine 05/24/12 Puia, Poly, PharmD [address] [place] [address] [phone] Pharmacist Internal Medicine 07/04/23 documented as of this encounter
--- OUTSIDE RECORDS SUMMARY | 2024-08-01 13:20 | XMS_ITS | Encounter Summary ---
Author Organization [employer] Address [address] [facility] 7t [place] [address] Care Team Providers Care Lock Corner Machine Operator Name Role Phone Glenna Jett DO Primary Care Provider [phone] Poly iDaz PharmD Unavailable [phone] Encounter Details Date Type Department Care Team ([facility] st Contact Info) Description 04/17/2024 Telephone [facility] MEDICINE [address] [place] [address] Glenna Jett DO [address] [place] [address] Social History Tobacco Use Types Packs/Day Years [...] Info) Description 08/08/2024 1:00 PM EST Telemedicine [address] [phone] Padmaja Anderson RN 08/20/2024 3:30 PM EDT Medication Management [address] [address] PuiaFranckPoly, PharmD [address] [place] [phone] documented as of this encounter Goals Goal [...] documented as of this encounter Care Teams Lock Corner Machine Operator Relationship Specialty Start Date End Date Glenna Jett DO [address] [place] [address] [phone] PCP - General Family Medicine 05/24/12 Puia, Poly, PharmD [address] [place] [address] [phone] Pharmacist Internal Medicine 07/04/23 documented as of this encounter
--- OUTSIDE RECORDS SUMMARY | 2024-08-01 13:20 | XMS_ITS | Encounter Summary ---
Author Organization [employer] Address [address] [facility] 7t [place] [address] Care Team Providers Care Fisher Troll Line Name Role Phone Glenna Jett DO Primary Care Provider [phone] Poly Diaz PharmD Unavailable [phone] Reason for Visit * Reason Comments Med Refill Encounter Details Date Type Department Care Team ([facility] st Contact Info) Description 12/11/2023 Refill [facility] MEDICINE [address] [place] [address] Glenna Jett DO [address] [place] [address] Social History Tobacco Use Types Packs/Day Years Used Date Smoking Tobacco: Former Cigarettes Smokeless Tobacco: Never Housing Stability Answer Date Recorded What is [...] Info) Description 08/08/2024 1:00 PM EST Telemedicine [facility] MEDICINE [address] [place] [phone] Padmaja Anderson RN 08/20/2024 3:30 PM EDT Medication Management [address] [address] PuPoly wasserman, PharmD [address] [place] [phone] documented as of this encounter Goals Goal Patient Goal Type Associated Problems Recent Progress Patient-Stated? Author Record your blood sugar as directed Result Component No Puia, Poly, PharmD Hemoglobin A1c < 7.5 Result Component 8(07/10/2024 3:32 PM EST) No Puia, Poly, PharmD documented as of this encounter Visit Diagnoses Not on filedocumented in this encounter Care Teams Fisher Troll Line Relationship Specialty Start Date End Date Glenna Jett DO [address] [place] [address] [phone] PCP - General Family Medicine 05/24/12 Puia, Poly, PharmD [address] [place] [address] [phone] Pharmacist Internal Medicine 07/04/23 documented as of this encounter
== END 2024-08-01 12:21 | disposition home or self-care (01) ==
LOC: HO.MAMMO 12:20
PROVIDERS: PCP Family Medicine; Visit Provider Family Medicine
DX: Z13.89 Encounter for screening for other disorder (principal)

== ENCOUNTER 2024-08-29 08:04 | Day surgery (SDC) | payer OTHER, SELFPAY ==
[2024-08-27 11:27] VITALS: BMI 29.2
--- NOTE | 2024-08-28 09:32 | HO.ANESPROP2 ---
Documented by User: Litzy Van NP 08/28/24 09:33 HPI - Anesthesia Eval Consult details Narrative: 69yo F for Upper Endoscopy and Colonoscopy Anesthesia Pre-Procedure Meds Is the patient on any of the following meds?: GLP1/DPP4 and SGLT2 Inhib PMFSH Active Problems Active Problems: All Active Problems Spinal stenosis of lumbar region (Acute) Obesity due to excess calories (Acute) Type 2 diabetes mellitus with hyperglycemia, without long-term current use of insulin (Acute) Type 2 diabetes mellitus with diabetic neuropathy, unspecified (Acute) Essential hypertension (Acute) Hyperlipidemia LDL goal <100 (Acute) Past Medical History Medical History Gastroparesis Spinal stenosis of lumbar region Obesity due to excess calories Osteoporosis Retinopathy Gastric ulcer Snoring Neuropathy Fibromyalgia Type 2 diabetes mellitus with hyperglycemia, without long-term current use of insulin Essential hypertension Hyperlipidemia LDL goal <100 Type 2 diabetes mellitus with diabetic neuropathy, unspecified Osteoarthritis Depression Diabetes Back ache Gastritis HTN (hypertension) Family History Family History Father FH: prostate cancer Mother CVD (cardiovascular disease) Heart disease Son Diabetes Surgical History Surgical History History of esophagogastroduodenoscopy (EGD) Hx of colonoscopy Hx of cholecystectomy Hx of tubal ligation Social History Social History Household Members: Family Are you a primary child care center assistant director to a significant other at home: No Do you presently have visiting nurse or other home services: No Alcohol intake: former Patient Tobacco Use Status: Former Tobacco user Have you been hit, kicked, punched, or otherwise hurt by someone within the past year? If so, by whom?: No Are you DNR?: No Advance Directives: No Advance Directives Information Provided: Yes Recently lost weight without trying: No Nutrition Risks: No Nutritional Risk Meds Allergies Allergy/AdvReac Type Severity Reaction Status Date / Time amitriptyline [AMITRIPTYLINE] Allergy Intermediate ANXIOUS, Verified 08/29/24 08:45 SWELLING Penicillins Allergy Intermediate Swelling Verified 08/29/24 08:45 aspirin [ASPIRIN] AdvReac Mild caused Verified 08/29/24 08:45 hypersalivation Home Medications ?Medication ?Instructions ?Recorded ?Confirmed ?Last Taken ?Type aspirin 81 mg tablet,delayed 81 mg PO DAILY 04/21/20 08/27/24 Unknown History release atorvastatin 80 mg tablet 80 mg PO BEDTIME 04/21/20 08/27/24 Unknown History albuterol sulfate 90 mcg/actuation 2 puff PO Q4-6H PRN Shortness Of 12/25/20 08/27/24 Unknown History aerosol inhaler Breath cyanocobalamin (vitamin B-12) 1,000 mcg PO QAM 12/25/20 08/27/24 Unknown History 1,000 mcg tablet fluticasone propionate 110 1 puff PO BID 12/25/20 08/27/24 Unknown History mcg/actuation HFA aerosol inhaler gabapentin 400 mg capsule 400 mg PO TID 12/25/20 08/27/24 Unknown History lisinopril 2.5 mg tablet 2.5 mg PO DAILY 12/25/20 08/27/24 Unknown History loratadine 10 mg tablet 10 mg PO QAM 12/25/20 08/27/24 Unknown History oxybutynin chloride 5 mg 5 mg PO QAM 12/25/20 08/27/24 Unknown History tablet,extended release 24 hr sertraline 100 mg tablet 150 mg PO QAM 12/25/20 08/27/24 Unknown History tramadol 50 mg tablet 50 mg PO BID PRN Pain 12/25/20 08/27/24 Unknown History ergocalciferol (vitamin D2) 1,250 1,250 mcg PO QWEEK 05/09/22 08/27/24 Unknown History mcg (50,000 unit) capsule (Vitamin D2) fluticasone propionate 50 2 spray intranasal DAILY 05/09/22 08/27/24 Unknown History mcg/actuation nasal spray,suspension trazodone 50 mg tablet 50 mg PO BEDTIME 05/09/22 08/27/24 Unknown History empagliflozin 12.5 mg-metformin 1 tab PO BID 08/27/24 08/27/24 08/19/24 History 1,000 mg tablet (Synjardy) insulin degludec 200 unit/mL (3 14 unit subcut QAM 08/27/24 08/27/24 Unknown History mL) subcutaneous pen (Tresiba FlexTouch U-200 insulin) semaglutide 2 mg/dose (8 mg/3 mL) 2 mg subcut QWEEK 08/27/24 08/27/24 08/19/24 History subcutaneous pen injector (Ozempic) Exam Height,Weight and Vital Signs: Height 5 ft 3 in Weight 74.843 kg Pertinent Lab Results Pertinent Lab Results: Laboratory Tests 12/23/23 12/23/23 17:23 17:24 WBC 8.5 Hgb 13.3 Hct 39.9 Plt Count 322 D Sodium 141 Potassium 4.4 Chloride 104 Carbon Dioxide 28 BUN 13 Creatinine 0.82 Narrative Narrative: EKG 12/2023 Vent. Rate : 091 BPM Atrial Rate : 091 BPM P-R Int : 162 ms QRS Dur : 074 ms QT Int : 356 ms P-R-T Axes : 058 -31 032 degrees QTc Int : 437 ms Sinus rhythm with Premature supraventricular complexes Left axis deviation Possible Inferior infarct , age undetermined Abnormal ECG When compared with ECG of 18-DEC-2023 01:13, Premature supraventricular complexes are now Present Assessment and Plan Assessment Anesthesia Assessment: Chart Reviewed Documented by User: Annabelle Carney MD 08/29/24 09:46 PMFSH Past Medical History Medical History Gastroparesis Spinal stenosis of lumbar region Obesity due to excess calories Osteoporosis Retinopathy Gastric ulcer Snoring Neuropathy Fibromyalgia Type 2 diabetes mellitus with hyperglycemia, without long-term current use of insulin Essential hypertension Hyperlipidemia LDL goal <100 Type 2 diabetes mellitus with diabetic neuropathy, unspecified Osteoarthritis Depression Diabetes Back ache Gastritis HTN (hypertension) Family History Family History Father FH: prostate cancer Mother CVD (cardiovascular disease) Heart disease Son Diabetes Surgical History Surgical History History of esophagogastroduodenoscopy (EGD) Hx of colonoscopy Hx of cholecystectomy Hx of tubal ligation History of Problems with Anesthesia: No Social History Social History Household Members: Family Are you a primary child care center assistant director to a significant other at home: No Do you presently have visiting nurse or other home services: No Alcohol intake: former Patient Tobacco Use Status: Former Tobacco user Have you been hit, kicked, punched, or otherwise hurt by someone within the past year? If so, by whom?: No Are you DNR?: No Advance Directives: No Advance Directives Information Provided: Yes Recently lost weight without trying: No Nutrition Risks: No Nutritional Risk Meds Allergies Allergy/AdvReac Type Severity Reaction Status Date / Time amitriptyline [AMITRIPTYLINE] Allergy Intermediate ANXIOUS, Verified 08/29/24 08:45 SWELLING Penicillins Allergy Intermediate Swelling Verified 08/29/24 08:45 aspirin [ASPIRIN] AdvReac Mild caused Verified 08/29/24 08:45 hypersalivation Home Medications ?Medication ?Instructions ?Recorded ?Confirmed ?Last Taken ?Type aspirin 81 mg tablet,delayed 81 mg PO DAILY 04/21/20 08/27/24 Unknown History release atorvastatin 80 mg tablet 80 mg PO BEDTIME 04/21/20 08/27/24 Unknown History albuterol sulfate 90 mcg/actuation 2 puff PO Q4-6H PRN Shortness Of 12/25/20 08/27/24 Unknown History aerosol inhaler Breath cyanocobalamin (vitamin B-12) 1,000 mcg PO QAM 12/25/20 08/27/24 Unknown History 1,000 mcg tablet fluticasone propionate 110 1 puff PO BID 12/25/20 08/27/24 Unknown History mcg/actuation HFA aerosol inhaler gabapentin 400 mg capsule 400 mg PO TID 12/25/20 08/27/24 Unknown History lisinopril 2.5 mg tablet 2.5 mg PO DAILY 12/25/20 08/27/24 Unknown History loratadine 10 mg tablet 10 mg PO QAM 12/25/20 08/27/24 Unknown History oxybutynin chloride 5 mg 5 mg PO QAM 12/25/20 08/27/24 Unknown History tablet,extended release 24 hr sertraline 100 mg tablet 150 mg PO QAM 12/25/20 08/27/24 Unknown History tramadol 50 mg tablet 50 mg PO BID PRN Pain 12/25/20 08/27/24 Unknown History ergocalciferol (vitamin D2) 1,250 1,250 mcg PO QWEEK 05/09/22 08/27/24 Unknown History mcg (50,000 unit) capsule (Vitamin D2) fluticasone propionate 50 2 spray intranasal DAILY 05/09/22 08/27/24 Unknown History mcg/actuation nasal spray,suspension trazodone 50 mg tablet 50 mg PO BEDTIME 05/09/22 08/27/24 Unknown History empagliflozin 12.5 mg-metformin 1 tab PO BID 08/27/24 08/27/24 08/19/24 History 1,000 mg tablet (Synjardy) insulin degludec 200 unit/mL (3 14 unit subcut QAM 08/27/24 08/27/24 Unknown History mL) subcutaneous pen (Tresiba FlexTouch U-200 insulin) semaglutide 2 mg/dose (8 mg/3 mL) 2 mg subcut QWEEK 08/27/24 08/27/24 08/19/24 History subcutaneous pen injector (Ozempic) Exam Airway Mallampati Class: II (edentulous) TM Dist: >3cm Neck ROM: Full Loose/Missing/Broken Teeth: Yes Heart: RRR Lungs: CTA Assessment and Plan Assessment Anesthesia Assessment: Anesthesia Plan Discussed Final Anesthetic Review History of Problems with Anesthesia: No NPO: Yes ASA Class: III Final Preanesthetic Review: Meds/Allgs Chart Reviewed, Consent Obtained/Reviewed and Anes Risks/Benef Reviewed Patient Risk: Intermediate Procedure Risk: Intermediate Anesthetic Plan Anesthetic Plan: MAC: Disposition: Standard PACU
[2024-08-29] MEDS: Lactated Ringers 1,000 ML 50 ML IVCONT (08:27)
[2024-08-29 08:41] LABS: Glucose, Whole Blood 139 mg/dL (60-115)
[2024-08-29 08:42] VITALS: BP 123/77; PULSE 81; RESP 18; TEMP 36.6; O2SAT 99
[2024-08-29 08:43] VITALS: BMI 28.7
--- NOTE | 2024-08-29 08:45 | MHC.SHP ---
Pre-Procedural Eval Section A - 24 Hr Update-Section A only Date of Service: 08/29/24 Section B - Complete if H&P > 30 days Chief Complaint: Dysphagia, hx of polyps Details of Present Illness: Back ache Depression Diabetes Essential hypertension Fibromyalgia Gastric ulcer Gastritis Gastroparesis HTN (hypertension) Hyperlipidemia LDL goal <100 Neuropathy Obesity due to excess calories Osteoarthritis Osteoporosis Retinopathy Snoring Spinal stenosis of lumbar region Type 2 diabetes mellitus with diabetic neuropathy, unspecified Type 2 diabetes mellitus with hyperglycemia, without long-term current use of insulin Surgical History History of esophagogastroduodenoscopy (EGD) Hx of colonoscopy Hx of cholecystectomy Hx of tubal ligation Present Medications: see Short Stay Collaborative assessment Allergies: Allergies Allergy/AdvReac Type Severity Reaction Status Date / Time amitriptyline [AMITRIPTYLINE] Allergy Intermediate ANXIOUS, Verified 08/29/24 08:45 SWELLING Penicillins Allergy Intermediate Swelling Verified 08/29/24 08:45 aspirin [ASPIRIN] AdvReac Mild caused Verified 08/29/24 08:45 hypersalivation Review of Systems Review of Systems Comment: Ten point ROS negative Exam Exam Comment: Gen appear: No acute distress HEENT: no icterus Chest: No overt resp distress Abd: soft, nontender, nondistended Psych: Stable affect, answering questions appropriately Neuro: A/Ox3 noted to move all extremities spontaneously Ext: no peripheral edema Plan Diagnosis/Plan: Unchanged I have reviewed the history and physical and performed a pertinent physical examination on my patient. No changes have occurred unless specified. Time Spent With Patient Time: Total time managing care of this patient today ____ minutes.
--- NOTE | 2024-08-29 10:14 | P.OPN-COLO_ITS ---
Colonoscopy Operative Note Operative Note Date of Service: 08/29/24 Narrative: Procedure: Upper endoscopy and colonoscopy Indication: Dysphagia, hx of polyps Endoscopist: Savannah Burdick MD Anesthesia Provider: Dr Annabelle Carney Anesthesia type: MAC Instrument: [id number] and [id number] EGD Procedure:?? The procedure, indications, preparation and potential complications were reviewed with the patient with the help of interpreter and translator who indicated understanding and gave written informed consent to proceed. The endoscope was introduced through the mouth, and advanced to the 2nd part of the duodenum. The mucosa was carefully examined on slow withdrawal of the endoscope. The patient tolerated the procedure well. There were no immediate complications.? EGD Findings:? * Esophagus:? Erythema and ulcerations measuring 1 cm involving less than a 3rd of esophageal lumen. The Z-line was at 32 cm and displaced upward by a hiatal hernia with the diaphragmatic pinch at 35 cm. A partially obstructing Schatzki's ring was noted just above the GEJ which was not dilated today due to esophagitis. * Stomach:? There was a 2 cm gastric nodule just below GEJ best visualized on retroflexion. Cold forceps biopsies were taken for histology. There were also a few polyps in the distal body and antrum. Cold forceps biopsies were taken for histology. Retroflexion was performed in the cardia. * Duodenum:? Erythema, edema and erosions noted in duodenal sweep. Cold forceps biopsies were taken from the duodenal bulb and 2nd portion of the duodenum to rule out celiac sprue. Colonoscopy Procedure:? The patient was then turned for the colonoscopy. A digital rectal exam was performed which was abnormal for ext hemorrhoids.? A distal attachment cap was affixed to the tip of the scope and the colonoscope was then inserted through the anus and advanced through the colon and advanced to the cecum at 75 cm and terminal ileum.? Appendiceal orifice and ileocecal valve were identified. Mucosa was carefully examined under high definition white light as the instrument was slowly withdrawn in a retrograde panoramic fashion. Retroflexion was performed in rectum. The procedure was not difficult. The quality of the prep was BBPS: 3+2+3 = adequate Withdrawal time 11 minutes Limitations: No limitations Findings: Mucosa: Normal colon and terminal ileum mucosa. Protruding lesions: * One sessile polyp of size 4 mm noted in the cecum. Cold snare polypectomy was performed. The polyp was completely removed and retrieved. * One sessile polyp of size 9 mm noted in the sigmoid colon. Cold snare polypectomy was performed. The polyp was completely removed and retrieved. * Medium internal hemorrhoids without stigmata of recent bleeding. Excavated lesions: * [id number] diverticulosis of left colon was noted. Impression: 1. Grade C esophagitis 2. Schatzki's ring 3. Hiatal hernia 4. GEJ nodule 5. Antral polyps 6. Duodenitis 7. Normal colon and terminal ileum mucosa 8. 2 polyps removed 9. Diverticulosis 10. Internal and external hemorrhoids Recommendations:?? * Follow-up path results * Avoid NSAIDs * Switch to omeprazole 20 mg BID x 8 weeks and then once daily * Dysphagia likely 2/2 Schatzki's ring which was not dilated due to grade C esophagitis * Repeat EGD to be booked in 2-3 months to assess for healing of esophagitis and dilation of Schatzki's ring * Repeat colonoscopy for polyp surveillance in 5 years.
[2024-08-29 10:18] VITALS: BP 114/50; PULSE 62; RESP 18; TEMP 36.2; O2SAT 100
[2024-08-29 10:35] VITALS: BP 132/55; PULSE 62; RESP 16; O2SAT 100
[2024-08-29 10:50] VITALS: BP 145/67; PULSE 58; RESP 16; O2SAT 100
[2024-08-29 11:16] VITALS: BP 149/52; PULSE 61; RESP 16; TEMP 36.7; O2SAT 98
== END 2024-08-29 11:40 | disposition home or self-care (01) ==
PROVIDERS: PCP Family Medicine; Visit Provider Internal Medicine
PROC: (CPT 45385; principal; 2024-08-29 10:10)
DX: Z12.11 Encounter for screening for malignant neoplasm of colon (principal); Z86.0101 Personal history of adenomatous and serrated colon polyps; D12.0 Benign neoplasm of cecum; D12.5 Benign neoplasm of sigmoid colon; K57.30 Diverticulosis of large intestine without perforation or abscess without bleeding; K64.8 Other hemorrhoids; K64.4 Residual hemorrhoidal skin tags; K58.2 Mixed irritable bowel syndrome; R13.14 Dysphagia, pharyngoesophageal phase; K21.9 Gastro-esophageal reflux disease without esophagitis; K20.80 Other esophagitis without bleeding; K29.80 Duodenitis without bleeding; K22.2 Esophageal obstruction; K31.7 Polyp of stomach and duodenum; K31.84 Gastroparesis; K44.9 Diaphragmatic hernia without obstruction or gangrene; Z87.11 Personal history of peptic ulcer disease; I10 Essential (primary) hypertension; M79.7 Fibromyalgia; E11.40 Type 2 diabetes mellitus with diabetic neuropathy, unspecified; E11.65 Type 2 diabetes mellitus with hyperglycemia; Z79.899 Other long term (current) drug therapy; Z88.0 Allergy status to penicillin; Z88.6 Allergy status to analgesic agent; Z88.8 Allergy status to other drugs, medicaments and biological substances; Z90.49 Acquired absence of other specified parts of digestive tract; Z87.891 Personal history of nicotine dependence
CPT/HCPCS: 45385; 45380; 43239; 82947; 88305; 88313; 88342; J2003; J2704

== ENCOUNTER → 2024-08-29 08:04 | Outpatient (BNV) | payer OTHER, SELFPAY | PROVIDERS: PCP Family Medicine; Visit Provider Internal Medicine | DX: Z12.11 Encounter for screening for malignant neoplasm of colon (principal); Z86.0100 Personal history of colon polyps, unspecified; D12.0 Benign neoplasm of cecum; D12.5 Benign neoplasm of sigmoid colon; K22.2 Esophageal obstruction; K20.90 Esophagitis, unspecified without bleeding; K29.80 Duodenitis without bleeding; K31.7 Polyp of stomach and duodenum | CPT/HCPCS: 43239; 45385 ==

== ENCOUNTER 2024-09-13 10:06 | Outpatient (AMB) | payer OTHER, SELFPAY ==
--- NOTE | 2024-09-13 10:09 | A.OFFVIS_ITS ---
Vital Signs 09/13/24 10:12 Height 5 ft 3 in Weight 167 lb 1.766 oz BMI 29.6 BP 112/46 L Blood Pressure Location Lt brachial Position Sitting Pulse 82 Pulse Source Pulse Oximeter Pulse Oximetry (%) 99 Oxygen Delivery Method Room Air Intake Visit Reasons: S/P EGD [place] [facility] Intake Note: ESTABLISHED PATIENT for s/p duo w/ BZ. Chief Complaint; C/O epigastric pain, denies any burning, does report dysphagia occasionally with certain foods. Pt reports PPI was recently changed per PCP for unspecified reason. No additional concerns at this time. Pt has been doing better since switching meds. Orthopedic Physical Therapist Required: Yes Orthopedic Physical Therapist Services: Orthopedic Physical Therapist Present Orthopedic Physical Therapist Name: Gaurav [id number] Information Interpreted: clinical only Accompanied by: Family/Other Allergies amitriptyline [AMITRIPTYLINE] Allergy (Intermediate, Verified 09/13/24 10:09) ANXIOUS, SWELLING Penicillins Allergy (Intermediate, Verified 09/13/24 10:09) Swelling aspirin [ASPIRIN] Adverse Reaction (Mild, Verified 09/13/24 10:09) caused hypersalivation HPI HPI S/P EGD [place] [facility]: Details: LAST VISIT Postprandial epigastric pain GERD (gastroesophageal reflux disease) IBS (irritable bowel syndrome) Screen for colon cancer Dysphagia Plan Patient can continue taking pantoprazole daily. Will be sent for upper endoscopy to rule out gastritis, esophagitis, Garcias's, duodenitis, Schatzki ring, achalasia, eosinophilic esophagitis. Patient will be sent for colonoscopy, last colonoscopy in 2017 with 1 tubular adenoma. Patient denies any melena, hematochezia, unintentional weight loss or ribbon like stools. What to expect before during and after procedure discussed with patient and her daughter. Discussed the importance of good bowel prep as well as clear liquid diet day before procedure. Patient is on Trulicity will need to hold that before going for seizure. On low dose aspirin. Both patient and her daughter are agreeable to plan of care and verbalizes understanding of instructions. They were given the opportunity to ask questions and all questions answered. ? Thank you for allowing me to participate in her care Medications New bisacodyl (Dulcolax (bisacodyl)) take 4 tabs at noon the day before your colonoscopy 20 mg (4 x 5 mg) PO ONCE 1 day 4 tabs 0RF Z12.11 Refilled polyethylene glycol 3350 (Miralax) As directed by gastroenterology department at [facility] 238 grams PO ONCE 238 grams 0RF Z12.11 Discontinued metoclopramide HCl (Reglan) rajiv un comprimido 30 minutos antes de las comidas Discontinued Reason: Patient no longer taking 5 mg PO QIDACHS 120 tabs 0RF K31.84 bisacodyl (Dulcolax (bisacodyl)) take 2 tabs at noon the day before your colonoscopy Discontinued Reason: Doctor's Order 10 mg (2 x 5 mg) PO ONCE 1 day 2 tabs 0RF Z12.11 UPPER ENDOSCOPY AND COLONOSCOPY EGD Procedure:?? The procedure, indications, preparation and potential complications were reviewed with the patient with the help of salon stylist who indicated understanding and gave written informed consent to proceed. The endoscope was introduced through the mouth, and advanced to the 2nd part of the duodenum. The mucosa was carefully examined on slow withdrawal of the endoscope. The patient tolerated the procedure well. There were no immediate complications.? EGD Findings:? * Esophagus:? Erythema and ulcerations measuring 1 cm involving less than a 3rd of esophageal lumen. The Z-line was at 32 cm and displaced upward by a hiatal hernia with the diaphragmatic pinch at 35 cm. A partially obstructing Schatzki's ring was noted just above the GEJ which was not dilated today due to esophagitis. * Stomach:? There was a 2 cm gastric nodule just below GEJ best visualized on retroflexion. Cold forceps biopsies were taken for histology. There were also a few polyps in the distal body and antrum. Cold forceps biopsies were taken for histology. Retroflexion was performed in the cardia. * Duodenum:? Erythema, edema and erosions noted in duodenal sweep. Cold forceps biopsies were taken from the duodenal bulb and 2nd portion of the duodenum to rule out celiac sprue. Colonoscopy Procedure:? The patient was then turned for the colonoscopy. A digital rectal exam was performed which was abnormal for ext hemorrhoids.? A distal attachment cap was affixed to the tip of the scope and the colonoscope was then inserted through the anus and advanced through the colon and advanced to the cecum at 75 cm and terminal ileum.? Appendiceal orifice and ileocecal valve were identified. Mucosa was carefully examined under high definition white light as the instrument was slowly withdrawn in a retrograde panoramic fashion. Retroflexion was performed in rectum. The procedure was not difficult. The quality of the prep was BBPS: 3+2+3 = adequate Withdrawal time 11 minutes Limitations: No limitations Findings: Mucosa: Normal colon and terminal ileum mucosa. Protruding lesions: * One sessile polyp of size 4 mm noted in the cecum. Cold snare polypectomy was performed. The polyp was completely removed and retrieved. * One sessile polyp of size 9 mm noted in the sigmoid colon. Cold snare polypectomy was performed. The polyp was completely removed and retrieved. * Medium internal hemorrhoids without stigmata of recent bleeding.Excavated lesions: * [id number] diverticulosis of left colon was noted. Impression: 1. Grade C esophagitis 2. Schatzki's ring 3. Hiatal hernia 4. GEJ nodule 5. Antral polyps 6. Duodenitis 7. Normal colon and terminal ileum mucosa 8. 2 polyps removed 9. Diverticulosis 10. Internal and external hemorrhoids Recommendations:?? * Follow-up path results * Avoid NSAIDs * Switch to omeprazole 20 mg BID x 8 weeks and then once daily * Dysphagia likely 2/2 Schatzki's ring which was not dilated due to grade C esophagitis * Repeat EGD to be booked in 2-3 months to assess for healing of esophagitis and dilation of Schatzki's ring * Repeat colonoscopy for polyp surveillance in 5 years. PATHOLOGY RESULTS Diagnosis A. Duodenum, biopsy: Duodenal mucosa within normal limits. B. EG junction, polyp, biopsy: - Hyperplastic cardiac-type mucosa with moderate chronic inactive inflammation; no intestinal metaplasia seen. - No squamous epithelium present. C. Stomach, antral polyps, biopsy: Antral-type mucosa with mild chronic active inflammation, regenerative changes and focal intestinal metaplasia; negative for dysplasia; no Helicobacter organisms seen. D. Cecum, polypectomy: Fragments of tubular adenoma; negative for high-grade dysplasia or carcinoma. D. Colon, sigmoid, polypectomy: Fragments of tubular adenoma; negative for high- grade dysplasia or carcinoma TODAY'S VISIT: Patient is here today for follow-up and to discuss upper endoscopy and colonoscopy results. Patient denies any ill effects from the prep, anesthesia or procedure itself. Patient reports that she has been feeling fairly well. Patient started taking omeprazole twice a day after her endoscopy. Ordered by Dr. Burdick. Patient reports that since she has been doing fairly well. Still has trouble swallowing. Patient was diagnosed with grade C esophagitis and provider was unable to dilate Schatzki ring and will need to return for endoscopy and dilation in 2-3 months. Patient continues to have trouble swallowing solid and hard food. Patient reports that she has been blending her old meal and adding milk so she can drink it. Patient reports to be making shakes. Eating soups and something that is more creamy versus solid. Two tubular adenoma found without high-grade dysplasia or carcinoma and patient is to return for colorectal screening in 5 years. Patient denies any abdominal pain or discomfort. Moves her bowels without any issues. Denies melena, hematochezia. Denies any other GI concerning symptoms. [facility] Medical History (Updated 09/13/24 @ 10:45 by Jackeline Zuniga, [facility]) Schatzki's ring Gastroparesis Spinal stenosis of lumbar region Obesity due to excess calories Osteoporosis Retinopathy Gastric ulcer Snoring Neuropathy Fibromyalgia Type 2 diabetes mellitus with hyperglycemia, without long-term current use of insulin Essential hypertension Hyperlipidemia LDL goal <100 Type 2 diabetes mellitus with diabetic neuropathy, unspecified Osteoarthritis Depression Diabetes Back ache Gastritis HTN (hypertension) Surgical History History of esophagogastroduodenoscopy (EGD) Hx of colonoscopy Hx of cholecystectomy Hx of tubal ligation Family History Father FH: prostate cancer Mother CVD (cardiovascular disease) Heart disease Son Diabetes Social History Household Members: Family Are you a primary career services coordinator to a significant other at home: No Do you presently have visiting nurse or other home services: No Alcohol intake: former Patient Tobacco Use Status: Former Tobacco user Review of Systems Const Denies weight gain and Denies weight loss ENT Reports no additional complaints, Reports dysphagia and Denies odynophagia Card Reports no additional complaints Resp Reports no additional complaints GI Denies abdominal pain, Denies belching, Denies melena, Denies bloating, Denies change in bowel habits, Reports dysphagia, Denies excessive flatus, Reports dyspepsia, Reports heartburn, Denies diarrhea, Denies loose stools, Denies nausea, Denies odynophagia and Denies vomiting Reports no additional complaints Musc Reports no additional complaints Neuro Reports no additional complaints Psych Reports no additional complaints Endo Reports no additional complaints Physical Exam Const General: healthy appearing, no acute distress and well developed Nutritional Appearance: well nourished Orientation/consciousness: patient oriented x3 Resp Effort & Inspection: normal respiratory effort, able to speak in complete sentences, no tracheal deviation and symmetric chest movement Auscultation: clear to auscultation bilaterally Cardio Rate: regular rate GI Inspection: Yes normal to inspection and No distended Palpation (GI): Soft to palpation, not firm, nontender and No hepatosplenomegaly present Auscultation: normal bowel sounds General: Yes no CVA tenderness Back/Spine/Pelvis Back: no CVA tenderness Skin General skin exam: elasticity normal, turgor normal and dry skin Neuro General: patient oriented x3 Psych Appearance: grossly normal Mental Status: mental status grossly normal Assessment & Plan Assessment & Plan (1) Esophagitis determined by endoscopy: Code(s): K20.90 - Esophagitis, unspecified without bleeding Category: Medical (2) Postprandial epigastric pain: Code(s): R10.13 - Epigastric pain (3) GERD (gastroesophageal reflux disease): Code(s): K21.9 - Gastro-esophageal reflux disease without esophagitis Qualifiers: Esophagitis presence: with esophagitis Esophagitis bleeding: without hemorrhage Qualified Code(s): K21.00 - Gastro-esophageal reflux disease with esophagitis, without bleeding (4) IBS (irritable bowel syndrome): Code(s): K58.9 - Irritable bowel syndrome, unspecified Qualifiers: Irritable bowel syndrome type: without diarrhea Qualified Code(s): K58.9 - Irritable bowel syndrome, unspecified (5) Dysphagia: Code(s): R13.10 - Dysphagia, unspecified Qualifiers: Dysphagia type: esophageal phase Qualified Code(s): R13.19 - Other dysphagia (6) Qingki's ring: Code(s): K22.2 - Esophageal obstruction Category: Medical Plan Patient will continue taking omeprazole twice a day. Avoid dietary triggers and late night snacking. Staying upright for minimum 3 hours after meals discussed with patient. Patient will eat food that is bland and avoid solids. Message sent to surgical schedulers to book upper endoscopy for patient. I will see patient after the procedure, sooner on as needed basis. Patient is agreeable to this plan and verbalizes understanding of instructions. She was given the opportunity to ask questions and all questions answered. Thank you for allowing me to participate in her care Coding Level of Care Code Est Pt Level 4 (38291) Complex EM visit Add On G2211 Diagnoses Esophagitis determined by endoscopy K20.90 Postprandial epigastric pain R10.13 Gastroesophageal reflux disease with esophagitis without hemorrhage K21.00 Esophagitis presence: with esophagitis Esophagitis bleeding: without hemorrhage Irritable bowel syndrome without diarrhea K58.9 Irritable bowel syndrome type: without diarrhea Esophageal dysphagia R13.19 Dysphagia type: esophageal phase Schatzki's ring K22.2 Time Spent (min) 35 Comment 25 minutes spent with patient and additional 10 minutes spent reviewing her records
[2024-09-13 10:12] VITALS: BP 112/46; PULSE 82; O2SAT 99; BMI 29.6
--- OUTSIDE RECORDS SUMMARY | 2024-09-13 11:27 | XMS_ITS | Encounter Summary ---
Author Organization [employer] Address [address] [facility] 7t [place] [address] Care Team Providers Care Assembly Line Supervisor Name Role Phone Glenna Jett DO Primary Care Provider [phone] Poly Diaz PharmD Unavailable [phone] Reason for Visit * Reason Comments Med Refill Encounter Details Date Type Department Care Team ([facility] st Contact Info) Description 12/11/2023 Refill [facility] [address] [place] [address] Glenna Jett DO [address] [place] [address] Social History Tobacco Use Types Packs/Day Years [...] Care Team (Late st Contact Info) Description 09/24/2024 3:30 PM EDT Medication Management [address] [address] PuiaPoly, PharmD [address] [place] [phone] 10/25/2024 9:00 AM EDT Telemedicine [address] [address] Padmaja Anderson RN documented as of this encounter Goals Goal Patient Goal Type Associated Problems Recent Progress Patient-Stated? Author Record your blood sugar as directed Result Component No PuiaFranckPoly, PharmD Hemoglobin A1c < 7.5 Result Component 8(07/10/2024 3:32 PM EST) No Puia Poly, PharmD documented as of this encounter Visit Diagnoses Not on filedocumented in this encounter Care Teams Assembly Line Supervisor Relationship Specialty Start Date End Date Glenna Jett DO [address] [place] [address] PCP - General Family Medicine 05/24/12 Puia, Poly, PharmD [address] [place] [address] [phone] Pharmacist Internal Medicine 07/04/23 documented as of this encounter
--- OUTSIDE RECORDS SUMMARY | 2024-09-13 11:27 | XMS_ITS | Encounter Summary ---
Author Organization [facility] Address [address] [facility] 7t [place] [address] Care Team Providers Care Convict Guard Name Role Phone Glenna Jtet DO Primary Care Provider [phone] Poly Diaz PharmD Unavailable [phone] Reason for Visit * Reason Comments Med Refill Encounter Details Date Type Department Care Team ([facility] st Contact Info) Description 06/06/2024 Refill [facility] MEDICINE [address] [place] [address] Glenna Jett DO [address] [place] [address] Social History Tobacco Use Types Packs/Day Years [...] Description 09/24/2024 3:30 PM EDT Medication Management [facility] MEDICINE [address] [place] [phone] Puia, Poly, PharmD [address] [place] [address] 10/25/2024 9:00 AM EDT Telemedicine [address] [address] Padmaja Anderson RN documented as of this [...] documented as of this encounter Care Teams Convict Guard Relationship Specialty Start Date End Date Glenna Jett DO [address] [place] [address] [phone] PCP - General Family Medicine 05/24/12 Puia, Poly, PharmD [address] [place] [phone] Pharmacist Internal Medicine 07/04/23 documented as of this encounter
--- OUTSIDE RECORDS SUMMARY | 2024-09-13 11:27 | XMS_ITS | Encounter Summary ---
Author Organization [facility] Address [address] [facility] 7t [place] [address] Care Team Providers Care I O Psychologist Name Role Phone Glenna Jett DO Primary Care Provider [phone] Poly Diaz PharmD Unavailable [phone] Encounter Details Date Type Department Care Team ([facility] Contact Info) Description 09/06/2022 Orders Only [facility] [address] [place], [place] [phone] Glenna Rosales LPN Social History Tobacco Use [...] Upcoming Encounters Date Type Department Care Team ([facility] Contact Info) Description 09/24/2024 3:30 PM EDT Medication Management [facility] [address] [place] [address] PuiaDiannesa, PharmD [address] [place], [place] [phone] 10/25/2024 9:00 AM EDT Telemedicine [facility] [address] [place] [address] Padmaja Anderson, ESTER documented as of this encounter Visit Diagnoses Not on filedocumented in this encounter Care Teams I O Psychologist Relationship Specialty Start Date End Date Glenna Jett DO [address] [place] [address] PCP - General Family Medicine 05/24/12 Poly Diaz PharmD [address] [place] [address] Pharmacist Internal Medicine 07/04/23 documented as of this encounter
--- OUTSIDE RECORDS SUMMARY | 2024-09-13 11:27 | XMS_ITS | Encounter Summary ---
Author Organization [employer] Address [address] [facility] [address] 7[address] [place] [address] Care Team Providers Care Identification Clerk Name Role Phone Glenna Jett DO Primary Care Provider [phone] Poly Diaz PharmD Unavailable [phone] Encounter Details Date Type Department Care Team (Late st Contact Info) Description 09/03/2024 Orders Only [facility] [address] [place], [place] [phone] Provider, MD Marylin Social History Tobacco Use [...] Description 09/24/2024 3:30 PM EDT Medication Management [facility] [address] [place] [address] PuiaFranckPoly, PharmD [address] [place] [address] 10/25/2024 9:00 AM EDT Telemedicine [facility] [address] [place] [address] Padmaja Anderson RN documented as of this encounter Goals Goal Patient Goal Type Associated Problems Recent Progress Patient-Stated? Author Record your blood sugar as directed Result Component No Puia, Poly, PharmD Hemoglobin A1c < 7.5 Result Component 8(07/10/2024 3:32 PM EST) No Puia, Poly, PharmD documented as of this encounter Procedures Procedure Name Priority Date/Time Associated Diagnosis Comments COLONOSCOPY Routine 08/29/2024 1:41 PM EDT documented in this encounter Results * Hm Colonoscopy (08/29/2024 1:41 PM EDT) Colonoscopy Normal Normal Narrative KalinaLigia masters - 08/29/2024 1:41 PM EDT Repeat in 5 years ( see external hospital admission note on 08/29/2024 us Historical Provider HEALTH MAINTENANCE Edited Result - Final documented in this encounter Visit Diagnoses Not on filedocumented in this encounter Additional Health Concerns Assessment Noted Time PHQ-9 Depression Total Score: 6 02/06/20 24 1:46 PM EDT documented as of this encounter Care Teams Identification Clerk Relationship Specialty Start Date End Date Glenna Jett DO [address] [place], [place] [phone] PCP - General Family Medicine 05/24/12 Poly Diaz PharmD [address] [place] [address] Pharmacist Internal Medicine 07/04/23 documented as of this encounter
--- OUTSIDE RECORDS SUMMARY | 2024-09-13 11:27 | XMS_ITS | Encounter Summary ---
Author Organization [employer] Address [address] [facility] 7t [place] [address] Care Team Providers Care Phone Technician Name Role Phone Maliha Glenna DYSON Primary Care Provider [phone] Poly Diaz PharmD Unavailable [phone] Reason for Visit * Reason Comments Med Refill Encounter Details Date Type Department Care Team ([facility] st Contact Info) Description 03/27/2023 Refill [facility] MED[facility]INE [address] [place] [address] Jolene Gonzalez MD [address] [place] [address] Social History Tobacco Use Types Packs/Day Years [...] Description 09/24/2024 3:30 PM EDT Medication Management [address] [address] Poly Diaz PharmD [address] [place] [phone] 10/25/2024 9:00 AM EDT Telemedicine [address] [phone] Padmaja Anderson RN documented as of this encounter Visit Diagnoses Not on filedocumented in this encounter Care Teams Phone Technician Relationship Specialty Start Date End Date Glenna Jett DO [address] [place] [address] [phone] PCP - General Family Medicine 05/24/12 Poly Diaz PharmD [address] [place] [address] [phone] Pharmacist Internal Medicine 07/04/23 documented as of this encounter
--- OUTSIDE RECORDS SUMMARY | 2024-09-13 11:27 | XMS_ITS | Encounter Summary ---
Author Organization [facility] Address [address] [facility] 7t [place] [address] Care Team Providers Care Passenger Relations Representative Name Role Phone Glenna Jett DO Primary Care Provider [phone] Poly Diaz PharmD Unavailable [phone] Reason for Visit * Reason Comments Med Refill Encounter Details Date Type Department Care Team ([facility] st Contact Info) Description 08/02/2024 Refill [facility] MED[facility]INE [address] [place] [address] Glenna Jett DO [address] [place] [address] Social History Tobacco Use Types Packs/Day Years [...] Description 09/24/2024 3:30 PM EDT Medication Management [facility] [address] [place] [phone] Puia, Poly, PharmD [address] [place] [address] 10/25/2024 9:00 AM EDT Telemedicine [address] [address] Padmaja Anderson RN documented as of this [...] documented as of this encounter Care Teams Passenger Relations Representative Relationship Specialty Start Date End Date Glenna Jett DO [address] [place] [address] [phone] PCP - General Family Medicine 05/24/12 Puia, Poly, PharmD [address] [place] [phone] Pharmacist Internal Medicine 07/04/23 documented as of this encounter
--- OUTSIDE RECORDS SUMMARY | 2024-09-13 11:27 | XMS_ITS | Encounter Summary ---
Author Organization [employer] Address [address] [facility] [address] 7[address] [place] [address] Care Team Providers Care Concrete Stone Fabricating Supervisor Name Role Phone Glenna Jett DO Primary Care Provider [phone] Poly Diaz PharmD Unavailable [phone] Encounter Details Date Type Department Care Team (Late st Contact Info) Description 09/21/[address] [facility] MEDICINE [address] [place] [address] Provider, MD Marylin Social History Tobacco Use [...] Description 09/24/2024 3:30 PM EDT Medication Management [facility] [address] [place] [phone] PuiaPoly, PharmD [address] [place] [address] 10/25/2024 9:00 AM EDT Telemedicine [address] [phone] Padmaja Anderson RN documented as of this encounter Goals Goal Patient Goal Type Associated Problems Recent Progress Patient-Stated? Author Record your blood sugar as directed Result Component No PuiaFranckPoly, PharmD Hemoglobin A1c < 7.5 Result Component 8(07/10/2024 3:32 PM EST) No Puia Poly, PharmD documented as of this encounter Procedures Procedure Name Priority Date/Time Associated Diagnosis Comments HM COLONOSCOPY Routine 02/06/2017 11:20 AM EDT documented in this encounter Results * Hm Colonoscopy (02/06/2017 11:20 AM EDT) us Historical Provider HEALTH MAINTENANCE Final Result documented in this encounter Visit Diagnoses Not on filedocumented in this encounter Care Teams Concrete [employer] Fabricating Supervisor Relationship Specialty Start Date End Date Glenna Jett DO [address] [place] [address] [phone] PCP - General Family Medicine 05/24/12 Puia, Poly, PharmD [address] [place] [address] [phone] Pharmacist Internal Medicine 07/04/23 documented as of this encounter
--- OUTSIDE RECORDS SUMMARY | 2024-09-13 11:27 | XMS_ITS | Encounter Summary ---
Author Organization [employer] Address [address] [facility] 7t [place] [address] Care Team Providers Care Waybill Clerk Name Role Phone Glenna Jett DO Primary Care Provider [phone] Poly Diaz PharmD Unavailable [phone] Encounter Details Date Type Department Care Team ([facility] st Contact Info) Description 08/06/2024 Telephone [facility] MEDICINE [address] [place] [address] Glenna Jett DO [address] [place] [address] Social History Tobacco Use Types Packs/Day Years [...] Description 09/24/2024 3:30 PM EDT Medication Management [facility] MEDICINE [address] [place] [id number] PuiaFranckPoly, PharmD [address] [place] [phone] 10/25/2024 9:00 AM EDT Telemedicine [address] [phone] Padmaja Anderson RN documented as of this [...] documented as of this encounter Care Teams Waybill Clerk Relationship Specialty Start Date End Date Glenna Jett DO [address] [place] [address] [phone] PCP - General Family Medicine 05/24/12 Puia, Poly, PharmD [address] [place] [address] [phone] Pharmacist Internal Medicine 07/04/23 documented as of this encounter
--- OUTSIDE RECORDS SUMMARY | 2024-09-13 11:27 | XMS_ITS | Encounter Summary ---
Author Organization [employer] Address [address] [facility] 7t [place] [address] Care Team Providers Care Concrete Boom Operator Name Role Phone Glenna Jett DO Primary Care Provider [phone] Poly Diaz PharmD Unavailable [phone] Encounter Details Date Type Department Care Team ([facility] st Contact Info) Description 07/06/2023 Abstract [facility] MEDICINE [address] [place] [address] Glenna Jett DO [address] [place] [address] Social History Tobacco Use Types Packs/Day Years [...] Description 09/24/2024 3:30 PM EDT Medication Management [address] [address] Puia, Poly, PharmD [address] [place] [phone] 10/25/2024 9:00 AM EDT Telemedicine [address] [phone] Padmaja Anderson, ESTER documented as of this encounter Goals Goal Patient Goal Type Associated Problems Recent Progress Patient-Stated? Author Record your blood sugar as directed Result Component No Puia, Poly, PharmD Hemoglobin A1c < 7.5 Result Component 8(07/10/2024 3:32 PM EST) No Puia, Poly, PharmD documented as of this encounter Visit Diagnoses Not on filedocumented in this encounter Care Teams Concrete Boom Operator Relationship Specialty Start Date End Date Glenna Jett DO [address] [place] [address] [phone] PCP - General Family Medicine 05/24/12 Puia, Poly, PharmD [address] [place] [address] [phone] Pharmacist Internal Medicine 07/04/23 documented as of this encounter
--- OUTSIDE RECORDS SUMMARY | 2024-09-13 11:27 | XMS_ITS | Encounter Summary ---
Author Organization [facility] Address [address] [facility] 7t [place] [address] Care Team Providers Care Gold Leaf Laborer Name Role Phone Glenna Jett DO Primary Care Provider [phone] Poly Diaz PharmD Unavailable [phone] Encounter Details Date Type Department Care Team (Late Contact Info) Description 08/18/2022 Orders Only [facility] MED & PEDS [address] [place] [address] Glenna Rosales LPN Social History Tobacco Use [...] Department Care Team (Late Contact Info) Description 09/24/2024 3:30 PM EDT Medication Management [facility] MEDICINE [address] [place] [id number] PuiaDiannesa, PharmD [address] [place] [address] 10/25/2024 9:00 AM EDT Telemedicine [facility] MEDICINE [address] [place], [place] [phone] Padmaja Anderson RN documented as of this encounter Visit Diagnoses Not on filedocumented in this encounter Care Teams Gold Leaf Laborer Relationship Specialty Start Date End Date Glenna Jett DO [address] [place], [place] [phone] PCP - General Family Medicine 05/24/12 Poly Diaz PharmD [address] [place] [address] Pharmacist Internal Medicine 07/04/23 documented as of this encounter
--- OUTSIDE RECORDS SUMMARY | 2024-09-13 11:28 | XMS_ITS | Encounter Summary ---
Author Organization [email or web address] Address [address] [facility] 7[address] [place] [address] Care Team Providers Care Lie Detector Operator Name Role Phone Glenna Jett DO Primary Care Provider [phone] Poly Diaz PharmD Unavailable [phone] Encounter Details Date Type Department Care Team ([facility] st Contact Info) Description 04/17/2024 Telephone [facility] MEDICINE [address] [place] [address] Glenna Jett DO [address] [place] [address] Social History Tobacco Use Types Packs/Day Years [...] Description 09/24/2024 3:30 PM EDT Medication Management [address] [phone] Puia, Poly, PharmD [address] [place] [phone] 10/25/2024 9:00 AM EDT Telemedicine [address] [phone] Padmaja Anderson RN documented as of this [...] documented as of this encounter Care Teams Lie Detector Operator Relationship Specialty Start Date End Date Glenna Jett DO [address] [place] [phone] PCP - General Family Medicine 05/24/12 Poly Diaz, Mati [address] [place] [phone] Pharmacist Internal Medicine 07/04/23 documented as of this encounter
--- OUTSIDE RECORDS SUMMARY | 2024-09-13 11:28 | XMS_ITS | Clinical Summary ---
Author Organization [facility] Address [address] [facility] 7[address] [place] [address] Care Team Providers Care Radio Rigger Name Role Phone Glenna Jett DO Primary Care Provider [phone] PuPoly wasserman PharmD Unavailable [phone] Allergies Active Allergy Reactions Criticality Noted [...] use of insulin, macular edema presence unspecified (CMS/[facility]) 1 kit 3 times daily. 1 kit 024 Active insulin pen needle (Pentips) 32G x 4 mm miscIndications:Ty pe 2 diabetes mellitus with other specified complication, unspecified whether terminal worker insulin use (CMS/HCC) Use 1 daily for insulin injection 100 each 3 024 Active insulin degludec (Tresiba FlexTouch) 200 UNIT/ML injectionIndicatio ns:Type 2 diabetes mellitus with other specified complication, unspecified whether [facility] insulin use (CMS/HCC) INJECT 14 UNITS SUBCUTANEOUSLY ONCE DAILY 9 mL 5 024 Active glucose blood (FREESTYLE LITE) test stripIndications:T ype 2 diabetes mellitus with other specified complication, unspecified whether [place] insulin use ([facility]) TEST BLOOD SUGAR THREE TIMES DAILY 100 strip 11 Active TRUEplus Lancets 33G miscIndications:Ty pe 2 diabetes mellitus with other specified complication, unspecified whether terminal worker insulin use ([facility]) Use to test blood sugar 3 times daily as directed 100 each 11 Active Mometasone Furoate (Asmanex HFA) 100 MCG/ACT aerosol Inhale 1 puff 2 times daily. 13 g Active naloxone (Narcan) 4 mg/0.1 mL nasal sprayIndications:C hronic bilateral low back pain with left-sided sciatica Administer 1 spray (4 mg) into affected nostril(s) if needed for opioid reversal. May repeat every 2-3 minutes if needed, alternating nostrils, until medical assistance becomes available. 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 ROTATE INJECTION SITES. 3 mL 3 024 Active traZODone (Desyrel) 50 MG tabletIndications: Insomnia, unspecified type TAKE 1 TABLET BY MOUTH AT BEDTIME 30 tablet 5 025 Active Aspirin Low Dose 81 MG EC tabletIndications: Other hyperlipidemia TAKE 1 TABLET BY MOUTH EVERYDAY AT NOON 90 tablet 1 025 Active ezetimibe (Zetia) 10 MG tabletIndications: Type 2 diabetes mellitus with other specified complication, unspecified whether [facility] insulin use ([facility]),Other hyperlipidemia Take 1 tablet (10 mg) by mouth at bedtime. 90 tablet 3 025 07/10 Active atorvastatin (Lipitor) 80 MG tabletIndications: Type 2 diabetes mellitus with other specified complication, unspecified whether terminal worker insulin use ([facility]),Other hyperlipidemia Take 1 tablet (80 mg) by mouth at bedtime. 90 tablet 3 Active lisinopril 2.5 MG tabletIndications: Type 2 diabetes mellitus with other specified complication, unspecified whether [facility] insulin use ([facility]),Essentia l hypertension Take 1 tablet (2.5 mg) by mouth Once per day. 90 tablet 3 Active oxybutynin XL (Ditropan-XL) 5 MG 24 hr tablet TAKE 1 TABLET BY MOUTH EVERY MORNING 30 tablet 5 Active cholecalciferol VITAMIN D (Vitamin D-3) 50 MCG (2000 UT) tablet TAKE 1 TABLET BY MOUTH EVERY MORNING 90 tablet Active Synjardy 12.5-1000 MG TAKE 1 TABLET BY MOUTH TWICE DAILY IN THE MORNING AND IN THE EVENING WITH MEALS 60 tablet 5 Active loratadine (Claritin) 10 MG tablet TAKE 1 TABLET BY MOUTH EVERY MORNING 90 tablet 3 Active gabapentin (Neurontin) 400 MG capsule TAKE 1 CAPSULE BY MOUTH THREE TIMES DAILY IN THE MORNING, EVENING, AND BEDTIME 90 capsule Active loratadine (Claritin) 10 MG tablet TAKE 1 TABLET BY MOUTH EVERY MORNING 90 tablet 3 024 08/28 Discontinued empagliflozin-metF ORMIN (Synjardy) 12.5-1000 MG Take 1 tablet by mouth with breakfast and with evening meal. 60 tablet 5 024 08/26 Discontinued gabapentin (Neurontin) 400 MG capsule Take 1 capsule (400 mg) by mouth 3 times daily. 90 capsule 025 09/03 Discontinued traMADol (Ultram) 50 MG tabletIndications: Chronic bilateral low back pain with left-sided sciatica Take 1 tablet (50 mg) by mouth every 8 (eight) hours if needed for severe pain for up to 28 days. 84 tablet 025 09/05 Active Problems Problem Noted Date Diagnosed Date Long-term current use of opiate analgesic 2024 Irritable bowel syndrome 10/03/2023 Fatty liver 10/03/2023 [...] pain swelling, redness, fever or other concern. 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 Gastroparesis [...] or ortho at this time -advised contact [facility] if sx worsen Urinary incontinence 08/30/2022 [...] daily -s/p optho eval JUN [address] [facility] -f/u w/ retinal specialist as scheduled -foot exam next visit* Resolved Problems Problem Noted Date Diagnosed Date Resolved Date Hip pain 08/30/2022 08/30/2022 Left hemiparesis 08/30/2022 08/30/2022 Pain in left arm 08/30/2022 08/30/2022 Encounters Date Type Department Care Team Description 09/03/2024 Orders Only [facility] MED & PEDS [address] [place] [address] Provider, MD Marylin 09/02/[address] [facility] MEDICINE [address] [place] [address] Glenna Jett DO 08/29/2024 Orders Only GENERIC EXTERNAL DATA DEPARTMENT Provider, Generic External Data 08/28/[address] [facility] MEDICINE [address] [place] [address] Glenna Jett DO 08/25/[address] [facility] MEDICINE [address] [place] [address] Poly Diaz, ZahraaD 08/08/2024 1:00 PM EST Telemedicine [facility] MEDICINE [address] [place] [address] Padmaja Anderson, food and nutrition services assistant bilateral low back pain with left-sided sciatica; Long-term current use of opiate analgesic 08/08/[address] [facility] MEDICINE [address] [place] [address] Padmaja Anderson, food and nutrition services assistant bilateral low back pain with left-sided sciatica (Primary Dx) 08/08/[address] [facility] MEDICINE [address] [place] [address] Padmaja Anderson, RN Recommend RECORDS SUPERVISOR Tele Tier 2 08/06/[address] [facility] MEDICINE [address], [place] [address] Glenan Jett, 08/06/[address] [facility] MEDICINE [address] [place] [address] Glenna Jett, 08/04/[address] [facility] MEDICINE [address] [place] [address] Glenna Jett, 08/02/[address] [facility] MED[facility]INE [address] [place] [address] Glenna Jett, 07/28/[address] [facility] MEDICINE [address] [place] [address] Glenna Jett, 07/25/[address] [facility] MEDICINE [address] [place] [address] Glenna Jett DO Appointment Request 07/10/2024 Travel 07/07/[address] [facility] MEDICINE [address] [place] [address] Glenna Jett DO Other hyperlipidemia 07/06/[address] [facility] MED[facility]INE [address] [place] [address] Roberto Trores MD 06/29/[address] [facility] MEDICINE [address] [place] [address] Glenna Jett DO Insomnia, unspecified type 06/26/[address] [facility] MEDICINE [address] [place] [address] Glenna Jett, Chronic bilateral low back pain with left-sided sciatica 06/21/2024 11:00 AM EST Office Visit [facility] [address] [address] Lilian Joiner MD Seborrheic keratoses (Primary Dx) 06/21/2024 Travel from Last 3 Months Immunizations Name [...] Description 09/24/2024 3:30 PM EDT Medication Management [facility] MEDICINE [address] [place] [phone] Poly Diaz, Mati [address] [place] [address] 10/25/2024 9:00 AM EDT Telemedicine [facility] MEDICINE [address] [place] [phone] Padmaja Anderson, RN Health Maintenance Due Date Last Done Comments CT Colonography 1955 FIT DNA/Cologuard 1955 FIT 1955 FOBT 1955 Sigmoidoscopy 1955 Diabetes: Foot Exam 08/27/1963 Alcohol/Substance Use Screening 1965 Hepatitis C Screening 08/27/1971 Hepatitis A Vaccines (1 of 2 - Risk 2-dose series) 1972 Dental X-Ray: Bitewings 11/11/2009 11/10/2008 Dental Prophylaxis 07/02/2011 12/29/2010 Zoster Vaccines (3 of 3) 12/13/2021 10/18/2021, 01/2015 Lipid Panel 09/01/2023 08/31/2022, 09/2020, 08/24/2020, Additional [...] X-Ray: Full Mouth 03/29/2027 024, 05/23/2014, 11/10/2008 Colonoscopy 08/29/2029 08/29/2024, 02/06/2017 Colorectal Cancer Screening 08/29/2029 Hepatitis B Vaccines Completed 02/06/2012, 04/05/2011, 02/24/2011 [...] Date/Time Associated Diagnosis Comments HM COLONOSCOPY Routine 08/29/2024 1:41 PM EDT HEMATOXYLIN AND EOSIN STAIN Routine 08/29/2024 9:51 AM EDT GLUCOSE, WHOLE BLOOD Routine 08/29/2024 8:29 AM EDT POCT GLYCATED HEMOGLOBIN, TOTAL Routine 07/10/2024 3:32 PM EST 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, with long-term current use of insulin, macular edema presence unspecified ([facility]/HCC) PANORAMIC RADIOGRAPHIC IMAGE Routine 03/28/2024 2:30 PM [...] use of insulin, macular edema presence unspecified (CMS/HCC) PROPHYLAXIS - ADULT Routine 12/29/2010 1 2:00 AM EDT INTRAORAL - COMPLETE SERIES OF RADIOGRAPHIC IMAGES Routine 11/10/2008 12:00 AM EDT from Last 3 Months or Most Recently Relevant to Health Maintenance Results * Hm Colonoscopy (08/29/2024 1:41 PM EDT) Colonoscopy Normal Normal Narrative Kalina Ligia - 08/29/2024 1:41 PM EDT Repeat in 5 years ( see external hospital admission note on 08/29/2024 us Historical Provider MD HEALTH MAINTENANCE Edited Result - Final * Hematoxylin and Eosin Stain (08/29/2024 9:51 AM EDT) 08/29/2024 9:51 AM EDT 08/29/2024 11:11 AM EDT [facility] - 09/02/2024 12:50 PM EDT ----- ------- Name: Violetta Camarillo ?Age/Sex: 69/F ? : 1955 Unit#: [id number] ?? Attend Dr: Savannah Burdick MD ?Re08/29/24 ?Status: DEP SDC ? Location: HO.SSS ?Disch: ? ----- ------- SPEC : [id number] ? RECD: 08/29/24-1111 ? STATUS: ??SOUT ? REQ NUM: [id number] ? JETHRO: 08/29/24-950 ? SUBM DR: Savannah Burdick MD ? ENTERED: ??08/29/24-1123 ?SP TYPE: Surgical ? OTHR DR: Glenna Jett DO ? ORDERED: ??HE Stain/15, Gross Micro L4/5, IHC, Special st. 2/3, H. pylori, AB/PAS/3 ? Diagnosis ?? A. ??Duodenum, biopsy: ??Duodenal mucosa within normal limits. ? B. ??EG junction, polyp, biopsy: ?- Hyperplastic cardiac-type mucosa with moderate chronic inactive inflammation; no ?? intestinal metaplasia seen. ?- No squamous epithelium present. ? C. ??Stomach, antral polyps, biopsy: ??Antral-type mucosa with mild chronic active ?? inflammation, regenerative changes and focal intestinal metaplasia; negative for ?? dysplasia; no Helicobacter organisms seen. ? D. ??Cecum, polypectomy: ??Fragments of tubular adenoma; negative for high- grade dysplasia ?? or carcinoma. ? D. ??Colon, sigmoid, polypectomy: ??Fragments of tubular adenoma; negative for high-grade ?? dysplasia or carcinoma. ?Clinical History Pre-Op Dx: ??Dysphagia, hx of polyps Post-Op Dx: Schatzki's ring, gastric polyp, hiatal hernia, duodenitis, Grade C esophagitis, external hemorrhoids, diverticulosis, polyps ?Microscopic Description A-E. ??Microscopic sections examined. ??Intestinal metaplasia is seen in C and no metaplastic changes are seen in A and B, supported by AB/PAS stains; no Helicobacter organisms are seen, supported by H. pylori immunostain (C). ? Material Received ?? A. Duodenum bx's ?? B. EG junction polyp bx's ?? C. Antrum polyps bx's ?? D. Cecum polyp ?? E. Sigmoid colon polyp ? CONTINUED ON NEXT PAGE ----- ------- Name: Violetta Camarillo ?Age/Sex: 69/F ? : 1955 Unit#: [id number] ?? Attend Dr: Savannah Burdick MD ?Re08/29/24 ?Status: DEP SDC ? Location: HO.SSS ?Disch: ? ----- ------- SPEC : [id number] ? RECD: 08/29/24-1111 ? STATUS: ??SOUT ? REQ NUM: [id number] ? JETHRO: 08/29/24-950 ? SUBM DR: Savannah Burdick MD ? ENTERED: ??08/29/24-1123 ?SP TYPE: Surgical ? OTHR DR: Glenna Jett DO ? ORDERED: ??HE Stain/15, Gross Micro L4/5, IHC, Special st. 2/3, H. pylori, AB/PAS/3 ? Gross Description Received in five parts. Part A: ??Received in formalin labeled ?duodenum bx's? are 4 rosen-pink irregular tissue fragments ranging from 0.2-0.3 cm, submitted in toto in a cassette labeled A. Part B: ??Received in formalin labeled ?EG junction polyp bx's? are 4 ibrahim-rosen irregular tissue fragments ranging from 0.1-0.2 cm, submitted in toto in a cassette labeled B. Part C: ??Received in formalin labeled ?antrum polyps bx's? are 4 rosen- pink irregular and rectangular tissue fragments ranging from 0.1 to 0.35 cm, submitted in toto in a cassette labeled C. Part D: ??Received in formalin labeled ?cecum polyp? is a 0.5 cm hyperemic and congested rosen- red papular tissue fragment, submitted in toto in a cassette labeled D. Part E: ??Received in formalin labeled ?sigmoid colon polyp? is a 3.0 x 0.5-1.2 cm thin and delicate rectangular fragment of rosen mucosa which along 1 edge is remarkable for a focally fragmented and torn pink-red papular focus measuring 0.45 cm. ??The resected base is inked and the specimen is sectioned and entirely submitted in a cassette labeled E. ??CEDS Special studies ordered and performed: Immunostain for H. pylori on C; AB/PAS stains on A, B and C Copies To: ?? Glenna Jett DO ?? [facility] ?? [address] ?? [place] [address] ?? [phone] ?? Savannah Burdick MD ?? [facility] [place] [place] [facility] ?? [address] ?? [place] [address] ?? [phone] ?? [email or web address] ----- ------- Signed (signature on file) Phill Hernandez MD 09/02/24 3320 ? ----- ------- ? END OF REPORT ? us Generic External Data Provider LAB BLOOD ORDERAB LES Final Result Performing Organization Address [facility] Co de Phone Number [facility] [address] [place] [address] [phone] * (ABNORMAL) Glucose, Whole Blood (08/29/2024 8:29 AM EDT) Glucose, Whole Blood 139(H) 60 - 115 mg/dL [facility] Comment:METER #: [id number] 08/29/2024 8:29 AM EDT 08/29/2024 8:40 AM EDT us Generic External Data Provider LAB BLOOD ORDERAB LES Final Result Performing Organization Address [facility] Co de Phone Number [facility] [address] [place] [phone] * (ABNORMAL) POCT HGB A1C (07/10/2024 3:32 PM EST) Hemoglobin A1C 8.0(A) 4.0 - 6.0 % QC Media Lot # [id number] Blood 07/10/2024 3:32 PM EST Glenna Jett DO POINT OF CARE TEST ENTER/KULDEEP T ORDERABLES Final Result * Albumin, Random Urine W/Creatinine (10/13/2023 8:56 AM EDT) Creatinine, Urine 120.87 mg/dL [facility] Microalbumin Urine 10.0 mg/L [facility] Microalbum Creatinine Ratio Ur 8.2 <30 ug/mg cr [facility] Comment:Albumin/Creatinine R atio Reference Ranges: Normal: < 30 ug/mg creatinine Microalbuminuria: 30 - 300 ug/mg creatinineClinical Albuminuria: > 300 ug/mg creatinine 10/13/2023 8:56 AM EDT 10/13/2023 11:21 AM EDT us Glenna Maliha DO LAB URINE ORDERABLES Final R esult [facility] [address] [facility] [place] [address] [phone] * BI Mammogram Screening Tomosynthesis Bilateral (07/27/2023 12:51 PM EST) Anatomical Region Laterality Modality Breast Bilateral Mammography 07/27/2023 12:5 1 PM EST Narrative 08/20/2023 8:14 AM EDT ? [facility] ? [address] ?[place] [address] ? Mammography Report ? Signed ? Patient: Casa Pearson,Violetta ?MR#: ?? [id number] ? : 1955 ?Acct:[id number] ? Age/Sex: 67 / F ?ADM Date: 07/27/23 ? Loc: HO.MAMMO ? Attending Dr: Glenna Jett DO ? Ordering Physician: Glenna Jett DO ?Results: 1N ?? egative ? Date of Service: 07/27/23 ?Follow Up: 1 Year From Orig ?? inal Mammogram ? Procedure(s): MM tomosynthesis screening BI ?? Accession Number(s): [id number] ? cc: Glenna Jett DO ? EXAMINATION: ?? MM SCREENING DIGITAL BREAST TOMOSYNTHESIS, BILATERAL ? CLINICAL INFORMATION: ? Screening. Asymptomatic. ? COMPARISON: ?? Mammography: This study is compared with prior exams dating back to ?? 2019. ? TECHNIQUE: ?? Digital breast tomosynthesis is [...] by Vesna Redmond MD in OV> ? 08/20/23 0810 ? DD/ 1251 ? TD/TT: ? Nut Former: ? Procedure Note Jesus, Image - 08/20/2023 [facility] [address] [place] [address] Dr. [place], [place] [address] Mammography Report Signed Patient: Violetta Camarillo#: [id number] : 4Acct:[id number] Age/Sex: 67 / FADM Date: 07/27/23 Loc: [facility] Attending Dr: Glenna Jett DO Ordering Physician: Jurcsak,Glenna A DOResults: 1N egative Date of Service: 07/27/23Follow Up: 1 Year From Orig inal Mammogram Procedure(s): MM tomosynthesis screening BI Accession Number(s): [id number] cc: Glenna Jett DO EXAMINATION: MM SCREENING [...] in OV> 08/20/23 0810 DD/ 1251 TD/TT: Nut Former: Glenna Jett DO IM BI PROCEDURES Edited Res ult - Final * Lipid Panel, Standard (08/31/2022 8:32 AM EDT) Cholesterol, Total 165 <200 mg/dL [facility] HDL Cholesterol 62 > OR = 50 mg/dL [facility] Triglycerides 135 <150 mg/dL [facility] LDL Cholesterol 80 mg/dL (calc) [facility] Comment: Reference range: <100 Desirable range <100 mg/dL for primary prevention; ?? <70 mg/dL for patients with CHD or diabetic patients with > or = 2 CHD risk factors. LDL-C is now calculated using the Bandar-Chavarria calculation, which is a validated novel method providing better accuracy than the Friedewald equation in the estimation of LDL-C. Bandar SS et al. COLBY. 2013;310(19): 8683-2096 (http://education.Appthority/faq/DGM116) Chol/HDLC Ratio 2.7 <5.0 (calc) [employer] Non-HDL Cholesterol 103 <130 mg/dL (calc) [employer] Comment: For patients with diabetes plus 1 major ASCVD risk factor, treating to a non-HDL-C goal of <100 mg/dL (LDL-C of <70 mg/dL) is considered a therapeutic option. 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
--- OUTSIDE RECORDS SUMMARY | 2024-09-13 11:28 | XMS_ITS | Encounter Summary ---
Author Organization [employer] Address [address] [facility] [address] [place] [address] Care Team Providers Care Masseur/Masseuse Name Role Phone Glenna Jett DO Primary Care Provider [phone] Poly Diaz PharmD Unavailable [phone] Encounter Details Date Type Department Care Team ([facility] st Contact Info) Description 04/17/2024 Telephone [facility] [address] [place] [address] Glenna Jett DO [address] [place] [address] Social History Tobacco Use Types Packs/Day Years [...] Medication Management [facility] MED[facility]INE [address] [place] [phone] PuiaFranckPoly, PharmD [address] [place] [phone] 10/25/2024 9:00 AM EDT Telemedicine [address] [phone] Padmaja Anderson RN documented as of this [...] documented as of this encounter Care Teams Masseur/Masseuse Relationship Specialty Start Date End Date Glenna Jett DO [address] [place] [address] [phone] PCP - General Family Medicine 05/24/12 Puia, Poly, PharmD [address] [place] [address] [phone] Pharmacist Internal Medicine 07/04/23 documented as of this encounter
--- OUTSIDE RECORDS SUMMARY | 2024-09-13 11:28 | XMS_ITS | Data Portability ---
Author Organization [employer], Ct in - [employer] Address [address] [place] [address] Care Team Providers Care Paintings Restorer Name Role Phone [facility] Referring Provider HIM CCA OTHER Assessment [...] Assessment and Plan as documented by the Twist Maker. Patient given the opportunity to ask questions. [...] assessment and plan as documented by the rubber turner. I provided real time medical direction for this encounter and was immediately available to provide additional phone based assistance as needed. History as noted by rubber turner. Pt with history of DM2 and gastritis. [...] and family agree to ambulance transport to [facility] ED for evaluation. I call an expect to the [facility] ED drencher as well. Just prior to transport, the pt reported to the medic that she had forgotten, but did have a cholecystectomy in the past. [email or web address] Not available 12/23/2023 14:54:08 Plan of Treatment Reminders Order Date Submit Date Provider Last Modified By Organization Details Last Modified Time Details Appointments None recorded. Lab culture, urine 2022 023 [place] [facility] (Centralized Electronic Ordering - All Locations), Patient Can Go To The Location Of Their Choice, [id number] 06:44:22 urinalysis, dipstick [address], [id number] 3 20:58:27 rapid SARS CoV 2 Ag, QL IA, respiratory specimen 2022 023 [facility], [address] [place] [address], [id number] 3 11:57:43 rapid strep group A, throat 2022 023 [facility], [address] [place] [address], [id number] 3 11:57:17 Referral None recorded. Procedures None recorded. Surgeries None recorded. Imaging None recorded. Medication Orders levofloxaci n 500 mg tablet 2022 023 [id number], [address] [place], [address], 3 20:51:49 albuterol sulfate HFA 90 mcg/actuati on aerosol inhaler 2022 023 [facility], [address] [place] [address], [id number], 3 15:21:37 ciprofloxac in 0.3 % eye drops 2022 023 [facility], [address] [place] [address], [id number], 3 14:21:11 Cipro HC 0.2 %-1 % ear drops,suspe nsion 2022 023 [facility], [address] [place] [address], [id number], 3 14:21:11 Patient TargetsNo targets recorded. Patient InstructionsNo instructions recorded. Reason for Referral None Reported. Results Created Date Observation Date Name Description Value Unit Range Abnormal Flag Note LastModifiedBy Organization Detail LastModifiedTime 04/14/2004/14/2023 URINE CULTU RE specimen description URINE Not Available [facility] (Centralized Electronic Ordering - All Locations) Patient Can Go To The Location Of Their Choice, [id number] 04/16/2023 06:44:21 04/14/2004/14/2023 URINE CULTU RE special requests NONE Not Available [facility] (Centralized Electronic Ordering - All Locations) Patient Can Go To The Location Of Their Choice, [id number] 04/16/2023 06:44:21 04/14/20 23 04/16/2023 URINE CULTU RE culture NO GROWTH Not Available [facility] (Centralized Electronic Ordering - All Locations) Patient Can Go To The Location Of Their Choice, [id number] 04/16/2023 06:44:21 04/14/20 23 04/16/2023 URINE CULTU RE report status FINAL 2022 Not Available [facility] (Centralized Electronic Ordering - All Locations) Patient Can Go To The Location Of Their Choice, [id number] 04/16/2023 06:44:21 Result Notes None recorded. Medical Equipment None Reported. Allergies Allergen ID Allergen Name Allergen Category Reaction Reaction Severity Criticality Documentation Date Start Date Code Code System Note Provider Name and Address Organization Details Recorded Time 7617 Product containin g penicilli n (product) medicatio n Not available Not available Not available 04/09/2024 63188 8001 SNOMED Not Available [facility] - production 4 03:38:40 Medications Name Sig Start Date Stop [...] 1 CAPSULE BY MOUTH ONCE WEEKLY ON MONDAY MORNING active Not Available Not Available No [...] Not Available Not Available Not Available [employer] Blackshear Lite kit TEST BLOOD SUGAR THREE TIMES [...] % 97 % 67 /min 160.02 cm 56604.5 6 g 16 /min 155 mm[Hg] 81 mm[Hg] Not Available [employer] 3 20:09:43 Date Recorded Body temperature Body weight Respiratory rate Heart rate Body height Oxygen saturation Oxygen saturation in Arterial blood by Pulse oximetry Systolic blood pressure Diastolic blood pressure Provider Name and Address Organization Details Last Updated DateTime 4 100.6 [degF] 65825.5 6 g 16 /min 98 /min 160.02 cm 98 % 98 % 124 mm[Hg] 72 mm[Hg] Not Available [employer] 4 12:15:09 Date Recorded Body height Heart rate Respiratory rate Oxygen saturation Oxygen saturation in Arterial blood by Pulse oximetry Body temperature Systolic blood pressure Diastolic blood pressure Provider Name and Address Organization Details Last Updated DateTime 4 160.02 cm 90 /min 16 /min 96 % 96 % 98.4 [degF] 130 mm[Hg] 80 mm[Hg] Deon Pabon MD [address] [facility],[address], [place], [address], [place] - [employer] 4 13:33:27 Date Recorded Heart rate Oxygen saturation Oxygen saturation in Arterial blood by Pulse oximetry Respiratory rate Body temperature Systolic blood pressure Diastolic blood pressure Provider Name and Address Organization Details Last Updated DateTime 4 90 /min 98 % 98 % 16 /min 98.4 [degF] 130 mm[Hg] 80 mm[Hg] Not Available [employer] 4 14:31:14 Date Recorded Oxygen saturation Oxygen [...] mm[Hg] 127 mm[Hg] 61 mm[Hg] Not Available [employer] 3 14:00:01 Date Recorded Oxygen saturation Oxygen [...] mm[Hg] 146 mm[Hg] 76 mm[Hg] Not Available [employer] 3 15:44:23 Social History None recorded. Functional [...] Diagnosis Note [id number] Jose Elias Patel MD Main - [facility] [address] [place] [phone] 03/14/2022 13:29:19 03/17/2022 10:31:54 Fever [id number] R50.9 7981 Carol Wood MD Main - [facility] [address] [place] [address] 08/04/2022 13:33:21 08/08/2022 09:30:54 Viral upper respiratory tract infection 003583803 J06.9 Acute conjunctivitis 537 73164 H10.31 Acute otitis externa 302 21349 H60.511 8300 Laura Foy MD Main - [facility] [address] [place] [phone] 08/16/2022 15:04:32 08/18/2022 10:23:06 Cough 32593038 R05.9 expectorat ed clear sputum, with associated [...] call back or present to the ED [id number] Ewa Stovall MD Main - [facility] [address] [place] [phone] 04/14/2023 20:09:39 04/18/2023 10:03:43 Acute pyelonephritis 63953404 N10 Urinary symptoms 0276291 08 R39.9 [id number] Jordan Green MD Main - [facility] [address] [place] [phone] 06/21/2023 12:15:06 06/22/2023 09:57:30 Hyperglycemia due to type 2 diabetes mellitus [id number] 55305 E11.65 This 67-year-ol d female with type [...] PCP. The patient agreed with this plan. [id number] Deon Pabon MD Main - [facility] [address] [place] [phone] 12/23/2023 13:20:24 12/24/2023 22:15:17 Epigastric pain 01399399 R10.13 Nausea and vomiting 1693 1999 R11.2 Health Concerns Section Related Observation LastModified by Organization Detai ls LastModified Time None Recorded Concern Status LastModified by Organization Details LastModified Time None Recorded Advance Directives Directive None Recorded Payers Encounter Date Sequence Insurance Name Policy Number Policy Page Covered Member ID Page Member ID Guarantor Name 08/04/2022 1 [employer] - DOS PRIOR TO 2022 - DUAL ELIGIBLE (MEDICARE REPLACEMENT/ADV ANTAGE - HMO) Violetta Cormier [id number] Violetta Cormier 08/16/2022 1 [employer] - DOS PRIOR TO 2022 - DUAL ELIGIBLE (MEDICARE REPLACEMENT/ADV ANTAGE - HMO) Violetta Cormier [id number] Violetta Cormier 04/14/2023 1 [employer] - DOS ON OR AFTER 2022 - DUAL ELIGIBLE - SNF OPTIONS AND ONE CARE (MEDICARE REPLACEMENT/ADV ANTAGE - HMO) Violetta Cormier [id number] Violetta Cormier 06/21/2023 1 [employer] - DOS ON OR AFTER 2022 - DUAL ELIGIBLE - SNF OPTIONS AND ONE CARE (MEDICARE REPLACEMENT/ADV ANTAGE - HMO) Violetta Cormier [id number] Violetta Cormier 12/23/2023 1 [employer] - DOS ON OR AFTER 2022 - DUAL ELIGIBLE - SNF OPTIONS AND ONE CARE (MEDICARE REPLACEMENT/ADV ANTAGE - HMO) Violetta Cormier [id number] Violetta Cormier Notes Date Note Type Note [...] ...................... ...................... ...................... ...................... ...................... ...................... ......... Twist Maker Note From Rodo Manzano: Pt presents awake [...] when pressing on tragus. Pt/family advised to pickle processor antibiotic(s) MIGUEL; educated on warning signs that would indicate the ED and proper handwashing techniques to avoid spread; and advised to f/u with PCP next week. Twist Maker Allergies: Penicillin ...................... ...................... ...................... ...................... ...................... ...................... ......... Disposition: Fulfilled Carol Wood MD [address] [facility],[address], [place], [address], [facility] - [employer] 08/04/2022 15:23:46 08/16/2022 text/html HPI: Call to Violetta Pearson, spoke with daughter Sharon Fuchs who is on HIPPA. Reports pt having cough and nasal congestion. Sx onset since yesterday. Pt had Covid-19 test kit performed yesterday and negative. Reports mild subjective fever. Denies any nausea vomiting. Had one episode of mild diarrhea. No blood in stool. Advised of disposition, declined [facility] for assessment of cough. Agrees to [employer] referral. ...................... ...................... ...................... ...................... ...................... ...................... ......... CRC Nursing Assessment: Comments: CRC RN DID NOT NEED FURTHER INFO > TATYANA ...................... ...................... ...................... ...................... ...................... ...................... ......... Twist Maker Note From Otto Portillo: Dispatched to the above for the 66 y/o female cough, malawian speaking only - interrupter services contacted - [...] rapid flu / covid (- ) , [facility] contacted and ordered agapitoo neb (administered), and discussed supportive care. Pt reported improvement in breathing (- ) adverse reaction to medications Twist Maker Allergies: Penicillin ...................... ...................... ...................... ...................... ...................... ...................... ......... Disposition: Fulfilled Laura Foy MD [address] [facility],[address], [place], [address], [employer] 08/16/2022 21:52:45 04/14/2023 text/html HPI: CKD, smoker, GERD Patient with several days of dark urine and pain with urination. NO fever pain in lower back and foul urine. ...................... ...................... ...................... ...................... ...................... ...................... ......... CRC Nursing Assessment: Comments: CRC RN did not require any additional information to process this visit. ...................... ...................... ...................... ...................... ...................... ...................... ......... Twist Maker Note From Rodo Manzano: Pt reports two days of dysuria, bilateral flank pain and dark, cloudy urine. Pt denies hx of UTI? s . Pt denies hematuria, CP, SOB, DORADO, f/n/v/d. Pt is alert, NAD. VSS. Temp 99.1. Neuro exam and gait normal. Lungs CTA. Benign ABD exam. Right sided CVA tenderness. No ISRAEL. UA: trace BASIL, - NIT, - BLO. UC to [facility]. [facility] contacted and pt treated with levofloxacin 500 mg PO. Pt instructed to stay well hydrated, f/u with PCP next week and to seek emergent medical care for new or worsening sx, which are reviewed with her. ...................... ...................... ...................... ...................... ...................... ...................... ......... Disposition: Fulfilled Ewa Stovall MD [address] [facility],[address], [place], [address], [employer] 04/14/2023 20:52:20 06/21/2023 text/html CRC Nurse Triage [...] and insulin (unknown type). Jordan Green MD [address] [facility],[address], [place], [address], [employer] 06/21/2023 12:19:33 12/23/2023 text/html This was a super vised home visit with rubber turner Hanh Carl. [facility] Nurse Triage Notes (Jayden Pate): Reason For Request: Patient Vomiting. Chief Complaints: Gastrointestinal Concerns (other) PMH: Hypertension, Diabetes, COPD/Asthma Allergies: Penicillin Comments: Mbr & mbr's daughter Sri Lankan speaking primarily, multifocal lens inspector# [id number] used for triage assessment. Functional Tester verified the member's name//address and phone number. Mbr's daughter reporting mbr has been vomiting since last night, reports 6 episodes of vomiting last night. Mbr denies abdominal pain or diarrhea. Education provided on the response time and the member was advised to monitor reported s/s and seek emergency treatment if needed -Padma Pate RN ...................... ...................... ...................... ...................... ...................... ...................... ......... Twist Maker Note From Hanh Carl: Community Twist Maker Edward Carl [email or web address] dispatched to a yellow for a [...] palpation to epigastric area, no abnormalities felt. [facility] consulted; pt was instructed to seek further testing and tx in the ED. She agreed, and 911 was called. [facility] arrived and transported the pt to [facility] ED./ ...................... ...................... ...................... ...................... ...................... ...................... ......... Disposition: Fulfilled Deon Pabon MD [address] [facility],[address], [place], [address], [employer] 12/23/2023 14:54:30 OBGyn Episode No OBEpisode recorded.
== END 2024-09-13 11:30 | disposition home or self-care (01) ==
LOC: HO.HGI 10:06
PROVIDERS: PCP Family Medicine; Visit Provider Nurse Practitioner Family
DX: K21.00 Gastro-esophageal reflux disease with esophagitis, without bleeding (principal); K58.9 Irritable bowel syndrome, unspecified; R13.19 Other dysphagia; K22.2 Esophageal obstruction
CPT/HCPCS: 99214; G2211

== ENCOUNTER → 2024-09-13 10:06 | Outpatient (BNVA) | payer OTHER, SELFPAY | PROVIDERS: PCP Family Medicine; Visit Provider Nurse Practitioner Family | DX: K21.00 Gastro-esophageal reflux disease with esophagitis, without bleeding (principal); K58.9 Irritable bowel syndrome, unspecified; K22.2 Esophageal obstruction; R10.13 Epigastric pain; R13.19 Other dysphagia; Z79.899 Other long term (current) drug therapy | CPT/HCPCS: 99212 ==

== ENCOUNTER 2024-09-16 09:49 | Outpatient (REF) | payer OTHER, SELFPAY ==
[2024-09-16 11:12] LABS: MANUAL DIFF FLAG NO
--- OUTSIDE RECORDS SUMMARY | 2024-09-16 11:23 | XMS_ITS | Encounter Summary ---
Author Organization [employer] Address [address] [facility] [address] [place] [address] Care Team Providers Care Roll Machine Operator Name Role Phone Glenna Jett DO Primary Care Provider [phone] Poly Diaz PharmD Unavailable [phone] Reason for Visit * Reason Comments Med Refill Encounter Details Date Type Department Care Team ([facility] st Contact Info) Description 12/11/2023 Refill [facility] [address] [place] [address] Glenna Jett DO [address] [place] [address] Social History Tobacco Use Types Packs/Day Years [...] Description 09/24/2024 3:30 PM EDT Medication Management [address] [address] PuiaPoly, PharmD [address] [place] [address] 10/25/2024 9:00 AM EDT Telemedicine [address] [address] Padmaja Anderson RN documented as of this encounter Goals Goal Patient Goal Type Associated Problems Recent Progress Patient-Stated? Author Record your blood sugar as directed Result Component No PuiaFranckPoly, PharmD Hemoglobin A1c < 7.5 Result Component 8(07/10/2024 3:32 PM EST) No Puia Poly, PharmD documented as of this encounter Visit Diagnoses Not on filedocumented in this encounter Care Teams Roll Machine Operator Relationship Specialty Start Date End Date Glenna Jett DO [address] [place] [address] PCP - General Family Medicine 05/24/12 Puia, Poly, PharmD [address] [place] [address] [phone] Pharmacist Internal Medicine 07/04/23 documented as of this encounter
--- OUTSIDE RECORDS SUMMARY | 2024-09-16 11:23 | XMS_ITS | Encounter Summary ---
Author Organization [employer] [facility] Address [address] [facility] [address] [place] [address] Care Team Providers Care Manager Video Name Role Phone Glenna Jett DO Primary Care Provider [phone] Poly Diaz PharmD Unavailable [phone] Reason for Visit * Reason Onset Date Comments Nurse Triage 09/16/2024 Encounter Details Date Type Department Care Team ([facility] st Contact Info) Description 09/16/2024 Telephone [facility] [address] [place] [address] Jaja Kimball MD [address] [place] [address] Nurse Triage Social History Tobacco Use Types Packs/Day Years [...] encounter Miscellaneous Notes * Telephone Encounter - Poly Maciel RN - 09/16/2024 9:10 AM EDT 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 Currently, patient's BP 136/83. She reports her N/V and diarrhea started this morning around 3:30-4:00 AM. She checked her BG this morning and her daughter reports it was 61. Patient reports she ate toast. Patient reports she has had similar symptoms in the past but this is worse. No new medications/ supplements. Of note, patient followed by [facility]. Vitals: BP 136/83 HR 90 RR 18 SpO2 99% on room air Temp 97.9 (oral) In Office Testing: Glucose 153 Plan: Report to Dr. Kimball Provider in to evaluate patient at this time [employer] Telugu Interpretor documented in this encounter Plan of Treatment Upcoming Encounters Date Type Department Care Team (Late st Contact Info) Description 09/24/2024 3:30 PM EDT Medication Management [facility] [address] [place], [place] [phone] Poly Diaz, PharmD [address] [place], [place] [phone] 10/25/2024 9:00 AM EDT Telemedicine [facility] [address] [place] [address] Padmaja Anderson, ESTER documented as of this encounter Goals Goal Patient Goal Type Associated Problems Recent Progress Patient-Stated? Author Record your blood sugar as directed Result Component No Poly Diaz PharmMihaela Hemoglobin A1c < 7.5 Result Component 8(07/10/2024 3:32 PM EST) No Poly Diaz PharmD documented as of this encounter Visit Diagnoses Not on filedocumented in this encounter Additional Health Concerns Assessment Noted Time PHQ-9 Depression Total Score: 6 02/06/20 24 1:46 PM EDT documented as of this encounter Care Teams Manager Video Relationship Specialty Start Date End Date Glenna Jett DO [address] [place] [address] PCP - General Family Medicine 05/24/12 Poly Diaz PharmD [address] [place] [phone] Pharmacist Internal Medicine 07/04/23 documented as of this encounter
--- OUTSIDE RECORDS SUMMARY | 2024-09-16 11:23 | XMS_ITS | Encounter Summary ---
Author Organization [employer] Address [address] [facility] 7t [place] [address] Care Team Providers Care Spotlight Operator Name Role Phone Maliha Glenna DYSON Primary Care Provider [phone] Poly Diaz PharmD Unavailable [phone] Reason for Visit * Reason Comments Diarrhea Abdominal Pain Nausea Dizziness Encounter Details Date Type Department Care Team (Latest Contact Info) Description 09/16/2024 9:20 AM EDT Office Visit [facility] [address] [place] [address] Jaja Kimball MD [address], [place] [phone] Gastroenteritis (Primary Dx); Tubular adenoma of colon; Generalized abdominal pain Social History Tobacco Use Types Packs/Day Years [...] AM EDT documented as of this encounter Last Filed Vital Signs Vital Sign Reading Time Taken Comments Blood Pressure 136/83 09/16/2024 8:57 AM EDT Pulse 90 09/16/2024 8:57 AM EDT Temperature 36.6 ??C (97.9 ??F) 09/16/2024 8:57 AM ED T Respiratory Rate 18 09/16/2024 8:57 AM EDT Oxygen Saturation 99% 09/16/2024 8:57 AM EDT Inhaled Oxygen Concentration - - Weight 75.5 kg (166 lb 6.4 oz) 09/16/2024 8:57 A M EDT Height - - Body Mass Index 29.48 02/06/2024 11:56 AM EDT documented in this encounter Progress Notes * Jaja Kimball MD - 09/16/2024 9:20 AM EDT SUBJECTIVE: Violetta Pearson is a 69 y.o. year old female who presents for Walk [facility]/abd [facility] . Denies recent illness, injury, or hospitalization. Acute Concerns: Patient is here with her daughter complaining of generalized abdominal pain, nausea, vomiting, low-grade fever, headache, soft to liquid stools number 3 to 5/day for the past 2 days. She denies URI symptoms, her daughter was sick last week. She had EGD on 08/29/2024 that showed esophagitis, EGJ polyp with benign changes, mild chronic active gastritis with focal intestinal metaplasia/no H.pylori. Tubular adenoma x 2 in the colon Social History Social History Narrative Not on file Patient Active Problem List Diagnosis Chronic constipation Chronic kidney disease Chronic pain syndrome Vitamin B12 deficiency Essential hypertension Fibromyalgia Chronic gastroesophageal reflux disease Generalized osteoarthritis Hyperlipidemia Mild cognitive disorder Mild persistent asthma Osteopenia Major depression, recurrent, chronic (CMS/HCC) Type 2 diabetes mellitus (CMS/HCC) Gastroparesis Diabetic peripheral neuropathy (CMS/HCC) Diabetic retinopathy (CMS/HCC) Chronic low back pain Urinary incontinence History of actinic keratosis Irritable bowel syndrome Fatty liver Healthcare maintenance Long-term current use of opiate analgesic Tubular adenoma of colon Gastroenteritis Family History Problem Relation Name Age of Onset Alzheimer's disease Mother Hypertension Mother Coronary artery disease Mother Kidney disease Mother Diabetes Sister Hypertension Sister HIV Brother Prostate cancer Brother Diabetes Brother Hypertension Brother Asthma Mother's Sister Review of Systems OBJECTIVE: Vitals: 09/16/24 0857 BP: 136/83 Pulse: 90 Resp: 18 Temp: 97.9 ??F (36.6 ??C) SpO2: 99% Physical Exam HENT: Right Ear: Tympanic membrane and ear canal normal. Left Ear: Tympanic membrane and ear canal normal. Mouth/Throat: Mouth: Mucous membranes are moist. Pharynx: No oropharyngeal exudate or posterior oropharyngeal erythema. Eyes: Pupils: Pupils are equal, round, and reactive to light. Cardiovascular: Rate and Rhythm: Regular rhythm. Pulses: Normal pulses. Heart sounds: Normal heart sounds. No murmur heard. Pulmonary: Breath sounds: Normal breath sounds. Abdominal: General: Bowel sounds are normal. Palpations: Abdomen is soft. Tenderness: There is abdominal tenderness in the right upper quadrant, right lower quadrant, epigastric area, periumbilical area and left lower quadrant. There is rebound. There is no right CVA tenderness, left CVA tenderness or guarding. Positive signs include McBurney's sign. Musculoskeletal: General: Normal range of motion. Cervical back: Neck supple. Skin: General: Skin is warm. Neurological: General: No focal deficit present. Mental Status: She is alert and oriented to person, place, and time. Psychiatric: Mood and Affect: Mood normal. Behavior: Behavior normal. Office Visit on 09/16/2024 Component Date Value Ref Range Status Influenza B 09/16/2024 Negative Negative, Indeterminate Final QC Media Lot # 09/16/2024 [id number] Final Lot# Expiration Date 09/16/2024 [id number] Final Influenza A 09/16/2024 Negative Negative, Indeterminate Final QC Media Lot # 09/16/2024 [id number] Final Lot# Expiration Date 09/16/[id number] Final Coronavirus Antigen PCR 09/16/2024 Negative Negative, Indeterminate, None Detected, Invalid, Specimen unsatisfactory for evaluation, Weakly Positive Final QC Media Lot # 09/16/2024 [id number] Final Lot# Expiration Date 09/16/[phone] Final Problem List Items Addressed This Visit Gastroenteritis - Primary Rapid viral testing negative today. Advised regarding increase p.o. fluids (Pedialyte, water, chicken broth, herbal teas), take Zofran 3 times daily AC meals as needed nausea or vomiting Take sucralfate 3 times daily AC meals due to history of gastritis NPO today except p.o. clear fluids (avoid daily products) and advance to brat/soft diet as tolerated Rx Imodium as needed severe diarrhea more than 2 days Rx Tylenol as needed fever, chills, body aches or headache Order labs to rule out more severe inflammatory process i.e. appendicitis, will call back as needed. She will hold all DM meds until she tolerates p.o., if RBS is> 200, she will use Tresiba 7 to 10units only. Hold Ozempic this week, can restart next week if symptoms are completely resolved. Hold all BP meds if BP is below 120/70 and she is not eating well RTC or go to ED if symptoms do not significantly improve within 3 days Relevant Medications ondansetron (Zofran) 4 MG tablet Tubular adenoma of colon Problem list updated, s/p colonoscopy 8 08/2024 Next colonoscopy in 3 to 5 years, follow-up with PCP Other Visit Diagnoses Generalized abdominal pain Relevant Orders POCT Rapid Influenza B YANCEY ID NOW (Completed) POCT Rapid Influenza A YANCEY ID NOW (Completed) POCT Rapid Covid-19 YANCEY ID NOW (Completed) CBC auto differential Comprehensive Metabolic Panel Follow Up: Current Outpatient Medications on File Prior to Visit Medication Sig Dispense Refill Aspirin Low Dose 81 MG EC tablet TAKE 1 TABLET BY MOUTH EVERYDAY AT NOON 90 tablet 1 atorvastatin (Lipitor) 80 MG tablet Take 1 tablet (80 mg) by mouth at bedtime. 90 tablet 3 Blood Glucose Monitoring Suppl (FreeStyle Lite) w/Device kit 1 kit 3 times daily. 1 kit 0 cholecalciferol VITAMIN D (Vitamin D-3) 50 MCG (2000 UT) tablet TAKE 1 TABLET BY MOUTH EVERY MORNING 90 tablet 0 cyanocobalamin (Vitamin B-12) 1000 MCG tablet TAKE 1 TABLET BY MOUTH EVERY MORNING 90 tablet 1 ezetimibe (Zetia) 10 MG tablet Take 1 tablet (10 mg) by mouth at bedtime. 90 tablet 3 fluticasone (Flonase) 50 MCG/ACT nasal spray INSTILL 2 SPRAYS IN EACH NOSTRIL ONCE DAILY 48 g 1 gabapentin (Neurontin) 400 MG capsule TAKE 1 CAPSULE BY MOUTH THREE TIMES DAILY IN THE MORNING, EVENING, AND BEDTIME 90 capsule 0 glucose blood (FREESTYLE LITE) test strip TEST BLOOD SUGAR THREE TIMES DAILY 100 strip 11 insulin degludec (Tresiba FlexTouch) 200 UNIT/ML injection INJECT 14 UNITS SUBCUTANEOUSLY ONCE DAILY 9 mL 5 insulin pen needle (Pentips) 32G x 4 mm misc Use 1 daily for insulin injection 100 each 3 lisinopril 2.5 MG tablet Take 1 tablet (2.5 mg) by mouth Once per day. 90 tablet 3 loratadine (Claritin) 10 MG tablet TAKE 1 TABLET BY MOUTH EVERY MORNING 90 tablet 3 Mometasone Furoate (Asmanex HFA) 100 MCG/ACT aerosol Inhale 1 puff 2 times daily. 13 g 11 naloxone (Narcan) 4 mg/0.1 mL nasal spray Administer 1 spray (4 mg) into affected nostril(s) if needed for opioid reversal. May repeat every 2-3 minutes if needed, alternating nostrils, until medicalassistance becomes available. 2 each 3 oxybutynin XL (Ditropan-XL) 5 MG 24 hr tablet TAKE 1 TABLET BY MOUTH EVERY MORNING 30 tablet 5 Ozempic, 2 MG/DOSE, 8 MG/3ML solution pen-injector Inject 2 MG SUBCUTANEOUSLY EVERY 7 DAYS IN THE ABDOMEN, THIGHS OR UPPER ARM. ROTATE INJECTION SITES. 3 mL 3 pantoprazole (ProtoNix) 40 MG EC tablet TAKE 1 TABLET BY MOUTH EVERY MORNING 30- 60 MINUTES BEFORE BREAKFAST sertraline (Zoloft) 100 MG tablet TAKE 1 AND 1/2 TABLETS BY MOUTH IN THE MORNING 135 tablet 1 Synjardy 12.5-1000 MG TAKE 1 TABLET BY MOUTH TWICE DAILY IN THE MORNING AND IN THE EVENING WITH MEALS 60 tablet 5 traZODone (Desyrel) 50 MG tablet TAKE 1 TABLET BY MOUTH AT BEDTIME 30 tablet 5 TRUEplus Lancets 33G misc Use to test blood sugar 3 times daily as directed 100 each 11 Ventolin HFA 108 (90 Base) MCG/ACT inhaler INHALE 2 PUFFS EVERY 4 HOURS DIRECTED No current facility-administered medications on file prior to visit. documented in this encounter Miscellaneous Notes * Assessment & Plan Note - Jaja Kimball MD - 09/16/2024 10:44 AM EDT Associated Problem(s): Tubular adenoma of colon Problem list updated, s/p colonoscopy 8 08/2024 Next colonoscopy in 3 to 5 years, follow-up with PCP * Assessment & Plan Note - Jaja Kimball MD - 09/16/2024 10:44 AM EDT Associated Problem(s): Gastroenteritis Rapid viral testing negative today. Advised regarding increase p.o. fluids (Pedialyte, water, chicken broth, herbal teas), take Zofran 3 times daily AC meals as needed nausea or vomiting Take sucralfate 3 times daily AC meals due to history of gastritis NPO today except p.o. clear fluids (avoid daily products) and advance to brat/soft diet as tolerated Rx Imodium as needed severe diarrhea more than 2 days Rx Tylenol as needed fever, chills, body aches or headache Order labs to rule out more severe inflammatory process i.e. appendicitis, will call back as needed. She will hold all DM meds until she tolerates p.o., if RBS is> 200, she will use Tresiba 7 to 10units only. Hold Ozempic this week, can restart next week if symptoms are completely resolved. Hold all BP meds if BP is below 120/70 and she is not eating well RTC or go to ED if symptoms do not significantly improve within 3 days documented in this encounter Plan of Treatment Upcoming Encounters Date Type Department Care Team (Late st Contact Info) Description 09/24/2024 3:30 PM EDT Medication Management [address] [address] Puia, Poly, PharmD [address] [place] [address] 10/25/2024 9:00 AM EDT Telemedicine [facility] [address] [place] [address] Padmaja Anderson RN Scheduled Orders Name Type Priority Associated Diagnoses Orde r Schedule CBC auto differential Lab Routine Generalized abdominal pain Expected: 09/16/2024 (Approximate), Expires: 09/16/2025 Comprehensive Metabolic Panel Lab Routine Generalized abdominal pain Expected: 09/16/2024 (Approximate), Expires: 09/16/2025 documented as of this encounter Goals Goal Patient Goal Type Associated Problems Recent Progress Patient-Stated? Author Record your blood sugar as directed Result Component No Puia, Poly, PharmD Hemoglobin A1c < 7.5 Result Component 8(07/10/2024 3:32 PM EST) No Puia, Poly, PharmD documented as of this encounter Procedures Procedure Name Priority Date/Time Associated Diagnosis Comments POCT INFLUENZA A (ID NOW RAPID MOLECULAR) Routine 09/16/2024 10:05 AM EDT Generalized abdominal pain POCT COVID-19 AG YANCEY ID NOW Routine 09/16/2024 10:05 AM EDT Generalized abdominal pain POCT INFLUENZA B (ID NOW RAPID MOLECULAR) Routine 09/16/2024 10:04 AM EDT Generalized abdominal pain documented in this encounter Results * POCT Rapid Covid-19 YANCEY ID NOW (09/16/2024 10:05 AM EDT) Coronavirus Antigen PCR Negative Negative, Indeterminate, None Detected, Invalid, Specimen unsatisfactory for evaluation, Weakly Positive QC Media Lot # [id number] Lot# Expiration Date Swab 09/16/2024 10:0 5 AM EDT Jaja Kimball MD POINT OF CARE TEST ENTER /EDIT ORDERABLES Final Result * POCT Rapid Influenza A YANCEY ID NOW (09/16/2024 10:05 AM EDT) Influenza A Negative Negative, Indeterminate [facility] QC Media Lot # [id number] [facility] Lot# Expiration Date [facility] Swab 09/16/2024 10:0 5 AM EDT Jaja Kimball MD POINT OF CARE TEST ENTER /EDIT ORDERABLES Final Result Performing Organization Address [facility] Co de Phone Number [facility] [address] [place] [phone] * POCT Rapid Influenza B YANCEY ID NOW (09/16/2024 10:04 AM EDT) Influenza B Negative Negative, Indeterminate [facility] QC Media Lot # [id number] [facility] Lot# Expiration Date [facility] Swab 09/16/2024 10:0 4 AM EDT Jaja Kimball MD POINT OF CARE TEST ENTER /EDIT ORDERABLES Final Result Performing Organization Address [facility] Co de Phone Number [facility] [address] [place] [phone] documented in this encounter Visit Diagnoses Diagnosis Gastroenteritis- Primary Other and unspecified noninfectious gastroenteritis and colitis Tubular adenoma of colon Benign neoplasm of colon Generalized abdominal pain Abdominal pain, generalized documented in this encounter Additional Health Concerns Assessment Noted Time PHQ-9 Depression Total Score: 6 02/06/20 24 1:46 PM EDT documented as of this encounter Care Teams Spotlight Operator Relationship Specialty Start Date End Date Glenna Jett DO [address] [place] [address] PCP - General Family Medicine 05/24/12 Poly Diaz, Mati [address] [place] [address] Pharmacist Internal Medicine 07/04/23 documented as of this encounter
--- OUTSIDE RECORDS SUMMARY | 2024-09-16 11:23 | XMS_ITS | Encounter Summary ---
Author Organization [employer] Address [address] [facility] [address] [place] [address] Care Team Providers Care Carriage Rider Name Role Phone Glenna Jett DO Primary Care Provider [phone] Poly Diaz PharmD Unavailable [phone] Encounter Details Date Type Department Care Team (Late st Contact Info) Description 09/21/2023 Orders Only [facility] [address] [place] [address] Provider, MD Marylin Social History Tobacco Use [...] Description 09/24/2024 3:30 PM EDT Medication Management [facility] [address] [place] [phone] PuiaPoly, PharmD [address] [place] [phone] 10/25/2024 9:00 AM EDT Telemedicine [address] [phone] Padmaja Anderson RN documented as of this [...] on filedocumented in this encounter Care Teams Carriage Rider Relationship Specialty Start Date End Date Glenna Jett DO [address] [place] [address] [phone] PCP - General Family Medicine 05/24/12 Puia, Poly, PharmD [address] [place] [address] [phone] Pharmacist Internal Medicine 07/04/23 documented as of this encounter
--- OUTSIDE RECORDS SUMMARY | 2024-09-16 11:24 | XMS_ITS | Encounter Summary ---
Author Organization [employer] Address 75 [facility] 7t [place] [address] Care Team Providers Care Intake Clerk Name Role Phone Glenna Jett DO Primary Care Provider [phone] Poly Diaz PharmD Unavailable [phone] Encounter Details Date Type Department Care Team ([facility] st Contact Info) Description 04/17/2024 Telephone [facility] [address] [place] [address] Glenna Jett DO [address] [place] [address] Social History Tobacco Use Types Packs/Day Years [...] Description 09/24/2024 3:30 PM EDT Medication Management [facility] [address] [place] [phone] PuiaFranckPoly, PharmD [address] [place] [phone] 10/25/2024 9:00 AM EDT Telemedicine [address] [phone] Padmaja Anderson RN documented as of this [...] documented as of this encounter Care Teams Intake Clerk Relationship Specialty Start Date End Date Glenna Jett DO [address] [place] [address] [phone] PCP - General Family Medicine 05/24/12 Puia, Poly, PharmD [address] [place] [address] [phone] Pharmacist Internal Medicine 07/04/23 documented as of this encounter
--- OUTSIDE RECORDS SUMMARY | 2024-09-16 11:24 | XMS_ITS | Encounter Summary ---
Author Organization [employer] Address [address] [facility] 7t [place] [address] Care Team Providers Care Rn Gastroenterology Name Role Phone Glenna Jett DO Primary Care Provider [phone] Poly Diaz PharmD Unavailable [phone] Encounter Details Date Type Department Care Team ([facility] st Contact Info) Description 08/06/2024 Telephone [facility] [address] [place] [address] Glenna Jett DO [address] [place] [address] Social History Tobacco Use Types Packs/Day Years [...] Description 09/24/2024 3:30 PM EDT Medication Management [facility] [address] [place] [phone] PuiaFranckPoly, PharmD [address] [place] [phone] 10/25/2024 9:00 AM EDT Telemedicine [address] [phone] Padmaja Anderson RN documented as of this [...] documented as of this encounter Care Teams Rn Gastroenterology Relationship Specialty Start Date End Date Glenna Jett DO [address] [place] [address] [phone] PCP - General Family Medicine 05/24/12 Puia, Poly, PharmD [address] [place] [address] [phone] Pharmacist Internal Medicine 07/04/23 documented as of this encounter
--- OUTSIDE RECORDS SUMMARY | 2024-09-16 11:24 | XMS_ITS | Encounter Summary ---
Author Organization [employer] [facility] Address [address] [facility] 7t [place] [address] Care Team Providers Care Bicycle Repair Technician Name Role Phone Glenna Jett DO Primary Care Provider [phone] Poly Diaz PharmD Unavailable [phone] Reason for Visit * Reason Comments Med Refill Encounter Details Date Type Department Care Team ([facility] st Contact Info) Description 06/06/2024 Refill [facility] [address] [place] [address] Glenna Jett DO [address] [place] [address] Social History Tobacco Use Types Packs/Day Years [...] Description 09/24/2024 3:30 PM EDT Medication Management [facility] [address] [place] [phone] Puia, Poly, PharmD [address] [place] [phone] 10/25/2024 9:00 AM EDT Telemedicine [address] [address] Padmaja Anderson RN documented as of this [...] documented as of this encounter Care Teams Bicycle Repair Technician Relationship Specialty Start Date End Date Glenna Jett DO [address] [place] [address] [phone] PCP - General Family Medicine 05/24/12 Puia, Poly, PharmD [address] [place] [phone] Pharmacist Internal Medicine 07/04/23 documented as of this encounter
--- OUTSIDE RECORDS SUMMARY | 2024-09-16 11:24 | XMS_ITS | Encounter Summary ---
Author Organization [employer] [facility] Address [address] [facility] 7t [place] [address] Care Team Providers Care Seed Trucker Name Role Phone Glenna Jett DO Primary Care Provider Poly Diaz PharmD Unavailable [phone] Encounter Details Date Type Department Care Team (Late Contact Info) Description 08/18/2022 Orders Only [facility] [address] [place] [address] Glenna Rosales LPN Social History Tobacco Use [...] Description 09/24/2024 3:30 PM EDT Medication Management [facility] [address] [place] [phone] Dianne Diazsa, PharmD [address] [place] [address] 10/25/2024 9:00 AM EDT Telemedicine [facility] [address] [place], [place] [phone] Padmaja Anderson RN documented as of this encounter Visit Diagnoses Not on filedocumented in this encounter Care Teams Seed Trucker Relationship Specialty Start Date End Date Glenna Jett DO [address] [place], [place] [phone] PCP - General Family Medicine 05/24/12 Poly Diaz PharmD [address] [place] [address] Pharmacist Internal Medicine 07/04/23 documented as of this encounter
--- OUTSIDE RECORDS SUMMARY | 2024-09-16 11:24 | XMS_ITS | Encounter Summary ---
Author Organization [employer] [facility] Address [address] [facility] 7t [place] [address] Care Team Providers Care Paper Baler Name Role Phone Glenna Jett DO Primary Care Provider [phone] Poly Diaz PharmD Unavailable [phone] Reason for Visit * Reason Comments Med Refill Encounter Details Date Type Department Care Team ([facility] st Contact Info) Description 08/02/2024 Refill [facility] [address] [place] [address] Glenna Jett DO [address] [place] [address] Social History Tobacco Use Types Packs/Day Years [...] Description 09/24/2024 3:30 PM EDT Medication Management [facility] [address] [place] [phone] Puia, Poly, PharmD [address] [place] [phone] 10/25/2024 9:00 AM EDT Telemedicine [address] [address] Padmaja Anderson RN documented as of this [...] documented as of this encounter Care Teams Paper Baler Relationship Specialty Start Date End Date Glenna Jett DO [address] [place] [address] [phone] PCP - General Family Medicine 05/24/12 Puia, Poly, PharmD [address] [place] [phone] Pharmacist Internal Medicine 07/04/23 documented as of this encounter
--- OUTSIDE RECORDS SUMMARY | 2024-09-16 11:24 | XMS_ITS | Clinical Summary ---
Author Organization [facility] Address [address] 7[address] [place] [address] Care Team Providers Care Shingle Carrier Name Role Phone Glenna Jett DO Primary Care Provider [phone] PuPoly wasserman PharmD Unavailable [phone] Allergies Active Allergy Reactions Criticality Noted [...] use of insulin, macular edema presence unspecified (CMS/[facility]) 1 kit 3 times daily. 1 kit 024 Active insulin pen needle (Pentips) 32G x 4 mm miscIndications:Ty pe 2 diabetes mellitus with other specified complication, unspecified whether petroleum terminal plant operator insulin use (CMS/HCC) Use 1 daily for insulin injection 100 each 3 024 Active insulin degludec (Tresiba FlexTouch) 200 UNIT/ML injectionIndicatio ns:Type 2 diabetes mellitus with other specified complication, unspecified whether fci insulin use (CMS/HCC) INJECT 14 UNITS SUBCUTANEOUSLY ONCE DAILY 9 mL 5 024 Active glucose blood (FREESTYLE LITE) test stripIndications:T ype 2 diabetes mellitus with other specified complication, unspecified whether fci insulin use ([facility]) TEST BLOOD SUGAR THREE TIMES DAILY 100 strip 11 Active TRUEplus Lancets 33G miscIndications:Ty pe 2 diabetes mellitus with other specified complication, unspecified whether petroleum terminal plant operator insulin use ([facility]) Use to test blood sugar 3 times [...] use of insulin, macular edema presence unspecified ([facility]) Inject 2 MG SUBCUTANEOUSLY EVERY 7 DAYS [...] mellitus with other specified complication, unspecified whether fci insulin use ([facility]),Other hyperlipidemia Take 1 tablet (10 mg) by mouth at bedtime. 90 tablet 3 025 07/10 Active atorvastatin (Lipitor) 80 MG tabletIndications: Type 2 diabetes mellitus with other specified complication, unspecified whether petroleum terminal plant operator insulin use ([facility]),Other hyperlipidemia Take 1 tablet (80 mg) by mouth at bedtime. 90 tablet 3 025 Active lisinopril 2.5 MG tabletIndications: Type 2 diabetes mellitus with other specified complication, unspecified whether fci insulin use ([facility]),Essentia l hypertension Take 1 tablet (2.5 mg) by mouth Once per day. 90 tablet 3 025 Active oxybutynin XL (Ditropan-XL) 5 MG 24 hr tablet TAKE 1 TABLET BY MOUTH EVERY MORNING 30 tablet 5 025 Active cholecalciferol VITAMIN D (Vitamin D-3) 50 MCG (2000 UT) tablet TAKE 1 TABLET BY MOUTH EVERY MORNING 90 tablet 025 Active Synjardy 12.5-1000 MG TAKE 1 TABLET BY MOUTH TWICE DAILY IN THE MORNING AND IN THE EVENING WITH MEALS 60 tablet 5 025 Active loratadine (Claritin) 10 MG tablet TAKE 1 TABLET BY MOUTH EVERY MORNING 90 tablet 3 025 Active gabapentin (Neurontin) 400 MG capsule TAKE 1 CAPSULE BY MOUTH THREE TIMES DAILY IN THE MORNING, EVENING, AND BEDTIME 90 capsule 025 Active ondansetron (Zofran) 4 MG tabletIndications: Gastroenteritis 1-2 tablets PO TID ac meals PRN nausea or vomiting 10 tablet 025 Active loperamide (Imodium A-D) 2 MG tablet 1 tab PO bid prn diarrhea 10 tablet 025 Active acetaminophen (Tylenol) 325 MG tablet 1-2 tab po tid prn headache, body aches, fever, sore throat 30 tablet 025 Active loratadine (Claritin) 10 MG tablet TAKE [...] Active Problems Problem Noted Date Diagnosed Date Tubular adenoma of colon 09/16/2024 Assessment & Plan (09/16/2024 10:44 AM EDT): Problem list updated, s/p colonoscopy 8 08/2024 Next colonoscopy in 3 to 5 years, follow-up with PCP Gastroenteritis 09/16/2024 Assessment & Plan (09/16/2024 10:44 AM EDT): Rapid viral testing negative today. Advised regarding [...] 200, she will use Tresiba 7 to 10 units only. Hold Ozempic this week, can restart next week if symptoms are completely resolved. Hold all BP meds if BP is below 120/70 and she is not eating well RTC or go to ED if symptoms do not significantly improve within 3 days Long-term current use of opiate analgesic 2024 [...] pain swelling, redness, fever or other concern. 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 Gastroparesis [...] at this time -advised contact [facility] if sx worsen Urinary incontinence 08/30/2022 [...] optho eval JUN 2023 at [facility] -f/u w/ retinal specialist as scheduled -foot exam next visit* Resolved Problems Problem Noted Date Diagnosed Date Resolved Date Hip pain 08/30/2022 08/30/2022 Left hemiparesis 08/30/2022 08/30/2022 Pain in left arm 08/30/2022 08/30/2022 Encounters Date Type Department Care Team Description 09/16/2024 9:20 AM EDT Office Visit [facility] [address] [place] [phone] Jaja Kimball MD Gastroenteritis (Primary Dx); Tubular adenoma of colon; Generalized abdominal pain 09/16/2024 Telephone [facility] [address] [place] [address] Jaja Kimball MD Nurse Triage 09/03/2024 Orders Only [facility] [address] [place] [address] ProviderMarylin MD 09/02/2024 Refill [facility] [address] [place] [address] Glenna Jett DO 08/29/2024 Orders Only GENERIC EXTERNAL DATA DEPARTMENT Provider, Generic External Data 08/28/2024 Refill [facility] [address] [place] [address] Glenna Jett DO 08/25/2024 Refill [facility] [address] [place] [address] Poly Diaz, PharmD 08/08/2024 1:00 PM EST Telemedicine [facility] [address] [place] [address] Padmaja Anderson, make up man bilateral low back pain with left-sided sciatica; Long-term current use of opiate analgesic 08/08/2024 Refill [facility] [address], [place] [address] Padmaja Anderson RN Chronic bilateral low back pain with left-sided sciatica (Primary Dx) 08/08/2024 Telephone [facility] [address] [place] [address] Padmaja Anderson RN Recommend FLIGHT COORDINATOR Tele Tier 2 08/06/2024 Telephone [facility] [address], [place] [address] Glenna Jett, DO 08/06/2024 Refill [facility] [address], [place] [address] Glenna Jett, 08/04/2024 Refill [facility] [address] [place] [address] Glenna Jett, 08/02/2024 Refill [facility] [address], [place] [address] Glenna Jett, 07/28/2024 Refill [facility] [address] [place] [address] Glenna Jett, 07/25/2024 Telephone [facility] [address] [place] [address] Glenna Jett, Appointment Request 07/10/2024 Travel 07/07/2024 Refill [facility] [address] [place] [address] Glenna Jett, Other hyperlipidemia 07/06/2024 Refill [facility] [address], [place] [address] Roberto Torres MD 06/29/2024 Refill [facility] [address], [place] [address] Glenna Jett, Insomnia, unspecified type 06/26/2024 Refill [facility] [address] [place] [address] Glenna Jett, Chronic bilateral low back pain with left-sided sciatica 06/21/2024 11:00 AM EST Office Visit [facility] [address] [place] [address] Lilian Joiner MD Seborrheic keratoses (Primary Dx) [...] the past 12 months, has t he [employer], gas, oil or water company threatened to [...] oz) 09/16/2024 8:57 A M EDT Height 160 cm (5' 3 ) 02/06/2024 11:56 AM EDT Body Mass Index 29.48 02/06/2024 11:56 AM EDT Plan of Treatment Upcoming Encounters Date Type Department Care Team (Late st Contact Info) Description 09/24/2024 3:30 PM EDT Medication Management [facility] [address] [place] [phone] Poly Diaz, PharmD [address] [place] [address] 10/25/2024 9:00 AM EDT Telemedicine [facility] [address] [place] [address] Padmaja Anderson, RN Health Maintenance Due Date [...] Name Priority Date/Time Associated Diagnosis Comments POCT COVID-19 AG YANCEY ID NOW Routine 09/16/2024 10:05 AM EDT Generalized abdominal pain POCT INFLUENZA A (ID NOW RAPID MOLECULAR) Routine 09/16/2024 10:05 AM EDT Generalized abdominal pain POCT INFLUENZA B (ID NOW RAPID MOLECULAR) Routine 09/16/2024 10:04 AM EDT Generalized abdominal pain HM COLONOSCOPY Routine 08/29/2024 1:41 PM EDT HEMATOXYLIN AND EOSIN STAIN Routine 08/29/2024 9:51 AM EDT GLUCOSE, WHOLE BLOOD Routine 08/29/2024 8:29 AM EDT POCT GLYCATED HEMOGLOBIN, TOTAL Routine 07/10/2024 3:32 PM EST 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, with long-term current use of insulin, macular edema presence unspecified (CMS/HCC) PANORAMIC RADIOGRAPHIC IMAGE Routine 03/28/2024 2:30 PM [...] Recently Relevant to Health Maintenance Results * POCT Rapid Influenza A YANCEY ID NOW (09/16/2024 10:05 AM EDT) Influenza A Negative Negative, Indeterminate [facility] QC Media Lot # [id number] [facility] Lot# Expiration Date ,026 [facility] Swab 09/16/2024 10:0 5 AM EDT us Jaja Kimball MD POINT OF CARE TEST ENTER /EDIT ORDERABLES Final Result [facility] [address] [place] [phone] * POCT Rapid Covid-19 YANCEY ID NOW (09/16/2024 10:05 AM EDT) Pathologist [facility] Coronavirus Antigen PCR Negative Negative, Indeterminate, None Detected, Invalid, Specimen unsatisfactory for evaluation, Weakly Positive QC Media Lot # [id number] Lot# Expiration Date Swab 09/16/2024 10:0 5 AM EDT Jaja Kimball MD POINT OF CARE TEST ENTER /EDIT ORDERABLES Final Result * POCT Rapid Influenza B YANCEY ID NOW (09/16/2024 10:04 AM EDT) [facility] Influenza B Negative Negative, Indeterminate [facility] QC Media Lot # [id number] [facility] Lot# Expiration Date [facility] Swab 09/16/2024 10:0 4 AM EDT Jaja Kimball MD POINT OF CARE TEST ENTER /EDIT ORDERABLES Final Result [facility] [address] [place] [address] [phone] * Hm Colonoscopy (08/29/2024 1:41 PM EDT) Pathologist [facility] Colonoscopy Normal Normal Narrative KalinaLigia masters - 08/29/2024 1:41 PM EDT Repeat in 5 years ( see external hospital admission note on 08/29/2024 Historical Provider HEALTH MAINTENANCE Edited Result - Final * Hematoxylin and Eosin Stain (08/29/2024 9:51 AM EDT) 08/29/2024 9:51 AM EDT 08/29/2024 11:11 AM EDT Narrative [facility] - 09/02/2024 12:50 PM EDT ----- ------- Name: Violetta [place] ?Age/Sex: 69/F ? : 1955 Unit#: [id number] ?? Attend Dr: Savannah Burdick MD ?Re08/29/24 ?Status: DEP SDC ? Location: HO.SSS ?Disch: ? ----- ------- SPEC : [id number] ? RECD: 08/29/24-1111 ? STATUS: ??SOUT ? REQ NUM: [id number] ? JETHRO: 08/29/24-950 ? SUBM DR: Savannah [...] [place] ?Age/Sex: 69/F ? : 1955 Unit#: [id number] ?? Attend Dr: Savannah Burdick MD ?Re08/29/24 ?Status: DEP SDC ? Location: HO.SSS ?Disch: ? ----- ------- SPEC : [id number] ? RECD: 08/29/24-1111 ? STATUS: ??SOUT ? REQ NUM: [id number] ? JETHRO: 08/29/24-950 ? SUBM DR: Savannah [...] Copies To: ?? Glenna Jett DO ?? [facility] ?? [address] [place] [address] ?? [place] [address] ?? [phone] ?? Savannah Burdick MD ?? [facility] ?? [address] [place] [address] Drive ?? [place] [address] ?? [phone] ?? [email or web address] ----- ------- Signed (signature on file) Phill Hernandez MD 09/02/24 1250 ? ----- ------- ? END OF REPORT ? us Generic External Data Provider LAB BLOOD ORDERAB LES Final Result Performing Organization Address [facility] de Phone Number [facility] [address] [place] [phone] * (ABNORMAL) Glucose, Whole Blood (08/29/2024 8:29 AM EDT) [facility] Glucose, Whole Blood 139(H) 60 - 115 mg/dL [facility] Comment:METER #: [id number] 08/29/2024 8:29 AM EDT 08/29/2024 8:40 AM EDT Generic External Data Provider LAB BLOOD ORDERAB LES Final Result Performing Organization Address [facility] de Phone Number [facility] [address] [place] [phone] * (ABNORMAL) POCT HGB A1C (07/10/2024 3:32 PM EST) Pathologist [facility] Hemoglobin A1C 8.0(A) 4.0 - 6.0 % QC Media Lot # [id number] Blood 07/10/2024 3:32 PM EST Glenna Jett DO POINT OF CARE TEST ENTER/KULDEEP T ORDERABLES Final Result * Albumin, Random Urine W/Creatinine (10/13/2023 8:56 AM EDT) Creatinine, Urine 120.87 mg/dL [facility] Microalbumin Urine 10.0 mg/L [facility] Microalbum Creatinine Ratio Ur 8.2 <30 ug/mg cr [facility] Comment:Albumin/Creatinine R atio Reference Ranges: Normal: < 30 ug/mg creatinine Microalbuminuria: 30 - 300 ug/mg creatinineClinical Albuminuria: > 300 ug/mg creatinine 10/13/2023 8:56 AM EDT 10/13/2023 11:21 AM EDT us Glenna Jett DO LAB URINE ORDERABLES Final R esult [facility] [address] [place] [phone] * BI Mammogram Screening Tomosynthesis Bilateral (07/27/2023 12:51 PM EST) Anatomical Region Laterality Modality Breast Bilateral Mammography 07/27/2023 12:5 1 PM EST Narrative 08/20/2023 8:14 AM EDT ? [facility] ? [address] ?[place] [address] ? Mammography Report ? Signed ? Patient: Casa Pearson,Violetta ?MR#: ?? [id number] ? : 1955 ?Acct:[id number] ? Age/Sex: 67 / F ?ADM Date: 02/15/24 ? Loc: HO.MAMMO ? Attending DrOsman Jett DO ? Ordering Physician: Glenna Jett DO ?Results: 1N ?? egative ? Date of Service: 07/27/23 ?Follow Up: 1 Year From Orig ?? inal Mammogram ? Procedure(s): MM tomosynthesis screening BI ?? Accession Number(s): [id number] ? cc: Glenna Jett DO ? EXAMINATION: [...] by Vesna Redmond MD in OV> ? 03/10/ 0810 ? DD/DT: 07/27/ 1251 ? TD/TT: ? Ophthalmic Surgical Assistant: ? Procedure Note Donotuseinterpreter, Image - 08/20/2023 [place] [facility] [address] [place], [place] [address] Mammography Report Signed Patient: Violetta CamarilloMR#: [id number] : 4Acct:[id number] Age/Sex: 67 / FADM Date: 07/27/23 Loc: HO.MAMMO Attending Dr: Glenna Jett DO Ordering Physician: Glenna Jettults: 1N egative Date of Service: 07/27/23Follow Up: 1 Year From Orig inal Mammogram Procedure(s): MM tomosynthesis screening BI Accession Number(s): [id number] cc: Glenna Jett DO EXAMINATION: MM SCREENING [...] in OV> 08/20/23 0810 DD/ 1251 TD/TT: Ophthalmic Surgical Assistant: Glenna Jett DO IMG BI PROCEDURES Edited Res ult - Final * Lipid Panel, Standard (08/31/2022 8:32 AM EDT) [facility] Signature Cholesterol, Total 165 <200 mg/dL [facility] HDL Cholesterol 62 > OR = 50 mg/dL [facility] Triglycerides 135 <150 mg/dL [facility] LDL Cholesterol 80 mg/dL (calc) [facility] Comment: Reference range: <100 Desirable range <100 mg/dL for primary prevention; ?? <70 mg/dL for patients with CHD or diabetic patients with > or = 2 CHD risk factors. LDL-C is now calculated using the Sanjana calculation, which is a validated novel method providing better accuracy than the Friedewald equation in the estimation of LDL-C. Bandar SS et al. COLBY. 2013;310(19): 7110-9100 (http://education.[employer]/faq/EGY174) Chol/HDLC Ratio 2.7 <5.0 (calc) [facility] Non-HDL Cholesterol 103 <130 mg/dL (calc) [facility] Comment: For patients with diabetes plus 1 major ASCVD risk factor, treating to a non-HDL-C goal of <100 mg/dL (LDL-C of <70 mg/dL) is considered a therapeutic option. 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
--- OUTSIDE RECORDS SUMMARY | 2024-09-16 11:24 | XMS_ITS | Encounter Summary ---
Author Organization [employer] Address [address] 7[address] [place] [address] Care Team Providers Care Hand Straightener Name Role Phone Glenna Jett DO Primary Care Provider [phone] Poly Diaz PharmD Unavailable [phone] Encounter Details Date Type Department Care Team ([facility] st Contact Info) Description 07/06/2023 Abstract [facility] MED[facility] [address] [place] [address] Glenna Jett DO [address] [place] [address] Social History Tobacco Use Types Packs/Day Years Used Date Smoking Tobacco: Former Cigarettes Housing Stability Answer Date Recorded What is your housing situation today? I have mayrasana chan 03/27/[address] you [...] Description 09/24/2024 3:30 PM EDT Medication Management [address] [address] Puia, Poly, PharmD [address] [place] [address] 10/25/2024 9:00 AM EDT Telemedicine [address] [address] Padmaja Anderson, ESTER documented as of this encounter Goals Goal Patient Goal Type Associated Problems Recent Progress Patient-Stated? Author Record your blood sugar as directed Result Component No Puia, Poly, PharmD Hemoglobin A1c < 7.5 Result Component 8(07/10/2024 3:32 PM EST) No Puia, Poly, PharmD documented as of this encounter Visit Diagnoses Not on filedocumented in this encounter Care Teams Hand Straightener Relationship Specialty Start Date End Date Glenna Jett DO [address] [place] [address] [phone] PCP - General Family Medicine 05/24/12 Puia, Poly, PharmD [address] [place] [address] [phone] Pharmacist Internal Medicine 07/04/23 documented as of this encounter
--- OUTSIDE RECORDS SUMMARY | 2024-09-16 11:24 | XMS_ITS | Encounter Summary ---
Author Organization [employer] Address [address] [facility] 7t [place] [address] Care Team Providers Care Sealer Sander Name Role Phone Glenna Jett DO Primary Care Provider [phone] Poly Diaz PharmD Unavailable [phone] Encounter Details Date Type Department Care Team ([facility] st Contact Info) Description 04/17/2024 Telephone [facility] MED[facility]INE [address] [place] [address] Glenna Jett DO [address] [place] [address] Social History Tobacco Use Types Packs/Day Years [...] Description 09/24/2024 3:30 PM EDT Medication Management [address] [address] Puia, Poly, PharmD [address] [place] [phone] 10/25/2024 9:00 AM EDT Telemedicine [address] [address] Padmaja Anderson RN documented as of this [...] documented as of this encounter Care Teams Sealer Sander Relationship Specialty Start Date End Date Glenna Jett DO [address] [place] [phone] PCP - General Family Medicine 05/24/12 Poly Diaz, Mati [address] [place] [phone] Pharmacist Internal Medicine 07/04/23 documented as of this encounter
--- OUTSIDE RECORDS SUMMARY | 2024-09-16 11:24 | XMS_ITS | Encounter Summary ---
Author Organization [employer] Address [address] [facility] 7[address] [place] [address] Care Team Providers Care Community Outreach Director Name Role Phone Maliha Glenna DYSON Primary Care Provider + [phone] Poly Diaz PharmD Unavailable [phone] Reason for Visit * Reason Comments Med Refill Encounter Details Date Type Department Care Team ([facility] st Contact Info) Description 03/27/2023 Refill [facility] [address] [place] [address] Jolene Gonzalez MD [address] [place] [address] Social History Tobacco Use Types Packs/Day Years [...] Description 09/24/2024 3:30 PM EDT Medication Management [address] [address] Poly Diaz PharmD [address] [place] [phone] 10/25/2024 9:00 AM EDT Telemedicine [address] [phone] Padmaja Anderson RN documented as of this encounter Visit Diagnoses Not on filedocumented in this encounter Care Teams Community Outreach Director Relationship Specialty Start Date End Date Glenna Jett DO [address] [place] [address] [phone] PCP - General Family Medicine 05/24/12 Poly Diaz PharmD [address] [place] [address] [phone] Pharmacist Internal Medicine 07/04/23 documented as of this encounter
--- OUTSIDE RECORDS SUMMARY | 2024-09-16 11:24 | XMS_ITS | Data Portability ---
Author Organization [employer] [employer] [facility] Address [address] [place] [address] Care Team Providers Care Taker Off Drying Kiln Name Role Phone [facility] Referring Provider HIM CCA OTHER Assessment Encounter [...] Assessment and Plan as documented by the Knocker Off. Patient given the opportunity to ask questions. [...] assessment and plan as documented by the stiff neck loader. I provided real time medical direction for this encounter and was immediately available to provide additional phone based assistance as needed. History as noted by stiff neck loader. Pt with history of DM2 and gastritis. [...] agree to ambulance transport to [facility] ED for evaluation. I call an expect to the [place] ED operations leader as well. Just prior to transport, the pt reported to the medic that she had forgotten, but did have a cholecystectomy in the past. [email or web address] Not available 12/23/2023 14:54:08 Plan of Treatment Reminders Order Date Submit Date Provider Last Modified By Organization Details Last Modified Time Details Appointments None recorded. Lab culture, urine 2022 023 [facility] (Centralized Electronic Ordering - All Locations), Patient Can Go To The Location Of Their Choice, [id number] 06:44:22 urinalysis, dipstick [address], [id number] 3 20:58:27 rapid SARS CoV 2 Ag, QL IA, respiratory specimen 2022 023 [facility], [address] [place] [address], [id number] 3 11:57:43 rapid strep group A, throat 2022 023 [facility], [address] [place] [address], [id number] 3 11:57:17 Referral None recorded. Procedures None recorded. Surgeries None recorded. Imaging None recorded. Medication Orders levofloxaci n 500 mg tablet 2022 023 [facility] #[id number], [address] [place], [address], 3 20:51:49 albuterol sulfate HFA 90 mcg/actuati on aerosol inhaler 2022 023 [facility], [address] [place] [address], [id number], 3 15:21:37 ciprofloxac in 0.3 % eye drops 2022 023 [facility], [address] [place] [address], [id number], 3 14:21:11 Cipro HC 0.2 %-1 % ear drops,suspe nsion 2022 023 [facility], [address] [place] [address], [id number], 3 14:21:11 Patient TargetsNo targets recorded. Patient InstructionsNo instructions recorded. Reason for Referral None Reported. Results Created Date Observation Date Name Description Value Unit Range Abnormal Flag Note LastModifiedBy Organization Detail LastModifiedTime 04/14/2004/14/2023 URINE CULTU RE specimen description URINE Not Available [facility] (Centralized Electronic Ordering - All Locations) Patient Can Go To The Location Of Their Choice, [id number] 04/16/2023 06:44:21 04/14/2004/14/2023 URINE CULTU RE special requests NONE Not Available [facility] (Centralized Electronic Ordering - All Locations) Patient Can Go To The Location Of Their Choice, [id number] 04/16/2023 06:44:21 04/14/20 23 04/16/2023 URINE CULTU RE culture NO GROWTH Not Available [facility] (Centralized Electronic Ordering - All Locations) Patient Can Go To The Location Of Their Choice, [id number] 04/16/2023 06:44:21 04/14/20 23 04/16/2023 URINE CULTU RE report status FINAL 2022 Not Available [facility] (Centralized Electronic Ordering - All Locations) Patient Can Go To The Location Of Their Choice, [id number] 04/16/2023 06:44:21 Result Notes None recorded. Medical Equipment None Reported. Allergies Allergen ID Allergen Name Allergen Category Reaction Reaction Severity Criticality Documentation Date Start Date Code Code System Note Provider Name and Address Organization Details Recorded Time 7617 Product containin g penicilli n (product) medicatio n Not available Not available Not available 04/09/2024 79448 8001 SNOMED Not Available [employer] - production [...] Not Available Not Available Not Available [employer] [place] Lite kit TEST BLOOD SUGAR THREE TIMES [...] % 97 % 67 /min 160.02 cm 44285.5 6 g 16 /min 155 mm[Hg] 81 mm[Hg] Not Available [facility] 3 20:09:43 Date Recorded Body temperature Body weight Respiratory rate Heart rate Body height Oxygen saturation Oxygen saturation in Arterial blood by Pulse oximetry Systolic blood pressure Diastolic blood pressure Provider Name and Address Organization Details Last Updated DateTime 4 100.6 [degF] 50950.5 6 g 16 /min 98 /min 160.02 cm 98 % 98 % 124 mm[Hg] 72 mm[Hg] Not Available [employer] 4 12:15:09 Date Recorded Body height Heart rate Respiratory rate Oxygen saturation Oxygen saturation in Arterial blood by Pulse oximetry Body temperature Systolic blood pressure Diastolic blood pressure Provider Name and Address Organization Details Last Updated DateTime 4 160.02 cm 90 /min 16 /min 96 % 96 % 98.4 [degF] 130 mm[Hg] 80 mm[Hg] Deon Pabon MD [address] [facility],[address], [place], [address], [place] - [employer] 4 13:33:27 Date Recorded Heart rate Oxygen saturation Oxygen saturation in Arterial blood by Pulse oximetry Respiratory rate Body temperature Systolic blood pressure Diastolic blood pressure Provider Name and Address Organization Details Last Updated DateTime 4 90 /min 98 % 98 % 16 /min 98.4 [degF] 130 mm[Hg] 80 mm[Hg] Not Available [employer] 4 14:31:14 Date Recorded Oxygen saturation Oxygen [...] mm[Hg] 127 mm[Hg] 61 mm[Hg] Not Available [employer] 3 14:00:01 Date Recorded Oxygen saturation Oxygen [...] mm[Hg] 146 mm[Hg] 76 mm[Hg] Not Available [employer] 3 15:44:23 Social History None recorded. Functional [...] Jose Elias Patel MD Main - [facility] [address] [place] [phone] 03/14/2022 13:29:19 03/17/2022 10:31:54 Fever [id number] R50.9 7981 Carol Wood MD Main - [facility] [address] [place] [phone] 08/04/2022 13:33:21 08/08/2022 09:30:54 Viral upper respiratory tract infection [id number] J06.9 Acute conjunctivitis 537 33774 H10.31 Acute otitis externa 302 37806 H60.511 8300 Laura Foy MD Main - [facility] [address] [place] [phone] 08/16/2022 15:04:32 08/18/2022 10:23:06 Cough 31777283 R05.9 expectorat ed clear sputum, with associated [...] call back or present to the ED [id number] Ewa Stovall MD Main - [facility] [address] [place] [phone] 04/14/2023 20:09:39 04/18/2023 10:03:43 Acute pyelonephritis 53906593 N10 Urinary symptoms 2455948 08 R39.9 [id number] Jordan Green MD Main - [facility] [address] [place] [phone] 06/21/2023 12:15:06 06/22/2023 09:57:30 Hyperglycemia due to type 2 diabetes mellitus [id number] 58210 E11.65 This 67-year-ol d female with type [...] PCP. The patient agreed with this plan. [id number] Deon Pabon MD Main - [facility] [address] [place] [phone] 12/23/2023 13:20:24 12/24/2023 22:15:17 Epigastric pain 19899739 R10.13 Nausea and vomiting 1693 1999 R11.2 [...] (MEDICARE REPLACEMENT/ADV ANTAGE - HMO) Violetta Cormier [id number] Violetta Cormier 08/16/2022 1 [facility] - DOS PRIOR TO 2022 - DUAL ELIGIBLE (MEDICARE REPLACEMENT/ADV ANTAGE - HMO) Violetta Cormier [id number] Violetta Cormier 04/14/2023 1 [facility] - DOS ON OR AFTER 2022 - DUAL ELIGIBLE - HALFWAY OPTIONS AND ONE CARE (MEDICARE REPLACEMENT/ADV ANTAGE - HMO) Violetta Cormier [id number] Violetta Cormier 06/21/2023 1 [facility] - DOS ON OR AFTER 2022 - DUAL ELIGIBLE - HALFWAY OPTIONS AND ONE CARE (MEDICARE REPLACEMENT/ADV ANTAGE - HMO) Violetta Cormier [id number] Violetta Cormier 12/23/2023 1 [facility] - DOS ON OR AFTER 2022 - DUAL ELIGIBLE - HALFWAY OPTIONS AND ONE CARE (MEDICARE REPLACEMENT/ADV ANTAGE - HMO) Violetta Cormier [id number] Violetta Cormier Notes Date Note Type Note [...] ...................... ...................... ...................... ...................... ...................... ...................... ......... Knocker Off Note From Rodo Manzano: Pt presents awake [...] when pressing on tragus. Pt/family advised to picker tender antibiotic(s) MIGUEL; educated on warning signs that would indicate the ED and proper handwashing techniques to avoid spread; and advised to f/u with PCP next week. Knocker Off Allergies: Penicillin ...................... ...................... ...................... ...................... ...................... ...................... ......... Disposition: Fulfilled Carol Wood MD [address] [facility],[address], [place], [address], [facility] - [employer] 08/04/2022 15:23:46 08/16/2022 text/html HPI: Call to Violetta Pearson, spoke with daughter Sharon Fuchs who is on HIPPA. Reports pt having cough and nasal congestion. Sx onset since yesterday. Pt had Covid-19 test kit performed yesterday and negative. Reports mild subjective fever. Denies any nausea vomiting. Had one episode of mild diarrhea. No blood in stool. Advised of disposition, declined [facility] for assessment of cough. Agrees to [facility] referral. ...................... ...................... ...................... ...................... ...................... ...................... ......... CRC Nursing Assessment: Comments: CRC RN DID NOT NEED FURTHER INFO > TATYANA ...................... ...................... ...................... ...................... ...................... ...................... ......... Knocker Off Note From Otto Portillo: Dispatched to the above for the 66 y/o female cough, sammarinese speaking only - interrupter services contacted - [...] rapid flu / covid (- ) , [facility] contacted and ordered agapitoo neb (administered), and discussed supportive care. Pt reported improvement in breathing (- ) adverse reaction to medications Knocker Off Allergies: Penicillin ...................... ...................... ...................... ...................... ...................... ...................... ......... Disposition: Fulfilled Laura Foy MD [address] [facility],[address], [place], [address], [employer] 08/16/2022 21:52:45 04/14/2023 text/html HPI: CKD, smoker, GERD Patient with several days of dark urine and pain with urination. NO fever pain in lower back and foul urine. ...................... ...................... ...................... ...................... ...................... ...................... ......... CRC Nursing Assessment: Comments: CRC RN did not require any additional information to process this visit. ...................... ...................... ...................... ...................... ...................... ...................... ......... Knocker Off Note From Rodo Manzano: Pt reports two days of dysuria, bilateral flank pain and dark, cloudy urine. Pt denies hx of UTI? s . Pt denies hematuria, CP, SOB, DORADO, f/n/v/d. Pt is alert, NAD. VSS. Temp 99.1. Neuro exam and gait normal. Lungs CTA. Benign ABD exam. Right sided CVA tenderness. No ISRAEL. UA: trace BASIL, - NIT, - BLO. UC to [facility]. [facility] contacted and pt treated with levofloxacin 500 mg PO. Pt instructed to stay well hydrated, f/u with PCP next week and to seek emergent medical care for new or worsening sx, which are reviewed with her. ...................... ...................... ...................... ...................... ...................... ...................... ......... Disposition: Fulfilled Ewa Stovall MD [address] [facility],[address], [place], [address], [employer] 04/14/2023 20:52:20 06/21/2023 text/html CRC Nurse Triage [...] insulin (unknown type). Jordan Green MD [address] [facility],[address], [place], [address], [employer] 06/21/2023 12:19:33 12/23/2023 text/html This was a super vised home visit with stiff neck loader Hanh Carl. [facility] Nurse Triage Notes (Jayden Pate): Reason For Request: Patient Vomiting. Chief Complaints: Gastrointestinal Concerns (other) PMH: Hypertension, Diabetes, COPD/Asthma Allergies: Penicillin Comments: Mbr & mbr's daughter [place] speaking primarily, interpreter and translator# [id number] used for triage assessment. Litigation Manager verified the member's name//address and phone number. Mbr's daughter reporting mbr has been vomiting since last night, reports 6 episodes of vomiting last night. Mbr denies abdominal pain or diarrhea. Education provided on the response time and the member was advised to monitor reported s/s and seek emergency treatment if needed -Padma Pate RN ...................... ...................... ...................... ...................... ...................... ...................... ......... Knocker Off Note From Hanh Carl: Community Knocker Off Edward Carl SC6 dispatched to a yellow [...] palpation to epigastric area, no abnormalities felt. [facility] consulted; pt was instructed to seek further testing and tx in the ED. She agreed, and 911 was called. [facility] arrived and transported the pt to [place] ED./ ...................... ...................... ...................... ...................... ...................... ...................... ......... Disposition: Fulfilled Deon Pabon MD [address] [facility],[address], [place], [address], [employer] 12/23/2023 14:54:30 OBGyn Episode No OBEpisode recorded.
--- OUTSIDE RECORDS SUMMARY | 2024-09-16 11:24 | XMS_ITS | Encounter Summary ---
Author Organization [facility] Address [address] [facility] [address] [place] [address] Care Team Providers Care Rn Pacu Name Role Phone Glenna Jett DO Primary Care Provider [phone] Poly Diaz PharmD Unavailable [phone] Encounter Details Date Type Department Care Team ([facility] Contact Info) Description 09/06/2022 Orders Only [facility] [address] [place] [address], [place] [phone] Glenna Rosales LPN Social History Tobacco Use [...] Upcoming Encounters Date Type Department Care Team ([facility] Contact Info) Description 09/24/2024 3:30 PM EDT Medication Management [facility] [address] [place] [address] PuiaDiannesa, PharmD [address] [place], [place] [phone] 10/25/2024 9:00 AM EDT Telemedicine [facility] [address] [place] [address] Padmaja Anderson, ESTER documented as of this encounter Visit Diagnoses Not on filedocumented in this encounter Care Teams Rn Pacu Relationship Specialty Start Date End Date Glenna Jett DO [address] [place] [address] PCP - General Family Medicine 05/24/12 Poly Diaz PharmD [address] [place] [address] Pharmacist Internal Medicine 07/04/23 documented as of this encounter
--- OUTSIDE RECORDS SUMMARY | 2024-09-16 11:24 | XMS_ITS | Encounter Summary ---
Author Organization [facility] Address [address] [facility] [address] [facility] [address] [place] [address] Care Team Providers Care Photoengraving Helper Name Role Phone Glenna Jett DO Primary Care Provider [phone] Poly Diaz PharmD Unavailable [phone] Encounter Details Date Type Department Care Team (Late st Contact Info) Description 09/03/2024 Orders Only [facility] [address] [place], [place] [phone] Provider, MD Marylin Social History Tobacco Use [...] Description 09/24/2024 3:30 PM EDT Medication Management [facility] [address] [place] [address] PuiaFranckPoly, PharmD [address] [place] [address] 10/25/2024 9:00 AM EDT Telemedicine [facility] [address] [place] [address] Padmaja Anderson RN documented as of this [...] documented as of this encounter Care Teams Photoengraving Helper Relationship Specialty Start Date End Date Glenna Jett DO [address], [place] [phone] PCP - General Family Medicine 05/24/12 Poly Diaz PharmD [address] [place] [address] Pharmacist Internal Medicine 07/04/23 documented as of this encounter
[2024-09-16 11:25] LABS: Basophils Percent Auto 0.2 % (0-2); Eosinophils Absolute Auto 0.1 X10*3/uL (0.0-0.4); Eosinophils Percent Auto 1.3 % (0-4); Hematocrit 37.9 % (37.0-47.0); Hemoglobin 12.7 g/dl (12.0-16.0); Imm Gran Abs Auto 0.03 X10*3/uL (0.00-0.03); Imm Gran Pct Auto 0.3 % (0.0-0.4); Lymphocytes Absolute Auto 1.5 X10*3/uL (1.2-4.9); Lymphocytes Percent Auto 14.7 % (20-40); Mean Corpuscular HGB Conc 33.5 g/dl (31.0-35.0); Mean Corpuscular Hemoglobin 31.1 pg (27.0-33.0); Mean Corpuscular Volume 92.7 fL (80.0-98.0); Mean Platelet Volume 10.8 fL (9.4-12.3); Monocytes Absolute Auto 0.9 X10*3/uL (0.1-1.2); Monocytes Percent Auto 8.5 % (2-11); Neutrophils Absolute Auto 7.6 x10*3/uL (2.0-8.3); Platelet Count 277 X10*3/uL (160-400); Red Blood Count 4.09 X10*6/uL (4.20-5.50); Red Cell Distribution Width 12.8 % (11.0-16.0); White Blood Count 10.1 X10*3/uL (4.8-10.8)
[2024-09-16 13:16] LABS: Alanine Aminotransferase 12 U/L (0-31); Albumin Level 4.1 g/dL (3.5-5.0); Alkaline Phosphatase 96 U/L (39-117); Anion Gap 13 (12-20); Aspartate Amino Transferase 25 U/L (5-31); Bilirubin Total 0.4 mg/dL (0.0-1.0); Blood Urea Nitrogen 10 mg/dL (9-16); Calcium 9.4 mg/dL (8.4-10.2); Carbon Dioxide 25 mmol/L (22-29); Chloride 106 mmol/L (96-108); Estimated Glomerular Filt Rate > 60; Glucose Random 152 mg/dL (60-115); Potassium 4.7 mmol/L (3.3-5.1); Sodium 139 mmol/L (135-145); Total Protein 7.3 g/dL (6.5-8.0)
== END 2024-09-16 09:50 | disposition home or self-care (01) ==
LOC: HO.HHCL 09:49
PROVIDERS: Visit Provider Internal Medicine
DX: R10.84 Generalized abdominal pain (principal)
CPT/HCPCS: 36415; 80053; 85025

== ENCOUNTER 2024-11-12 06:28 | Day surgery (SDC) | payer OTHER, SELFPAY ==
--- OUTSIDE RECORDS SUMMARY | 2024-10-08 07:41 | XMS_ITS | Data Portability ---
Author Organization [employer] [place] - [employer] Address [address] [place] [address] Care Team Providers Care It Network Administrator Name Role Phone [facility] Referring Provider HIM CCA OTHER [...] Assessment and Plan as documented by the Production Broaching Machine Operator. Patient given the opportunity to ask questions. [...] assessment and plan as documented by the certified novell administrator. I provided real time medical direction for this encounter and was immediately available to provide additional phone based assistance as needed. History as noted by certified novell administrator. Pt with history of DM2 and gastritis. [...] and family agree to ambulance transport to [facility] ED for evaluation. I call an expect to the [place] ED magistrate assistant as well. Just prior to transport, the pt reported to the medic that she had forgotten, but did have a cholecystectomy in the past. [email or web address] Not available 12/23/2023 14:54:08 Plan of Treatment Reminders Order Date Submit Date Provider Last Modified By Organization Details Last Modified Time Details Appointments None recorded. Lab culture, urine 2022 023 [place] [facility] (Centralized Electronic Ordering - All Locations), Patient Can Go To The Location Of Their Choice, [id number] 06:44:22 urinalysis, dipstick [address], [id number] 3 20:58:27 rapid SARS CoV 2 Ag, QL IA, respiratory specimen 2022 023 [facility], [address] [place] [address], [id number] 3 11:57:43 rapid strep group A, throat 2022 023 [facility], [address] [place] [address], [id number] 3 11:57:17 Referral None recorded. Procedures None recorded. Surgeries None recorded. Imaging None recorded. Medication Orders levofloxaci n 500 mg tablet 2022 023 [facility][id number], [address] [place], [address], 3 20:51:49 albuterol sulfate HFA 90 mcg/actuati on aerosol inhaler [address] [facility], [address] [place] [address], [id number], 3 15:21:37 ciprofloxac in 0.3 % eye drops [address] [facility], [address] [place] [address], [id number], 3 14:21:11 Cipro HC 0.2 %-1 % ear drops,suspe nsion [address] [facility], [address] [place] [address], [id number], 3 14:21:11 Patient TargetsNo targets recorded. Patient InstructionsNo instructions recorded. Reason for Referral None Reported. Results Created Date Observation Date Name Description Value Unit Range Abnormal Flag Note LastModifiedBy Organization Detail LastModifiedTime 04/14/2004/14/2023 URINE CULTU RE specimen description URINE Not Available [facility] (Centralized Electronic Ordering - All Locations) Patient Can Go To The Location Of Their Choice, [id number] 04/16/2023 06:44:21 04/14/2004/14/2023 URINE CULTU RE special requests NONE Not Available [facility] (Centralized Electronic Ordering - All Locations) Patient Can Go To The Location Of Their Choice, [id number] 04/16/2023 06:44:21 04/14/20 23 04/16/2023 URINE CULTU RE culture NO GROWTH Not Available [facility] (Centralized Electronic Ordering - All Locations) Patient Can Go To The Location Of Their Choice, [id number] 04/16/2023 06:44:21 04/14/20 23 04/16/2023 URINE CULTU RE report status FINAL 2022 Not Available [facility] (Centralized Electronic Ordering - All Locations) Patient Can Go To The Location Of Their Choice, [id number] 04/16/2023 06:44:21 Result Notes None recorded. Medical Equipment None Reported. Allergies Allergen ID Allergen Name Allergen Category Reaction Reaction Severity Criticality Documentation Date Start Date Code Code System Note Provider Name and Address Organization Details Recorded Time 7617 Product containin g penicilli n (product) medicatio n Not available Not available Not available 04/09/2024 67361 8001 SNOMED Not Available [facility] - production [...] Not Available Not Available Not Available [employer] [place] Lite kit TEST BLOOD SUGAR THREE TIMES [...] % 97 % 67 /min 160.02 cm 49456.5 6 g 16 /min 155 mm[Hg] 81 mm[Hg] Not Available [employer] 3 20:09:43 Date Recorded Body temperature Body weight Respiratory rate Heart rate Body height Oxygen saturation Oxygen saturation in Arterial blood by Pulse oximetry Systolic blood pressure Diastolic blood pressure Provider Name and Address Organization Details Last Updated DateTime 4 100.6 [degF] 46828.5 6 g 16 /min 98 /min 160.02 cm 98 % 98 % 124 mm[Hg] 72 mm[Hg] Not Available [employer] 4 12:15:09 Date Recorded Body height Heart rate Respiratory rate Oxygen saturation Oxygen saturation in Arterial blood by Pulse oximetry Body temperature Systolic blood pressure Diastolic blood pressure Provider Name and Address Organization Details Last Updated DateTime 4 160.02 cm 90 /min 16 /min 96 % 96 % 98.4 [degF] 130 mm[Hg] 80 mm[Hg] Deon Pabon MD [address] [facility],[address], [place], [address], [place] - [employer] 4 13:33:27 Date Recorded Heart rate Oxygen saturation Oxygen saturation in Arterial blood by Pulse oximetry Respiratory rate Body temperature Systolic blood pressure Diastolic blood pressure Provider Name and Address Organization Details Last Updated DateTime 4 90 /min 98 % 98 % 16 /min 98.4 [degF] 130 mm[Hg] 80 mm[Hg] Not Available [id number] 4 14:31:14 Date Recorded Oxygen saturation Oxygen [...] mm[Hg] 127 mm[Hg] 61 mm[Hg] Not Available [employer] 3 14:00:01 Date Recorded Oxygen saturation Oxygen [...] mm[Hg] 146 mm[Hg] 76 mm[Hg] Not Available [employer] 3 15:44:23 Social History None recorded. Functional [...] Jose Elias Patel MD Main - [facility] [address] [place] [phone] 03/14/2022 13:29:19 03/17/2022 10:31:54 Fever [id number] R50.9 [id number] Carol Wood MD Main - [facility] [address] [place] [phone] 08/04/2022 13:33:21 08/08/2022 09:30:54 Viral upper respiratory tract infection [id number] J06.9 Acute conjunctivitis 537 73896 H10.31 Acute otitis externa 302 35846 H60.511 [id number] Laura Foy MD Main - [facility] [address] [place] [phone] 08/16/2022 15:04:32 08/18/2022 10:23:06 Cough 74070700 R05.9 expectorat ed clear sputum, with associated [...] call back or present to the ED [id number] Ewa Stovall MD Main - [facility] [address] [place] [phone] 04/14/2023 20:09:39 04/18/2023 10:03:43 Acute pyelonephritis 83685099 N10 Urinary symptoms 3511098 08 R39.9 [id number] Jordan Green MD Main - [facility] [address] [place] [phone] 06/21/2023 12:15:06 06/22/2023 09:57:30 Hyperglycemia due to type 2 diabetes mellitus [id number] 56193 E11.65 This 67-year-ol d female with type [...] PCP. The patient agreed with this plan. [id number] Deon Pabon MD Main - [facility] [address] [place] [phone] 12/23/2023 13:20:24 12/24/2023 22:15:17 Epigastric pain 61811929 R10.13 Nausea and vomiting 1693 1999 R11.2 [...] (MEDICARE REPLACEMENT/ADV ANTAGE - HMO) Violetta Cormier [id number] Violetta Cormier 08/16/2022 1 [facility] - DOS PRIOR TO 2022 - DUAL ELIGIBLE (MEDICARE REPLACEMENT/ADV ANTAGE - HMO) Violetta Cormier [id number] Violetta Cormier 04/14/2023 1 [facility] [facility] - DOS ON OR AFTER 2022 - DUAL ELIGIBLE - CUSTODIAL OPTIONS AND ONE CARE (MEDICARE REPLACEMENT/ADV ANTAGE - HMO) Violetta Cormier [id number] Violetta Cormier 06/21/2023 1 [facility] [facility] - DOS ON OR AFTER 2022 - DUAL ELIGIBLE - CUSTODIAL OPTIONS AND ONE CARE (MEDICARE REPLACEMENT/ADV ANTAGE - HMO) Violetta Cormier [id number] Violetta Cormier 12/23/2023 1 [facility] - DOS ON OR AFTER 2022 - DUAL ELIGIBLE - CUSTODIAL OPTIONS AND ONE CARE (MEDICARE REPLACEMENT/ADV ANTAGE - HMO) Violetta Cormier [id number] Violetta Cormier Notes Date Note Type Note [...] ...................... ...................... ...................... ...................... ...................... ...................... ......... Production Broaching Machine Operator Note From Rodo Manzano: Pt presents awake [...] when pressing on tragus. Pt/family advised to cigar packer and picker antibiotic(s) MIGUEL; educated on warning signs that would indicate the ED and proper handwashing techniques to avoid spread; and advised to f/u with PCP next week. Production Broaching Machine Operator Allergies: Penicillin ...................... ...................... ...................... ...................... ...................... ...................... ......... Disposition: Fulfilled Carol Wood MD [address] [facility],[address], [place], [address], [facility] - [employer] 08/04/2022 15:23:46 08/16/2022 text/html HPI: Call to Violetta Pearson, spoke with daughter Sharon Fuchs who is on HIPPA. Reports pt having cough and nasal congestion. Sx onset since yesterday. Pt had Covid-19 test kit performed yesterday and negative. Reports mild subjective fever. Denies any nausea vomiting. Had one episode of mild diarrhea. No blood in stool. Advised of disposition, declined [facility] for assessment of cough. Agrees to [facility] referral. ...................... ...................... ...................... ...................... ...................... ...................... ......... CRC Nursing Assessment: Comments: CRC RN DID NOT NEED FURTHER INFO > TATYANA ...................... ...................... ...................... ...................... ...................... ...................... ......... Production Broaching Machine Operator Note From Otto Portillo: Dispatched to the above for the 66 y/o female cough, chinese speaking only - interrupter services contacted - [...] rapid flu / covid (- ) , [facility] contacted and ordered agapitoo neb (administered), and discussed supportive care. Pt reported improvement in breathing (- ) adverse reaction to medications Production Broaching Machine Operator Allergies: Penicillin ...................... ...................... ...................... ...................... ...................... ...................... ......... Disposition: Fulfilled Laura Foy MD [address] [facility],[address], [place], [address], [employer] 08/16/2022 21:52:45 04/14/2023 text/html HPI: CKD, smoker, GERD Patient with several days of dark urine and pain with urination. NO fever pain in lower back and foul urine. ...................... ...................... ...................... ...................... ...................... ...................... ......... CRC Nursing Assessment: Comments: CRC RN did not require any additional information to process this visit. ...................... ...................... ...................... ...................... ...................... ...................... ......... Production Broaching Machine Operator Note From Rodo Manzano: Pt reports two days of dysuria, bilateral flank pain and dark, cloudy urine. Pt denies hx of UTI? s . Pt denies hematuria, CP, SOB, DORADO, f/n/v/d. Pt is alert, NAD. VSS. Temp 99.1. Neuro exam and gait normal. Lungs CTA. Benign ABD exam. Right sided CVA tenderness. No ISRAEL. UA: trace BASIL, - NIT, - BLO. UC to [facility]. [facility] contacted and pt treated with levofloxacin 500 mg PO. Pt instructed to stay well hydrated, f/u with PCP next week and to seek emergent medical care for new or worsening sx, which are reviewed with her. ...................... ...................... ...................... ...................... ...................... ...................... ......... Disposition: Fulfilled Ewa Stovall MD [address] [facility],[address], [place], [address], [employer] 04/14/2023 20:52:20 06/21/2023 text/html CRC Nurse Triage [...] insulin (unknown type). Jordan Green MD [address] [facility],[address], [place], [address], [employer] 06/21/2023 12:19:33 12/23/2023 text/html This was a super vised home visit with certified novell administrator Hanh Carl. [facility] Nurse Triage Notes (Jayden Pate): Reason For Request: Patient Vomiting. Chief Complaints: Gastrointestinal Concerns (other) PMH: Hypertension, Diabetes, COPD/Asthma Allergies: Penicillin Comments: Mbr & mbr's daughter Indonesian speaking primarily, ems director# [id number] used for triage assessment. Contact Lens Assistant verified the member's name//address and phone number. Mbr's daughter reporting mbr has been vomiting since last night, reports 6 episodes of vomiting last night. Mbr denies abdominal pain or diarrhea. Education provided on the response time and the member was advised to monitor reported s/s and seek emergency treatment if needed -Padma Pate RN ...................... ...................... ...................... ...................... ...................... ...................... ......... Production Broaching Machine Operator Note From Hanh Carl: Community Production Broaching Machine Operator Edward Carl [id number] dispatched to a yellow [...] palpation to epigastric area, no abnormalities felt. [facility] consulted; pt was instructed to seek further testing and tx in the ED. She agreed, and 911 was called. [facility] arrived and transported the pt to [place] ED./ ...................... ...................... ...................... ...................... ...................... ...................... ......... Disposition: Fulfilled Deon Pabon MD [address] [facility],[address], [place], [address], [employer] 12/23/2023 14:54:30 OBGyn Episode No OBEpisode recorded.
--- NOTE | 2024-11-11 12:51 | HO.ANESPROP2 ---
Documented by User: Litzy Van NP 11/11/24 12:53 HPI - Anesthesia Eval Consult details Narrative: 69yo F for Upper Endoscopy with Dilitation s/p EGD and [place] 08/2024 with MAC Anesthesia Pre-Procedure Meds Is the patient on any of the following meds?: GLP1/DPP4 and SGLT2 Inhib PMFSH Active Problems Active Problems: All Active Problems Schatzki's ring (Acute) Esophagitis determined by endoscopy (Acute) Spinal stenosis of lumbar region (Acute) Obesity due to excess calories (Acute) Type 2 diabetes mellitus with hyperglycemia, without long-term current use of insulin (Acute) Type 2 diabetes mellitus with diabetic neuropathy, unspecified (Acute) Essential hypertension (Acute) Hyperlipidemia LDL goal <100 (Acute) Past Medical History Medical History (Updated 09/13/24 @ 10:45 by Jackeline Zuniga, [facility]) Schatzki's ring Gastroparesis Spinal stenosis of lumbar region Obesity due to excess calories Osteoporosis Retinopathy Gastric ulcer Snoring Neuropathy Fibromyalgia Type 2 diabetes mellitus with hyperglycemia, without long-term current use of insulin Essential hypertension Hyperlipidemia LDL goal <100 Type 2 diabetes mellitus with diabetic neuropathy, unspecified Osteoarthritis Depression Diabetes Back ache Gastritis HTN (hypertension) Family History Family History Father FH: prostate cancer Mother CVD (cardiovascular disease) Heart disease Son Diabetes Surgical History Surgical History History of esophagogastroduodenoscopy (EGD) Hx of colonoscopy Hx of cholecystectomy Hx of tubal ligation History of Problems with Anesthesia: No Social History Social History Household Members: Family Are you a primary acute care physician to a significant other at home: No Do you presently have visiting nurse or other home services: No Alcohol intake: former Patient Tobacco Use Status: Former Tobacco user Advance Directives: No Advance Directives Information Provided: Yes Meds Allergies Allergy/AdvReac Type Severity Reaction Status Date / Time amitriptyline [AMITRIPTYLINE] Allergy Intermediate ANXIOUS, Verified 09/13/24 10:09 SWELLING Penicillins Allergy Intermediate Swelling Verified 09/13/24 10:09 aspirin [ASPIRIN] AdvReac Mild caused Verified 09/13/24 10:09 hypersalivation Home Medications ?Medication ?Instructions ?Recorded ?Confirmed ?Last Taken ?Type aspirin 81 mg tablet,delayed 81 mg PO DAILY 04/21/20 08/27/24 Unknown History release atorvastatin 80 mg tablet 80 mg PO BEDTIME 04/21/20 08/27/24 Unknown History albuterol sulfate 90 mcg/actuation 2 puff PO Q4-6H PRN Shortness Of 12/25/20 08/27/24 Unknown History aerosol inhaler Breath cyanocobalamin (vitamin B-12) 1,000 mcg PO QAM 12/25/20 08/27/24 Unknown History 1,000 mcg tablet fluticasone propionate 110 1 puff PO BID 12/25/20 08/27/24 Unknown History mcg/actuation HFA aerosol inhaler gabapentin 400 mg capsule 400 mg PO TID 12/25/20 08/27/24 Unknown History lisinopril 2.5 mg tablet 2.5 mg PO DAILY 12/25/20 08/27/24 Unknown History loratadine 10 mg tablet 10 mg PO QAM 12/25/20 08/27/24 Unknown History oxybutynin chloride 5 mg 5 mg PO QAM 12/25/20 08/27/24 Unknown History tablet,extended release 24 hr sertraline 100 mg tablet 150 mg PO QAM 12/25/20 08/27/24 Unknown History tramadol 50 mg tablet 50 mg PO BID PRN Pain 12/25/20 08/27/24 Unknown History ergocalciferol (vitamin D2) 1,250 1,250 mcg PO QWEEK 05/09/22 08/27/24 Unknown History mcg (50,000 unit) capsule (Vitamin D2) fluticasone propionate 50 2 spray intranasal DAILY 05/09/22 08/27/24 Unknown History mcg/actuation nasal spray,suspension trazodone 50 mg tablet 50 mg PO BEDTIME 05/09/22 08/27/24 Unknown History empagliflozin 12.5 mg-metformin 1 tab PO BID 08/27/24 08/27/24 08/19/24 History 1,000 mg tablet (Synjardy) insulin degludec 200 unit/mL (3 14 unit subcut QAM 08/27/24 08/27/24 Unknown History mL) subcutaneous pen (Tresiba FlexTouch U-200 insulin) semaglutide 2 mg/dose (8 mg/3 mL) 2 mg subcut QWEEK 08/27/24 08/27/24 08/19/24 History subcutaneous pen injector (Ozempic) cholecalciferol (vitamin D3) 50 50 mcg PO QAM 09/13/24 Unknown History mcg (2,000 unit) tablet glucose 3.75 gram chewable tablet 11.25 - 15 g PO diabetes mellitus 09/13/24 Unknown History (TRUEplus Glucose) mometasone 100 mcg/actuation HFA 2 puff inhalation BID 09/13/24 Unknown History aerosol inhaler (Asmanex HFA) naloxone 4 mg/actuation nasal spray intranasal 09/13/24 Unknown History sennosides 8.6 mg tablet (senna) 17.2 mg PO BEDTIME 09/13/24 Unknown History Exam Pertinent Lab Results Pertinent Lab Results: Laboratory Tests 12/23/23 12/23/23 17:23 17:24 WBC 8.5 Hgb 13.3 Hct 39.9 Plt Count 322 D Sodium 141 Potassium 4.4 Chloride 104 Carbon Dioxide 28 BUN 13 Creatinine 0.82 Narrative Narrative: EKG 12/2023 Vent. Rate : 091 BPM Atrial Rate : 091 BPM P-R Int : 162 ms QRS Dur : 074 ms QT Int : 356 ms P-R-T Axes : 058 -31 032 degrees QTc Int : 437 ms Sinus rhythm with Premature supraventricular complexes Left axis deviation Possible Inferior infarct , age undetermined Abnormal ECG When compared with ECG of 18-DEC-2023 01:13, Premature supraventricular complexes are now Present Assessment and Plan Assessment Anesthesia Assessment: Chart Reviewed Final Anesthetic Review History of Problems with Anesthesia: No Documented by User: Zaid Irizarry MD 11/12/24 07:36 [facility] Past Medical History Medical History (Updated 09/13/24 @ 10:45 by Jackeline Zuniga, MENTAL TESTER-) Schatzki's ring Gastroparesis Spinal stenosis of lumbar region Obesity due to excess calories Osteoporosis Retinopathy Gastric ulcer Snoring Neuropathy Fibromyalgia Type 2 diabetes mellitus with hyperglycemia, without long-term current use of insulin Essential hypertension Hyperlipidemia LDL goal <100 Type 2 diabetes mellitus with diabetic neuropathy, unspecified Osteoarthritis Depression Diabetes Back ache Gastritis HTN (hypertension) Family History Family History Father FH: prostate cancer Mother CVD (cardiovascular disease) Heart disease Son Diabetes Family history of problems with anesthesia: No Surgical History Surgical History History of esophagogastroduodenoscopy (EGD) Hx of colonoscopy Hx of cholecystectomy Hx of tubal ligation Social History Social History Household Members: Family Are you a primary acute care physician to a significant other at home: No Do you presently have visiting nurse or other home services: No Alcohol intake: former Patient Tobacco Use Status: Former Tobacco user Advance Directives: No Advance Directives Information Provided: Yes Meds Allergies Allergy/AdvReac Type Severity Reaction Status Date / Time amitriptyline [AMITRIPTYLINE] Allergy Intermediate ANXIOUS, Verified 09/13/24 10:09 SWELLING Penicillins Allergy Intermediate Swelling Verified 09/13/24 10:09 aspirin [ASPIRIN] AdvReac Mild caused Verified 09/13/24 10:09 hypersalivation Home Medications ?Medication ?Instructions ?Recorded ?Confirmed ?Last Taken ?Type aspirin 81 mg tablet,delayed 81 mg PO DAILY 04/21/20 08/27/24 Unknown History release atorvastatin 80 mg tablet 80 mg PO BEDTIME 04/21/20 08/27/24 Unknown History albuterol sulfate 90 mcg/actuation 2 puff PO Q4-6H PRN Shortness Of 12/25/20 08/27/24 Unknown History aerosol inhaler Breath cyanocobalamin (vitamin B-12) 1,000 mcg PO QAM 12/25/20 08/27/24 Unknown History 1,000 mcg tablet fluticasone propionate 110 1 puff PO BID 12/25/20 08/27/24 Unknown History mcg/actuation HFA aerosol inhaler gabapentin 400 mg capsule 400 mg PO TID 12/25/20 08/27/24 Unknown History lisinopril 2.5 mg tablet 2.5 mg PO DAILY 12/25/20 08/27/24 Unknown History loratadine 10 mg tablet 10 mg PO QAM 12/25/20 08/27/24 Unknown History oxybutynin chloride 5 mg 5 mg PO QAM 12/25/20 08/27/24 Unknown History tablet,extended release 24 hr sertraline 100 mg tablet 150 mg PO QAM 12/25/20 08/27/24 Unknown History tramadol 50 mg tablet 50 mg PO BID PRN Pain 12/25/20 08/27/24 Unknown History ergocalciferol (vitamin D2) 1,250 1,250 mcg PO QWEEK 05/09/22 08/27/24 Unknown History mcg (50,000 unit) capsule (Vitamin D2) fluticasone propionate 50 2 spray intranasal DAILY 05/09/22 08/27/24 Unknown History mcg/actuation nasal spray,suspension trazodone 50 mg tablet 50 mg PO BEDTIME 05/09/22 08/27/24 Unknown History empagliflozin 12.5 mg-metformin 1 tab PO BID 08/27/24 08/27/24 08/19/24 History 1,000 mg tablet (Synjardy) insulin degludec 200 unit/mL (3 14 unit subcut QAM 08/27/24 08/27/24 Unknown History mL) subcutaneous pen (Tresiba FlexTouch U-200 insulin) semaglutide 2 mg/dose (8 mg/3 mL) 2 mg subcut QWEEK 08/27/24 08/27/24 08/19/24 History subcutaneous pen injector (Ozempic) cholecalciferol (vitamin D3) 50 50 mcg PO QAM 09/13/24 Unknown History mcg (2,000 unit) tablet glucose 3.75 gram chewable tablet 11.25 - 15 g PO diabetes mellitus 09/13/24 Unknown History (TRUEplus Glucose) mometasone 100 mcg/actuation HFA 2 puff inhalation BID 09/13/24 Unknown History aerosol inhaler (Asmanex HFA) naloxone 4 mg/actuation nasal spray intranasal 09/13/24 Unknown History sennosides 8.6 mg tablet (senna) 17.2 mg PO BEDTIME 09/13/24 Unknown History Exam Airway Mallampati Class: II TM Dist: <=3cm Neck ROM: Full Loose/Missing/Broken Teeth: Yes Heart: ok Lungs: ok Assessment and Plan Final Anesthetic Review Family History of Problems with Anesthesia: No NPO: Yes ASA Class: III Final Preanesthetic Review: No Changes in Pt Med Stat, Meds/Allgs Chart Reviewed, Consent Obtained/Reviewed and Anes Risks/Benef Reviewed Patient Risk: Intermediate Procedure Risk: Intermediate Anesthetic Plan Anesthetic Plan: Agree w/ Assess. and Plan and TIVA Disposition: Standard PACU
[2024-11-12 07:41] VITALS: BP 160/61; PULSE 62; RESP 12; TEMP 36.6; O2SAT 99; BMI 30.5
[2024-11-12] MEDS: Lactated Ringers 1,000 ML 100 ML IVCONT (07:44)
--- NOTE | 2024-11-12 07:46 | MHC.SHP ---
Pre-Procedural Eval Section A - 24 Hr Update-Section A only Date of Service: 11/12/24 Section B - Complete if H&P > 30 days Chief Complaint: Esophagitis, dysphagia Details of Present Illness: Back ache Depression Diabetes Essential hypertension Fibromyalgia Gastric ulcer Gastritis Gastroparesis HTN (hypertension) Hyperlipidemia LDL goal <100 Neuropathy Obesity due to excess calories Osteoarthritis Osteoporosis Retinopathy Snoring Spinal stenosis of lumbar region Type 2 diabetes mellitus with diabetic neuropathy, unspecified Type 2 diabetes mellitus with hyperglycemia, without long-term current use of insulin Surgical History History of esophagogastroduodenoscopy (EGD) Hx of colonoscopy Hx of cholecystectomy Hx of tubal ligation Present Medications: see Short Stay Collaborative assessment Allergies: Allergies Allergy/AdvReac Type Severity Reaction Status Date / Time amitriptyline [AMITRIPTYLINE] Allergy Intermediate ANXIOUS, Verified 09/13/24 10:09 SWELLING Penicillins Allergy Intermediate Swelling Verified 09/13/24 10:09 aspirin [ASPIRIN] AdvReac Mild caused Verified 09/13/24 10:09 hypersalivation Review of Systems Review of Systems Comment: Ten point ROS negative Exam Exam Comment: Gen appear: No acute distress HEENT: no icterus Chest: No overt resp distress Abd: soft, nontender, nondistended Psych: Stable affect, answering questions appropriately Neuro: A/Ox3 noted to move all extremities spontaneously Ext: no peripheral edema Plan Diagnosis/Plan: Unchanged I have reviewed the history and physical and performed a pertinent physical examination on my patient. No changes have occurred unless specified. Time Spent With Patient Time: Total time managing care of this patient today ____ minutes.
[2024-11-12 07:54] LABS: Glucose, Whole Blood 129 mg/dL (60-115)
--- NOTE | 2024-11-12 08:14 | W.PM.OPN ---
Operative Note Operative Note Date of Service: 11/12/24 Narrative: Procedure: Esophagogastroduodenoscopy Endoscopist: Savannah Burdick MD Indication: Esophagitis, Dysphagia Anesthesia Provider: Anesthesia Type: MAC ?? EGD Procedure:?? The procedure, indications, preparation and potential complications were reviewed with the patient with the help of automatic die cutting machine operator who indicated understanding and gave written informed consent to proceed. A physical exam was performed. The endoscope was introduced through the mouth, and advanced to the second part of duodenum. The mucosa was carefully examined on slow withdrawal of the endoscope. The patient tolerated the procedure well. There were no immediate complications.? ? EGD Findings:? Esophagus:? Normal mucosa noted in the entire esophagus. The Z line was at 32 cm and displaced by a small hiatal hernia with the diaphragmatic pinch at 35 cm. There was a mildly obstructing Schatzki's ring above the GE junction. There was a 2 cm villiform appearing nodule just below the GE junction also visualized on anterograde view. Cold forceps biopsies were taken from the nodule for histology. Middle and lower esophagus forceps biopsies were obtained to rule out eosinophilic esophagitis. A through the scope balloon was inserted through the biopsy channel and advanced to the GE junction. The esophagus was incrementally dilated from 18-19 mm with resistance felt. On desufflation of balloon, successful interruption of Schatzki's ring was noted. Stomach:? Patchy erythema with scant heme was noted in the antrum. Few nodules were also noted that were previously biopsied. Retroflexion was performed in the cardia showed Hill grade 3 hiatal hernia. Duodenum:? Normal mucosa was noted in the whole of the examined duodenum. ? EGD Impressions:? Grade B esophagitis (biopsy) Schatzki's ring (dilation) Hiatal hernia Gastritis Normal duodenum ?? Recommendations:?? Follow biopsy results. Our office will call or send a letter with results within 7-10 days. Continue PPI therapy. Avoid NSAIDs. Above has been reviewed with the patient.
[2024-11-12 08:20] VITALS: BP 124/63; PULSE 87; RESP 18; TEMP 36.5; O2SAT 94
[2024-11-12 08:35] VITALS: BP 132/58; PULSE 64; RESP 16; TEMP 36.5; O2SAT 99
== END 2024-11-12 09:05 | disposition home or self-care (01) ==
PROVIDERS: PCP Family Medicine; Visit Provider Internal Medicine
PROC: (CPT 43249; principal; 2024-11-12 07:30)
DX: K21.9 Gastro-esophageal reflux disease without esophagitis (principal); K20.80 Other esophagitis without bleeding; R13.10 Dysphagia, unspecified; K22.2 Esophageal obstruction; K29.60 Other gastritis without bleeding; K44.9 Diaphragmatic hernia without obstruction or gangrene; I10 Essential (primary) hypertension; E11.40 Type 2 diabetes mellitus with diabetic neuropathy, unspecified; E11.65 Type 2 diabetes mellitus with hyperglycemia; M79.7 Fibromyalgia; Z79.51 Long term (current) use of inhaled steroids; Z79.82 Long term (current) use of aspirin; Z79.4 Long term (current) use of insulin; Z79.84 Long term (current) use of oral hypoglycemic drugs; Z79.85 Long-term (current) use of injectable non-insulin antidiabetic drugs; Z79.899 Other long term (current) drug therapy; Z88.0 Allergy status to penicillin; Z88.6 Allergy status to analgesic agent; Z88.8 Allergy status to other drugs, medicaments and biological substances; Z87.891 Personal history of nicotine dependence
CPT/HCPCS: 43249; 43239; 82947; 88305; 88313; C1726; J2003; J2704; J3010

== ENCOUNTER → 2024-11-12 06:28 | Outpatient (BNV) | payer OTHER, SELFPAY | PROVIDERS: PCP Family Medicine; Visit Provider Internal Medicine | DX: K20.90 Esophagitis, unspecified without bleeding (principal); K29.70 Gastritis, unspecified, without bleeding; K22.2 Esophageal obstruction | CPT/HCPCS: 43239; 43249 ==

== ENCOUNTER 2024-11-14 16:46 | Outpatient (REF) | payer OTHER, SELFPAY ==
--- OUTSIDE RECORDS SUMMARY | 2024-11-14 18:22 | XMS_ITS | Encounter Summary ---
Author Organization [employer] Address [address] [place] [address] Care Team Providers Care Clerical Supervisor Name Role Phone Glenna Jett DO Primary Care Provider [phone] Poly Diaz PharmD Unavailable [phone] Encounter Details Date Type Department Care Team ([facility] Contact Info) Description 09/21/2023 Orders Only [facility] [address] [place] [address] Provider, MD Marylin Social History Tobacco Use Types Packs/Day Years Used Date Smoking Tobacco: Former Cigarettes Housing Stability Answer Date Recorded What is your housing situation today? I have mayrasana chan 09/22/[address] you [...] Care Team (Late st Contact Info) Description 11/26/2024 3:30 PM EDT Medication Management [facility] [address] [place] [phone] AayushiaPoly, PharmD [address] [place] [phone] 01/10/2025 2:00 PM EDT Telemedicine [facility] [address] [place] [address] [phone] Padmaja Anderson RN documented as of this encounter Goals Goal Patient Goal Type Associated Problems Recent Progress Patient-Stated? Author Record your blood sugar as directed Result Component No AayushiaPloy, PharmD Hemoglobin A1c < 7.5 Result Component [...] on filedocumented in this encounter Care Teams Clerical Supervisor Relationship Specialty Start Date End Date Glenna Jett DO [address] [place] [phone] PCP - General Family Medicine 05/24/12 Puia, Poly, PharmD [address] [place] [address] [phone] Pharmacist Internal Medicine 07/04/23 documented as of this encounter
== END 2024-11-14 16:47 | disposition home or self-care (01) ==
LOC: HO.HHCLNP 16:46
PROVIDERS: Visit Provider Family Medicine
DX: N39.0 Urinary tract infection, site not specified (principal)
CPT/HCPCS: 87086

== ENCOUNTER 2024-12-25 13:35 | Outpatient (REF) | payer OTHER, SELFPAY ==
--- NOTE | ~2024-12-25 | US_ITS ---
EXAMINATION: US RETROPERITONEAL LIMITED (RENAL ONLY) CLINICAL INFORMATION: Bilateral flank pain, microhematuria, evaluate for renal calculi. COMPARISON: None available. Correlation made with CT abdomen and pelvis 12/23/2023. TECHNIQUE: Real-time imaging of the kidneys. FINDINGS: RIGHT KIDNEY: 12.4 x 4.9 x 5.7 cm (SAG x AP x TRV). The kidney is normal in size, contour, and echogenicity. Renal cortical thickness is normal. No calculi or suspicious focal parenchymal lesions. No hydronephrosis. LEFT KIDNEY: 10.9 x 5.3 x 3.9 cm (SAG x AP x TRV). The kidney is normal in size, contour, and echogenicity. Renal cortical thickness is normal. No calculi or suspicious focal parenchymal lesions. No hydronephrosis. There is an upper pole simple cyst measuring 2.2 x 1.9 x 2.2 cm. US/US renal BI IMPRESSION: 1. Kidneys demonstrating no evidence of hydronephrosis, calculus, or mass. 2. Left upper pole simple cyst measuring 2.2 cm. Electronically signed by: Abelardo Krishnan MD 12/25/2024 02:18 PM EDT
--- OUTSIDE RECORDS SUMMARY | 2024-12-25 14:25 | XMS_ITS | Data Portability ---
Author Organization [employer], [facility] Address [address] [place] [address] Care Team Providers Care Salesperson Burial Needs Name Role Phone HIM [facility] OTHER [facility] Primary Care Provider [phone] Assessment Encounter Date Assessment Date Assessment LastModified by Organization Details LastModified Time 04/14/2023 04/14/2023 I provided real -time medical direction via phone for this encounter, and was available for additional phone based assistance as needed. I have reviewed and agree with the Assessment and Plan as documented by the Low Pressure Boiler Operator. Patient given the opportunity to ask [...] assessment and plan as documented by the air export operations agent. I provided real time medical direction for this encounter and was immediately available to provide additional phone based assistance as needed. History as noted by air export operations agent. Pt with history of DM2 and gastritis. [...] and family agree to ambulance transport to [facility] ED for evaluation. I call an expect to the [place] [facility] psychological examiner as well. Just prior to transport, the pt reported to the medic that she had forgotten, but did have a cholecystectomy in the past. [email or web address] Not available 12/23/2023 14:54:08 Plan of Treatment Reminders Order Date Submit Date Provider Last Modified By Organization Details Last Modified Time Details Appointments None recorded. Lab culture, urine 2022 023 [place] [facility] (Centralized Electronic Ordering - All Locations), Patient Can Go To The Location Of Their Choice, [id number] 3 06:44:22 urinalysis, dipstick 2022 023 [facility], [address] [place], [address] 20:58:27 Referral None recorded. Procedures None recorded. Surgeries None recorded. Imaging None recorded. Medication Orders levofloxaci n 500 mg tablet 2022 023 [facility][id number], [address], [place], [address], 20:51:49 albuterol sulfate HFA 90 mcg/actuati on aerosol inhaler 2022 023 [facility], [address], [place], [id number], 15:21:37 Patient TargetsNo targets recorded. Patient InstructionsNo instructions recorded. Reason for Referral None Reported. Results Created Date Observation Date Name Description Value Unit Range Abnormal Flag Note LastModifiedBy Organization Detail LastModifiedTime 04/14/2004/14/2023 URINE CULTU RE specimen description URINE Not Available [facility] (Centralized Electronic Ordering - All Locations) Patient Can Go To The Location Of Their Choice, [id number] 04/16/2023 06:44:21 04/14/2004/14/2023 URINE CULTU RE special requests NONE Not Available [facility] (Centralized Electronic Ordering - All Locations) Patient Can Go To The Location Of Their Choice, [id number] 04/16/2023 06:44:21 04/14/2004/16/2023 URINE CULTU RE culture NO GROWTH Not Available [facility] (Centralized Electronic Ordering - All Locations) Patient Can Go To The Location Of Their Choice, [id number] 04/16/2023 06:44:21 04/14/2004/16/2023 URINE CULTU RE report status FINAL 2022 Not Available [facility] (Centralized Electronic Ordering - All Locations) Patient Can Go To The Location Of Their Choice, [id number] 04/16/2023 06:44:21 Result Notes None recorded. Medical Equipment None Reported. Allergies Allergen ID Allergen Name Allergen Category Reaction Reaction Severity Criticality Documentation Date Start Date Code Code System Note Provider Name and Address Organization Details Recorded Time 7617 Product containin g penicilli n (product) medicatio n Not available Not available Not available 04/09/2024 95044 8001 SNOMED Not Available [facility] - production [...] Not Available Not Available Not Available [employer] Lite kit TEST BLOOD SUGAR THREE TIMES [...] t Available Vitals Date Recorded Body temperature Body weight Respiratory rate Heart rate Body height Oxygen saturation Oxygen saturation in Arterial blood by Pulse oximetry Systolic And Diastolic Provider Name and Address Organization Details Last Updated DateTime 4 100.6 [degF] 93918.5 6 g 16 /min 98 /min 160.02 cm 98 % 98 % 124/72 mm[Hg] Not Available [employer] 4 12:15:09 Date Recorded Oxygen saturation Oxygen saturation in Arterial blood by Pulse oximetry Respiratory rate Heart rate Respiratory rate Oxygen saturation Oxygen saturation in Arterial blood by Pulse oximetry Heart rate Systolic And Diastolic Systolic And Diastolic Provider Name and Address Organization Details Last Updated DateTime 3 98 % 98 % 16 /min 92 /min 16 /min 98 % 98 % 92 /min 146/76 mm[Hg] 146/76 mm[Hg] Not Available [facility] - production 3 15:44:23 Date Recorded Body temperature Heart rate Respiratory rate Oxygen saturation Oxygen saturation in Arterial blood by Pulse oximetry Body weight Body height Systolic And Diastolic Provider Name and Address Organization Details Last Updated DateTime 5 98.7 [degF] 82 /min 14 /min 98 % 98 % 49191.6 g 152.4 cm 138/71 mm[Hg] Not Available [facility] - production 5 19:19:26 Date Recorded Body height Heart rate Respiratory rate Oxygen saturation Oxygen saturation in Arterial blood by Pulse oximetry Body temperature Systolic And Diastolic Provider Name and Address Organization Details Last Updated DateTime 4 160.02 cm 90 /min 16 /min 96 % 96 % 98.4 [degF] 130/80 mm[Hg] Deon Pabon MD [address] [place] [address],[address], [place], [address] [place] [address] [employer] [facility] 4 13:33:27 Date Recorded Heart rate Oxygen saturation Oxygen saturation in Arterial blood by Pulse oximetry Respiratory rate Body temperature Systolic And Diastolic Provider Name and Address Organization Details Last Updated DateTime 4 90 /min 98 % 98 % 16 /min 98.4 [degF] 130/80 mm[Hg] Not Available [employer] 4 14:31:14 Date Recorded Body temperature Oxygen saturation Oxygen saturation in Arterial blood by Pulse oximetry Heart rate Body height Body weight Respiratory rate Systolic And Diastolic Provider Name and Address Organization Details Last Updated DateTime 3 99.1 [degF] 97 % 97 % 67 /min 160.02 cm 79128.5 6 g 16 /min 155/81 mm[Hg] Not Available [employer] 3 20:09:43 Social History None recorded. Functional Status None recorded. Mental Status None recorded. Family History Nothing Reported. Medical History No medical history recorded. Gynecological HistoryNo gynecological history recorded. Obstetrics History GPAL:G 0 P 0 0 0 0 Past Encounters Encounter ID Performer Location Encounter Start Date Encounter Closed Date Diagnosis/Indication Diagnosis SNOMED-CT Code Diagnosis ICD10 Code Diagnosis Note [id number] Jose Elias Patel MD [address] [phone] 03/14/2022 13:29:19 03/17/2022 10:31:54 Fever 923376686 R50.9 [id number] Carol Wood MD [address] [id number] 08/04/2022 13:33:21 08/08/2022 09:30:54 Viral upper respiratory tract infection [id number] J06.9 Acute conjunctivitis 537 13236 H10.31 Acute otitis externa 302 61119 H60.511 [id number] Laura Foy MD [facility] [address] [place] [id number] 08/16/2022 15:04:32 08/18/2022 10:23:06 Cough 10920927 R05.9 expectorat ed clear sputum, with associated [...] call back or present to the ED [id number] Ewa Stovall MD [facility] - [facility] [address] [place] [id number] 04/14/2023 20:09:39 04/18/2023 10:03:43 Acute pyelonephritis 22089250 N10 Urinary symptoms 1007041 08 R39.9 [id number] Jordan Green MD [facility] [address] [place] [id number] 06/21/2023 12:15:06 06/22/2023 09:57:30 Hyperglycemia due to type 2 diabetes mellitus [id number] 01092 E11.65 This 67-year-ol d female with type [...] PCP. The patient agreed with this plan. [id number] Deon Pabon MD [facility] [address] [place] [phone] 12/23/2023 13:20:24 12/24/2023 22:15:17 Epigastric pain 98318519 R10.13 Nausea and vomiting 1693 2000 R11.2 [id number] KADY LUCIA MD [facility] [address] [place] [phone] 12/19/2024 19:19:20 12/20/2024 13:48:06 Swollen ankle region 305110103 M25.471 Evaluation in the field was performed by my air export operations agent colleague, as noted above, I provided real-time direction and supervisio n for this visit. The evaluation revealed 69-year-ol d female with a history of type 2 diabetes mellitus (on Synjardy) and gastritis, with no known history of heart failure and not on diuretics, presents with right ankle swelling for the past 2 days.The patient reports that she experience d a recent in the family and has been walking more than usual. She denies:Any trauma to the jointPain, redness, or difficulty ambulating History of heart failure, gout, or DVTFever, chills, dizziness, lightheade dness, shortness of breathChes t pain, nausea, vomiting, or fatigue VS: BP 138/71, HR 82, RR 14, SpO2 98%, Room Air at RestTemp 98.7 FExam:Aler t, awake, oriented, in no acute distressLu ngs clear to auscultati onRight ankle: mild swelling noted over the lateral malleolus, no tenderness , no erythema, slightly warm to touch (as reported by air export operations agent) No calf tenderness , no lower extremity edema, and pulses normal bilaterall yAllergies : Reviewed Impression :Right ankle swelling, likely mechanical /overuse related to increased ambulation No signs of infection or systemic illness at this timeLow suspicion for DVT, but will need monitor for progressio n Plan:Suppo rtive care: rest, elevation, iceACE wrap applied by paramedicP t and daughter advised to monitor overnight. If no improvemen t by morning, advised to go to urgent care for:X-ray of the ankleUric acid level if suspicion for gout increasesR ed flags discussed with the patient including : increased swelling or pain in the ankle or calf, redness or warmth extending up the leg, difficulty ambulating or bearing weight, shortness of breath or chest pain , fever or chills Primary care, consider__ _ Dispositio n: We discussed the diagnostic uncertaint y of home visits and the risk associated with this. In this case, the patient and I felt this to be an acceptable and reasonable amount of risk given the benefit of avoiding an ED visit. We discussed the need to seek care urgently/e mergently in the setting of any new or worsening serious symptoms, particular ly increased swelling or pain in the ankle or calf, redness or warmth extending up the leg, difficulty ambulating or bearing weight, shortness of breath or chest pain , fever or chills or any other concerns Health Concerns Section Related Observation LastModified by Organization Detai ls LastModified Time None Recorded Concern Status LastModified by Organization Details LastModified Time None Recorded Advance Directives Directive None Recorded Payers Insurance Date Sequence Insurance Name Policy Number Policy Page Covered Member ID Page Member ID Guarantor Name 04/14/[address] [facility] - DOS PRIOR TO 2022 - DUAL ELIGIBLE (MEDICARE REPLACEMENT/ADV ANTAGE - HMO) Violetta Cormier [id number] Violetta Cormier 12/19/[address] [facility] - DOS ON OR AFTER 2022 - DUAL ELIGIBLE - LONG TERM OPTIONS AND ONE CARE (MEDICARE REPLACEMENT/ADV ANTAGE - HMO) Violetta Cormier [id number] Violetta Cormier Notes Date Note Type Note Provider Name and Address Organization Details Recorded Time 08/16/2022 text/html HPI: Call to Violetta Pearson, spoke with daughter Sharon Fuchs who is on HIPPA. Reports pt having cough and nasal congestion. Sx onset since yesterday. Pt had Covid-19 test kit performed yesterday and negative. Reports mild subjective fever. Denies any nausea vomiting. Had one episode of mild diarrhea. No blood in stool. Advised of disposition, declined [facility] for assessment of cough. Agrees to [facility] referral. ...................... ...................... ...................... ...................... ...................... ...................... ......... CRC Nursing Assessment: Comments: CRC RN DID NOT NEED FURTHER INFO > SDONNER ...................... ...................... ...................... ...................... ...................... ...................... ......... Low Pressure Boiler Operator Note From Otto Portillo: Dispatched to the above for the 66 y/o female cough, nepalese speaking only - interrupter services contacted - the pt is A&0 4, skin pink / warm/ dry, strong regular [...] flu / covid (- ) , [facility] contacted and ordered aravind neb (administered), and discussed supportive care. Pt reported improvement in breathing (- ) adverse reaction to medications Low Pressure Boiler Operator Allergies: Penicillin ...................... ...................... ...................... ...................... ...................... ...................... ......... Disposition: Chanel Foy MD [address], [place], [address], [employer] 08/16/2022 21:52:45 04/14/2023 text/html HPI: CKD, smoker, GERD Patient with several days of dark urine and pain with urination. NO fever pain in lower back and foul urine. ...................... ...................... ...................... ...................... ...................... ...................... ......... CRC Nursing Assessment: Comments: CRC RN did not require any additional information to process this visit. ...................... ...................... ...................... ...................... ...................... ...................... ......... Low Pressure Boiler Operator Note From Rodo Manzano: Pt reports two days of dysuria, bilateral flank pain and dark, cloudy urine. Pt denies hx of UTI s. Pt denies hematuria, CP, SOB, DORADO, f/n/v/d. Pt is alert, NAD. VSS. Temp 99.1. Neuro exam and gait normal. Lungs CTA. Benign ABD exam. Right sided CVA tenderness. No ISRAEL. UA: trace BASIL, - NIT, - BLO. UC to [facility]. [facility] contacted and pt treated with levofloxacin 500 mg PO. Pt instructed to stay well hydrated, f/u with PCP next week and to seek emergent medical care for new or worsening sx, which are reviewed with her. ...................... ...................... ...................... ...................... ...................... ...................... ......... Disposition: Fulfilled Ewa Stovall MD [address] [place] [address],[address], [place], [address], [employer] 04/14/2023 20:52:20 06/21/2023 text/html CRC Nurse Triage [...] and insulin (unknown type). Jordan Green MD [address] [place] [address],[address] [facility], [place], [address], [employer] 06/21/2023 12:19:33 12/23/2023 text/html This was a super vised home visit with air export operations agent Hanh Carl. CRC Nurse Triage Notes (Jayden Pate): Reason For Request: Patient Vomiting. Chief Complaints: Gastrointestinal Concerns (other) PMH: Hypertension, Diabetes, COPD/Asthma Allergies: Penicillin Comments: Mbr & mbr's daughter Micronesian speaking primarily, logistics center manager# [id number] used for triage assessment. Wrapper Selector verified the member's name//address and phone number. Mbr's daughter reporting mbr has been vomiting since last night, reports 6 episodes of vomiting last night. Mbr denies abdominal pain or diarrhea. Education provided on the response time and the member was advised to monitor reported s/s and seek emergency treatment if needed -Padma Pate RN ...................... ...................... ...................... ...................... ...................... ...................... ......... Low Pressure Boiler Operator Note From Hanh Carl: [facility] Low Pressure Boiler Operator Edward Carl SC6 dispatched to a [facility] for a 68 yof C/O vomiting and [...] to epigastric area, no abnormalities felt. [facility] consulted; pt was instructed to seek further testing and tx in the ED. She agreed, and 911 was called. [facility] arrived and transported the pt to [place] ED./ ...................... ...................... ...................... ...................... ...................... ...................... ......... Disposition: Fulfilled Deon Pabon MD [address], [place], [address], [employer] 12/23/2023 14:54:30 12/19/2024 text/html CRC Nurse Triage Notes (Mary Ring): Reason For Request: feet swollen Denies: History of Heart Attack, in the setting of active chest pain Active Chest pain, radiates to neck jaw and or arm Diaphoretic/Sweating Describes as crushing Sudden onset of nausea/Vomiting and shortness of breath. Shortness of Breath Unable to speak in full sentences without distress Palpitations, feeling dizzy Chest pain, increased fatigue CHF history, increased swelling and edema Weakness/tachycardia Chief Complaints: Extremity Swelling PMH: Hypertension, COPD/Asthma, Diabetes Mellitus Type 2, Fibromyalgia PMH Reviewed at 12/19/2024: Allergies Reviewed at 12/19/2024:46 Comments: 69 y.o female complains of Extremity Swelling patients daughter referring Patients bilateral lower extremities they are red and swollen x 2 days denies any fever or chills denies any lightheadedness, dizziness or shortness of breath denies any chest pain nausea or vomiting or fatigue. denies any kidney issues and not on any blood thinners I provided information on the mobile health provider response time and advised the patient and/or caregiver to monitor reported signs and symptoms. I discussed the warning signs of when to seek emergency care. ...................... ...................... ...................... ...................... ...................... ...................... ......... Low Pressure Boiler Operator Note From Tam Warren: Patient alert and oriented complains of right ankle swelling. Patient reports more walking than normal, has been pacing, increased recent stress due to a in the family. Patient denies trauma, falling or a specific event, causing injury. Patient reports swelling came on gradually and was noticed yesterday. Patient denies any pain. Patient reports no history of same. Patient reports no history of gout. Patient reports normal appetite and intake, denies nausea vomiting, diarrhea, weakness, dizziness, or any other pain or complaint. Patient, pink warm, dry, secondary exam unremarkable, right ankle appears, slightly swollen, some extra heat noted, no redness or broken skin. [facility] advises patient to attend urgent care tomorrow for uric acid level and possible x-ray. Patient advised to use ice elevation and rest. Red flags patient education discussed. All information through medical collections on Phone, strong language, barrier present, patient and caregiver demonstrate understanding of care and plan. Patient given an opportunity to ask questions. ...................... ...................... ...................... ...................... ...................... ...................... ......... [facility] Consulted: Kady Lucia ...................... ...................... ...................... ...................... ...................... ...................... ......... Disposition: Chanel LUCIA MD [address] [place] [address],[address], [place], [address], [facility] 12/19/2024 22:43:40 OBGyn Episode No OBEpisode recorded.
--- OUTSIDE RECORDS SUMMARY | 2024-12-25 14:25 | XMS_ITS | Encounter Summary ---
Author Organization [employer] Address [address] [place] [address] Care Team Providers Care Guide Setter Name Role Phone Glenna Jett DO Primary Care Provider [phone] Poly Diaz PharmD Unavailable [phone] Encounter Details Date Type Department Care Team ([facility] Contact Info) Description 09/21/2023 Orders Only [facility] [address] [place] [address] Provider, MD Marylin Social History Tobacco Use [...] Care Team (Late st Contact Info) Description 01/02/2025 3:30 PM EDT Medication Management [facility] [address] [place] [phone] AayushiaPoly, PharmD [address] [place] [id number] 01/10/2025 2:00 PM EDT Telemedicine [facility] [address] [place] [address] [phone] Padmaja Anderson RN documented as of this [...] on filedocumented in this encounter Care Teams Guide Setter Relationship Specialty Start Date End Date Glenna Jett DO [address] [place] [phone] PCP - General Family Medicine 05/24/12 Puia, Poly, PharmD [address] [place] [address] [phone] Pharmacist Internal Medicine 07/04/23 documented as of this encounter
== END 2024-12-25 13:36 | disposition home or self-care (01) ==
LOC: HO.US 13:35
PROVIDERS: PCP Family Medicine; Visit Provider Family Medicine
DX: R10.9 Unspecified abdominal pain (principal)
CPT/HCPCS: 76775

== ENCOUNTER → 2024-12-25 13:37 | Outpatient (BNV) | payer OTHER, SELFPAY | PROVIDERS: PCP Family Medicine; Visit Provider Radiology Diagnostic Radiology | DX: N28.1 Cyst of kidney, acquired (principal) | CPT/HCPCS: 76775 ==

== ENCOUNTER 2025-01-09 02:59 | Emergency (ER) | payer OTHER, SELFPAY ==
[2025-01-09 03:02] VITALS: BP 167/70; PULSE 67; RESP 16; TEMP 36.4; O2SAT 97; BMI 28.3
--- NOTE | 2025-01-09 03:08 | ECG_ITS ---
Test Reason : ABD PAIN Blood Pressure : */* mmHG Vent. Rate : 72 BPM Atrial Rate : 72 BPM P-R Int : 146 ms QRS Dur : 74 ms QT Int : 366 ms P-R-T Axes : 57 -32 0 degrees QTcB Int : 400 ms Sinus rhythm with Premature atrial complexes Left axis deviation Nonspecific ST abnormality Abnormal ECG When compared with ECG of 23-Dec-2023 18:12, No significant change was found Referred By: Generic ED Physician Electronically Signed By: SUSSY MCPHERSON MD
[2025-01-09 03:48] LABS: Hematocrit 35.0 % (37.0-47.0); Hemoglobin 12.1 g/dl (12.0-16.0); Imm Gran Abs Auto 0.01 X10*3/uL (0.00-0.03); Imm Gran Pct Auto 0.1 % (0.0-0.4); Lymphocytes Absolute Auto 2.7 X10*3/uL (1.2-4.9); MANUAL DIFF FLAG NO; Mean Corpuscular HGB Conc 34.6 g/dl (31.0-35.0); Mean Corpuscular Hemoglobin 31.3 pg (27.0-33.0); Mean Corpuscular Volume 90.4 fL (80.0-98.0); NRBC Abs Auto 0.000 X10*3/uL (0.0-0.012); NRBC Pct Auto 0.0 /100WBC (0.0-0.2); Platelet Count 268 X10*3/uL (160-400); Red Blood Count 3.87 X10*6/uL (4.20-5.50); White Blood Count 7.4 X10*3/uL (4.8-10.8)
[2025-01-09 04:02] LABS: Alanine Aminotransferase 14 U/L (0-31); Albumin Level 4.0 g/dL (3.5-5.0); Alkaline Phosphatase 109 U/L (39-117); Anion Gap 12 (12-20); Aspartate Amino Transferase 19 U/L (5-31); Blood Urea Nitrogen 18 mg/dL (9-16); Calcium 8.9 mg/dL (8.4-10.2); Carbon Dioxide 28 mmol/L (22-29); Chloride 105 mmol/L (96-108); Creatinine Clr Calc Pharmacy 64.6; Estimated Glomerular Filt Rate > 60; Lipase 42 U/L (8-78); Potassium 4.6 mmol/L (3.3-5.1); Sodium 140 mmol/L (135-145); Total Protein 6.8 g/dL (6.5-8.0)
[2025-01-09 04:10] LABS: Troponin-I High Sensitivity < 2.7 ng/L (<3.5-17.0)
--- NOTE | 2025-01-09 06:17 | ED.GENADULT ---
HPI - General Adult General Chief complaint: Abdominal Pain Stated complaint: abd pain Time Seen by Provider: 01/09/25 06:11 Source: patient and family Mode of arrival: ambulatory Limitations: no limitations History of Present Illness ED Provider: Dr. Jany Kaiser HPI narrative: Patient comes to the emergency room complaining of chest pain that started approximately 4 hours ago, patient states that it lasted a few sec and then it went away. Patient states earlier today it was radiating towards the left shoulder and had a bit of nausea. Patient reports multiple of these episodes. Denies any chest pain at this time, patient states that she feels pain-free and back to normal. Related Data Home Medications ?Medication ?Instructions ?Recorded ?Confirmed aspirin 81 mg tablet,delayed 81 mg PO DAILY 04/21/20 08/27/24 release atorvastatin 80 mg tablet 80 mg PO BEDTIME 04/21/20 08/27/24 albuterol sulfate 90 mcg/actuation 2 puff PO Q4-6H PRN Shortness Of 12/25/20 08/27/24 aerosol inhaler Breath cyanocobalamin (vitamin B-12) 1,000 mcg PO QAM 12/25/20 08/27/24 1,000 mcg tablet fluticasone propionate 110 1 puff PO BID 12/25/20 08/27/24 mcg/actuation HFA aerosol inhaler gabapentin 400 mg capsule 400 mg PO TID 12/25/20 08/27/24 lisinopril 2.5 mg tablet 2.5 mg PO DAILY 12/25/20 08/27/24 loratadine 10 mg tablet 10 mg PO QAM 12/25/20 08/27/24 oxybutynin chloride 5 mg 5 mg PO QAM 12/25/20 08/27/24 tablet,extended release 24 hr sertraline 100 mg tablet 150 mg PO QAM 12/25/20 08/27/24 tramadol 50 mg tablet 50 mg PO BID PRN Pain 12/25/20 08/27/24 ergocalciferol (vitamin D2) 1,250 1,250 mcg PO QWEEK 05/09/22 08/27/24 mcg (50,000 unit) capsule (Vitamin D2) fluticasone propionate 50 2 spray intranasal DAILY 05/09/22 08/27/24 mcg/actuation nasal spray,suspension trazodone 50 mg tablet 50 mg PO BEDTIME 05/09/22 08/27/24 empagliflozin 12.5 mg-metformin 1 tab PO BID 08/27/24 08/27/24 1,000 mg tablet (Synjardy) insulin degludec 200 unit/mL (3 14 unit subcut QAM 08/27/24 08/27/24 mL) subcutaneous pen (Tresiba FlexTouch U-200 insulin) semaglutide 2 mg/dose (8 mg/3 mL) 2 mg subcut QWEEK 08/27/24 08/27/24 subcutaneous pen injector (Ozempic) cholecalciferol (vitamin D3) 50 50 mcg PO QAM 09/13/24 mcg (2,000 unit) tablet glucose 3.75 gram chewable tablet 11.25 - 15 g PO diabetes mellitus 09/13/24 (TRUEplus Glucose) mometasone 100 mcg/actuation HFA 2 puff inhalation BID 09/13/24 aerosol inhaler (Asmanex HFA) naloxone 4 mg/actuation nasal spray intranasal 09/13/24 sennosides 8.6 mg tablet (senna) 17.2 mg PO BEDTIME 09/13/24 Previous Rx's ?Medication ?Instructions ?Recorded oxycodone 5 mg tablet 5 mg PO BID PRN pain #6 tabs 10/30/21 ezetimibe 10 mg tablet 10 mg PO DAILY #90 tabs 03/14/22 omeprazole 20 mg capsule,delayed 20 mg PO BID 90 days #180 caps 11/27/24 release Allergies Allergy/AdvReac Type Severity Reaction Status Date / Time amitriptyline (AMITRIPTYLINE) Allergy Intermediate ANXIOUS, Verified 01/09/25 03:03 SWELLING Penicillins Allergy Intermediate Swelling Verified 01/09/25 03:03 aspirin (ASPIRIN) AdvReac Mild caused Verified 01/09/25 03:03 hypersalivation Review of Systems Review of Systems: Constitutional : No Weight loss, No Fever, No Chills, No Night Sweats, No Fatigue, No Malaise ENT/Mouth : No Hearing loss, No Ear Pain, No Nasal Congestion, No Sinus Pain, No Hoarseness, No sore throat, No Rhinorrhea, No Swallowing Difficulty Eyes: No Eye Pain, No Swelling, No Redness, No Foreign Body, No Discharge, No Vision Changes Cardiovascular : Complaining of chest pain that is self-resolved No SOB, No Dyspnea on Exertion, No Orthopnea, No Edema, No Palpitations Respiratory : No Cough, No Sputum, No Wheezing, No Smoke Exposure, No Dyspnea Gastrointestinal : No Nausea, No Vomiting, No Diarrhea, No Constipation, No abdominal Pain, No Hematochezia, No Melena Genitourinary : no irregular bleeding, No Dysuria, No Urinary Frequency, No Hematuria, No Urinary Incontinence, No Urgency, No Flank Pain, No Urinary Flow Changes, No Hesitancy Musculoskeletal : No joint pain, No Myalgias, No Joint Swelling Skin : No Skin Lesions, No rash Neuro : No Weakness, No Numbness, No Paresthesias, No Loss of Consciousness, No Dizziness, No Headache Psych : No Anxiety/Panic, No Depression, No SI/HI/AH/VH, No Social Issues, Heme/Lymph: No Bruising, No Bleeding,No Lymphadenopathy Endocrine : No Polyuria, No Polydipsia, No Temperature Intolerance PMFSH Past Medical History Medical History Schatzki's ring Gastroparesis Spinal stenosis of lumbar region Obesity due to excess calories Osteoporosis Retinopathy Gastric ulcer Snoring Neuropathy Fibromyalgia Type 2 diabetes mellitus with hyperglycemia, without long-term current use of insulin Essential hypertension Hyperlipidemia LDL goal <100 Type 2 diabetes mellitus with diabetic neuropathy, unspecified Osteoarthritis Depression Diabetes Back ache Gastritis HTN (hypertension) Surgical History History of esophagogastroduodenoscopy (EGD) Hx of colonoscopy Hx of cholecystectomy Hx of tubal ligation Family History Family History Father FH: prostate cancer Mother CVD (cardiovascular disease) Heart disease Son Diabetes Social History Social History Household Members: Family Are you a primary care trainer to a significant other at home: No Do you presently have visiting nurse or other home services: No Alcohol intake: former Patient Tobacco Use Status: Former Tobacco user Smoked in Last 30 Days: No Use of substances other than those prescribed or required for medical reasons: No Advance Directives: No Advance Directives Information Provided: Yes Physical Exam ED Exam Exam: Appearance: Alert. Oriented X3. No acute distress. Eyes: Pupils equal, round and reactive to light. ENT: Pharynx normal. Neck: Normal inspection. Neck supple. No lymph nodes noted. No crepitus CVS: Normal heart rate and rhythm. Pulses normal. Normal S1 and S2 Respiratory: No respiratory distress. Breath sounds normal. No Wheezing. No rales Abdomen: Soft and nontender. No rigidity. No distention. Skin: Skin warm and dry. Normal skin color. Normal skin turgor. Extremities: No lower extremity edema. No Lacerations. No Rash Neuro: Oriented X 3. No motor deficit. No sensory deficit. Moving all extremities. No slurred speech. CN 2 through 12 grossly intact Psych: calm, cooperative, normal affect Vital Signs: Vital Signs - 24 hr 01/09/25 03:02 Temperature 97.6 F Pulse Rate 67 Respiratory Rate 16 Blood Pressure 167/70 H Pulse Oximetry 97 Oxygen Delivery Method Room Air BMI result Body Mass Index 28.3 Medical Decision Making Medical Decision Making [facility] Narrative: My interpretation of EKG: Normal sinus rhythm, heart rate 72, no ST segment depression or elevation, no T-wave inversion, QTC 400 My interpretation of labs, no significant abnormality in patient's hematology and chemistry, negative troponin, normal lipase Overall, seems that patient had musculoskeletal pain. At this time patient is asymptomatic. I discussed with the patient and her daughter that if the patient continues having the symptoms, she would probably benefit from an evaluation with a Holter monitor versus stress test. Patient agrees with plan. At this time, patient states that she feels completely back to normal. Differential Diagnosis Differential Diagnoses: The differential diagnosis associated with the presentation includes (Anxiety, atypical chest pain) Admission/Observation Consideration of admission/observation: Escalation of care including admission/observation considered (Given patient's age, symptoms and recurrent complaining of chest pain, observation was considered. ) Lab Data [facility] Lab Attestation statement: I reviewed the patient's lab results. 01/09/25 03:43 01/09/25 03:43 Labs: Lab Results 01/09/25 Range/Units 03:43 WBC 7.4 (4.8-10.8) X10*3/uL RBC 3.87 L (4.20-5.50) X10*6/uL Hgb 12.1 (12.0-16.0) g/dl Hct 35.0 L (37.0-47.0) % MCV 90.4 (80.0-98.0) fL MCH 31.3 (27.0-33.0) pg MCHC 34.6 (31.0-35.0) g/dl RDW 11.9 (11.0-16.0) % Plt Count 268 (160-400) X10*3/uL MPV 9.7 (9.4-12.3) fL Immature Gran % (Auto) 0.1 (0.0-0.4) % Neut % (Auto) 50.8 (45-73) % Lymph % (Auto) 35.8 (20-40) % Lamar % (Auto) 10.6 (2-11) % Eos % (Auto) 2.2 (0-4) % Baso % (Auto) 0.5 (0-2) % Lymph # (Auto) 2.7 (1.2-4.9) X10*3/uL Lamar # (Auto) 0.8 (0.1-1.2) X10*3/uL Eos # (Auto) 0.2 (0.0-0.4) X10*3/uL Baso # (Auto) 0.0 (0.0-0.2) X10*3/uL Abs Immat Gran (auto) 0.01 (0.00-0.03) X10*3/uL Absolute Neuts (auto) 3.8 (2.0-8.3) x10*3/uL Absolute Nucleated RBC 0.000 (0.0-0.012) X10*3/uL Nucleated RBC % (auto) 0.0 (0.0-0.2) /100WBC Sodium 140 (135-145) mmol/L Potassium 4.6 (3.3-5.1) mmol/L Chloride 105 (96-108) mmol/L Carbon Dioxide 28 (22-29) mmol/L Anion Gap 12 (12-20) BUN 18 H (9-16) mg/dL Creatinine 0.82 (0.5-1.4) mg/dL Estim Creat Clear Calc 64.6 Estimated GFR > 60 Fasting Glucose 179 H (60-99) mg/dL Calcium 8.9 (8.4-10.2) mg/dL Total Bilirubin 0.3 (0.0-1.0) mg/dL AST 19 (5-31) U/L ALT 14 (0-31) U/L Alkaline Phosphatase 109 (39-117) U/L Troponin I High Sens < 2.7 (<3.5-17.0) ng/L Total Protein 6.8 (6.5-8.0) g/dL Albumin 4.0 (3.5-5.0) g/dL Lipase 42 (8-78) U/L Critical Care Time Critical Care Time Critical Care Time: Yes Total Critical Care Time: 35 Attestation: I have personally provided critical care time. Time includes review of lab data, radiology results, discussion with consultants, and monitoring for potential decompensation. Intervention performed as documented. Discharge Plan Discharge Clinical Impression: Atypical chest pain Patient Disposition: Home, Self-Care Instructions: Chest Pain (ED) Additional Instructions: Please follow-up with your primary care physician tomorrow. If you have any worsening or new symptoms, please return to the emergency room or call 911 Prescriptions: No Action ezetimibe 10 mg tablet 10 mg PO DAILY Qty: 90 1RF omeprazole 20 mg capsule,delayed release(DR/EC) 20 mg PO BID 90 Days Qty: 180 0RF oxycodone 5 mg tablet 5 mg PO BID PRN (Reason: pain) Qty: 6 0RF insulin degludec [Tresiba FlexTouch U-200] 200 unit/mL (3 mL) insulin pen 14 unit subcut QAM Synjardy 12.5-1,000 mg tablet 1 tab PO BID Ozempic 2 mg/dose (8 mg/3 mL) pen injector 2 mg subcut QWEEK atorvastatin 80 mg tablet 80 mg PO BEDTIME aspirin 81 mg tablet,delayed release (DR/EC) 81 mg PO DAILY gabapentin 400 mg capsule 400 mg PO TID oxybutynin chloride 5 mg tablet extended release 24hr 5 mg PO QAM loratadine 10 mg tablet 10 mg PO QAM lisinopril 2.5 mg tablet 2.5 mg PO DAILY cyanocobalamin (vitamin B-12) 1,000 mcg tablet 1,000 mcg PO QAM sertraline 100 mg tablet 150 mg PO QAM albuterol sulfate 90 mcg/actuation HFA aerosol inhaler 2 puff PO Q4-6H PRN (Reason: Shortness Of Breath) Flovent HFA 110 mcg/actuation HFA aerosol inhaler 1 puff PO BID tramadol 50 mg tablet 50 mg PO BID PRN (Reason: Pain) fluticasone propionate 50 mcg/actuation spray,suspension 2 spray intranasal DAILY trazodone 50 mg tablet 50 mg PO BEDTIME ergocalciferol (vitamin D2) [Vitamin D2] 1,250 mcg (50,000 unit) capsule 1,250 mcg PO QWEEK glucose [TRUEplus Glucose] 3.75 gram tablet,chewable 11.25 - 15 g PO cholecalciferol (vitamin D3) 50 mcg (2,000 unit) tablet 50 mcg PO QAM Asmanex HFA 100 mcg/actuation HFA aerosol inhaler 2 puff inhalation BID naloxone 4 mg/actuation spray,non-aerosol intranasal sennosides [senna] 8.6 mg tablet 17.2 mg PO BEDTIME Print Language: Swedish
[2025-01-09 06:25] VITALS: BP 131/61; PULSE 63; RESP 16; TEMP 37; O2SAT 96
[2025-01-09 06:48] VITALS: BP 131/61; PULSE 63; RESP 16; TEMP 37; O2SAT 96
== END 2025-01-09 06:50 | disposition home or self-care (01) ==
PROVIDERS: Emergency Provider Emergency Medicine; PCP Family Medicine
DX: R07.89 Other chest pain (principal); R10.2 Pelvic and perineal pain; M25.512 Pain in left shoulder; R11.0 Nausea; Z79.899 Other long term (current) drug therapy; Z87.891 Personal history of nicotine dependence
CPT/HCPCS: 36415; 80053; 83690; 84484; 85025; 93005; 99283; 99284

== ENCOUNTER → 2025-01-09 03:08 | Outpatient (BNV) | payer OTHER, SELFPAY | PROVIDERS: Emergency Provider Emergency Medicine; PCP Family Medicine; Visit Provider Internal Medicine Cardiovascular Disease | DX: I49.1 Atrial premature depolarization (principal) | CPT/HCPCS: 93010 ==

== ENCOUNTER 2025-03-10 09:46 | Emergency (ER) | payer OTHER, SELFPAY ==
--- NOTE | ~2025-03-10 | CT_ITS ---
EXAMINATION: CT ABDOMEN PELVIS WITH IV CONTRAST HISTORY: left upper quadrant abdominal pain, palpable lump COMPARISON: Comparison is made with the prior examination dated 12/23/2023. TECHNIQUE: CT scan of the abdomen and pelvis was performed following administration of 85 mL Omnipaque 350 using standard departmental protocol. Coronal and sagittal reformatted images were generated and reviewed. Oral contrast material was not administered at the request of the referring physician. This CT exam was performed with one or more of the following dose reduction techniques: automated exposure control, adjustment of the mA and/or kV according to patient size, use of iterative reconstruction technique. DLP: 628 mGy-cm FINDINGS: LOWER CHEST: The visualized lung bases are clear. There is no pleural effusion. CARDIOVASCULATURE: The heart is normal in size. There is no pericardial effusion. LIVER: The liver is normal in size and contour, but demonstrates decreased attenuation, consistent with steatosis. No liver mass is identified. The hepatic and portal veins are patent. GALLBLADDER / BILE DUCTS: The gallbladder is unremarkable. There is no intra or extrahepatic biliary ductal dilatation. SPLEEN: The spleen is normal in size. No focal splenic lesion is identified. PANCREAS: The pancreas is unremarkable in appearance. ADRENAL GLANDS: Within normal limits. KIDNEYS/RETROPERITONEUM: No renal calculi are identified. There is no hydronephrosis. There is a 2.1 cm cyst at the upper pole of the left kidney. LYMPH NODES: No abdominal or pelvic lymphadenopathy. VASCULATURE: The abdominal aorta demonstrates atherosclerotic calcification, but is normal in caliber. MESENTERY/PERITONEUM: No free fluid. No masses. There is no free intraperitoneal gas. STOMACH: The stomach is collapsed, limiting evaluation. SMALL BOWEL: The small bowel is normal in caliber. COLON: There is diverticulosis of the descending and sigmoid colon, without evidence of diverticulitis. APPENDIX: Normal. URINARY BLADDER/PELVIC ORGANS: The urinary bladder is collapsed, limiting evaluation. The uterus is unremarkable. BONES / SOFT TISSUES: No suspicious bony or soft tissue abnormalities. CT/CT abdomen pelvis w IV con IMPRESSION: 1. Hepatic steatosis. 2. Diverticulosis of the descending colon, without evidence of diverticulitis. Electronically signed by: Ronald Florez MD 03/10/2025 12:40 PM EDT RP
[2025-03-10 10:01] VITALS: BP 141/64; PULSE 87; RESP 16; TEMP 36.4; O2SAT 98; BMI 29.1
--- NOTE | 2025-03-10 10:02 | ED.GENADULT ---
HPI - General Adult General Chief complaint: Abdominal Pain Stated complaint: abd pain Time Seen by Provider: 03/10/25 10:19 Source: patient, family ( daughter) and lead driver Mode of arrival: ambulatory Limitations: no limitations History of Present Illness ED Provider: DR. Dash HPI narrative: 69-year-old female presented for evaluation of 1 day of left upper quadrant abdominal pain pain is localized to the left upper quadrant, not associated with nausea, vomiting, fever, chills, diarrhea, or blood in the stool. Patient has been feeling swelling in the left upper quadrant area but the pain started since yesterday. No fall, no injury to the chest wall. Intra-abdominal surgery significant for cholecystectomy and tubal ligation, last bowel movement with a yesterday morning and was normal, patient have been passing flatus normally. Related Data Home Medications ?Medication ?Instructions ?Recorded ?Confirmed aspirin 81 mg tablet,delayed 81 mg PO DAILY 04/21/20 08/27/24 release atorvastatin 80 mg tablet 80 mg PO BEDTIME 04/21/20 08/27/24 albuterol sulfate 90 mcg/actuation 2 puff PO Q4-6H PRN Shortness Of 12/25/20 08/27/24 aerosol inhaler Breath cyanocobalamin (vitamin B-12) 1,000 mcg PO QAM 12/25/20 08/27/24 1,000 mcg tablet fluticasone propionate 110 1 puff PO BID 12/25/20 08/27/24 mcg/actuation HFA aerosol inhaler gabapentin 400 mg capsule 400 mg PO TID 12/25/20 08/27/24 lisinopril 2.5 mg tablet 2.5 mg PO DAILY 12/25/20 08/27/24 loratadine 10 mg tablet 10 mg PO QAM 12/25/20 08/27/24 oxybutynin chloride 5 mg 5 mg PO QAM 12/25/20 08/27/24 tablet,extended release 24 hr sertraline 100 mg tablet 150 mg PO QAM 12/25/20 08/27/24 tramadol 50 mg tablet 50 mg PO BID PRN Pain 12/25/20 08/27/24 ergocalciferol (vitamin D2) 1,250 1,250 mcg PO QWEEK 05/09/22 08/27/24 mcg (50,000 unit) capsule (Vitamin D2) fluticasone propionate 50 2 spray intranasal DAILY 05/09/22 08/27/24 mcg/actuation nasal spray,suspension trazodone 50 mg tablet 50 mg PO BEDTIME 05/09/22 08/27/24 empagliflozin 12.5 mg-metformin 1 tab PO BID 08/27/24 08/27/24 1,000 mg tablet (Synjardy) insulin degludec 200 unit/mL (3 14 unit subcut QAM 08/27/24 08/27/24 mL) subcutaneous pen (Tresiba FlexTouch U-200 insulin) semaglutide 2 mg/dose (8 mg/3 mL) 2 mg subcut QWEEK 08/27/24 08/27/24 subcutaneous pen injector (Ozempic) cholecalciferol (vitamin D3) 50 50 mcg PO QAM 09/13/24 mcg (2,000 unit) tablet glucose 3.75 gram chewable tablet 11.25 - 15 g PO diabetes mellitus 09/13/24 (TRUEplus Glucose) mometasone 100 mcg/actuation HFA 2 puff inhalation BID 09/13/24 aerosol inhaler (Asmanex HFA) naloxone 4 mg/actuation nasal spray intranasal 09/13/24 sennosides 8.6 mg tablet (senna) 17.2 mg PO BEDTIME 09/13/24 Previous Rx's ?Medication ?Instructions ?Recorded oxycodone 5 mg tablet 5 mg PO BID PRN pain #6 tabs 10/30/21 ezetimibe 10 mg tablet 10 mg PO DAILY #90 tabs 03/14/22 omeprazole 20 mg capsule,delayed 20 mg PO BID #180 caps 02/18/25 release Allergies Allergy/AdvReac Type Severity Reaction Status Date / Time amitriptyline (AMITRIPTYLINE) Allergy Intermediate ANXIOUS, Verified 03/10/25 10:05 SWELLING Penicillins Allergy Intermediate Swelling Verified 03/10/25 10:05 aspirin (ASPIRIN) AdvReac Mild caused Verified 03/10/25 10:05 hypersalivation PMFSH Past Medical History Medical History Schatzki's ring Gastroparesis Spinal stenosis of lumbar region Obesity due to excess calories Osteoporosis Retinopathy Gastric ulcer Snoring Neuropathy Fibromyalgia Type 2 diabetes mellitus with hyperglycemia, without long-term current use of insulin Essential hypertension Hyperlipidemia LDL goal <100 Type 2 diabetes mellitus with diabetic neuropathy, unspecified Osteoarthritis Depression Diabetes Back ache Gastritis HTN (hypertension) Surgical History History of esophagogastroduodenoscopy (EGD) Hx of colonoscopy Hx of cholecystectomy Hx of tubal ligation Family History Family History Father FH: prostate cancer Mother CVD (cardiovascular disease) Heart disease Son Diabetes Social History Social History Household Members: Family Are you a primary healthcare associate to a significant other at home: No Do you presently have visiting nurse or other home services: No Alcohol intake: former Patient Tobacco Use Status: Former Tobacco user Smoked in Last 30 Days: No Use of substances other than those prescribed or required for medical reasons: No Advance Directives: No Advance Directives Information Provided: Yes Physical Exam ED Vital Signs: Vital Signs - 24 hr 03/10/25 10:01 03/10/25 10:25 03/10/25 13:19 Temperature 97.5 F Pulse Rate 87 72 76 Respiratory Rate 16 18 18 Blood Pressure 141/64 H 143/64 H 143/68 H Pulse Oximetry 98 100 99 Oxygen Delivery Method Room Air Room Air Room Air BMI result Body Mass Index 29.1 Vital signs have been reviewed and appear to be correct. Blood pressure elevated. Heart rate normal. Respiratory rate normal. Temperature normal. Oxygen saturation normal. Appearance: Alert. Oriented X3. No acute distress. Head: Normal external exam. Normocephalic. Atraumatic. No Roca signs noted. No raccoon eyes noted Eyes: PERRLA. EOMI. Conjunctiva and sclera normal. Eyelids normal. ENT: TM's Normal. Pharynx normal. Uvula midline. Moist mucous membranes. No trismus noted. No drooling noted. No muffled voice noted. Neck: Normal inspection. Neck supple. FROM. No adenopathy. Thyroid Normal. No meningeal signs. No neck mass noted. CVS: Normal heart rate and rhythm. Heart sound normal. No murmurs noted. Pulses normal throughout. Respiratory: No respiratory distress. Painless inspiration. Breath sounds normal. No wheezes/rales/rhonchi noted. Chest nontender. No accessory muscle usage noted or decreased air movement noted. Abdomen: Soft , mild left upper quadrant abdominal tenderness, no rebound tenderness, no guarding. Bowel sounds normal in all 4 quadrants. No distention noted. No organomegaly noted. No visible injury noted. Back: No CVA tenderness. Full range of motion noted. Skin: Skin warm and dry. Normal skin color. Normal skin turgor. No rashes/lesions/lacerations noted. Extremities: No lower extremity edema. Extremities exhibit normal range of motion. Extremities nontender. Neuro: Oriented X 3. Cranial nerve exam: II-XII are grossly intact No motor deficit. No sensory deficit. Reflexes normal. Course Course Course Narrative: Rapid medical examination performed in triage by Acacia Sunshine PA-C. Patient is a 69 year old assigned female at presenting to the emergency department with left upper quadrant abdominal pain. Patient states over the last day she has been having left upper quadrant abdominal pain and feels as though there is a lump there. Patient denies any nausea or vomiting. Detailed physical exam and review of systems are deferred to the scheduling agent. Labs ordered. Patient placed back in the waiting room pending room availability and results. Reevaluation(s) Reevaluation #1: LLQ tenderness, negative CT abdomen pelvis, unremarkable labs, unclear etiology of patient's symptoms patient was reassured and instructed to follow-up with PCP return if worsening of the symptoms. Time: 13:36 Medications Administered Discontinued Medications Generic Name Dose Route Start Last Admin Trade Name Freq PRN Reason Stop Dose Admin Iohexol 100 ml 03/10/25 12:21 03/10/25 12:22 Iohexol 350 Mg/Ml 100 Ml Infus..Btl IV 03/10/25 12:22 85 ml ONCE ONE Administration Medical Decision Making Differential Diagnosis Differential Diagnoses: The differential diagnosis associated with the presentation includes ( Diverticulitis, colitis, pancreatitis, gastritis, gastroenteritis, lower lobe pneumonia, pyelonephritis, UTI, electrolyte derangement, severe anemia.) Admission/Observation Consideration of admission/observation: Escalation of care including admission/observation considered Lab Data MDM Lab Attestation statement: I reviewed the patient's lab results. 03/10/25 10:38 03/10/25 10:38 Labs: Lab Results 09/29/25 09/29/25 Range/Units 10:38 11:26 WBC 6.3 (4.8-10.8) X10*3/uL RBC 4.07 L (4.20-5.50) X10*6/uL Hgb 12.7 (12.0-16.0) g/dl Hct 37.3 (37.0-47.0) % MCV 91.6 (80.0-98.0) fL MCH 31.2 (27.0-33.0) pg MCHC 34.0 (31.0-35.0) g/dl RDW 11.9 (11.0-16.0) % Plt Count 288 (160-400) X10*3/uL MPV 9.5 (9.4-12.3) fL Immature Gran % (Auto) 0.3 (0.0-0.4) % Neut % (Auto) 58.3 (45-73) % Lymph % (Auto) 29.9 (20-40) % Russell % (Auto) 8.0 (2-11) % Eos % (Auto) 2.9 (0-4) % Baso % (Auto) 0.6 (0-2) % Lymph # (Auto) 1.9 (1.2-4.9) X10*3/uL Russell # (Auto) 0.5 (0.1-1.2) X10*3/uL Eos # (Auto) 0.2 (0.0-0.4) X10*3/uL Baso # (Auto) 0.0 (0.0-0.2) X10*3/uL Abs Immat Gran (auto) 0.02 (0.00-0.03) X10*3/uL Absolute Neuts (auto) 3.7 (2.0-8.3) x10*3/uL Absolute Nucleated RBC 0.000 (0.0-0.012) X10*3/uL Nucleated RBC % (auto) 0.0 (0.0-0.2) /100WBC Sodium 142 (135-145) mmol/L Potassium 3.9 (3.3-5.1) mmol/L Chloride 109 H (96-108) mmol/L Carbon Dioxide 26 (22-29) mmol/L Anion Gap 11 L (12-20) BUN 11 (9-16) mg/dL Creatinine 0.73 (0.5-1.4) mg/dL Estim Creat Clear Calc 68.3 Estimated GFR > 60 Random Glucose 116 H (60-115) mg/dL Calcium 9.4 (8.4-10.2) mg/dL Magnesium 2.0 (1.6-2.6) mg/dL Total Bilirubin 0.4 (0.0-1.0) mg/dL AST 25 (5-31) U/L ALT 18 (0-31) U/L Alkaline Phosphatase 66 (39-117) U/L Troponin I High Sens < 2.7 (<3.5-17.0) ng/L Total Protein 7.2 (6.5-8.0) g/dL Albumin 4.3 (3.5-5.0) g/dL Urine Color Yellow Urine Appearance Clear Urine pH 5.5 (5.0-9.0) Ur Specific Holiday 1.025 (1.005-1.025) Urine Protein Trace (Neg-Trace) mg/dL Urine Glucose (UA) Negative (Negative) mg/dL Urine Ketones 15 (Negative) mg/dL Urine Blood Moderate (2+) H (Negative) Urine Nitrite Negative (Negative) Ur Leukocyte Esterase Small (1+) H (Negative) Urine RBC 11-20 H (0-2) /HPF Urine WBC 0-5 (0-5) /HPF Ur Squamous Epith Cells 6-10 (0-2) /HPF Urine Bacteria 1+ (None Seen) Hyaline Casts >20 (0-2) /LPF Independent Interpretation I performed an independent interpretation of an: CT Scan (abd and pelvis:1. Hepatic steatosis. 2. Diverticulosis of the descending colon, without evidence of diverticulitis.) Radiology Impression Discussion of test interpretation with radiology: I have reviewed the radiologist's reading. Discharge Plan Discharge Clinical Impression: Abdominal pain Patient Disposition: Home, Self-Care Instructions: Abdominal Pain (ED) Prescriptions: No Action ezetimibe 10 mg tablet 10 mg PO DAILY Qty: 90 1RF omeprazole 20 mg capsule,delayed release(DR/EC) 20 mg PO BID Qty: 180 0RF oxycodone 5 mg tablet 5 mg PO BID PRN (Reason: pain) Qty: 6 0RF insulin degludec [Tresiba FlexTouch U-200] 200 unit/mL (3 mL) insulin pen 14 unit subcut QAM Synjardy 12.5-1,000 mg tablet 1 tab PO BID Ozempic 2 mg/dose (8 mg/3 mL) pen injector 2 mg subcut QWEEK atorvastatin 80 mg tablet 80 mg PO BEDTIME aspirin 81 mg tablet,delayed release (DR/EC) 81 mg PO DAILY gabapentin 400 mg capsule 400 mg PO TID oxybutynin chloride 5 mg tablet extended release 24hr 5 mg PO QAM loratadine 10 mg tablet 10 mg PO QAM lisinopril 2.5 mg tablet 2.5 mg PO DAILY cyanocobalamin (vitamin B-12) 1,000 mcg tablet 1,000 mcg PO QAM sertraline 100 mg tablet 150 mg PO QAM albuterol sulfate 90 mcg/actuation HFA aerosol inhaler 2 puff PO Q4-6H PRN (Reason: Shortness Of Breath) Flovent HFA 110 mcg/actuation HFA aerosol inhaler 1 puff PO BID tramadol 50 mg tablet 50 mg PO BID PRN (Reason: Pain) fluticasone propionate 50 mcg/actuation spray,suspension 2 spray intranasal DAILY trazodone 50 mg tablet 50 mg PO BEDTIME ergocalciferol (vitamin D2) [Vitamin D2] 1,250 mcg (50,000 unit) capsule 1,250 mcg PO QWEEK glucose [TRUEplus Glucose] 3.75 gram tablet,chewable 11.25 - 15 g PO cholecalciferol (vitamin D3) 50 mcg (2,000 unit) tablet 50 mcg PO QAM Asmanex HFA 100 mcg/actuation HFA aerosol inhaler 2 puff inhalation BID naloxone 4 mg/actuation spray,non-aerosol intranasal sennosides [senna] 8.6 mg tablet 17.2 mg PO BEDTIME Referrals: Glenna Jett DO [Primary Care Provider, Internal Medicine] Print Language: Nepali
--- NOTE | 2025-03-10 10:03 | ECG_ITS ---
Test Reason : left sie pain Blood Pressure : */* mmHG Vent. Rate : 84 BPM Atrial Rate : 84 BPM P-R Int : 154 ms QRS Dur : 78 ms QT Int : 368 ms P-R-T Axes : 50 -19 15 degrees QTcB Int : 434 ms Normal sinus rhythm Normal ECG When compared with ECG of 09-Jan-2025 03:13, Premature atrial complexes are no longer Present Referred By: Acacia Sunshine Electronically Signed By: SOREN QUEEN
[2025-03-10 10:25] VITALS: BP 143/64; PULSE 72; RESP 18; O2SAT 100
--- NOTE | 2025-03-10 10:39 | PC.NURSE ---
69 F presents to ED with LUQ abdominal pain and small lump since yesterday. Pt denies n/v/c/d. A+Ox4, calm, cooperative, and ambulates with a cane. Pt c/o pain at the site but no other complaints.
[2025-03-10 10:42] LABS: Hematocrit 37.3 % (37.0-47.0); Hemoglobin 12.7 g/dl (12.0-16.0); Imm Gran Abs Auto 0.02 X10*3/uL (0.00-0.03); Imm Gran Pct Auto 0.3 % (0.0-0.4); Lymphocytes Absolute Auto 1.9 X10*3/uL (1.2-4.9); MANUAL DIFF FLAG NO; Mean Corpuscular HGB Conc 34.0 g/dl (31.0-35.0); Mean Corpuscular Hemoglobin 31.2 pg (27.0-33.0); Mean Corpuscular Volume 91.6 fL (80.0-98.0); NRBC Abs Auto 0.000 X10*3/uL (0.0-0.012); NRBC Pct Auto 0.0 /100WBC (0.0-0.2); Platelet Count 288 X10*3/uL (160-400); Red Blood Count 4.07 X10*6/uL (4.20-5.50); White Blood Count 6.3 X10*3/uL (4.8-10.8)
[2025-03-10 10:56] LABS: Alanine Aminotransferase 18 U/L (0-31); Albumin Level 4.3 g/dL (3.5-5.0); Alkaline Phosphatase 66 U/L (39-117); Anion Gap 11 (12-20); Aspartate Amino Transferase 25 U/L (5-31); Blood Urea Nitrogen 11 mg/dL (9-16); Calcium 9.4 mg/dL (8.4-10.2); Carbon Dioxide 26 mmol/L (22-29); Chloride 109 mmol/L (96-108); Creatinine Clr Calc Pharmacy 68.3; Estimated Glomerular Filt Rate > 60; Magnesium 2.0 mg/dL (1.6-2.6); Potassium 3.9 mmol/L (3.3-5.1); Sodium 142 mmol/L (135-145); Total Protein 7.2 g/dL (6.5-8.0)
[2025-03-10 11:06] LABS: Troponin-I High Sensitivity < 2.7 ng/L (<3.5-17.0)
[2025-03-10 11:33] LABS: Appearance Urine Clear; Glucose Urine UA Negative (Negative); PH 5.5 (5.0-9.0); Specific Gravity - Urine 1.025 (1.005-1.025); UMIC TRIGGER UACC YES
[2025-03-10 11:55] LABS: UACC Culture Trigger YES
[2025-03-10] MEDS: iohexoL 350 MG/ML 100 ML INFUS..BTL IV (12:22)
--- OUTSIDE RECORDS SUMMARY | 2025-03-10 12:35 | XMS_ITS | Encounter Summary ---
Author Organization [employer] Address [address] [facility] [address] 7[address] [place] [address] Care Team Providers Care Investments Manager Name Role Phone Glenna Jett DO Primary Care Provider [phone]- [phone] Poly Diaz PharmD Unavailable [phone] Reason for Visit * Reason Onset Date Comments Appointment Request 03/07/2025 Encounter Details Date Type Department Care Team ([facility] Contact Info) Description 03/07/2025 Telephone [facility] MEDICINE [address] [place] [address] Glenna Jett DO [address] [place] [address] Appointment Request Social History Tobacco Use Types [...] encounter Miscellaneous Notes * Telephone Encounter - Yared Flowers - 03/07/2025 9:02 AM EDT Tc from pt daughter requesting to reschedule CDTM apt scheduled today , pt is currently not feelingwell Contact pt daughter at [phone] documented in this encounter Plan of Treatment Upcoming Encounters Date Type Department Care Team (Late st Contact Info) Description 03/21/2025 9:30 AM EDT Telemedicine [facility] MEDICINE [address] [place] [address] Padmaja Anderson, RN 04/07/2025 11:30 AM EDT Medication Management [facility] MEDICINE [address] [place] [address] Poly Diaz, PharmD [address] [place] [address] 07/30/2025 10:00 AM EST Office Visit [facility] OPTOMETRY [address] [place] [address] Gina Garibay, OD 230 [place] [address] documented as of this encounter Goals Goal Patient Goal Type Associated Problems Recent Progress Patient-Stated? Author Record your blood sugar as directed Result Component No Poly Diaz, PharmD Hemoglobin A1c < 7.5 Result Component 10.7(01/03/20 9:56 AM EDT) No Poly Diaz PharmD documented as of this encounter Visit Diagnoses Not on filedocumented in this encounter Additional Health Concerns Assessment Noted Time PHQ-9 Depression Total Score: 6 02/06/20 24 1:46 PM EDT documented as of this encounter Care Teams Investments Manager Relationship Specialty Start Date End Date Glenna Jett DO [address] [place] [address] PCP - General Family Medicine 05/24/12 Poly Diaz PharmD [address] [place] [address] Pharmacist Internal Medicine 07/04/23 documented as of this encounter
--- OUTSIDE RECORDS SUMMARY | 2025-03-10 12:35 | XMS_ITS | Encounter Summary ---
Author Organization [employer] Address [address] [facility] [address] [place] [address] Care Team Providers Care Hose Inspector And Patcher Name Role Phone Glenna Jett DO Primary Care Provider + [phone] Poly Diaz PharmD Unavailable [phone] Reason for Visit * Reason Comments Med Refill Encounter Details Date Type Department Care Team ([facility] st Contact Info) Description 03/27/2023 Refill [facility] MEDICINE [address] [place] [address] Jolene Gonzalez MD [address] [place] [address] Social History Tobacco Use Types Packs/Day Years [...] Info) Description 03/21/2025 9:30 AM EDT Telemedicine [facility] MEDICINE [address] [place] [address] Padmaja Anderson, ESTER 04/07/2025 11:30 AM EDT Medication Management [facility] MEDICINE [address] [place] [address] Poly Diaz PharmD [address] [place] [address] 07/30/2025 10:00 AM EST Office Visit [facility] OPTOMETRY [address] [place] [address] Phoenix, Gina, OD 230 [place] [address] documented as of this encounter Visit Diagnoses Not on filedocumented in this encounter Care Teams Hose Inspector And Patcher Relationship Specialty Start Date End Date Glenna Jett DO [address] [place] [address] PCP - General Family Medicine 05/24/12 Poly Diaz PharmMihaela [address] [place] [address] Pharmacist Internal Medicine 07/04/23 documented as of this encounter
--- OUTSIDE RECORDS SUMMARY | 2025-03-10 12:35 | XMS_ITS | Encounter Summary ---
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, with long-term current use of insulin, macular edema presence unspecified ([facility] Social History Tobacco Use Types Packs/Day Years [...] Info) Description 03/21/2025 9:30 AM EDT Telemedicine [facility] MEDICINE [address] [place] [address] Padmaja Anderson RN 04/07/2025 11:30 AM EDT Medication Management [facility] MEDICINE [address] [place] [address] Poly Diaz PharmD [address] [place] [address] 07/30/2025 10:00 AM EST Office Visit [facility] OPTOMETRY [address] [place] [address] Gina Garibay, OD [address] [place] [address] documented as of this encounter Goals Goal Patient Goal Type Associated Problems Recent Progress Patient-Stated? 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
--- OUTSIDE RECORDS SUMMARY | 2025-03-10 12:35 | XMS_ITS | Encounter Summary ---
Author Organization [employer] Address [address] [facility] [address] 7t [place] [address] Care Team Providers Care Staff Therapist Name Role Phone Glenna Jett DO Primary Care Provider + [phone] Poly Diaz PharmD Unavailable [phone] Encounter Details Date Type Department Care Team ([facility] Contact Info) Description 03/10/2025 Orders Only GENERIC EXTERNAL DATA DEPARTMENT Provider, Generic External Data Social History Tobacco Use Types Packs/Day Years [...] Info) Description 03/21/2025 9:30 AM EDT Telemedicine [facility] MEDICINE [address] [place] [address] Padmaja Anderson, ESTER 04/07/2025 11:30 AM EDT Medication Management [facility] MEDICINE [address] [place] [address] Puia, Poly, PharmD [address] [place] [address] 07/30/2025 10:00 AM EST Office Visit [facility] OPTOMETRY [address] [place] [address] Phoenix, Gina, OD 230 [place] [address] documented as of this encounter Goals Goal Patient Goal Type Associated Problems Recent Progress Patient-Stated? Author Record your blood sugar as directed Result Component No Puia, Poly, PharmD Hemoglobin A1c < 7.5 Result Component 10.7(01/03/20 9:56 AM EDT) No Puia, Poly, PharmD documented as of this encounter Procedures Procedure Name Priority Date/Time Associated Diagnosis Comments URINALYSIS, COMPLETE, WITH REFLEX TO CULTURE Routine 03/10/2025 11:26 AM EDT HIGH SENSITIVITY TROPONIN I Routine 03/10/2025 10:38 AM EDT CBC WITH AUTO DIFFERENTIAL Routine 03/10/2025 10:38 AM EDT MAGNESIUM Routine 03/10/2025 10:38 AM EDT COMPREHENSIVE METABOLIC PANEL Routine 03/10/2025 10:38 AM EDT documented in this encounter Results * (ABNORMAL) Urinalysis, Complete, with Reflex to Culture (03/10/2025 11:26 AM EDT) Color Urine Yellow [facility] Appearance Urine Clear [facility] PH 5.5 5.0 - 9.0 [facility] Glucose Urine UA Negative Negative mg/dL [facility] Urine Blood Moderate (2+)(A) Negative [facility] Specific [place] - Urine 1.025 1.005 - 1.025 [facility] Urine Protein Trace Neg-Trace mg/dL [facility] Urine Ketones 15 Negative mg/dL [facility] Nitrite Urine Negative Negative [facility] Leukocyte Esterase Urine Small (1+)(A) Negative [facility] RBC Urine 11-20(A) 0 - 2 /HPF [facility] Urine WBC 0-5 0 - 5 /HPF [facility] Urine Squamous Epithelial Cell 6-10 0 - 2 /HPF [facility] Urine Bacteria 1+ None Seen [facility] Hyaline Casts, Urine >20 0 - 2 /LPF [facility] 03/10/2025 11:2 6 AM EDT 03/10/2025 11:29 AM EDT Narrative [facility] - 03/10/2025 12:01 PM EDT [id number], Clean Catch us Generic External Data Provider LAB URINE ORDERAB LES Final Result [facility] [address] [place] [phone] * High Sensitivity Troponin I (03/10/2025 10:38 AM EDT) TROPONIN I HIGH SENSITIVITY <2.7 <3.5 - 17.0 ng/L [facility] Comment:The [place] high sens itivity Troponin-I results should beused in conjunction with other diagnostic information suchas ECG, clinical observations and information, and patientsymptoms to aid in the diagnosis of [place]. 03/10/2025 10:3 8 AM EDT 03/10/2025 10:40 AM EDT Generic External Data Provider LAB BLOOD ORDERAB LES Final Result Performing Organization Address [facility]/ZIP Co de Phone Number [facility] [address] [place] [phone] * Magnesium (03/10/2025 10:38 AM EDT) Pathologist [facility] Magnesium 2.0 1.6 - 2.6 mg/dL [facility] 03/10/2025 10:3 8 AM EDT 03/10/2025 10:40 AM EDT Generic External Data Provider LAB BLOOD ORDERAB LES Final Result Performing Organization Address [facility] Co de Phone Number [facility] [address] [place] [phone] * (ABNORMAL) Comprehensive Metabolic Panel (03/10/2025 10:38 AM EDT) Sodium 142 135 - 145 mmol/L [facility] Potassium 3.9 3.3 - 5.1 mmol/L [facility] Chloride 109(H) 96 - 108 mmol/L [facility] Carbon Dioxide 26 22 - 29 mmol/L [facility] Anion Gap 11(L) 12 - 20 [facility] Urea Nitrogen (BUN) 11 9 - 16 mg/dL [facility] Creatinine, Serum 0.73 0.5 - 1.4 mg/dL [facility] Creatinine Clr Calc Pharmacy 68.3 [facility] Comment:Provided height and weight: 160.02 cm,74.4 kg.eGFR (calculated from the MDRD study equation) and eCrCl(calculated from the Cockcroft-Gault equation) are based ondifferent parameters and may not yield comparable results.If eCrCl result is absurd, please check patient'sheight/weight. Estimated Glomerular Filt Rate >60 [facility] Comment:Chronic Kidney Disea se: Estimated GFR < 60 mL/min/1.55w8Pnbahd Kidney Disease: Estimated GFR < 15 mL/min/1.73m2 Glucose 116(H) 60 - 115 mg/dL [facility] Calcium 9.4 8.4 - 10.2 mg/dL [facility] Bilirubin, Total 0.4 0.0 - 1.0 mg/dL [facility] Aspartate Amino Transferase 25 5 - 31 U/L [facility] Alanine Aminotransferase 18 0 - 31 U/L [facility] Total Protein 7.2 6.5 - 8.0 g/dL [facility] Albumin Level 4.3 3.5 - 5.0 g/dL [facility] Alkaline Phosphatase 66 39 - 117 U/L [facility] 03/10/2025 10:3 8 AM EDT 03/10/2025 10:40 AM EDT us Generic External Data Provider LAB BLOOD ORDERAB LES Final Result [facility] [address] [place] [phone] * (ABNORMAL) CBC auto differential (03/10/2025 10:38 AM EDT) White Blood Count 6.3 4.8 - 10.8 X10*3/uL [facility] Red Blood Count 4.07(L) 4.20 - 5.50 X10*6/uL [facility] Hemoglobin 12.7 12.0 - 16.0 g/dl [facility] Hematocrit 37.3 37.0 - 47.0 % [facility] Mean Corpuscular Volume 91.6 80.0 - 98.0 fL [facility] Mean Corpuscular Hemoglobin 31.2 27.0 - 33.0 pg [facility] Mean Corpuscular HGB Conc 34.0 31.0 - 35.0 g/dl [facility] Red Cell Distribution Width 11.9 11.0 - 16.0 % [facility] Platelet Count 288 160 - 400 X10*3/uL [facility] Mean Platelet Volume 9.5 9.4 - 12.3 fL [facility] Neutrophils Percent Auto 58.3 45 - 73 % [facility] Imm Gran Pct Auto 0.3 0.0 - 0.4 % [facility] Lymphocytes Percent Auto 29.9 20 - 40 % [facility] Monocytes Percent Auto 8.0 2 - 11 % [facility] Eosinophils Percent Auto 2.9 0 - 4 % [facility] Basophils Percent Auto 0.6 0 - 2 % [facility] NRBC Pct Auto 0.0 0.0 - 0.2 /100WBC [facility] Neutrophils Absolute Auto 3.7 2.0 - 8.3 x10*3/uL [facility] Imm Gran Abs Auto 0.02 0.00 - 0.03 X10*3/uL [facility] Lymphocytes Absolute Auto 1.9 1.2 - 4.9 X10*3/uL [facility] Monocytes Absolute Auto 0.5 0.1 - 1.2 X10*3/uL [facility] Eosinophils Absolute Auto 0.2 0.0 - 0.4 X10*3/uL [facility] Basophils Absolute Auto 0.0 0.0 - 0.2 X10*3/uL [facility] NRBC Abs Auto 0.000 0.0 - 0.012 X10*3/uL [facility] 03/10/2025 10:3 8 AM EDT 03/10/2025 10:40 AM EDT us Generic External Data Provider LAB BLOOD ORDERAB LES Final Result [facility] [address] [place] [address] [phone] documented in this encounter Visit Diagnoses Not on filedocumented in this encounter Additional Health Concerns Assessment Noted Time PHQ-9 Depression Total Score: 6 08/27/20 24 1:46 PM EDT documented as of this encounter Care Teams Staff Therapist Relationship Specialty Start Date End Date Glenna eJtt DO [address] [place] [address] PCP - General Family Medicine 05/24/12 Poly Diaz PharmD [address] [place] [address] Pharmacist Internal Medicine 07/04/23 documented as of this encounter
--- OUTSIDE RECORDS SUMMARY | 2025-03-10 12:35 | XMS_ITS | Encounter Summary ---
Author Organization [employer] Address [address] [facility] [address] 7t [place] [address] Care Team Providers Care Extractor Filler Name Role Phone Glenna Jett DO Primary Care Provider [phone] Poly Diaz PharmD Unavailable [phone] Reason for Visit * Reason Comments Med Refill Encounter Details Date Type Department Care Team ([facility] st Contact Info) Description 12/11/2023 Refill [facility] MEDICINE [address] [place] [address] Glenna Jett DO [address] [place] [address] Social History Tobacco Use Types Packs/Day Years [...] Info) Description 03/21/2025 9:30 AM EDT Telemedicine [facility] MEDICINE [address] [place] [phone] Padmaja Anderson RN 04/07/2025 11:30 AM EDT Medication Management [address] [address] Puia, Poly, PharmD [address] [place] [address] 07/30/2025 10:00 AM EST Office Visit [facility] OPTOMETRY [address] [place] [address] Phoenix, Gina, OD 230 [place] [address] documented as of this encounter Goals Goal Patient Goal Type Associated Problems Recent Progress Patient-Stated? Author Record your blood sugar as directed Result Component No Puia, Poly, PharmD Hemoglobin A1c < 7.5 Result Component 10.7(01/03/20 25 9:56 AM EDT) No Puia, Poly, PharmD documented as of this encounter Visit Diagnoses Not on filedocumented in this encounter Care Teams Extractor Filler Relationship Specialty Start Date End Date Glenna Jett DO [address] [place] [address] PCP - General Family Medicine 05/24/12 Puia, Poly, PharmD [address] [place] [address] Pharmacist Internal Medicine 07/04/23 documented as of this encounter
--- OUTSIDE RECORDS SUMMARY | 2025-03-10 12:35 | XMS_ITS | Encounter Summary ---
Author Organization [employer] Address [address] [facility] [address]t [place] [address] Care Team Providers Care Die Lay Out Worker Name Role Phone Glenna Jett DO Primary Care Provider [phone]- [phone] Poly Diaz PharmD Unavailable [phone] Encounter Details Date Type Department Care Team ([facility] Contact Info) Description 07/06/2023 Abstract [facility] MEDICINE [address] [place] [address] Glenna Jett DO [address] [place] [address] Social History Tobacco Use Types Packs/Day Years [...] Info) Description 03/21/2025 9:30 AM EDT Telemedicine [facility] MEDICINE [address] [place] [phone] Padmaja Anderson, ESTER 04/07/2025 11:30 AM EDT Medication Management [facility] [address] [place] [address] PuiaDiannesa, PharmD [address] [place] [address] 07/30/2025 10:00 AM EST Office Visit [facility] OPTOMETRY [address] [place] [address] Phoenix, Gina, OD 230 [place] [address] documented as of this encounter Goals Goal Patient Goal Type Associated Problems Recent Progress Patient-Stated? Author Record your blood sugar as directed Result Component No Puia, Poly, PharmD Hemoglobin A1c < 7.5 Result Component 10.7(01/03/20 25 9:56 AM EDT) No Puia, Poly, PharmD documented as of this encounter Visit Diagnoses Not on filedocumented in this encounter Care Teams Die Lay Out Worker Relationship Specialty Start Date End Date Glenna Jett DO [address] [place] [address] PCP - General Family Medicine 05/24/12 Puia, Poly, PharmD [address] [place] [phone] Pharmacist Internal Medicine 07/04/23 documented as of this encounter
--- OUTSIDE RECORDS SUMMARY | 2025-03-10 12:35 | XMS_ITS | Encounter Summary ---
Author Organization [employer] Address [address] [facility] [address]t [place] [address] Care Team Providers Care Cleat Blanker Name Role Phone Glenna Jett DO Primary Care Provider [phone]- [phone] Poly Diaz PharmD Unavailable [phone] Encounter Details Date Type Department Care Team ([facility] Contact Info) Description 09/21/2023 Orders Only [facility] MEDICINE [address] [place] [address] Provider, MD Marylin Social History Tobacco Use [...] Info) Description 03/21/2025 9:30 AM EDT Telemedicine [facility] MEDICINE [address] [place] [address] Padmaja Anderson RN 04/07/2025 11:30 AM EDT Medication Management [facility] MEDICINE [address] [place] [address] Puia, Poly, PharmD [address] [place] [address] 07/30/2025 10:00 AM EST Office Visit [facility] OPTOMETRY [address] [place] [address] Gina Garibay, OD [address] [place] [address] documented as of this encounter Goals Goal [...] on filedocumented in this encounter Care Teams Cleat Blanker Relationship Specialty Start Date End Date Glenna Jett DO [address] [place] [address] PCP - General Family Medicine 05/24/12 Puia, Poly, PharmD [address] [place] [address] Pharmacist Internal Medicine 07/04/23 documented as of this encounter
--- OUTSIDE RECORDS SUMMARY | 2025-03-10 12:35 | XMS_ITS | Encounter Summary ---
Author Organization [employer] Address [address] [facility] [address]t [place] [address] Care Team Providers Care [employer] Assistant Manager Name Role Phone Glenna Jett DO Primary Care Provider [phone]- [phone] Poly Diaz PharmD Unavailable [phone] Reason for Visit * Reason Onset Date Comments Med Refill 03/07/2025 Encounter Details Date Type Department Care Team ([facility] st Contact Info) Description 03/07/2025 Telephone [facility] MEDICINE 230 [place] [address] Glenna Jett DO [address] [place], [place] [phone] Med Refill Social History Tobacco Use Types Packs/Day Years [...] encounter Miscellaneous Notes * Telephone Encounter - Glenna Rosales LPN - 03/07/2025 9:10 AM EDT Medication was sent to [facility] on 02/07/25 with 11 refills. * Telephone Encounter - Yared Flowers - 03/07/2025 9:04 AM EDT TC from pt requesting medication refill. Medications needing refill : Tirzepatide (Mounjaro) 5 MG/0.5ML solution auto-injector To be sent to: [facility]. documented in this encounter Plan of Treatment Upcoming Encounters Date Type Department Care Team (Late st Contact Info) Description 03/21/2025 9:30 AM EDT Telemedicine [facility] MEDICINE [address] [place] [phone] Padmaja Anderson, RN 04/07/2025 11:30 AM EDT Medication Management [facility] MEDICINE [address] [place] [address] Poly Diaz, PharmD [address] [place] [address] 07/30/2025 10:00 AM EST Office Visit [facility] OPTOMETRY [address] [place] [address] Gina Garibay, OD 230 [place] [address] documented as of this encounter Goals Goal Patient Goal Type Associated Problems Recent Progress Patient-Stated? Author Record your blood sugar as directed Result Component No Poly Diaz, PharmD Hemoglobin A1c < 7.5 Result Component 10.7(01/03/20 9:56 AM EDT) No Poly Diaz, PharmD documented as of this encounter Visit Diagnoses Not on filedocumented in this encounter Additional Health Concerns Assessment Noted Time PHQ-9 Depression Total Score: 6 02/06/20 24 1:46 PM EDT documented as of this encounter Care Teams [employer] Assistant Manager Relationship Specialty Start Date End Date Glenna Jett DO [address] [place] [address] PCP - General Family Medicine 05/24/12 Poly Diaz, PharmD [address] [place] [address] Pharmacist Internal Medicine 07/04/23 documented as of this encounter
--- OUTSIDE RECORDS SUMMARY | 2025-03-10 12:36 | XMS_ITS | Encounter Summary ---
Author Organization [employer] Address [address] [facility] [address] [place] [address] Care Team Providers Care Special Machine Stitcher Name Role Phone Glenna Jett DO Primary Care Provider [phone] Poly Diaz PharmD Unavailable [phone] Encounter Details Date Type Department Care Team ([facility] Contact Info) Description 04/17/2024 Telephone [facility] MEDICINE [address] [place] [address] Glenna Jett DO [address] [place] [address] Social History Tobacco Use Types Packs/Day Years [...] 03/21/2025 9:30 AM EDT Telemedicine [facility] MEDICINE [address] [place] [address] Padmaja Anderson RN 04/07/2025 11:30 AM EDT Medication Management [facility] MEDICINE [address] [place] [address] Puia, Poly, PharmD [address] [place] [address] 07/30/2025 10:00 AM EST Office Visit [facility] OPTOMETRY [address] [place] [address] Phoenix, Gina, OD [address] [place] [address] documented as of this encounter Goals Goal [...] documented as of this encounter Care Teams Special Machine Stitcher Relationship Specialty Start Date End Date Glenna Jett DO [address] [place] [address] PCP - General Family Medicine 05/24/12 Poly Diaz, Mati [address] [place] [address] [place] [address] Pharmacist Internal Medicine 07/04/23 documented as of this encounter
--- OUTSIDE RECORDS SUMMARY | 2025-03-10 12:36 | XMS_ITS | Encounter Summary ---
Author Organization [employer] Address [address] [facility] [address] [place] [address] Care Team Providers Care Facility Manager Name Role Phone Glenna Jett DO Primary Care Provider [phone] Poly Diaz PharmD Unavailable [phone] Reason for Visit * Reason Comments Med Refill Encounter Details Date Type Department Care Team ([facility] st Contact Info) Description 06/06/2024 Refill [facility] [address] [place] [address] Glenna Jett DO [address] [place] [address] Social History Tobacco Use Types Packs/Day Years [...] Info) Description 03/21/2025 9:30 AM EDT Telemedicine [facility] [address] [place] [address] Padmaja Anderson RN 04/07/2025 11:30 AM EDT Medication Management [facility] [address] [place] [address] Puia, Poly, PharmD [address] [place] [address] 07/30/2025 10:00 AM EST Office Visit [facility] [address] [place] [address] Phoenix, Gina, OD [address] [place] [address] documented as of this encounter Goals Goal [...] documented as of this encounter Care Teams Facility Manager Relationship Specialty Start Date End Date Glenna Jett DO [address] [place] [address] PCP - General Family Medicine 05/24/12 Poly Diaz PharmD [address] [place] [id number] Pharmacist Internal Medicine 07/04/23 documented as of this encounter
--- OUTSIDE RECORDS SUMMARY | 2025-03-10 12:36 | XMS_ITS | Encounter Summary ---
Author Organization [employer] Address [address] [facility] [address] [place] [address] Care Team Providers Care Story Writer Name Role Phone Glenna Jett DO Primary Care Provider [phone] Poly Diaz PharmD Unavailable [phone] Encounter Details Date Type Department Care Team ([facility] Contact Info) Description 04/17/2024 Telephone [facility] [address] [place] [address] Glenna Jett DO [address] [place] [address] Social History Tobacco Use Types Packs/Day Years Used Date Smoking Tobacco: Former Cigarettes Smokeless Tobacco: Never Depression Answer Date Recorded Patient Health Questionnaire-9 Score 6 02/06/2024 Patient Health Questionnaire-9 Score 6 02/06/2024 Last PHQ-9: Questionnaire Data Not on file 0 02/06/2024 Housing Stability Answer Date Recorded What is your housing situation today? I have myara chan 09/22/[address] you [...] Info) Description 03/21/2025 9:30 AM EDT Telemedicine [facility] [address] [place] [address] Padmaja Anderson RN 04/07/2025 11:30 AM EDT Medication Management [facility] [address] [place] [address] PuPoly wasserman, PharmD [address] [place] [address] 07/30/2025 10:00 AM EST Office Visit [facility] [address] [place] [address] Gina Garibay, OD [address] [place] [address] documented as of this encounter Goals Goal Patient Goal Type Associated Problems Recent Progress Patient-Stated? Author Record your blood sugar as directed Result Component No Puia Poly, PharmD Hemoglobin A1c < 7.5 Result Component 10.7(01/03/20 9:56 AM EDT) No PuiaFranckPoly, PharmD documented as of this encounter Visit Diagnoses Not on filedocumented in this encounter Additional Health Concerns Assessment Noted Time PHQ-9 Depression Total Score: 6 02/06/20 24 1:46 PM EDT documented as of this encounter Care Teams Story Writer Relationship Specialty Start Date End Date Glenna Jett DO [address] [place] [address] PCP - General Family Medicine 05/24/12 Poly Diaz PharmD [address] [place] [address] Pharmacist Internal Medicine 07/04/23 documented as of this encounter
--- OUTSIDE RECORDS SUMMARY | 2025-03-10 12:36 | XMS_ITS | Encounter Summary ---
Author Organization [employer] Address [address] [facility] 7t [place] [address] Care Team Providers Care Skein Yarn Drier Name Role Phone Glenna Jett DO Primary Care Provider [phone] Poly Diaz PharmD Unavailable [phone] Encounter Details Date Type Department Care Team ([facility] Contact Info) Description 09/06/2022 Orders Only [facility] [address] [place], [place] [phone] Glenna Rosales LPN Social History Tobacco Use [...] Upcoming Encounters Date Type Department Care Team ([facility] Contact Info) Description 03/21/2025 9:30 AM EDT Telemedicine [facility] [address] [place] [address] [phone] Padmaja Anderson RN 04/07/2025 11:30 AM EDT Medication Management [address] [phone] Poly Diaz PharmD [address] [place] [address] 07/30/2025 10:00 AM EST Office Visit [facility] [address] [place] [address] Phoenix, Gina, OD [address] [place] [address] documented as of this encounter Visit Diagnoses Not on filedocumented in this encounter Care Teams Skein Yarn Drier Relationship Specialty Start Date End Date Glenna Jett DO [address] [place] [address] PCP - General Family Medicine 05/24/12 Poly Diaz PharmD [address] [place] [address] Pharmacist Internal Medicine 07/04/23 documented as of this encounter
--- OUTSIDE RECORDS SUMMARY | 2025-03-10 12:36 | XMS_ITS | Encounter Summary ---
Author Organization [employer] Address [address] [facility] 7t [place] [address] Care Team Providers Care [employer] Teacher Name Role Phone Glenna Jett DO Primary Care Provider [phone] Poly Diaz PharmD Unavailable [phone] Encounter Details Date Type Department Care Team (Late Contact Info) Description 08/18/2022 Orders Only [facility] [address] [place], [place] [phone] Glenna Rosales LPN Social History Tobacco Use [...] Department Care Team (Late Contact Info) Description 03/21/2025 9:30 AM EDT Telemedicine [facility] [address] [place], [place] [phone] Padmaja Anderson, RN 04/07/2025 11:30 AM EDT Medication Management [facility] [address] [place], [place] [phone] Poly Diaz, PharmD [address] [place] [address] 07/30/2025 10:00 AM EST Office Visit [facility] [address] [place] [address] [phone] Gina Garibay, OD [address] [place] [address] documented as of this encounter Visit Diagnoses Not on filedocumented in this encounter Care Teams [employer] Teacher Relationship Specialty Start Date End Date Glenna Jett DO [address] [place] [address] PCP - General Family Medicine 05/24/12 Poly Diaz PharmD [address] [place] [address] Pharmacist Internal Medicine 07/04/23 documented as of this encounter
--- OUTSIDE RECORDS SUMMARY | 2025-03-10 12:36 | XMS_ITS | Encounter Summary ---
Author Organization [employer] Address [address] [facility] [address] [place] [address] Care Team Providers Care Repairer General Name Role Phone Glenna Jett DO Primary Care Provider [phone] Poly Diaz PharmD Unavailable [phone] Reason for Visit * Reason Comments Med Refill Encounter Details Date Type Department Care Team ([facility] st Contact Info) Description 08/02/2024 Refill [facility] [address] [place] [address] Glenna Jett DO [address] [place] [address] Social History Tobacco Use Types Packs/Day Years [...] Info) Description 03/21/2025 9:30 AM EDT Telemedicine [facility] [address] [place] [address] Padmaja Anderson RN 04/07/2025 11:30 AM EDT Medication Management [facility] [address] [place] [address] Puia, Poly, PharmD [address] [place] [address] 07/30/2025 10:00 AM EST Office Visit [facility] [address] [place] [address] Phoenix, Gina, OD [address] [place] [address] documented as of this encounter Goals Goal [...] documented as of this encounter Care Teams Repairer General Relationship Specialty Start Date End Date Glenna Jett DO [address] [place] [address] PCP - General Family Medicine 05/24/12 Poly Diaz PharmD [address] [place] [address] Pharmacist Internal Medicine 07/04/23 documented as of this encounter
--- OUTSIDE RECORDS SUMMARY | 2025-03-10 12:36 | XMS_ITS | Encounter Summary ---
Author Organization [facility] Address [address] [facility] [address] [place] [address] Encounters * CPT with Derek Mederos at [employer] on 2024-12-19 { reasonForRequest : feet swollen , patientReports : ,"denies :[ History of Heart Attack, in the setting of active chest pain , Active Chest pain, radiates to neck jaw and or arm , Diaphoretic/Sweating , Describesas crushing , Sudden onset of nausea/Vomiting and shortness of breath. , Shortness of Breath , Unable to speak in full sentences without distress , Palpitations, feeling dizzy , Chest pain, increased fatigue , CHF history, increased swelling and edema , Weakness/tachycardia ], chiefComplaints : Extremity Swelling , pmh : Hypertension, COPD/Asthma, Diabetes Mellitus Type 2, Fibromya lgia , allergies : Penicillins , otherAllergies :null, painA ssessment : , visitOutcome : , additionalComments :"69 y.o female complains of Extremity Swelling\npatients daughter referring\nPatients bilateral lower extremities they are red and swollen x 2 days\ndenies any fever or chills\ndenies any lightheadedness, dizziness or shortness of breath\ndenies any chest pain nausea or vomiting or fatigue.\ndenies any kidney issues and not on any blood thinners\nI provided information on the mobile health provider response time and advised the patient and/or caregiver to monitor reported signs and symptoms.I discussed the warning signs of when to seek emergency care. } Patient alert and oriented complains of right [...] heat noted, no redness or broken skin. [facility] [place] to attend urgent care tomorrow for uric acid level and possible x-ray. Patient advised to use ice elevation and rest. Red flags patient education discussed. All information through medical technologist clinical on Phone, strong language, barrier present, patient and caregiver demonstrate u nderstanding of care and plan. Patient given an opportunity to ask questions. IV_(FLUIDS_AND/OR_MEDICATION), MEDICATION_IM, ORAL_MEDICATION, WOUND_CARE, ORTHOSTATIC_VITAL_SIGNS Written by Derek Mederos on 2024-12-19
--- OUTSIDE RECORDS SUMMARY | 2025-03-10 12:36 | XMS_ITS | Continuity of Care Document ---
Author Name Derek Mederos Address [address] [place] [id number] Organization Unknown Address [address] [place] [phone] Medications No known medications Problems No known problems
--- OUTSIDE RECORDS SUMMARY | 2025-03-10 12:36 | XMS_ITS | Clinical Summary ---
Author Organization [employer] Address [address] [place] [address] Care Team Providers Care Pulp Roller Name Role Phone Glenna Jett DO Primary Care Provider [phone] PuPoly wasserman PharmD Unavailable [phone] Allergies Active Allergy Reactions Criticality Noted Date Comments Amitriptyline High 08/29/2024 Other Reaction(s): ANXIOUS, SWELLING Aspirin Low 08/29/2024 Other Reaction(s): caused hypersalivation Penicillins Nausea Only,Unknown,Swelling High 05/24/2010 Other Reaction(s): Not available Medications Ventolin HFA 108 (90 Base) MCG/ACT inhaler INHALE 2 PUFFS EVERY 4 HOURS DIRECTED 023 Active Mometasone Furoate (Asmanex HFA) 100 MCG/ACT aerosol Inhale 1 puff 2 times daily. 13 g 11 024 Active ezetimibe (Zetia) 10 MG tabletIndications: Type 2 diabetes mellitus with other specified complication, unspecified whether group home insulin use (HCC),Other hyperlipidemia Take 1 tablet (10 mg) by mouth at bedtime. 90 tablet 3 025 07/10 Active atorvastatin (Lipitor) 80 MG tabletIndications: Type 2 diabetes mellitus with other specified complication, unspecified whether group home insulin use (HCC),Other hyperlipidemia Take 1 tablet (80 mg) by mouth at bedtime. 90 tablet 3 025 Active lisinopril 2.5 MG tabletIndications: Type 2 diabetes mellitus with other specified complication, unspecified whether terminal supervisor insulin use (HCC),Essential hypertension Take 1 tablet (2.5 mg) by mouth Once per day. 90 tablet 3 025 Active loratadine (Claritin) 10 MG tablet TAKE 1 TABLET BY MOUTH EVERY MORNING 90 tablet 3 025 Active ondansetron (Zofran) 4 MG tabletIndications: Gastroenteritis 1-2 tablets PO TID ac meals PRN nausea or vomiting 10 tablet Active loperamide (Imodium A-D) 2 MG tablet 1 tab PO bid prn diarrhea 10 tablet 025 Active acetaminophen (Tylenol) 325 MG tablet 1-2 tab po tid prn headache, body aches, fever, sore throat 30 tablet Active omeprazole (PriLOSEC) [address] capsule Take 20 mg by mouth before breakfast and before evening meal. Active Baqsimi Two Pack 3 MG/DOSE nasal powder USE 1 SPRAY (3MG) IN ONE NOSTRIL FOR A PATIENT WITH SEVERE HYPOGLYCEMIA WHO IS NOT RESPONSIVE AND UNABLE SELF-TREAT WITH GLUCOSE. AFTERWARDS TURN ON SIDE. MAY REPEAT IN 15MINUTES IF PATIENT DOES NOT RESPOND. Active TRUEplus Glucose 4 g chewable tablet TAKE 3 TO 4 TABLETS BY MOUTH NEEDED FOR LOW BLOOD SUGAR (BLOOD SUGAR <70) Active insulin degludec (Tresiba FlexTouch) 200 UNIT/ML injectionIndicatio ns:Type 2 diabetes mellitus with other specified complication, unspecified whether group home insulin use (HCC) INJECT 8 UNITS SUBCUTANEOUSLY ONCE DAILY 9 mL 5 Active sertraline (Zoloft) 100 MG tablet TAKE 1 AND 1/2 TABLETS BY MOUTH IN THE MORNING 135 tablet 1 Active cyanocobalamin (Vitamin B-12) 1000 MCG tablet TAKE 1 TABLET BY MOUTH EVERY MORNING 90 tablet 1 Active docusate sodium (Colace) 100 MG capsule Take 1 capsule (100 mg) by mouth 2 times daily. 180 capsule 3 025 11/14 Active polycarbophil (Fibercon) 625 MG tablet Take 1 tablet (625 mg) by mouth 2 times daily. 180 tablet 3 025 11/14 Active polyethylene glycol, PEG, 3350 (MiraLax) 17 GM/SCOOP powder Take 17 g by mouth if needed each day (constipation). 527 g 2 025 11/14 Active fluticasone (Flonase) 50 MCG/ACT nasal spray INSTILL 2 SPRAYS IN EACH NOSTRIL ONCE DAILY 48 g 1 025 Active Pentips Generic Pen Cary 32G X 4 MM miscIndications:Ty pe 2 diabetes mellitus with other specified complication, unspecified whether terminal supervisor insulin use (HCC) USE DIRECTED ONCE DAILY 100 each 3 025 Active TRUEplus Lancets 33G miscIndications:Ty pe 2 diabetes mellitus with other specified complication, unspecified whether terminal supervisor insulin use (HCC) TEST BLOOD SUGAR THREE TIMES DAILY 100 each 11 025 Active traZODone (Desyrel) 50 MG tabletIndications: Insomnia, unspecified type TAKE 1 TABLET BY MOUTH AT BEDTIME 30 tablet 5 025 Active aspirin (Aspirin Low Dose) 81 MG EC tabletIndications: Other hyperlipidemia Take 1 tablet (81 mg) by mouth Once per day. 90 tablet 025 Active Blood Glucose Monitoring Suppl (FreeStyle Lite) w/Device kitIndications:Typ e 2 diabetes mellitus with mild nonproliferative retinopathy of both eyes, with long-term current use of insulin, macular edema presence unspecified ([facility]) 1 kit 3 times daily. 1 kit 025 Active oxybutynin XL (Ditropan-XL) 5 MG 24 hr tablet TAKE 1 TABLET BY MOUTH EVERY MORNING 30 tablet 5 025 Active cholecalciferol VITAMIN D (Vitamin D-3) 50 MCG (1999 UT) tablet TAKE 1 TABLET BY MOUTH EVERY MORNING 90 tablet 1 025 Active Tirzepatide (Mounjaro) 5 MG/0.5ML solution auto-injector Inject 5 mg under the skin 1 (one) time per week. 2 mL 025 Active glucose blood (FREESTYLE LITE) test stripIndications:T ype 2 diabetes mellitus with other specified complication, unspecified whether group home insulin use ([facility]) TEST BLOOD SUGAR THREE TIMES DAILY 100 strip 025 Active Synjardy 12.5-1000 MG TAKE 1 TABLET BY MOUTH TWICE DAILY IN THE MORNING AND IN THE EVENING WITH MEALS 60 tablet 5 025 Active gabapentin (Neurontin) 400 MG capsule TAKE 1 CAPSULE BY MOUTH THREE TIMES DAILY IN THE MORNING, EVENING, AND BEDTIME 90 capsule 025 Active naloxone (Narcan) 4 mg/0.1 mL nasal sprayIndications:C hronic bilateral low back pain with left-sided sciatica Administer 1 spray (4 mg) into affected nostril(s) if needed for opioid reversal. May repeat every 2-3 minutes if needed, alternating nostrils, until medical assistance becomes available. 2 each 3 024 02/18 Synjardy 12.5-1000 MG TAKE 1 TABLET BY MOUTH TWICE DAILY IN THE MORNING AND IN THE EVENING WITH MEALS 60 tablet 5 025 02/11 Discontinued gabapentin (Neurontin) 400 MG capsule TAKE 1 CAPSULE BY MOUTH THREE TIMES DAILY IN THE MORNING, EVENING, AND BEDTIME 90 capsule 025 02/19 Discontinued traMADol (Ultram) 50 MG tabletIndications: Chronic bilateral low back pain with left-sided sciatica Take 1 tablet (50 mg) by mouth every 8 (eight) hours if needed for severe pain for up to 28 days. Do not start before January 29, 2025. 84 tablet 025 02/26 Active Problems Problem Noted Date Diagnosed Date Type 2 diabetes mellitus wit h hyperglycemia, without long-term current use of insulin 10/30/2024 Tubular adenoma of colon 09/16/2024 Assessment & [...] pain swelling, redness, fever or other concern. [employer] and pt agree with the plan. Gastroparesis [...] or ortho at this time -advised contact [facility] if sx worsen Urinary incontinence 08/30/2022 Assessment [...] daily -s/p optho eval JUN [address] [facility] -f/u w/ retinal specialist as scheduled -foot exam next visit* Resolved Problems Problem Noted Date Diagnosed Date Resolved Date Hip pain 08/30/2022 08/30/2022 Left hemiparesis (CMS/HCC) 08/30/2022 0 08/30/2022 Pain in left arm 08/30/2022 08/30/2022 Encounters Date Type Department Care Team Description 03/10/2025 Orders Only GENERIC EXTERNAL DATA DEPARTMENT Provider, Generic External Data 03/07/[address] [facility] [address] [place] [phone] Glenna Jett DO Med Refill 03/07/[address] [facility] [address] [place] [phone] Glenna Jett DO Appointment Request 02/18/[address] [facility] [address] [place] [address] Glenna Jett DO 02/09/[address] [facility] [address] [place] [address] Poly Diaz, PharmD 02/07/2025 Travel 01/27/2025 2:00 PM EDT Office Visit [facility] [address] [place] [address] Phoenix, Gina, OD Moderate nonproliferative diabetic retinopathy of both eyes with macular edema associated with type 2 diabetes mellitus (CMS/HCC) (Primary Dx); Stable branch retinal vein occlusion of right eye; Combined forms of age-related cataract of both eyes; Dominant drusen, bilateral; Presbyopia 01/27/[address] [facility] [address] [place] [address] Glenna Jett DO Chronic bilateral low back pain with left-sided sciatica 01/27/2025 Travel 01/21/[address] [facility] [address] [place] [address] Glenna Jett DO 01/15/[address] [facility] [address] [place] [address] Jaja Kimball MD 01/13/[address] [facility] [address] [place] [address] Glenna Jett DO 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, with long-term current use of insulin, macular edema presence unspecified (CMS/HCC) 01/10/2025 2:[address] [facility] [address] [place] [address] Padmaja Anderson, ESTER Long-term current use of opiate analgesic 01/10/[address] [facility] [address] [place] [address] Padmaja Anderson, RN Confirmation of Tramadol p/u date; [employer] Agreement renewed; Tramadol count discrepancy 01/10/2025 Travel 01/09/2025 Orders Only GENERIC EXTERNAL DATA DEPARTMENT Provider, Generic External Data 01/06/[address] [address] Glenna Jett DO Durable Medical Equipment (DME RX Diabetic Shoe(CCA)) 01/02/2025 9:40 AM EDT Office Visit [facility] [address] [place] [phone] Jeronimo Zavala MD Type 2 diabetes mellitus treated with insulin ([facility]) 01/02/[address] [facility] [address] [place] [phone] Glenna Jett DO Referral 01/02/2025 Travel 01/01/[address] [facility] [address] [place] [phone] Padmaja Anderson RN [employer] renewal forms 12/31/[address] [phone] Glenna Jett DO Med Refill 12/31/[address] [facility] [address] [place] [phone] Glenna Jett DO Chronic bilateral low back pain with left-sided sciatica 12/26/[address] [facility] [address] [place], [place] [phone] Glenna Jett, Other hyperlipidemia 12/23/[address] [facility] [address] [place] [phone] Glenna Jett DO Other hyperlipidemia 12/20/[address] [facility] [address] [place] [address] [phone] Glenna Jett, Insomnia, unspecified type from Last 3 Months Immunizations Immunization Administration Dates Next Due Hep B, adult [...] Sign Reading Time Taken Comments Blood Pressure 136/70 02/07/2025 11:23 AM EDT Pulse 68 01/02/2025 9:54 AM EDT Temperature 36.3 C (97.4 F) 01/02/2025 9:54 AM EDT Respiratory Rate 16 01/02/2025 9:54 AM EDT Oxygen Saturation 100% 01/02/2025 9:54 AM EDT Inhaled Oxygen Concentration - - Weight 78.9 kg (174 lb) 01/02/2025 9:54 AM EDT Height 160 cm (5' 3 ) 02/06/2024 11:56 AM EDT Body Mass Index 30.82 02/06/2024 11:56 AM EDT Plan of Treatment Upcoming Encounters Date Type Department Care Team (Late st Contact Info) Description 03/21/2025 9:[address] [facility] [address] [place] [address] Padmaja Anderson, RN 04/07/2025 11:30 AM EDT Medication Management [facility] [address] [place] [address] Puia, Poly, PharmD [address] [place] [address] 07/30/2025 10:00 AM EST Office Visit [facility] [address] [place] [address] Phoenix, Gina, OD [address] [place] [address] Health Maintenance Due Date Last Done Comments CT Colonography 1953 FIT DNA/Cologuard 1953 FIT 1953 FOBT 1953 Sigmoidoscopy 1953 Diabetes: Foot Exam 08/27/1963 Alcohol/Substance Use Screening 1965 Hepatitis C Screening 08/27/1971 Hepatitis A Vaccines (1 of 2 - Risk 2-dose series) 1972 Dental X-Ray: Bitewings 11/11/2009 11/10/2008 Dental Prophylaxis 07/02/2011 12/29/2010 Zoster Vaccines (3 of 3) 12/13/2021 10/18/2021, 12/0 01/2015 Lipid Panel 09/01/2023 08/31/2022, 08/0 09/2020, 08/24/2020, Additional history exists DTaP/Tdap/Td Vaccines (2 - Td or Tdap) 01/31/2024 01/30/2014, 01/01/2009 SDOH Screening 09/21/2024 09/22/2023 Diabetes: Urine Protein Screening 10/12/2024 10/13/2023, 08/31/2022, 07/22/2021, Additional history exists Depression Screening 02/05/2025 02/06/2024, 02/06/20 COVID-19 Vaccine ( season) 2025 06/15/2021, 09/04/2020, 08/07/2020 Influenza Vaccine (#1) 2025 , 08/30/2022, 07/23/2021, Additional history exists Diabetes: Hemoglobin A1C 04/04/2025 025, 07/10/2024, 02/06/2024, Additional history exists Dental Oral Exam 05/03/2025 10/30/2024, , 10/06/2017, Additional history exists Mammogram 07/27/2025 07/27/2023, 03/13, 03/31/2022, Additional history exists Eye Exam 01/27/2026 01/27/2025, 01/10, 01/27/2025, Additional history exists Tobacco Screening 02/18/2026 02/18/2025 Dental X-Ray: Full Mouth 03/29/2027 024, 05/23/2014, 11/10/2008 Colonoscopy 08/29/2029 08/29/2024, 02/06/2017 Colorectal Cancer Screening 08/29/2029 Hepatitis B Vaccines Completed 02/06/2012, 04/05/2011, 02/24/2011 Pneumococcal Vaccine: 50+ Years Completed 08/30/2022, 01/13/2021, 01/01/2009 RSV Patients and Patients Aged 60 years or older Completed 07/10/2024 HIB Vaccines Aged Out No longer eligi ble based on patient's age to complete this topic HPV Vaccines Aged Out No longer eligi ble based on patient's age to complete this topic IPV Vaccines Aged Out No longer eligi ble based on patient's age to complete this topic Meningococcal B Vaccine Aged Out No l onger eligible based on patient's age to complete [...] Result Component 10.7(01/03/20 9:56 AM EDT) No Puia Poly, PharmD Procedures Procedure Name Priority Date/Time Associated Diagnosis Comments URINALYSIS, COMPLETE, WITH REFLEX TO CULTURE Routine 03/10/2025 11:26 AM EDT HIGH SENSITIVITY TROPONIN I Routine 03/10/2025 10:38 AM EDT MAGNESIUM Routine 03/10/2025 10:38 AM EDT COMPREHENSIVE METABOLIC PANEL Routine 03/10/2025 10:38 AM EDT CBC WITH AUTO DIFFERENTIAL Routine 03/10/2025 10:38 AM EDT OCT, RETINA - OU - BOTH EYES Routine 01/27/2025 2:00 PM EDT Moderate nonproliferative diabetic retinopathy of both eyes with macular edema associated with type 2 diabetes mellitus (CMS/HCC) HIGH SENSITIVITY TROPONIN I Routine 01/09/2025 3:43 AM EDT LIPASE Routine 01/09/2025 3:43 AM EDT COMPREHENSIVE METABOLIC PANEL, FASTING Routine 01/09/2025 3:43 AM EDT CBC WITH AUTO DIFFERENTIAL Routine 01/09/2025 3:43 AM EDT POCT GLYCATED HEMOGLOBIN, TOTAL Routine 01/02/2025 9:56 AM EDT Type 2 diabetes mellitus treated with insulin ([facility]/HCC) POCT GLUCOSE Routine 01/02/2025 9:56 AM EDT Type 2 diabetes mellitus treated with insulin ([facility]) US RENAL COMPLETE Routine 12/25/2024 1:4 7 PM EDT PERIODIC ORAL EVALUATION - ESTABLISHED PATIENT Routine 10/30/2024 3:30 PM EDT HM COLONOSCOPY Routine 08/29/2024 1:41 PM EDT PANORAMIC RADIOGRAPHIC IMAGE Routine 03/28/2024 2:30 PM EDT ALBUMIN, RANDOM URINE W/CREATININE Routine 10/13/2023 8:56 AM EDT BI MAMMOGRAM SCREENING TOMOSYNTHESIS BILATERAL Routine 07/27/2023 12:51 PM EST LIPID PANEL, STANDARD Routine 08/31/2022 8:32 AM EDT 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, without long-term current use of insulin, macular edema presence unspecified ([facility]) PROPHYLAXIS - ADULT Routine 12/29/2010 1 2:00 AM EDT INTRAORAL - COMPLETE SERIES OF RADIOGRAPHIC IMAGES Routine 11/10/2008 12:00 AM EDT from Last 3 Months or Most Recently Relevant to Health Maintenance Results * (ABNORMAL) Urinalysis, Complete, with Reflex to Culture (03/10/2025 11:26 AM EDT) Color Urine Yellow [facility] Appearance Urine Clear [facility] PH 5.5 5.0 - 9.0 [facility] Glucose Urine UA Negative Negative mg/dL [facility] Urine Blood Moderate (2+)(A) Negative [facility] Specific [place] - Urine 1.025 1.005 - 1.025 [facility] Urine Protein Trace Neg-Trace mg/dL [facility] Urine Ketones 15 Negative mg/dL [facility] Nitrite Urine Negative Negative [facility] Leukocyte Esterase Urine Small (1+)(A) Negative [facility] RBC Urine 11-20(A) 0 - 2 /HPF [facility] Urine WBC 0-5 0 - 5 /HPF [facility] Urine Squamous Epithelial Cell 6-10 0 - 2 /HPF [facility] Urine Bacteria 1+ None Seen [facility] Hyaline Casts, Urine >20 0 - 2 /LPF [facility] 03/10/2025 11:2 6 AM EDT 03/10/2025 11:29 AM EDT Narrative [facility] - 03/10/2025 12:01 PM EDT [id number], Clean Catch Generic External Data Provider LAB URINE ORDERAB LES Final Result [facility] [address] [place] [phone] * High Sensitivity Troponin I (03/10/2025 10:38 AM EDT) Only the most recent of2 resultswithin the time period is included. TROPONIN I HIGH SENSITIVITY <2.7 <3.5 - 17.0 ng/L [facility] Comment:The [place] high sens itivity Troponin-I results should beused in conjunction with other diagnostic information suchas ECG, clinical observations and information, and patientsymptoms to aid in the diagnosis of GA. 03/10/2025 10:3 8 AM EDT 03/10/2025 10:40 AM EDT us Generic External Data Provider LAB BLOOD ORDERAB LES Final Result [facility] [address], [place] [phone] * (ABNORMAL) CBC auto differential (03/10/2025 10:38 AM EDT) Only the most recent of2 resultswithin the time period is included. White Blood Count 6.3 4.8 - 10.8 X10*3/uL [facility] Red Blood Count 4.07(L) 4.20 - 5.50 X10*6/uL [facility] Hemoglobin 12.7 12.0 - 16.0 g/dl [facility] Hematocrit 37.3 37.0 - 47.0 % [facility] Mean Corpuscular Volume 91.6 80.0 - 98.0 fL [facility] Mean Corpuscular Hemoglobin 31.2 27.0 - 33.0 pg [facility] Mean Corpuscular HGB Conc 34.0 31.0 - 35.0 g/dl [facility] Red Cell Distribution Width 11.9 11.0 - 16.0 % [facility] Platelet Count 288 160 - 400 X10*3/uL [facility] Mean Platelet Volume 9.5 9.4 - 12.3 fL [facility] Neutrophils Percent Auto 58.3 45 - 73 % [facility] Imm Gran Pct Auto 0.3 0.0 - 0.4 % [facility] Lymphocytes Percent Auto 29.9 20 - 40 % [facility] Monocytes Percent Auto 8.0 2 - 11 % [facility] Eosinophils Percent Auto 2.9 0 - 4 % [facility] Basophils Percent Auto 0.6 0 - 2 % [facility] NRBC Pct Auto 0.0 0.0 - 0.2 /100WBC [facility] Neutrophils Absolute Auto 3.7 2.0 - 8.3 x10*3/uL [facility] Imm Gran Abs Auto 0.02 0.00 - 0.03 X10*3/uL [facility] Lymphocytes Absolute Auto 1.9 1.2 - 4.9 X10*3/uL [facility] Monocytes Absolute Auto 0.5 0.1 - 1.2 X10*3/uL [facility] Eosinophils Absolute Auto 0.2 0.0 - 0.4 X10*3/uL [facility] Basophils Absolute Auto 0.0 0.0 - 0.2 X10*3/uL [facility] NRBC Abs Auto 0.000 0.0 - 0.012 X10*3/uL [facility] 03/10/2025 10:3 8 AM EDT 03/10/2025 10:40 AM EDT Generic External Data Provider LAB BLOOD ORDERAB LES Final Result Performing Organization Address [facility]/ZIP Co de Phone Number [facility] [address] [place] [phone] * Magnesium (03/10/2025 10:38 AM EDT) Pathologist [facility] [place] Magnesium 2.0 1.6 - 2.6 mg/dL [facility] 03/10/2025 10:3 8 AM EDT 03/10/2025 10:40 AM EDT Generic External Data Provider LAB BLOOD ORDERAB LES Final Result Performing Organization Address [facility]/ZIP Co de Phone Number [facility] [address] [place] [phone] * (ABNORMAL) Comprehensive Metabolic Panel (03/10/2025 10:38 AM EDT) Pathologist [facility] [place] Sodium 142 135 - 145 mmol/L [facility] Potassium 3.9 3.3 - 5.1 mmol/L [facility] Chloride 109(H) 96 - 108 mmol/L [facility] Carbon Dioxide 26 22 - 29 mmol/L [facility] Anion Gap 11(L) 12 - 20 [facility] Urea Nitrogen (BUN) 11 9 - 16 mg/dL [facility] Creatinine, Serum 0.73 0.5 - 1.4 mg/dL [facility] Creatinine Clr Calc Pharmacy 68.3 [facility] Comment:Provided height and weight: 160.02 cm,74.4 kg.eGFR (calculated from the MDRD study equation) and eCrCl(calculated from the Cockcroft-Gault equation) are based ondifferent parameters and may not yield comparable results.If eCrCl result is absurd, please check patient'sheight/weight. Estimated Glomerular Filt Rate >60 [facility] Comment:Chronic Kidney Disea se: Estimated GFR < 60 mL/min/1.27a1Sadqod Kidney Disease: Estimated GFR < 15 mL/min/1.73m2 Glucose 116(H) 60 - 115 mg/dL [facility] Calcium 9.4 8.4 - 10.2 mg/dL [facility] Bilirubin, Total 0.4 0.0 - 1.0 mg/dL [facility] Aspartate Amino Transferase 25 5 - 31 U/L [facility] Alanine Aminotransferase 18 0 - 31 U/L [facility] Total Protein 7.2 6.5 - 8.0 g/dL [facility] Albumin Level 4.3 3.5 - 5.0 g/dL [facility] Alkaline Phosphatase 66 39 - 117 U/L [facility] 03/10/2025 10:3 8 AM EDT 03/10/2025 10:40 AM EDT us Generic External Data Provider LAB BLOOD ORDERAB LES Final Result [facility] [address] [place] [phone] * OCT, Retina - OU - Both Eyes (01/27/2025 2:00 PM EDT) Narrative Gina Garibay, OD - 02/19/2025 1:07 PM EDT Images from the original result were not included. OCT [facility] Optical Coherence Tomography Interpretation Report Measurements: OD OS Macula Thickness 412 microns 309 microns Test findings: OD: Tenting of fovea secondary to significant cystic macular edema throughout the macula, significant intraretinal exudates present throughout the macula, no retinal pigment epithelium disruption, no subretinal fluid. OS: Tenting of fovea secondary to significant cystic macular edema just inferotemporal to fovea, a few intraretinal exudates present throughout the macula, no retinal pigment epithelium disruption, no subretinal fluid. Impression and Plan: Moderate-severe non-proliferative diabetic retinopathy (NPDR) in both eyes with macular edema in both eyes, worse in the right eye. Patient educated further evaluation and treatment is needed by a retinal specialist. Will. Refer back to Dr. Wolf. Will monitor here in 6 months as well. us Gina Garibay OD OPHTH TOMOGRAPHY Final Result * (ABNORMAL) Comprehensive Metabolic Panel, Fasting (01/09/2025 3:43 AM EDT) Sodium 140 135 - 145 mmol/L [facility] Potassium 4.6 3.3 - 5.1 mmol/L [facility] Chloride 105 96 - 108 mmol/L [facility] Carbon Dioxide 28 22 - 29 mmol/L [facility] Anion Gap 12 12 - 20 [facility] Urea Nitrogen (BUN) 18(H) 9 - 16 mg/dL [facility] Creatinine, Serum 0.82 0.5 - 1.4 mg/dL [facility] Creatinine Clr Calc Pharmacy 64.6 [facility] Comment:Provided height and weight: 165.1 cm,77.1 kg.eGFR (calculated from the MDRD study equation) and eCrCl(calculated from the Cockcroft-Gault equation) are based ondifferent parameters and may not yield comparable results.If eCrCl result is absurd, please check patient'sheight/weight. Estimated Glomerular Filt Rate >60 [facility] Comment:Chronic Kidney Disea se: Estimated GFR < 60 mL/min/1.45b1Iidimr Kidney Disease: Estimated GFR < 15 mL/min/1.73m2 Glucose Fasting 179(H) 60 - 99 mg/dL [facility] Comment:A fasting glucose of 126 mg/dl or greater on more than oneoccasion is considered diagnostic of diabetes. Calcium 8.9 8.4 - 10.2 mg/dL [facility] Bilirubin, Total 0.3 0.0 - 1.0 mg/dL [facility] Aspartate Amino Transferase 19 5 - 31 U/L [facility] Alanine Aminotransferase 14 0 - 31 U/L [facility] Total Protein 6.8 6.5 - 8.0 g/dL [facility] Albumin Level 4.0 3.5 - 5.0 g/dL [facility] Alkaline Phosphatase 109 39 - 117 U/L [facility] 01/09/2025 3:43 AM EDT 01/09/2025 3:47 AM EDT us Generic External Data Provider LAB BLOOD ORDERAB LES Final Result Performing Organization Address City/[facility]/ZIP Co de Phone Number [facility] [address] [place] [phone] * Lipase (01/09/2025 3:43 AM EDT) Lipase 42 8 - 78 U/L [facility] 01/09/2025 3:43 AM EDT 01/09/2025 3:47 AM EDT Generic External Data Provider LAB BLOOD ORDERAB LES Final Result Performing Organization Address [facility] Co de Phone Number [facility] [address] [place] [phone] * (ABNORMAL) POCT A1C (01/02/2025 9:56 AM EDT) Pathologist [facility] Hemoglobin A1C 10.7(A) 4.0 - 5.7 % Blood 01/02/2025 9:56 AM EDT us Jeronimo Zavala MD POINT OF CARE TEST ENTER/EDIT OR DERABLES Final Result * (ABNORMAL) POCT glucose manually resulted (01/02/2025 9:56 AM EDT) Glucose Blood, POC 258(A) 60 - 200 mg/dL Blood Capillary blood specimen / Unknown 01/02/2025 9:56 AM EDT us Jeronimo Zavala MD POINT OF CARE TEST ENTER/EDIT OR DERABLES Final Result * US Renal Complete (12/25/2024 1:47 PM EDT) Anatomical Region Laterality Modality Kidney Ultrasound 12/25/2024 1:47 PM EDT Narrative 12/25/2024 2:21 PM EDT [address] [address] Ultrasound Report Signed Patient: Violetta Camarillo MR#: [id number] : 1955 Acct:[id number] Age/Sex: 69 / F ADM Date: 12/25/24 Loc: .US Attending Dr: Glenna Jett DO Ordering Physician: Glenna Jett DO Date of Service: 12/25/24 Procedure(s): US renal BI Accession Number(s): [id number] cc: Glenna Jett DO EXAMINATION: US RETROPERITONEAL LIMITED (RENAL ONLY) CLINICAL INFORMATION: Bilateral flank pain, microhematuria, evaluate for renal calculi. COMPARISON: None available. Correlation made with CT abdomen and pelvis 12/23/2023. TECHNIQUE: Real-time imaging of the kidneys. FINDINGS: RIGHT KIDNEY: 12.4 x 4.9 x 5.7 cm (SAG x AP x TRV). The kidney is normal in size, contour, and echogenicity. Renal cortical thickness is normal. No calculi or suspicious focal parenchymal lesions. No hydronephrosis. LEFT KIDNEY: 10.9 x 5.3 x 3.9 cm (SAG x AP x TRV). The kidney is normal in size, contour, and echogenicity. Renal cortical thickness is normal. No calculi or suspicious focal parenchymal lesions. No hydronephrosis. There is an upper pole simple cyst measuring 2.2 x 1.9 x 2.2 cm. US/US renal BI IMPRESSION: 1. Kidneys demonstrating no evidence of hydronephrosis, calculus, or mass. 2. Left upper pole simple cyst measuring 2.2 cm. Electronically signed by: Abelardo Krishnan MD 12/25/2024 02:18 PM EDT Dictated By: Abelardo Krishnan MD Signed By: <Electronically signed by Abelardo Krishnan MD in OV> 12/25/24 1418 DD/ 1347 TD/TT: 12/25/24 1404 Elevator Operator: Procedure Note Donotuseinterpreter, Image - 12/25/[address] [address] Ultrasound Report Signed Patient: Violetta CamarilloMR#: [id number] : 4Acct:[id number] Age/Sex: 69 / FADM Date: 12/25/24 Loc: HO.US Attending Dr: Glenna Jett DO Ordering Physician: Glenna Jett DO Date of Service: 12/25/24 Procedure(s): US renal BI Accession Number(s): [id number] cc: Glenna Jett DO EXAMINATION: US RETROPERITONEAL LIMITED (RENAL ONLY) CLINICAL INFORMATION: Bilateral flank pain, microhematuria, evaluate for renal calculi. COMPARISON: None available. Correlation made with CT abdomen and pelvis 12/23/2023. TECHNIQUE: Real-time imaging of the kidneys. FINDINGS: RIGHT KIDNEY: 12.4 x 4.9 x 5.7 cm (SAG x AP x TRV). The kidney is normal in size, contour, and echogenicity. Renal cortical thickness is normal. No calculi or suspicious focal parenchymal lesions. No hydronephrosis. LEFT KIDNEY: 10.9 x 5.3 x 3.9 cm (SAG x AP x TRV). The kidney is normal in size, contour, and echogenicity. Renal cortical thickness is normal. No calculi or suspicious focal parenchymal lesions. No hydronephrosis. There is an upper pole simple cyst measuring 2.2 x 1.9 x 2.2 cm. US/US renal BI IMPRESSION: 1. Kidneys demonstrating no evidence of hydronephrosis, calculus, or mass. 2. Left upper pole simple cyst measuring 2.2 cm. Electronically signed by: Abelardo Krishnan MD 12/25/2024 02:18 PM EDT RP Dictated By: Abelardo Krishnan MD Signed By: <Electronically signed by Abelardo Krishnan MD in OV> 12/25/24 1418 DD/ 1347 TD/TT: 12/25/24 1404 Elevator Operator: us Glenna Jett DO IMG US PROCEDURES Final Resu lt * Hm Colonoscopy (08/29/2024 1:41 PM EDT) Colonoscopy Normal Normal Narrative Ligia Gilman - 08/29/2024 1:41 PM EDT Repeat in 5 years ( see external hospital admission note on 08/29/2024 us Historical Provider HEALTH MAINTENANCE Edited Result - Final * Albumin, Random Urine W/Creatinine (10/13/2023 8:56 AM EDT) Creatinine, Urine 120.87 mg/dL [facility] Microalbumin Urine 10.0 mg/L [facility] Microalbum Creatinine Ratio Ur 8.2 <30 ug/mg cr [facility] Comment:Albumin/Creatinine R atio Reference Ranges: Normal: < 30 ug/mg creatinine Microalbuminuria: 30 - 300 ug/mg creatinineClinical Albuminuria: > 300 ug/mg creatinine 10/13/2023 8:56 AM EDT 10/13/2023 11:21 AM EDT us Glenna Jett DO LAB URINE ORDERABLES Final R esult [facility] [address] [place] [phone] * BI Mammogram Screening Tomosynthesis Bilateral (07/27/2023 12:51 PM EST) Anatomical Region Laterality Modality Breast Bilateral Mammography 07/27/2023 12:5 1 PM EST Narrative 08/20/2023 8:14 AM EDT [address] [place] [address] Mammography Report Signed Patient: Violetta Camarillo MR#: [id number] : 1955 Acct:[id number] Age/Sex: 67 / F ADM Date: 07/27/23 Loc: HO.MAMMO Attending Dr: Glenna Jett DO Ordering Physician: Glenna Jett DO Results: 1N egative Date of Service: 07/27/23 Follow Up: 1 Year From Orig inal Mammogram Procedure(s): MM tomosynthesis screening BI Accession Number(s): [id number] cc: Glenna Jett DO EXAMINATION: MM SCREENING [...] in OV> 08/20/23 0810 DD/ 1251 TD/TT: Elevator Operator: Procedure Note Donotuseinterpreter, Image - 08/20/[address] [place] [address] Mammography Report Signed Patient: Violetta CamarilloMR#: [id number] : 1955cct:[id number] Age/Sex: 67 / FADM Date: 07/27/23 Loc: HO.MAMMO Attending Dr: Glenna Jett DO Ordering Physician: Glenna Jettults: 1N egative Date of Service: 07/27/23Follow Up: 1 Year From Orig ina Mammogram Procedure(s): MM tomosynthesis screening BI Accession Number(s): [id number] cc: Glenna Jett DO EXAMINATION: MM SCREENING [...] in OV> 08/20/23 0810 DD/ 1251 TD/TT: Elevator Operator: us Glenna Jett DO IMG BI PROCEDURES Edited Res ult - Final * Lipid Panel, Standard (08/31/2022 8:32 AM EDT) Cholesterol, Total 165 <200 mg/dL [employer] [place] [employer] [place] [employer] HDL Cholesterol 62 > OR = 50 mg/dL [employer] [place] [employer] [place] [employer] Triglycerides 135 <150 mg/dL [employer] [place] [employer] LDL Cholesterol 80 mg/dL (calc) [employer] [place] [employer] [place] [employer] Comment: Reference range: <100 Desirable range <100 mg/dL for primary prevention; <70 mg/dL for patients with CHD or diabetic patients with > or = 2 CHD risk factors. LDL-C is now calculated using the Sanjana calculation, which is a validated novel method providing better accuracy than the Friedewald equation in the estimation of LDL-C. Bandar KOROMA et al. COLBY. 2013;310(19): 5698-8252 (http://education.[employer]/faq/IQL033) Chol/HDLC Ratio 2.7 <5.0 (calc) [employer] Non-HDL Cholesterol 103 <130 mg/dL (calc) [employer] Comment: For patients with diabetes plus 1 major ASCVD risk factor, treating to a non-HDL-C goal of <100 mg/dL (LDL-C of <70 mg/dL) is considered a therapeutic option. Blood Venous blood specimen / Unknown 08/31/2022 8:32 AM EDT 08/31/2022 8:32 AM EDT Narrative [facility] - 09/03/2022 7:08 PM EDT FASTING:YES FASTING: YES Glenna Jett DO LAB BLOOD ORDERABLES Final R esult [facility] [address], [place] [phone] [employer] [place] [employer] [address] [place] [phone] from Last 3 Months or Most Recently Relevant to Health Maintenance Insurance [facility] OPTIONS (HMO D-SNP) Advance Directives Documents on File Type Date Recorded Patient Locum [employer]ens Expl anation Advance Directives and Livin g Will 04/26/2024 2:20 PM HCP Care Teams Pulp Roller Relationship Specialty Start Date End Date Glenna Jett DO [address] [place] [address] PCP - General Family Medicine 05/24/12 Poly Diaz PharmD [address] [place] [address] Pharmacist Internal Medicine 07/04/23
--- OUTSIDE RECORDS SUMMARY | 2025-03-10 12:36 | XMS_ITS | Encounter Summary ---
Author Organization [employer] Address [address] [place] [address] Care Team Providers Care Instructional Systems Designer Name Role Phone Glenna Jett DO Primary Care Provider [phone] Poly Diaz PharmD Unavailable [phone] Encounter Details Date Type Department Care Team ([facility] st Contact Info) Description 09/03/2024 Orders Only [facility]S [address] [place], [place] [phone] Provider, MD Marylin Social History Tobacco Use [...] t he electric, gas, oil or water [employer] threatened to shut off services in your [...] Info) Description 03/21/2025 9:30 AM EDT Telemedicine [facility] MEDICINE [address] [place] [address] Padmaja Andesron RN 04/07/2025 11:30 AM EDT Medication Management [facility] MEDICINE [address] [place] [address] Puia, Poly, PharmD [address] [place] [address] 07/30/2025 10:00 AM EST Office Visit [facility] OPTOMETRY [address] [place] [address] Phoenix, Gina, OD [address] [place] [address] documented as of this encounter Goals Goal [...] EDT documented in this encounter Results * Colonoscopy (08/29/2024 1:41 PM EDT) Colonoscopy Normal [...] documented as of this encounter Care Teams Instructional Systems Designer Relationship Specialty Start Date End Date Glenna Jett DO [address] [place] [address] PCP - General Family Medicine 05/24/12 Poly Diaz PharmD [address] [place] [address] Pharmacist Internal Medicine 07/04/23 documented as of this encounter
[2025-03-10 13:19] VITALS: BP 143/68; PULSE 76; RESP 18; O2SAT 99
[2025-03-10 13:54] VITALS: BP 143/68; PULSE 76; RESP 18; TEMP -17.7; TEMP 0; O2SAT 99
== END 2025-03-10 13:55 | disposition home or self-care (01) ==
PROVIDERS: Physician Assistant Medical; Emergency Provider Emergency Medicine; PCP Family Medicine
DX: R10.2 Pelvic and perineal pain (principal); R10.12 Left upper quadrant pain; R10.13 Epigastric pain; R07.89 Other chest pain; Z79.899 Other long term (current) drug therapy
CPT/HCPCS: 36415; 74177; 80053; 81001; 83735; 84484; 85025; 87086; 93005; 99285; Q9967

== ENCOUNTER → 2025-03-10 10:03 | Outpatient (BNV) | payer OTHER, SELFPAY | PROVIDERS: Emergency Provider Emergency Medicine; PCP Family Medicine; Visit Provider Internal Medicine | DX: R10.12 Left upper quadrant pain (principal) | CPT/HCPCS: 93010 ==

== ENCOUNTER → 2025-03-10 10:32 | Outpatient (BNV) | payer OTHER, SELFPAY | PROVIDERS: Emergency Provider Emergency Medicine; PCP Family Medicine; Visit Provider Radiology Diagnostic Radiology | DX: K57.30 Diverticulosis of large intestine without perforation or abscess without bleeding (principal); K76.0 Fatty (change of) liver, not elsewhere classified | CPT/HCPCS: 74177 ==